=== PATIENT | female | born 1945 | race Caucasian/White ===

== ENCOUNTER → 2017-11-24 10:12 | Outpatient (CLI) | payer MEDICARE, OTHER, SELFPAY ==
[2017-11-24 12:35] LABS: Anion Gap 10 (5-15); Chloride 103 mmol/L (98-107); Potassium 3.2 mmol/L (3.5-5.1); Sodium Level 143 mmol/L (136-145); Thyroid Stim Hormone (TSH) 1.29 uIU/mL (0.358-3.74)
[2017-11-24 12:49] LABS: Vitamin B12 361 pg/mL (211-911)
[2017-11-26 03:47] LABS: Rapid Plasmin Reagin (RPR) NONREACTIVE (NONREACTIVE)
== END ==
PROVIDERS: Family Provider Family Medicine; PCP Family Medicine; Visit Provider Psychiatry & Neurology Neurology
DX: R41.3 Other amnesia (principal)
CPT/HCPCS: 36415; 80051; 82607; 84443; 86592

== ENCOUNTER → 2017-12-13 06:38 | Outpatient (CLI) | payer MEDICARE, OTHER, SELFPAY ==
--- NOTE | 2017-12-13 07:00 | PET_ITS ---
EXAMINATION: FDG PET BRAIN INDICATIONS: A 72-year-old female with history of cognitive impairment. COMPARISON EXAMINATION: None available. TECHNIQUE: Following the intravenous administration of 9.07 mCi of F-18 deoxyglucose via the left antecubital fossa, multiplanar image acquisitions of the brain obtained at 60 minutes post radiopharmaceutical administration reveal: SERUM GLUCOSE LEVEL: 98 mg/dl. HEIGHT: 60 inches. WEIGHT: 125 lbs FINDINGS: 1. Qualitative, visual analysis demonstrates decreased glucose metabolism defined in the bilateral parietal, left temporal and left frontal cerebral cortex. There is otherwise preserved and symmetric glucose metabolism noted in the remaining cerebral cortical and subcortical structures. PET/PET Brain Metabolic Eval IMPRESSION: 1. Decreased glucose concentration observed in the bilateral parietal, left temporal and frontal cerebral cortex is commensurate with cholinergic dysfunction, which in the absence of known cerebrovascular event likely is primary care sales representative of dementia, Alzheimer type. (Vinod, Molecular Imaging and Biology 4:239, 2004). Electronic Signature Sd Roque D.O. Electronically Signed: Sd Roque DO at 7:20 EDT Tel , Service support ,
== END ==
PROVIDERS: Family Provider Family Medicine; PCP Family Medicine; Visit Provider Psychiatry & Neurology Neurology
DX: R41.3 Other amnesia (principal)
CPT/HCPCS: 78608; A9552

== ENCOUNTER 2018-07-23 03:33 | Emergency (ER) | payer MEDICARE, OTHER, SELFPAY ==
[2018-07-23 03:34] VITALS: BP 137/115; PULSE 126; RESP 18; TEMP 35.9; O2SAT 99; BMI 24.4
[2018-07-23 04:33] VITALS: BP 155/108; PULSE 115; RESP 20; O2SAT 93
[2018-07-23] MEDS: Oxymetazoline 0.05% 1 SPRAY SPRAY.BTL 2 SPRAY NASAL (04:51)
--- NOTE | 2018-07-23 05:30 | ED.DCSUM_ITS ---
- ER Visit Summary Date of Service: 07/23/18 Chief Complaint: [] Nosebleed History of Present Illness: The patient is a 73 F developed a nosebleed yesterday morning for 30 minutes that went away. It came back this morning at 250. Left side greater than right. She is on a baby aspirin. She had a similar bleed last Wednesday that stopped on its own. She is never had this before. Physical Examination: [] Vital signs reviewed General: Well-nourished well-developed Head: Normocephalic atraumatic Eyes: Pupils equal round and reactive to light extraocular movements intact ENT: TMs clear no hemotympanum no trauma positive brisk nosebleed left greater than right Neck: Nontender full range of motion Cardiovascular: Regular cardia rhythm no murmurs normal S1-S2 Respiratory: No distress clear to auscultation bilaterally chest nontender Abdomen: Soft nontender nondistended normal bowel sounds no masses Back: Nontender no CVA tenderness Extremities: Nontender active range of motion ?4 extremities no trauma Skin: Normal color no trauma Neuro alert oriented cranial nerves II through XII intact normal strength sensation reflexes Test Results: [] Emergency Department Course and Treatment: [] Patient instructed to blow her nose. Afrin nasal spray instilled in the bilateral nares and pressure was held for almost 30 minutes. Continuing bleeding noted that was brisk. Rhino Rocket placed in the bilateral nares left first with still some bleeding on the right. Right one stayed in for approximately 45 minutes and then fell out. It was in about 90% of the way. The bleeding on the right stopped. The bleeding on the left stopped. She was watched in the department for extended period time with no rebleeding. She will follow-up with ENT in 48 hours Treatment Plan: [] Disposition: [] Impression: [] Left-sided nosebleed status post Rhino Rocket Right-sided nosebleed status post Rhino Rocket This note was generated with [employer] software. It may contain incorrect words, spelling, and punctuation that were not noted in review of the chart prior to signing ED Disposition - Plan for ED Patient: Referrals: Jed Wilcox MD [Primary Care Provider] -
--- NOTE | 2018-07-23 05:31 | DCINST.ED_ITS ---
ED Disposition - Plan for ED Patient: Disposition: Home or Assisted Living Instructions: Nosebleed Prescriptions: Hydrocodone Bitart/Apap 5-325 [[place] 5MG-325MG] 1 tab PO Q4H PRN PRN 2 Days #10 tab PRN Reason: Pain Referrals: Jed Wilcox MD [Primary Care Provider] - Jose Joseph MD [STAFF PHYSICIAN] -
[2018-07-23] MEDS: HYDROcodone Bitartrate/Apap 5/325 Tablet PO (05:42)
[2018-07-23 05:43] VITALS: BP 147/98; PULSE 110; O2SAT 96
== END 2018-07-23 05:46 | disposition home or self-care (01) ==
PROVIDERS: Emergency Provider Emergency Medicine; Family Provider Family Medicine; PCP Family Medicine
DX: R04.0 Epistaxis (principal); I10 Essential (primary) hypertension; K21.9 Gastro-esophageal reflux disease without esophagitis; Z79.82 Long term (current) use of aspirin
CPT/HCPCS: 30903; 99283; A4216

== ENCOUNTER 2020-08-05 12:01 | Outpatient (RCR) | payer MEDICARE, SELFPAY | END 2020-08-05 23:59 | LOC: IMMUN 12:01 | PROVIDERS: PCP Family Medicine; Visit Provider Family Medicine | DX: Z23 Encounter for immunization (principal) | CPT/HCPCS: 0011A; 0012A ==

== ENCOUNTER 2021-07-01 18:13 | Emergency (ER) | payer MEDICARE, OTHER, SELFPAY ==
[2021-07-01 18:14] VITALS: BP 114/88; PULSE 85; RESP 16; TEMP 36.6; O2SAT 100; BMI 24.4
--- NOTE | 2021-07-01 18:51 | CT_ITS ---
STUDY: CT Abdomen And Pelvis W/O Contrast Injection 07/01/2021 7:25 PM REASON FOR EXAM: Female, 76 years old. Frequent urination, lower back and abdominal pain. Left flank pain Individualized dose optimization techniques were used for this CT. COMPARISON: None. TECHNIQUE: CT Abdomen And Pelvis W/O Contrast Injection FINDINGS: There are atherosclerotic calcifications of visualized coronary arteries. The visualized portions of the heart are within normal limits. Normal liver. There is non-visualization of the gallbladder, which may be secondary to either contraction or a prior cholecystectomy. Normal spleen. Normal pancreas. There is a small, circumscribed, smooth, low attenuation left adrenal mass, consistent with an adrenal adenoma. Normal right adrenal gland. Non obstructive 1 to 2 mm right renal parenchymal stones. Moderate hydronephrosis caused by 7.1 mm proximal left ureteral stone. Normal visualized stomach. Normal small intestine. Stool throughout the colon. There is non-visualization of the appendix. There are calcifications of the abdominal aorta. This is consistent for atherosclerotic disease. There is no abdominal aortic aneurysm. Normal inferior vena cava. Subcentimeter mesenteric lymph nodes. Normal urinary bladder. Normal visualized uterus. There is an umbilical hernia containing fat. There are diffuse degenerative changes of the visualized lumbar spine. Vacuum disc phenomenon. There is bilateral neural foraminal stenosis at L5-S1. IMPRESSION: (NOT LISTED IN ORDER OF SIGNIFICANCE) Moderate hydronephrosis caused by 7.1 mm proximal left ureteral stone. Nonobstructive right renal stone. Other findings as above. Electronically Signed: Luis Rudolph MD at 19:28 EST , CT/Abdomen/Pelvis without Cont
--- NOTE | 2021-07-01 18:52 | EDS_ITS ---
HPI History of Present Illness Chief Complaint: Complaint Informant: patient and spouse/S.O. Onset/Context/Timing Onset: Today Context: Gradual Onset Timing: Continuous Location: Left upper and lower abdomen and left lumbar area and left flank area Worsened by: Nothing Relieved by: Nothing Narrative Narrative: Patient presents with urinary frequency, left-sided abdominal pain, and constipation that began today. Patient states she started urinating more frequently this afternoon. reports that she has been urinating approximately every 5 minutes. states that they went to the urgent care [facility] where they did a urinalysis which did not show any blood in her urine. states that when they were palpating her abdomen she was complaining of left-sided abdominal pain. states that they were concerned over possible diverticulitis or kidney stone because of this and referred the patient to the emergency department. Patient states her pain is mostly on the left side of her abdomen and left side of her back. [facility] Medical History (Updated 07/01/21 @ 20:[address] Jacky Morfin, DO) Alzheimer disease Home Medications Vitamin D3 1,000 unit PO DAILY 07/23/18 [History Last Taken Unknown] amlodipine 1 tab PO DAILY 07/23/18 [History Last Taken Unknown] calcium carbonate-vitamin D3 1 tab PO DAILY 07/23/18 [History Last Taken Unknown] cyanocobalamin (vitamin B-12) 1,000 mcg PO DAILY 07/23/18 [History Last Taken Unknown] multivitamin [Daily Multiple Vitamin] 1 ea PO DAILY 07/23/18 [History Last Taken Unknown] atorvastatin 20 mg PO DAILY 07/01/21 [History Last Taken Unknown] donepezil 23 mg PO DAILY 07/01/21 [History Last Taken Unknown] hydrocodone-acetaminophen 1 tab PO Q6H PRN PRN 3 Days #10 tablet 07/01/21 [Rx La st Taken Unknown] pantoprazole 40 mg PO DAILY 07/01/21 [History Last Taken Unknown] sertraline 25 mg PO DAILY 07/01/21 [History Last Taken Unknown] Allergy/AdvReac Type Severity Reaction Status Date / Time Calcium Channel Blocking Allergy PT UNSURE Verified 07/01/21 18:17 Agent Dilt OF REACTION doxepin [From Sinequan] Allergy PT UNSURE Verified 07/01/21 18:17 OF REACTION Surgical History (Updated 07/01/21 @ 18:[address] Jacky Morfin, DO) History of carpal tunnel surgery Hx of cholecystectomy Social History Smoking Status: Never smoker ROS ROS ED Constitutional Constitutional ED: Denies chills or fever(s) Eyes Eyes: Denies blurry vision or change in vision ENT ENT ED: Denies rhinorrhea or sore throat Cardiovascular Cardiovascular: Denies chest pain or palpitations Respiratory/Chest Respiratory/Chest: Denies cough or dyspnea Gastrointestinal Gastrointestinal: Reports abdominal pain; Denies nausea or vomiting Genitourinary Genitourinary ED: Reports urinary frequency; Denies dysuria or hematuria Musculoskeletal Musculoskeletal: Reports back pain; Denies neck pain Integumentary Denies abscess or rash Neurologic Neurologic: Denies headache(s) or weakness Allergic/Immunologic Allergic/Immunologic ED: Denies mouth swelling or urticaria EXAM Physical Exam Const Vital Signs: 07/01/21 18:14 Temperature 97.9 F Temperature Source Temporal Pulse Rate 85 Respiratory Rate 16 Blood Pressure 114/88 H Blood Pressure Mean 96 Pulse Ox 100 Oxygen Delivery Method Room Air Positive well nourished and well developed General Appearance ED: well developed HEENT Reports moist mucous membranes Neck supple and no JVD Resp normal respiratory effort and clear to auscultation bilaterally Cardio regular rate, regular rhythm and no murmurs GI normal to inspection, nondistended, normoactive bowel sounds and non-tender Palpation: soft Extremity normal to inspection General Extremety ED: Negative for edema or tenderness General Extremity: Negative for edema Neuro oriented x3, CN's II-XII intact bilaterally and no sensory deficits noted Sensorium / Orientation: alert Motor Exam: strength 5/5 throughout Psych mental status grossly normal Skin no rashes or lesions noted MDM MDM MDM Narrative Medical decision making narrative: Patient was given a dose of Magness here. CBC shows a mild leukocytosis of 16.7. Comprehensive metabolic profile shows potassium of 2.9. Creatinine is 1.22. Lipase was normal. Urinalysis does not show any evidence of urinary tract infection. CT scan of the abdomen and pelvis was obtained. There is a 7.1 mm calculus of the left proximal ureter with moderate hydronephrosis. There is a nonobstructive right renal stone. There is no other acute abnormality noted. Patient was also given a dose of potassium here. Patient was given a prescription for a short course of Magness. Patient was instructed to drink plenty of fluids. Patient was given a referral for urology. Patient was instructed to follow-up in 3 to 5 days. Patient and family understood and were agreeable with the plan. All questions were answered. Lab Data Attestation: I reviewed the patient's lab results. Labs: Laboratory Results - last 24 hr 07/01/21 07/01/21 07/01/21 18:35 19:10 19:10 WBC 16.7 H RBC 4.70 Hgb 14.1 Hct 43.9 MCV 93.4 MCH 30.0 MCHC 32.1 RDW Std Deviation 49.4 H RDW Coeff of Matt 14.2 Plt Count 307 MPV 9.0 Immature Gran % (Auto) 0.400 Neut % (Auto) 88.1 H Lymph % (Auto) 6.4 L [place] % (Auto) 4.5 Eos % (Auto) 0.2 Baso % (Auto) 0.4 Absolute Neuts (auto) 14.7 H Absolute Lymphs (auto) 1.06 Nucleated RBC % 0 Sodium 138 Potassium 2.9 L Chloride 99 Carbon Dioxide 32.0 Anion Gap 7 BUN 13 Creatinine 1.22 H Estim Creat Clear Calc 34.52 Est GFR (MDRD) Af Amer 55 L Est GFR (MDRD) Non-Af 46 L BUN/Creatinine Ratio 10.7 Glucose 130 H Calcium 10.0 Total Bilirubin 0.60 AST 22 ALT 33 Alkaline Phosphatase 83 Total Protein 7.3 Albumin 3.8 Globulin 3.5 Albumin/Globulin Ratio 1.1 Lipase 106 Urine Color Yellow Urine Clarity Clear Urine pH 6.0 Ur Specific Hurricane 1.025 Urine Protein 15 H Urine Glucose (UA) Normal Urine Ketones Negative Urine Occult Blood 25 H Urine Nitrite Negative Urine Bilirubin Negative Urine Urobilinogen Normal Ur Leukocyte Esterase Negative Urine RBC 0 SEEN Urine WBC 0 SEEN Ur Squamous Epith Cells 0 SEEN Calcium Oxalate Crystal 1+ Urine Bacteria 0 SEEN Urine Mucus 0 SEEN Radiography Diagnostic Testing: Clinical Impression(s) from Imaging Studies Abdomen/Pelvis CT 07/01/21 18:51 Discharge Plan Triage Chief Complaint: Complaint ED Provider: Jacky Morfin Dx/Rx/DC Orders Clinical Impression: Calculus of proximal left ureter Instructions: ED Kidney Stone w/ Colic Prescriptions: New hydrocodone-acetaminophen [hydrocodone-acetaminophen] 1 TABLET tablet 1 tab PO Q6H PRN PRN (Reason: Pain) 3 Days Qty: 10 RF: 0 No Action multivitamin [Daily Multiple] 1 EACH tablet 1 ea PO DAILY RF: 0 amlodipine 5 MG tablet 1 tab PO DAILY RF: 0 calcium carbonate-vitamin D3 1 EACH tablet 1 tab PO DAILY RF: 0 cyanocobalamin (vitamin B-12) 1,000 MCG capsule 1,000 mcg PO DAILY RF: 0 Vitamin D3 1,000 unit PO DAILY RF: 0 atorvastatin 20 mg tablet 20 mg PO DAILY RF: 0 pantoprazole 40 mg tablet,delayed release (DR/EC) 40 mg PO DAILY RF: 0 sertraline 25 mg tablet 25 mg PO DAILY RF: 0 donepezil 23 mg tablet 23 mg PO DAILY RF: 0 Primary Care Provider: Jed Wilcox Referrals: Jed Wilcox MD [Primary Care Provider] - 5-7 Days Shalonda Davila MD [STAFF PHYSICIAN] - 3-5 Days Disposition Disposition: Home, Self Care
[2021-07-01 19:16] LABS: Absolute Lymphocyte Count 1.06 X10^3/uL (0.83-4.51); Absolute Neutrophil Count 14.7 X10^3/uL (2.0-7.7); Basophil# 0.06 X10^3/uL; Basophil% 0.4 % (0-1); Eosinophil# 0.03 X10^3/uL; Eosinophils% 0.2 % (0-5); Hematocrit 43.9 % (37-47); Hemoglobin 14.1 g/dL (12.0-15.0); Lymphocyte # 1.06 X10^3/ul (0.83-4.51); Lymphocyte % 6.4 % (19-41); Mean Corp Hgb Conc 32.1 g/dL (32-36); Mean Corpuscular Volume 93.4 fL (81-99); Monocyte# 0.75 X10^3/uL; Monocyte% 4.5 % (0-10); NRBC Flagged by Analyzer 0 % (0-5); Neutrophil # 14.72 X10^3/uL (2.7-7.7); Neutrophil % 88.1 % (47-70); Platelet Count 307 K/mm3 (150-450); RBC Distribution Width CV 14.2 % (11.6-14.6); RBC Distribution Width SD 49.4 fl (35.1-43.9); White Blood Count 16.7 K/mm3 (4.4-11.0)
[2021-07-01 19:35] LABS: Bacteria 0 SEEN /hpf (None Seen); Mucous, Urine 0 SEEN /hpf (<or=2+); Red Blood Cells-Urine 0 SEEN /hpf (0-5); Squamous Epithelial Cells - UA 0 SEEN /hpf (5-10); White Blood Cells 0 SEEN /hpf (0-5)
[2021-07-01 19:36] LABS: Color, Urine Yellow (Yellow); Glucose, Dipstick Normal (Normal); Ketone-Dipstick Negative (Negative); Leukocyte Esterase-Dipstick Negative /ul (Negative); Nitrite-Dipstick Negative (Negative); Occult Blood-Urine 25 /ul (Negative); Protein-Dipstick 15 mg/dl (Negative); Specific Gravity, Urine 1.025 (1.002-1.030); Urine Bilirubin Dipstick Negative (Negative); Urine Clarity Clear (Clear); Urine Urobilinogen Normal (Normal)
[2021-07-01 19:38] LABS: ALB/GLOB Ratio 1.1 RATIO (0.9-2.4); AST(SGOT) 22 U/L (15-37); Alanine Aminotransfer ALT/SGPT 33 U/L (13-56); Albumin, Serum 3.8 g/dL (3.2-5.0); Alkaline Phosphatase 83 U/L (45-117); Anion Gap 7 (5-15); BUN 13 mg/dL (7-18); BUN/Creat Ratio 10.7 RATIO (10-20); Chloride 99 mmol/L (98-107); Creatinine, Serum 1.22 mg/dL (0.55-1.02); EST Glomerular Filtration Rate 46 mL/min (>60); Est Glom Filt Rate - Afr Amer 55 mL/min (>60); Estimated Creatinine Clearance 34.52 ml/min; Globulin 3.5 g/dL (2.2-4.2); Glucose 130 mg/dL (74-106); Lipase 106 U/L (73-393); Potassium 2.9 mmol/L (3.5-5.1); Protein, Total 7.3 g/dL (6.4-8.2); Sodium Level 138 mmol/L (136-145)
[2021-07-01 19:54] LABS: Calcium Oxalate Crystals Ur 1+ /hpf (<or=2+)
[2021-07-01] MEDS: Potassium Chloride Oral Tablet 20 MEQ 40 MEQ PO (20:46)
== END 2021-07-01 21:53 | disposition home or self-care (01) ==
PROVIDERS: Emergency Provider Emergency Medicine; PCP Family Medicine; Visit Provider Emergency Medicine
DX: N13.2 Hydronephrosis with renal and ureteral calculous obstruction (principal); G30.9 Alzheimer's disease, unspecified; F02.80 Dementia in other diseases classified elsewhere, unspecified severity, without behavioral disturbance, psychotic disturbance, mood disturbance, and anxiety; E87.6 Hypokalemia
CPT/HCPCS: 74176; 80053; 81001; 83690; 85025; 99284; A4216

== ENCOUNTER 2021-07-04 15:19 | Day surgery (SDC) | payer MEDICARE, OTHER, SELFPAY ==
[2021-07-04] VITALS (7 sets, daily range): BP systolic 121–159; BP diastolic 69–100; PULSE 76–113; RESP 16; TEMP 36.1–37.8; O2SAT 92–98; BMI 24.0
--- NOTE | 2021-07-04 15:09 | RAD_ITS ---
STUDY: X-RAY - ABDOMEN/PELVIS REASON FOR EXAM: Female, 76 years old. Preop for lithotripsy TECHNIQUE: Two AP supine views of the abdomen and pelvis. COMPARISON: CT from 07/01/2021 FINDINGS: Normal visualized lung bases. There is a moderate amount of colonic fecal material. There is no demonstrated free abdominal air. The visualized liver, spleen and kidneys are grossly normal in size and morphology. Stable 1.02 cm calcification shown on the previous CT to be within the proximal left ureter. Normal soft tissue structures. There are diffuse degenerative changes of the visualized lumbar spine. RAD/Abdomen Single View IMPRESSION: Stable left ureterolithiasis Electronically Signed: Brijesh Verdugo MD at 16:30 EST ,
[2021-07-04] MEDS: Lactated Ringers 1,000 ML 15 ML IV (16:04)
[2021-07-04 16:28] LABS: Potassium 3.2 mmol/L (3.5-5.1)
[2021-07-04] MEDS: Cefazolin 2 GM in 0.9% Normal Saline 100 ML IV (17:14)
--- NOTE | 2021-07-04 17:35 | PCM.HP.STD ---
HPI - General HPI Narrative ASHER LEES, is a 76 F who presents for treatment of a left kidney stone PFSH Medical History (Updated 07/03/21 @ 12:20 by Nae Adams) Alzheimer disease Gastric reflux Hypertension Home Medications Vitamin D3 1,000 unit PO DAILY 07/23/18 [History Last Taken Unknown] amlodipine 1 tab PO DAILY 07/23/18 [History Last Taken 07/04/21] calcium carbonate-vitamin D3 1 tab PO DAILY 07/23/18 [History Last Taken 07/04/21] cyanocobalamin (vitamin B-12) 1,000 mcg PO DAILY 07/23/18 [History Last Taken 07/04/21] multivitamin [Daily Multiple] 1 ea PO DAILY 07/23/18 [History Last Taken 07/04/21] atorvastatin 20 mg PO DAILY 07/01/21 [History Last Taken Unknown] donepezil [Aricept] 23 mg PO DAILY 07/01/21 [History Last Taken Unknown] hydrocodone-acetaminophen 1 tab PO Q6H PRN PRN 3 Days #10 tablet 07/01/21 [Rx Last Taken 07/04/21] pantoprazole 40 mg PO DAILY 07/01/21 [History Last Taken 07/04/21] sertraline [Zoloft] 25 mg PO DAILY 07/01/21 [History Last Taken 07/04/21] cephalexin 500 mg PO BID #10 cap 07/04/21 [Rx Last Taken Unknown] Allergy/AdvReac Type Severity Reaction Status Date / Time Calcium Channel Blocking Allergy PT UNSURE Verified 07/04/21 15:57 Agent Dilt OF REACTION doxepin [From Sinequan] Allergy PT UNSURE Verified 07/04/21 15:57 OF REACTION Surgical History (Updated 07/01/21 @ 18:[address] Jacky Morfin DO) History of carpal tunnel surgery Hx of cholecystectomy Social History Smoking Status: Never smoker Vital Signs Vital Signs Vital Signs: 07/04/21 15:59 Temperature 97 F L Temperature Source Temporal Pulse Rate 113 H Respiratory Rate 16 Respiratory Pattern Normal Blood Pressure 121/77 H Blood Pressure Mean 91 Blood Pressure Source Monitor Blood Pressure Position Sitting Blood Pressure Location Left Arm Pulse Ox 98 Oxygen Delivery Method Room Air Weight Weight: 53.9 kg Body Mass Index (BMI) 24.0 Results Lab / Micro Data Result Diagrams: 07/04/21 15:56 Labs: Laboratory Results - last 24 hr 07/04/21 15:56: Potassium 3.2 L Radiology Impression KUB X-Ray 07/04/21 15:09 IMPRESSION: Stable left ureterolithiasis Electronically Signed: Brijesh Verdugo MD at 16:30 EST ,
--- NOTE | 2021-07-04 17:36 | DCINST_ITS ---
Discharge Instructions Diet Discharge Diet: No restrictions Activity Discharge Activity: Return to Normal Activity and May Not Drive (while taking narcotic pain medications.) Dressing / Incision Call your doctor if you observe: Fever of 101 or Higher Follow Up Care Please Follow Up With: Christian Aldana MD When: Call [phone] for an appointment Test Results: Test results from this visit will be discussed in further detail at your follow-up appointment, if applicable. Discharge Plan Admission Primary Reason for Your Visit: left kidney stone Attending Provider: Christian Aldana Primary Care Provider: Jed Wilcox Instructions Patient Instructions: Shock Wave Lithotripsy Discharge Orders/Prescriptions Prescriptions: New cephalexin 500 mg capsule 500 mg PO BID Qty: 10 RF: 0 Continued multivitamin [Daily Multiple] 1 EACH tablet 1 ea PO DAILY RF: 0 amlodipine 5 MG tablet 1 tab PO DAILY RF: 0 calcium carbonate-vitamin D3 1 EACH tablet 1 tab PO DAILY RF: 0 cyanocobalamin (vitamin B-12) 1,000 MCG capsule 1,000 mcg PO DAILY RF: 0 Vitamin D3 1,000 unit PO DAILY RF: 0 atorvastatin 20 mg tablet 20 mg PO DAILY RF: 0 pantoprazole 40 mg tablet,delayed release (DR/EC) 40 mg PO DAILY RF: 0 sertraline [Zoloft] 25 mg tablet 25 mg PO DAILY RF: 0 donepezil [Aricept] 23 mg tablet 23 mg PO DAILY RF: 0 hydrocodone-acetaminophen 1 TABLET tablet 1 tab PO Q6H PRN PRN (Reason: Pain) 3 Days Qty: 10 RF: 0 Other Ambulatory Orders: Abdomen Single View (Routine) Timeframe: [id number] Facility: [facility] - Location: [facility] Ordered By: Dr. Christian Aldana Referrals / Follow Up: Jed Wilcox MD [Primary Care Provider] - Christian Aldana MD [STAFF PHYSICIAN] - Disposition Disposition (needs filled in before D/C Order can be placed): Home, Self Care
--- NOTE | 2021-07-04 17:58 | PCM.OPRPT ---
Report of Operation Date of Procedure: 07/04/21 Pre-Operative Diagnosis: Left kidney stone Post-Operative Diagnosis: Same Surgery/Procedure Performed:: Left extracorporeal shockwave lithotripsy, cystoscopy and left stent placement Description of Surgical Findings:: Patient presents to the hospital for treatment of a kidney stone with shockwave lithotripsy. In the preoperative area and x-ray was done to confirm the location of the stone. The x-ray was reviewed and the stone location was reviewed. In the preoperative setting I spoke with the patient regarding the treatment of the stone how the treatment would be conducted and the expectations after surgery. The patient understands there is a risk of bleeding and infection. Also discussed the very rare risk of hematoma or damage to the kidney. We also discussed the risk that the shockwave machine will fail to break the stone adequately and that the patient may need other surgical procedures. We also discussed the possibility that the patient may need a stent after the procedure. After reviewing the procedure with the patient, the patient is signed the consent form all the patient's questions were addressed and was taken back to the operating room for treatment of a kidney stone. Patient was taken back to the operating room, patient was identified by the nursing staff, we identified the side of the treatment and the patient side of treatment had been marked by my initials. The patient underwent general anesthetic and was placed supine on the lithotripter table. We then used fluoroscopy to identify the stone on the left renal pelvis. The urethra and genitals were prepped and draped in usual sterile fashion. Using a 21 [place]ian rigid cystourethroscope the entire length of the urethra was normal then went into the bladder. Identified the trigone the left and right ureteral orifice. I then cannulated the left orifice and advanced a wire up into the kidney. I then backloaded a 5 [place]ian open ended catheter over the wire and injected contrast to delineate the anatomy. After the retrograde was performed I then used fluoroscopic images and guidance to advanced a wire up into the kidney and over the 0.038 glidewire I advanced a 6 Croatian by 26 cm double pigtail stent. I then pulled the 0.038 Glidewire off and the stent coiled in the kidney bladder good position. The bladder was then drained. We confirmed the position of the stent by fluoroscopy We then positioned the patient under the lithotripter and we used triangulation technique to identify the location of the stone and then we made sure that the stone was engaged in the F2 focal point of F2 Donier lithoprior machine. Once the patient was positioned appropriately and the stone was identified and placed in the F2 focal point of the lithotripter machine we then proceeded with shockwave lithotripsy. In the beginning the shockwave was delivered at a rate of 90 shocks per minute, we monitor the EKG for any ectopy. The power was slowly increased to 5 kV and subsequently at the 7 kV. We then proceeded with the treatment we move the therapy had around during the treatment to make sure the stone stayed in the F2 focal point during the entire treatment and after 3000 shockwaves were delivered to the stone under fluoroscopic guidance the treatment was completed. The patient was given instructions to call the office to make an a follow-up appointment with an xray to evaluate the success of the treatment, pateint understands that its possible the stones may need another procedure.At this point the patient's anesthetic was reversed patient was extubated and taken back to the PACU in stable condition. Surgeon: melissa Type of Anesthesia: General Drains: stent left side Admit VTE Documentation VTE Present on Admission: No VTE Mechan Device Prophylaxis: None VTE Pharm Prophylaxis ordered?: No
== END 2021-07-04 23:59 | disposition home or self-care (01) ==
LOC: SDC 15:26 → AC 15:27
PROVIDERS: Anesthesiology; PCP Family Medicine; Visit Provider Urology
PROC: (CPT 50590; principal; 2021-07-04 16:50)
DX: N20.0 Calculus of kidney (principal); G30.9 Alzheimer's disease, unspecified; F02.80 Dementia in other diseases classified elsewhere, unspecified severity, without behavioral disturbance, psychotic disturbance, mood disturbance, and anxiety; K21.9 Gastro-esophageal reflux disease without esophagitis; I10 Essential (primary) hypertension; Z79.899 Other long term (current) drug therapy
CPT/HCPCS: 52356; 00873; 74018; 84132; J7120; C1769; C2617; J2405

== ENCOUNTER 2021-07-08 10:37 | Outpatient (CLI) | payer MEDICARE, OTHER, SELFPAY ==
--- NOTE | 2021-07-08 10:45 | RAD_ITS ---
EXAM: XR ABDOMEN, 1 VIEW CLINICAL INDICATION: POST OP calculus of ureter TECHNIQUE: Frontal supine view of the abdomen/pelvis. This report was created using [employer] report generation technology. COMPARISON: 07.04.21 FINDINGS: LOWER THORAX: No acute pathology. GASTROINTESTINAL TRACT: Unremarkable. Non-obstructive. No bowel or stomach distention. ORGANS: Degenerative findings in the lumbar spine. There are calcified phleboliths in the pelvis. This makes differentiation with distal ureteral stones difficult. No organomegaly. BONES/JOINTS: No acute pathology. SOFT TISSUES: No acute pathology. TUBES, LINES AND DEVICES: Double-J left ureteral stent in place. RAD/Abdomen Single View IMPRESSION: No acute findings. Double-J left ureteral stent in place. Electronically Signed: Luis Rudolph MD at 18:52 EST Reading Location ID and State: [facility] / [place] , Service support ,
== END 2021-07-08 23:59 | disposition short-term general hospital (02) ==
PROVIDERS: PCP Family Medicine; Referring Provider Urology; Visit Provider Urology
DX: N20.1 Calculus of ureter (principal)
CPT/HCPCS: 74018

== ENCOUNTER 2025-06-05 19:30 | Emergency (ER) | payer MEDICARE, OTHER, SELFPAY ==
[2025-06-05 19:34] VITALS: BP 130/72; PULSE 72; RESP 16; TEMP 36.1; O2SAT 100; BMI 24.7
--- NOTE | 2025-06-05 20:15 | EX.ED.VIS.PS ---
HPI HPI - Psych History of Present Illness Chief Complaint: Mental Health Narrative Narrative: Chief complaint and HPI: 80-year-old female with past medical history of Alzheimer's disease alert and oriented x 1 at baseline presents from the [facility] for agitation episode. Unable to obtain history from patient given her baseline mental status therefore history taken by report. Patient became agitated at her facility and became aggressive with faculty. She became aggressive and they did not have as needed medications and sent her to the emergency department. Patient is currently calm but intermittently mildly agitated. Not aggressive. Has no complaints. Review of systems: See HPI Medications: As listed on the chart Allergies: As listed on the chart PFSH: Per chart Vital signs: As listed on the chart. Reviewed. Physical exam: Gen: A&O x1-patient's reported baseline, NAD Head: Normocephalic, atraumatic Eyes: No sclera icterus, conjunctiva clear, PERRL ENT: Moist mucous membranes CV: RRR, no murmurs Resp: Lungs CTA BL, no w/r/c Musc: Full ROM, no deformity Skin: Warm, dry Psych: Cooperative, calm but intermittently mildly agitated [facility] Medical History (Updated 06/05/25 @ 20:[address] Nestor Angeles, DO) Gastric reflux Hypertension Alzheimer disease Home Medications ?Medication ?Instructions ?Recorded ?Last Taken ?Type Vitamin D3 1,000 unit PO DAILY 07/23/18 Unknown History amlodipine 5 mg tablet 1 tab PO DAILY 07/23/18 07/04/21 History calcium 600 mg (as 1 tab PO DAILY 07/23/18 07/04/21 History carbonate)-vitamin D3 20 mcg (800 unit) tablet cyanocobalamin (vitamin B-12) 1,000 mcg PO DAILY 07/23/18 07/04/21 History 1,000 mcg capsule multivitamin (Daily Multiple 1 ea PO DAILY 07/23/18 07/04/21 History tablet) atorvastatin 20 mg tablet 20 mg PO DAILY 07/01/21 Unknown History donepezil 23 mg tablet (Aricept) 23 mg PO DAILY 07/01/21 Unknown History hydrocodone-acetaminophen 5-325mg 1 tab PO Q6H PRN PRN Pain 3 days 07/01/21 07/04/21 Rx 5mg-325mg #10 TABLETS pantoprazole 40 mg tablet,delayed 40 mg PO DAILY 07/01/21 07/04/21 History release sertraline 25 mg tablet (Zoloft) 25 mg PO DAILY 07/01/21 07/04/21 History cephalexin 500 mg capsule 500 mg PO BID #10 caps 07/04/21 Unknown Rx Allergy/AdvReac Type Severity Reaction Status Date / Time Calcium Channel Blocking Allergy PT UNSURE Verified 06/05/25 19:35 Agent Dilt OF REACTION doxepin (From [place]) Allergy PT UNSURE Verified 06/05/25 19:35 OF REACTION Surgical History Hx of cholecystectomy History of carpal tunnel surgery Social History Smoking Status: Never smoker EXAM Physical Exam Const Vital Signs: 06/05/25 19:34 Temperature 97 F L Temperature Source Temporal Pulse Rate 72 Respiratory Rate 16 Blood Pressure 130/72 H Blood Pressure Mean 91 Pulse Ox 100 Oxygen Delivery Method Room Air MDM MDM MDM Narrative Medical decision making narrative: 80-year-old female with past medical history of Alzheimer's disease alert and oriented x 1 at baseline presents from the [facility] for agitation episode. Unable to obtain history from patient given her baseline mental status therefore history taken by report. Patient became agitated at her facility and became aggressive with faculty. She became aggressive and they did not have as needed medications and sent her to the emergency department. Patient is currently calm but intermittently mildly agitated. Not aggressive. Has no complaints. No reported complaints by staff. I did consult our high school social science teacher. Patient does not meet any requirement for [facility]. 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 Will give 0.5 mg Ativan for agitation. Follow-up with primary care physician. I do not think any laboratory workup is needed. I personally spoke with the nurse that was taking care of the patient at the care facility. She is agreement to accepting the patient back. Impression: 1. Dementia 2. Intermittent agitation with aggression Discharge Plan Triage Chief Complaint: Mental Health ED Provider: Nestor Angeles Dx/Rx/DC Orders Clinical Impression: Dementia with agitation Instructions: Caring for End-Stage Dementia, Dementia Safety Tips for Caregivers, Dementia Daily Care Prescriptions: No Action multivitamin [Daily Multiple] 1 EACH tablet 1 ea PO DAILY amlodipine 5 MG tablet 1 tab PO DAILY calcium carbonate-vitamin D3 1 EACH tablet 1 tab PO DAILY cyanocobalamin (vitamin B-12) 1,000 MCG capsule 1,000 mcg PO DAILY Vitamin D3 1,000 unit PO DAILY atorvastatin 20 mg tablet 20 mg PO DAILY Patient Comments: TAKE 1 TABLET BY MOUTH ONCE DAILY FOR CHOLESTEROL pantoprazole 40 mg tablet,delayed release (DR/EC) 40 mg PO DAILY Patient Comments: TAKE 1 TABLET BY MOUTH ONCE DAILY sertraline [Zoloft] 25 mg tablet 25 mg PO DAILY Patient Comments: TAKE 1 TABLET BY MOUTH ONCE DAILY donepezil [Aricept] 23 mg tablet 23 mg PO DAILY Patient Comments: TAKE 1 TABLET BY MOUTH ONCE DAILY AT BEDTIME hydrocodone-acetaminophen 1 TABLET tablet 1 tab PO Q6H PRN PRN (Reason: Pain) 3 Days Qty: 10 0RF cephalexin 500 mg capsule 500 mg PO BID Qty: 10 0RF Primary Care Provider: Jed Wilcox Referrals: Jed Wilcox MD [Primary Care Provider, Family Practice] - 3-5 Days Activity Restrictions/Additional Instructions: Follow-up with primary care physician. Return back to the symptoms change or worsen. Print Language: Syriac Disposition Disposition: Home, Self Care
--- NOTE | 2025-06-05 20:37 | CM.ED ---
Social Work SW observed patient while in ED, unable to assess by interview as patient is alert and oriented x 1. Patient was calm during time in ED, did not get agitated by noise, lights, or activity in ED. Patient did wander unit at times, was easily redirected by nursing staff with no agitation. When patient spoke, was in a calm tone and was agreeable to whatever question or directive was given. No further concerns or needs identified at this time. Jennifer Cowan, INSIDE SALES ADVERTISING EXECUTIVE, EVENTS ADMINISTRATIVE ASSISTANT
[2025-06-05 20:39] VITALS: BP 133/73; PULSE 63; RESP 16; TEMP 36.1; O2SAT 99
--- OUTSIDE RECORDS SUMMARY | 2025-06-05 20:39 | XMS RPT_ITS | CCD ---
Author Organization [facility] Care Team Providers Care Multifocal Button Generator Name Role Phone Alisha Wilcox MD Primary Care Provider Alisha Wilcox MD Primary Care Provider Podlogar FRUIT PRESS OPERATOR.Shruthi KNAPP Unavailable [place] FRUIT PRESS OPERATOR.Chandrika KNAPP Unavailable [place] FRUIT PRESS OPERATOR.Chandrika KNAPP Unavailable ALISHA WILCOX Referring Unavailab ALISHA Love Primary Care Unavailab SADIE Moralez Attending Unavailable SADIE EASTMAN Referring Unavailable ALISHA WILCOX Primary Care Unavailab MARCUS Chairez JR Attending Unavailable MARCUS HANKS JR Referring Unavailable ALISHA WILCOX Primary Care Unavailab renetta TESTSADIE LARKIN Attending Unavailable SADIE EASTMAN Referring Unavailable ALISHA WILCOX Primary Care Unavailab le ALISHA WILCOX Referring Unavailab le ALISHA WILCOX Primary Care Unavailab le PODSHRUTHI ORR Attending Unavailable ALISHA WILCOX Primary Care Unavailab renetta TESTSADIE LARKIN Attending Unavailable TESTSADIE LARKIN Referring Unavailable ALISHA WILCOX Primary Care Unavailab le TESTRASADIE NOWAK Attending Unavailable SADIE EASTMAN Referring Unavailable ALISHA WILCOX Primary Care Unavailab ALISHA Love Referring Unavailab ALISHA Love Primary Care Unavailab ALISHA Love Attending Unavailab ALISHA Love Primary Care Unavailab le Allergies Allergy Classification Reported Allergen(s) Allergy Type Date of Onset Reaction(s) Facility Doxepin (2 sources) Doxepin Drug Allergy 5 Shortness of Breath [facility] Work Phone: (20 sources) Doxepin; Translations: [DOXEPIN HCL] Drug Allergy 5 Shortness of Breath [facility] Work Phone: (20 sources) CALCIUM CHANNEL BLOCKERS [Other] Propensity to adverse reactions 6 [facility] Work Phone: Medications Current Medications Medication Drug Class(es) Dates Sig (Normalized) Sig (Original) ALPRAZolam 0.5 mg oral tablet (20 sources) Benzodiazepine Start: 04-08-2022 End: 04-18-2022 take 1 tablet by mouth twice daily as needed ALPRAZolam (XANAX) 0.5 mg tablet Indications: Drug-induced parkinsonism (HCC) , Agitation Take 1 tablet by mouth twice daily as needed (agitation) for up to 10 days. 20 tablet 0 04/08/2022 04/18/2022 Active End: 03-31-2024 take 0.25 mg by mouth every twenty-four hours as needed ALPRAZolam (XANAX) 0.5 mg tablet Take 0.25 mg by mouth at bedtime as needed. 03/31/2024 Discontinued Comment on above: Take 1 tablet by olya th twice daily as needed (agitation) for up to 10 days. Take 0.25 mg by mout h at bedtime as needed. amLODIPine 5 mg oral tablet (20 sources) Dihydropyridine Calcium Channel Janneth Start: 06-16-19 End: 06-01-20 take 1 tablet by mouth once daily amLODIPine (NORVASC) 5 mg tablet Indications: Essential hypertension Take 1 tablet by mouth once daily. 90 tablet 3 06/01/2024 Active Start: 06-11-2020 End: 12-05-2020 take 1 tablet by mouth once daily amLODIPine (NORVASC) 5 mg tablet Take 1 tablet by mouth once daily. 90 tablet 1 06/11/2020 12/05/2020 Discontinued Comment on above: Take 1 tablet by olya th once daily. atorvastatin 20 mg oral tablet (20 sources) HMG-CoA Reductase Inhibitor Start: 11-18-19 End: 02-13-20 take 1 tablet by mouth once daily for hyperlipidemia atorvastatin (LIPITOR) 20 mg tablet Take 1 tablet by mouth once daily. For cholesterol. 90 tablet 3 02/12/2025 02/12/2026 Active Start: 05-10-2020 End: 11-14-2020 take 1 tablet by mouth once daily for hyperlipidemia atorvastatin (LIPITOR) 20 mg tablet Take 1 tablet by mouth once daily. For cholesterol. 90 tablet 1 05/10/2020 11/14/2020 Discontinued Comment on above: Take 1 tablet by olya th once daily. For cholesterol. cholecalciferol 0.05 mg oral capsule (20 sources) Vitamin D Cholecalciferol, Vitamin D3, 50 mcg (2,000 unit) cap Take by mouth. Active Cholecalciferol, Vitamin D3, (VITAMIN D-3) 2,000 unit cap Take by mouth. 0 Active Comment on above: Take by mouth. donepezil hydrochloride 23 mg oral tablet (20 sources) Start: 12-04-2022 End: 03-31-2025 take 1 tablet by mouth once daily at bedtime donepezil (ARICEPT) 23 mg tablet Indications: Alzheimers disease (HCC) Take 1 tablet by mouth daily at bedtime. 90 tablet 3 03/31/2024 03/31/2025 Active Start: 11-24-2021 End: 08-24-2022 take 1 tablet by mouth once daily at bedtime donepezil (ARICEPT) 23 mg tablet Indications: Alzheimers disease (HCC) Take 1 tablet by mouth daily at bedtime. 90 tablet 3 05/26/2022 Active Start: 06-11-2020 End: 12-05-2020 take 1 tablet by mouth once daily at bedtime donepezil (ARICEPT) 10 mg tablet Take 1 tablet by mouth daily at bedtime. 90 tablet 1 06/11/2020 12/05/2020 Discontinued Comment on above: Take 1 tablet by olya th daily at bedtime. fluticasone propionate 0.05 mg/actuat metered dose nasal spray (20 sources) Corticosteroid Start: End: take 2 spray(s) by mouth once daily fluticasone (FLONASE) 50 mcg/actuation nasal spray Use 2 sprays in each nostril once daily. Rinse mouth after use. 16 g 5 09/26/2024 Active Start: 06-24-2022 take 2 spray(s) by m outh once daily fluticasone (FLONASE) 50 mcg/actuation nasal spray Use 2 Sprays in each nostril once daily. Rinse mouth after use. 16 g 1 06/24/2022 Active Comment on above: Use 2 Sprays in each nostril once daily. Rinse mouth after use. memantine hydrochloride 10 mg oral tablet (20 sources) F-qnuzqf-N-aspartat e Receptor Antagonist Start: End: take 1 tablet by mouth twice daily memantine (NAMENDA) 10 mg tablet Indications: Alzheimer's dementia with agitation, unspecified dementia severity, unspecified timing of dementia onset (HCC) Take 1 tablet by mouth two times a day. 180 tablet 3 11/14/2024 Active Start: 06-24-2022 take 1 tablet by olya th twice daily memantine (NAMENDA) 10 mg tablet Indications: Alzheimer's dementia with agitation, unspecified dementia severity, unspecified timing of dementia onset (HCC) Take 1 tablet by mouth twice daily. 60 tablet 3 06/24/2022 Active Start: 03-27-2022 End: 06-24-2022 take 1 tablet by mouth twice daily memantine (NAMENDA) 5 mg tablet Take 1 tablet by mouth twice daily. 60 tablet 5 05/06/2022 06/24/2022 Discontinued Start: 02-23-2022 End: 03-25-2022 take 1 tablet by mouth twice daily memantine (NAMENDA) 5 mg tablet Indications: Alzheimers disease (HCC) Take 1 tablet by mouth twice daily. 60 tablet 1 02/23/2022 03/25/2022 Active Start: 12-22-2021 End: 01-21-2022 take 1 tablet by mouth twice daily memantine (NAMENDA) 5 mg tablet Indications: Alzheimers disease (HCC) Take 1 tablet by mouth twice daily. 60 tablet 1 12/22/2021 01/21/2022 Active Comment on above: Take 1 tablet by olya th twice daily. Take 5 mg by mouth t wice daily. ONE DAILY MULTI-VITAMIN TAB (20 sources) Start: 6 ONE DAILY MULTI-VITAMIN TAB Take one(1) tablet daily. 0 06/10/2005 Active Comment on above: Take one(1) tablet d aily. pantoprazole 40 mg delayed release oral tablet (20 sources) Proton Pump Inhibitor Start: End: take 1 tablet by mouth once daily pantoprazole DR (PROTONIX) 40 mg tablet Indications: GERD without esophagitis Take 1 tablet by mouth once daily. 90 tablet 3 06/01/2024 Active Start: 06-11-2020 End: 12-05-2020 take 1 tablet by mouth once daily pantoprazole DR (PROTONIX) 40 mg tablet Take 1 tablet by mouth once daily. 90 tablet 1 06/11/2020 12/05/2020 Discontinued Comment on above: Take 1 tablet by olya th once daily. potassium chloride 1.33 meq/ml oral solution (20 sources) Start: 01-01-2025 take 15 mL by mouth once daily potassium chloride 20 mEq/15 mL solution Take 15 mL by mouth once daily. 473 mL 1 01/01/2025 Active Start: 01-25-2023 End: 01-01-2025 take 1 tablet by mouth once daily potassium chloride ER (KLOR-CON) 20 mEq tablet Indications: Hypokalemia Take 1 tablet by mouth once daily. 90 tablet 3 02/02/2024 01/01/2025 Discontinued Start: 01-07-2022 End: 01-22-2023 take 1 tablet by mouth once daily potassium chloride ER (K-DUR, KLOR-CON) 20 mEq tablet Indications: Hypokalemia Take 1 tablet by mouth once daily. 90 tablet 1 07/06/2022 01/22/2023 Discontinued Start: 12-23-2021 End: 01-07-2022 take 1 tablet by mouth once daily at breakfast potassium chloride (K-TAB) 10 mEq tablet Indications: Hypokalemia Take 1 tablet by mouth daily with breakfast. 30 tablet 1 12/23/2021 01/07/2022 Discontinued Comment on above: Take 1 tablet by olya th daily with breakfast. Take 1 tablet by olya th once daily. sertraline 25 mg oral tablet (20 sources) Serotonin Reuptake Inhibitor Start: 03-02-2022 End: 09-26-2024 take 1 tablet by mouth once daily sertraline (ZOLOFT) 25 mg tablet Take 1 tablet by mouth once daily. 90 tablet 2 09/26/2024 Active Start: 08-25-2021 End: 02-28-2022 take 1 tablet by mouth once daily sertraline (ZOLOFT) 25 mg tablet Take 1 tablet by mouth once daily. 90 tablet 1 08/25/2021 02/28/2022 Discontinued Comment on above: Take 1 tablet by olya th once daily. vitamin b12 1 mg oral tablet (20 sources) Vitamin B12 Start: 12-05-2020 End: 12-05-2020 take 1 tablet by mouth once daily cyanocobalamin (VITAMIN B-12) 1,000 mcg tab Take 1 tablet by mouth once daily. 90 tablet 1 12/05/2020 Active Comment on above: Take 1 tablet by olya th once daily. Completed/Discontinued Medications Medication Drug Class(es) Dates Sig (Normalized) Sig (Original) diclofenac sodium 0.01 mg/mg topical gel (20 sources) Nonsteroidal Anti-inflammatory Drug Start: 08-30-2020 diclofenac (VOLTAREN ARTHRITIS PAIN) 1 % topical gel Apply 2 g to affected area four times daily. 100 g 0 08/30/2020 Active Comment on above: Apply 2 g to affecte d area four times daily. haloperidol 1 mg oral tablet (14 sources) Typical Antipsychotic Start: 02-28-2021 End: 04-08-2022 haloperidol (HALDOL) 1 mg tablet Take one tablet twice a day as needed for severe agitation 60 tablet 1 01/19/2022 04/08/2022 Discontinued Comment on above: Take one tablet twic e a day as needed for severe agitation 24 hr oxybutynin chloride 5 mg extended release oral tablet (1 source) Cholinergic Muscarinic Antagonist Start: 11-12-2023 End: 11-12-2023 take 1 tablet by mouth once daily oxybutynin XL (DITROPAN XL) 5 mg 24 hr tablet Take 1 tablet by mouth once daily. 30 tablet 1 11/12/2023 11/12/2023 Discontinued vibegron (GEMTESA) 75 mg tablet (5 sources) Start: 11-15-2023 End: 01-04-2024 take 1 tablet by mouth once daily vibegron (GEMTESA) 75 mg tablet Take 1 tablet by mouth once daily. 30 tablet 1 11/15/2023 01/04/2024 Discontinued (Course of therapy completed) Start: 11-15-2023 take 1 tablet by olya th once daily vibegron (GEMTESA) 75 mg tablet Take 1 tablet by mouth once daily. 30 tablet 1 11/15/2023 Active Problems Active Problems Problem Classification Problem Date Documented Date Episodic/Chronic Delirium, dementia, and amnestic and other cognitive disorders (20 sources) Alzheimer's disease; Translations: [Alzheimer's disease, unspecified] Onset: 11-15-2023 Chronic Diabetes mellitus without complication (2 sources) Hyperglycemia; Translations: [Hyperglycemia, unspecified] Episodic Disorders of lipid metabolism (20 sources) Mixed hyperlipidemia; Translations: [Mixed hyperlipidemia] Onset: 03-16-2018 03-16-2018 Chronic Diverticulosis and diverticulitis (20 sources) Diverticulosis of colon; Translations: [Diverticulosis of large intestine without perforation or abscess without bleeding] 06-10-2005 Chronic Esophageal disorders (20 sources) Gastroesophageal reflux disease; Translations: [Gastro-esophageal reflux disease without esophagitis] 06-10-2005 Chronic Essential hypertension (20 sources) Essential hypertension; Translations: [Essential (primary) hypertension] Onset: 12-26-2024 Chronic Genitourinary symptoms and ill-defined conditions (1 source) Urinary incontinence; Translations: [Unspecified urinary incontinence] Chronic Genitourinary symptoms and ill-defined conditions (5 sources) Increased frequency of urination; Translations: [Frequency of micturition] Episodic Hemorrhoids (20 sources) Hemorrhoids; Translations: [Unspecified hemorrhoids] 06-10-2005 Episodic Immunizations and screening for infectious disease (2 sources) Patient encounter status; Translations: [Encounter for immunization] Episodic Nutritional deficiencies (20 sources) Vitamin D deficiency; Translations: [Vitamin D deficiency, unspecified] Onset: 12-10-2017 Chronic Other bone disease and musculoskeletal deformities (20 sources) Osteopenia; Translations: [Other specified disorders of bone density and structure, unspecified site] 09-06-2017 Episodic Other circulatory disease (1 source) Clearing throat - hawking; Translations: [Other specified symptoms and signs involving the circulatory and respiratory systems] 12-22-2022 Episodic Other connective tissue disease (6 sources) Pain of toe of left foot; Translations: [Pain in left toe(s)] 09-07-2023 Episodic Other connective tissue disease (6 sources) Pain of toe of right foot; Translations: [Pain in right toe(s)] 09-07-2023 Episodic Other connective tissue disease (1 source) Pain of left hand; Translations: [Pain in left hand] 08-28-2020 Episodic Other ear and sense organ disorders (1 source) Impacted cerumen of bilateral ears; Translations: [Impacted cerumen, bilateral] 12-22-2022 Episodic Other nervous system disorders (3 sources) Parkinsonism due to drug; 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 Other nervous system disorders (1 source) Other drug induced secondary parkinsonism; 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)] Onset: 10-23-2024 Chronic Other nervous system disorders (1 source) Finding of hand region; Translations: [Tremor, unspecified] Episodic Other nervous system disorders (1 source) Tremor; Translations: [Tremor, unspecified] 03-31-2024 Episodic Other nutritional; endocrine; and metabolic disorders (1 source) Weight loss; Translations: [Abnormal weight loss] 08-19-2023 Episodic Other upper respiratory disease (20 sources) Allergic rhinitis; Translations: [Allergic rhinitis, unspecified] 06-10-2005 Chronic Residual codes; unclassified (1 source) Restlessness and agitation; Translations: [Restlessness and agitation] Chronic Past or Other Problems Problem Classification Problem Date Documented Date Episodic/Chronic Biliary tract disease (20 sources) Calculus of gallbladder with cholecystitis; Translations: [Calculus of gallbladder with chronic cholecystitis without obstruction] Onset: 07-04-2007 Resolved: 12-04-2014 12-04-2014 Episodic E Codes: Fall (3 sources) Fall in home; Translations: [Unspecified fall, initial encounter] Onset: 07-06-2024 07-06-2024 Episodic E Codes: Place of occurrence (1 source) Unspecified place in unspecified non-institutional (private) residence as the place of occurrence of the external cause; Translations: [Fall at home, initial encounter] Onset: 07-06-2024 Episodic Fluid and electrolyte disorders (8 sources) Hypokalemia; Translations: [Hypokalemia] Onset: 01-01-2025 Episodic Headache; including migraine (20 sources) Refractory migraine; Translations: [Migraine, unspecified, intractable, without status migrainosus] Resolved: 12-04-2014 12-04-2014 Chronic Mycoses (7 sources) Onychomycosis; Translations: [Tinea unguium] Onset: 09-21-2024 09-07-2023 Episodic Nonmalignant breast conditions (20 sources) Breast lump; Translations: [Unspecified lump in unspecified breast] Onset: 01-18-2008 Resolved: 12-04-2014 12-04-2014 Episodic Other connective tissue disease (1 source) Pain in left toe(s); Translations: [Pain in toe of left foot] Onset: 09-21-2024 Episodic Other connective tissue disease (1 source) Pain in right toe(s); Translations: [Pain in toe of right foot] Onset: 09-21-2024 Episodic Other nervous system disorders (20 sources) Carpal tunnel syndrome; Translations: [Carpal tunnel syndrome, unspecified upper limb] Resolved: 11-30-2005 11-30-2005 Chronic Other nervous system disorders (20 sources) Lesion of ulnar nerve; Translations: [Lesion of ulnar nerve, unspecified upper limb] Onset: 10-08-2005 Resolved: 11-30-2005 11-30-2005 Chronic Other non-traumatic joint disorders (20 sources) Hip pain; Translations: [Pain in left hip] Onset: 11-23-2017 11-23-2017 Episodic Other non-traumatic joint disorders (1 source) Pain in right hip; Translations: [Acute hip pain, right] Onset: 07-06-2024 Episodic Results Test Name Value Interpretation Reference Range Facility [facility] 04-05-2025 [facility] Telephone ([facility]) CRISSY PHILIPPE ([id number]) 1945 F Date Time Provider Department [facility] your visit today, we recorded the following information about you: Aracely Massey, RN 04/05/2025 4:27 PM Signed Lali- Admission Director at [facility], report would like to arrange for a Respite Stay for tomorrow for patient at [facility]. Last ov for pt was 01/01/25. Asking if pcp could addend ov notes stating all information is the same, no changes, same diagnoses, same meds. Please phone Lali with reply: [phone] Alisha Wilcox MD 04/06/2025 7:33 AM Signed Yes we can do that. OV printed, signed and addendum hand written on first page. Cristiane Hardin MA 04/06/2025 7:38 AM Signed Need fax number of where to send. Placed call to Lali with no answer. Unable to leave message. Try again later. SHAUNA Melgar Lindsey, MA 04/06/2025 10:14 AM Signed Faxed to [phone]. Cristiane Hardin MA Allergies As of Date: 04/05/2025 Noted Allergy Reaction SINEQUAN (DOXEPIN HCL) 05/08/2005 12 - Shortness of Breath Date Reviewed: 03/27/2025 Reviewed by: Marge Dillon RN - Fully Assessed Reason for Visit: Respite Stay [Other] Prescriptions as of 04/06/2025 - potassium chloride 20 mEq/15 mL solution Take 15 mL by mouth once daily. - atorvastatin (LIPITOR) 20 mg tablet Take 1 tablet by mouth once daily. For cholesterol. - memantine (NAMENDA) 10 mg tablet Take 1 tablet by mouth two times a day. - sertraline (ZOLOFT) 25 mg tablet Take 1 tablet by mouth once daily. - fluticasone (FLONASE) 50 mcg/actuation nasal spray Use 2 sprays in each nostril once daily. Rinse mouth after use. - amLODIPine (NORVASC) 5 mg tablet Take 1 tablet by mouth once daily. - pantoprazole DR (PROTONIX) 40 mg tablet Take 1 tablet by mouth once daily. - donepezil (ARICEPT) 23 mg tablet Take 1 tablet by mouth daily at bedtime. - cyanocobalamin (VITAMIN B-12) 1,000 mcg tab Take 1 tablet by mouth once daily. - Cholecalciferol, Vitamin D3, 50 mcg (2,000 unit) cap Take by mouth. - ONE DAILY MULTI-VITAMIN TAB Take one(1) tablet daily. Problem List As Of Date 04/05/2025 Noted Resolved Hypertension [I10] Migraine, unspecified, with intractable migrain* 12/04/2014 ESOPHAGEAL REFLUX [K21.9] Hyperlipidemia, mixed [E78.2] ALLERGIC RHINITIS NOS [J30.9] CARPAL TUNNEL SYNDROME [G56.00] 11/30/2005 HEMORRHOIDS NOS [K64.9] DIVERTICULOSIS OF COLON W/O BLEED [K57.30] ULNAR NERVE LESION [G56.20] 10/08/2005 11/30/2005 Calculus of gallbladder with other cholecystiti*12/04/2014 MASS IN BREAST [N63.0] 01/18/2008 12/04/2014 Osteopenia [M85.80] Left hip pain [M25.552] 11/23/2017 Vitamin D insufficiency [E55.9] Dementia associated with other underlying disea*11/15/2023 Primary degenerative dementia of the Alzheimer *11/15/2023 Encounter Status:[facility] NABEELCRISSY Fernandez ([id number]) 1945 F Date Time Provider Department 04/05/25 ALISHA WILCOX [facility] During your visit today, we recorded the following information about you: Anita Grimaldo RN 04/05/2025 4:26 PM Signed Spouse calls to report that he is currently hospitalized and they are needing to have patient go to [facility] for respite care. Elias is requesting HANDP, medication list and demographics be faxed to [phone]. Faxed as requested to Sugar at [facility]. Anita Grimaldo RN Allergies As of Date: 04/05/2025 Noted Allergy Reaction SINEQUAN (DOXEPIN HCL) 05/08/2005 12 - Shortness of Breath Date Reviewed: 03/27/2025 Reviewed by: Marge Dillon RN - Fully Assessed Reason for Visit: Patient Update [1234] Prescriptions as of 04/06/2025 - potassium chloride 20 mEq/15 mL solution Take 15 mL by mouth once daily. - atorvastatin (LIPITOR) 20 mg tablet Take 1 tablet by mouth once daily. For cholesterol. - memantine (NAMENDA) 10 mg tablet Take 1 tablet by mouth two times a day. - sertraline (ZOLOFT) 25 mg tablet Take 1 tablet by mouth once daily. - fluticasone (FLONASE) 50 mcg/actuation nasal spray Use 2 sprays in each nostril once daily. Rinse mouth after use. - amLODIPine (NORVASC) 5 mg tablet Take 1 tablet by mouth once daily. - pantoprazole DR (PROTONIX) 40 mg tablet Take 1 tablet by mouth once daily. - donepezil (ARICEPT) 23 mg tablet Take 1 tablet by mouth daily at bedtime. - cyanocobalamin (VITAMIN B-12) 1,000 mcg tab Take 1 tablet by mouth once daily. - Cholecalciferol, Vitamin D3, 50 mcg (2,000 unit) cap Take by mouth. - ONE DAILY MULTI-VITAMIN TAB Take one(1) tablet daily. Problem List As Of Date 04/05/2025 Noted Resolved Hypertension [I10] Migraine, unspecified, with intractable migrain* 12/04/2014 ESOPHAGEAL REFLUX [K21.9] Hyperlipidemia, mixed [E78.2] ALLERGIC RHINITIS NOS [J30.9] CARPAL TUNNEL SYNDROME [G56.00] 11/30/2005 HEMORRHOIDS NOS [K64.9] DIVERTICULOSIS OF COLON W/O BLEED [K57.30] ULNAR NERVE LESION [G56.20] 10/08/2005 11/30/2005 Calculus of gallbladder with other cholecystiti*07/04/200 8 12/04/2014 MASS IN BREAST [N63.0] 01/18/2008 12/04/2014 Osteopenia [M85.80] Left hip pain [M25.552] 11/23/2017 Vitamin D insufficiency [E55.9] Dementia associated with other underlying disea*11/15/2023 Primary degenerative dementia of the Alzheimer *11/15/2023 Encounter Status:Closed by BRIDGETTE HURD on 04/06/25 [facility]OVon 03-27-2025 CNOV Office Visit (PODIWS ) NABEELCRISSY Fernandez ([id number]) 1945 F Date Time Provider Department 03/27/25 11:15 AM SADIE EASTMAN PODIWS During your visit today, we recorded the following information about you: Marge Dillon RN 03/27/2025 1:05 PM Signed Patient presents with: Left Foot - Established Patient, Follow Up, nail care Right Foot - Established Patient, Follow Up, nail care Patient presents for follow up nail care. [facility] 12/21/24 Sadie Eastman 03/27/2025 1:05 PM Signed Subjective: Patient presents to clinic c/o painful toenails. They state that the nails are especially painful with shoe gear and pressure. Patient states that nails b/l hallux are painful. No other pedal complaints at this time. Patient states no change in medications or medical history since last visit. Objective: Patient presents to clinic ambulating in dress shoes Vasc: DP and PT pulses are palpable bilateral. CFT is less than 5 seconds bilateral. Skin temperature is warm to cool proximal to distal bilateral. There is no edema or varicosities noted. Neuro: Protective sensation is intact to the foot and toes when tested with the 5.07 SWM bilateral. Vibratory sensation is decreased at the hallux IPJ bilateral. The hallux is downgoing bilateral. Derm: Nails 1-5 b/l are painful, discolored-yellow, thick, crumbly, dystrophic and with subungal debris. Skin is of normal turgor, texture and hair growth is decreased bilateral. There are callus to right 1st metatarsal. No ulceration present Ortho: Muscle strength is 5/5 for all pedal groups tested. Ankle joint DF is decreased with the knee extended with no pain or crepitus noted. 1st MPJ ROM is decreased bilateral. Assessment: (B35.1) Onychomycosis (primary encounter diagnosis) (M79.675) Pain in toe of left foot (M79.674) Pain in toe of right foot Plan: Patient was seen and evaluated. Nails 1-5 bilateral were debrided in length and thickness. Callus reduced with dremmel Patient is to RTC in 3-4 months. Sadie Eastman DPM Referring Provider: SADIE EASTMAN [[id number]] Allergies As of Date: 03/27/2025 Noted Allergy Reaction SINEQUAN (DOXEPIN HCL) 05/08/2005 12 - Shortness of Breath Date Reviewed: 03/27/2025 Reviewed by: Marge Dillon, NAGA - Fully Assessed Reason for Visit: Established Patient [175] Follow Up [171] nail care [Other] Established Patient [175] Follow Up [171] nail care [Other] Primary Visit Diagnosis:Onychomycosi s [B35.1] Other Visit Diagnoses:Pain in toe of left foot [M79.675] Pain in toe of right foot [M79.674] Prescriptions as of 03/27/2025 - potassium chloride 20 mEq/15 mL solution Take 15 mL by mouth once daily. - atorvastatin (LIPITOR) 20 mg tablet Take 1 tablet by mouth once daily. For cholesterol. - memantine (NAMENDA) 10 mg tablet Take 1 tablet by mouth two times a day. - sertraline (ZOLOFT) 25 mg tablet Take 1 tablet by mouth once daily. - fluticasone (FLONASE) 50 mcg/actuation nasal spray Use 2 sprays in each nostril once daily. Rinse mouth after use. - amLODIPine (NORVASC) 5 mg tablet Take 1 tablet by mouth once daily. - pantoprazole DR (PROTONIX) 40 mg tablet Take 1 tablet by mouth once daily. - donepezil (ARICEPT) 23 mg tablet Take 1 tablet by mouth daily at bedtime. - cyanocobalamin (VITAMIN B-12) 1,000 mcg tab Take 1 tablet by mouth once daily. - Cholecalciferol, Vitamin D3, 50 mcg (2,000 unit) cap Take by mouth. - ONE DAILY MULTI-VITAMIN TAB Take one(1) tablet daily. Problem List As Of Date 03/27/2025 Noted Resolved Hypertension [I10] Migraine, unspecified, with intractable migrain* 12/04/2014 ESOPHAGEAL REFLUX [K21.9] Hyperlipidemia, mixed [E78.2] ALLERGIC RHINITIS NOS [J30.9] CARPAL TUNNEL SYNDROME [G56.00] 11/30/2005 HEMORRHOIDS NOS [K64.9] DIVERTICULOSIS OF COLON W/O BLEED [K57.30] ULNAR NERVE LESION [G56.20] 10/08/2005 11/30/2005 Calculus of gallbladder with other cholecystiti*12/04/2014 MASS IN BREAST [N63.0] 01/18/2008 12/04/2014 Osteopenia [M85.80] Left hip pain [M25.552] 11/23/2017 Vitamin D insufficiency [E55.9] Dementia associated with other underlying disea*11/15/2023 Primary degenerative dementia of the Alzheimer *11/15/2023 Disposition: Return in about 3 months (around 06/27/2025). Follow-up and Disposition History for Encounter Date Provider Department Center 03/27/2025 [id number] EASTMAN Encounter Status:Closed by SADIE EASTMAN DPM on 03/27/[address] [facility] 02-12-2025 CNPN Telephone (FAMPWS) NABEELCRISSY Jazmin ([id number]) 1945 F Date Time Provider Department 02/12/25 ALISHA WILCOX During your visit today, we recorded the following information about you: Marilia Palm 02/12/2025 12:52 PM Signed Patient's spouse calling to request the following medication: atorvastatin (LIPITOR) 20 mg tablet () Patient last seen 01/01/25 Future visit scheduled: yes PHARMACY: Estefania/Alisha Santos MD 02/12/2025 1:25 PM Signed Rx sent as requested. Cristiane Hardin MA 02/12/2025 3:06 PM Signed Patient's informed and verbalized understanding. Cristiane Hardin MA Allergies As of Date: 02/12/2025 Noted Allergy Reaction SINEQUAN (DOXEPIN HCL) 05/08/2005 12 - Shortness of Breath Date Reviewed: 01/01/2025 Reviewed by: Madeline Packer LPN - Fully Assessed Reason for Visit: requesting medication [Other] Order(s):atorvastatin (LIPITOR) 20 mg tabletTake 1 tablet by mouth once daily. For cholesterol.Disp: 90 tabletRfl: 3 Prescriptions as of 02/12/2025 - atorvastatin (LIPITOR) 20 mg tablet Take 1 tablet by mouth once daily. For cholesterol. - potassium chloride 20 mEq/15 mL solution Take 15 mL by mouth once daily. - memantine (NAMENDA) 10 mg tablet Take 1 tablet by mouth two times a day. - sertraline (ZOLOFT) 25 mg tablet Take 1 tablet by mouth once daily. - fluticasone (FLONASE) 50 mcg/actuation nasal spray Use 2 sprays in each nostril once daily. Rinse mouth after use. - amLODIPine (NORVASC) 5 mg tablet Take 1 tablet by mouth once daily. - pantoprazole DR (PROTONIX) 40 mg tablet Take 1 tablet by mouth once daily. - donepezil (ARICEPT) 23 mg tablet Take 1 tablet by mouth daily at bedtime. - cyanocobalamin (VITAMIN B-12) 1,000 mcg tab Take 1 tablet by mouth once daily. - Cholecalciferol, Vitamin D3, 50 mcg (2,000 unit) cap Take by mouth. - ONE DAILY MULTI-VITAMIN TAB Take one(1) tablet daily. Problem List As Of Date 02/12/2025 Noted Resolved Hypertension [I10] Migraine, unspecified, with intractable migrain* 12/04/2014 ESOPHAGEAL REFLUX [K21.9] Hyperlipidemia, mixed [E78.2] ALLERGIC RHINITIS NOS [J30.9] CARPAL TUNNEL SYNDROME [G56.00] 11/30/2005 HEMORRHOIDS NOS [K64.9] DIVERTICULOSIS OF COLON W/O BLEED [K57.30] ULNAR NERVE LESION [G56.20] 10/08/2005 11/30/2005 Calculus of gallbladder with other cholecystiti* 8 12/04/2014 MASS IN BREAST [N63.0] 01/18/2008 12/04/2014 Osteopenia [M85.80] Left hip pain [M25.552] 11/23/2017 Vitamin D insufficiency [E55.9] Dementia associated with other underlying disea*11/15/2023 Primary degenerative dementia of the Alzheimer *11/15/2023 Prescriptions ordered this encounter Disp Refills Start End ATORVASTATIN 20 MG TABLET 90 t* 3 02/12/2025 02/12/2026 Route: PO Sig: Take 1 tablet by mouth once daily. For cholesterol. Medications Discontinued During This Encounter Prescriptions - atorvastatin (LIPITOR) 20 mg tablet (Discontinued) Take 1 tablet by mouth once daily. For cholesterol. Encounter Status:Closed by CRISTIANE HARDIN on 02/12/25 [facility] CNOVon 01-01-2025 CNOV Office Visit (FAMPWS ) CRISSY PHILIPPE Jazmin ([id number]) 1945 F Date Time Provider Department 01/01/25 11:20 AM SHRUTHI CHRISTENSEN During your visit today, we recorded the following information about you: Pulse Respiration Blood pressure Weight 73/minute 18/minute 102/70 50.4 kg Shruthi Christensen APRN.CNP 01/01/2025 12:24 PM Signed 01/01/2025 Patient presents with: F/U 6 months Recording using datatracker software for draft documentation of the visit was discussed with the patient/authorized uniforms sales representative; all questions welcomed and answered. Patient/authorized uniforms sales representative agreed to proceed SUBJECTIVE: This is a 79 year old, accompanied by , that is here today for Above Complaints. Dementia: - follow with neurology with last office visit on 10/23/2024. No medication changes made at that time - Diagnosed in 2018. - Crissy is cheerful and in good spirits. - Attends [employer] three times a week (Wednesday, Wednesday, Wednesday). - Enjoys walking. Hypokalemia: - History of recurrent hypokalemia, with levels dropping as low as 3 mEq/L. - Currently taking potassium supplements, but has difficulty swallowing the large pills. - reports she often chews or spits out the potassium pills. - Pharmacist advised against cutting the pills in half. - requests a prescription for two 10 mEq tablets instead of one 20 mEq tablet. - inquires about the necessity of potassium supplementation. HTN: taking medication as prescribed without side effects. Does not check blood pressure at home PAST MEDICAL HISTORY Diagnosis Date Allergic rhinitis, cause unspecified Allergic rhinitis Alzheimer's dementia (HCC) Carpal tunnel syndrome CHOLELITH W CHOLECYS NEC 07/04/2007 Diverticulosis of colon (without mention of hemorrhage) Esophageal reflux Family history of malignant neoplasm of gastrointestinal tract Hypertension Migraine, unspecified, with intractable migraine, so stated, without mention of status migrainosus Migraine in the past Osteopenia Other and unspecified hyperlipidemia HIGH HDL Vitamin D insufficiency ALLERGIES Sinequan [Doxepin Hcl] MEDICATIONS Current Outpatient Medications Medication Sig potassium chloride 20 mEq/15 mL solution Take 15 mL by mouth once daily. memantine (NAMENDA) 10 mg tablet Take 1 tablet by mouth two times a day. sertraline (ZOLOFT) 25 mg tablet Take 1 tablet by mouth once daily. fluticasone (FLONASE) 50 mcg/actuation nasal spray Use 2 sprays in each nostril once daily. Rinse mouth after use. amLODIPine (NORVASC) 5 mg tablet Take 1 tablet by mouth once daily. pantoprazole DR (PROTONIX) 40 mg tablet Take 1 tablet by mouth once daily. atorvastatin (LIPITOR) 20 mg tablet Take 1 tablet by mouth once daily. For cholesterol. donepezil (ARICEPT) 23 mg tablet Take 1 tablet by mouth daily at bedtime. cyanocobalamin (VITAMIN B-12) 1,000 mcg tab Take 1 tablet by mouth once daily. Cholecalciferol, Vitamin D3, 50 mcg (2,000 unit) cap Take by mouth. ONE DAILY MULTI-VITAMIN TAB Take one(1) tablet daily. No current facility-administered medications for this visit. Medications and allergies reviewed by this provider. SOCIAL HISTORY Social History Tobacco Use Smoking status: Never Smokeless tobacco: Never Vaping Use Vaping status: Never Used Substance Use Topics Alcohol use: No Comment: socially Drug use: No REVIEW OF SYSTEMS All other reviewed and negative other than HPI. OBJECTIVE: BP 102/70 Pulse 73 Resp 18 Wt 50.4 kg (111 lb 3.2 oz) SpO2 94% BMI 22.46 kg/m? . Vital signs reviewed by this provider. GENERAL: NAD, alert and oriented. SKIN: Unremarkable, no rash or skin lesions to exposed skin EYES: conjunctiva clear. LUNGS: Clear to auscultation bilaterally, no wheezes/rhonchi/rales. HEART: Regular rate and rhythm, no murmurs. No ectopy. EXTREMITIES: Normal, no deformities, no skin discoloration, no edema. Latest Ref Rng 12/26/2024 Protein, Total 6.3 - 8.0 g/dL 6.7 Albumin 3.9 - 4.9 g/dL 4.3 Calcium 8.5 - 10.2 mg/dL 9.8 Bilirubin, Total 0.2 - 1.3 mg/dL 0.4 Alkaline Phosphatase 34 - 123 U/L 76 AST 13 - 35 U/L 22 ALT 7 - 38 U/L 19 Glucose 74 - 99 mg/dL 84 BUN 7 - 21 mg/dL 26 (H) Creatinine 0.58 - 0.96 mg/dL 0.83 Sodium 136 - 144 mmol/L 143 Potassium 3.7 - 5.1 mmol/L 4.0 Chloride 98 - 107 mmol/L 104 CO2 22 - 30 mmol/L 27 Anion Gap 8 - 15 mmol/L 12 eGFR >=60 mL/min/1.73m? 72 Cholesterol, Total <200 mg/dL 153 Triglyceride <150 mg/dL 61 HDL Cholesterol >39 mg/dL 85 LDL Cholesterol, Calculated <100 mg/dL 56 Non HDL Cholesterol <130 mg/dL 68 VLDL Cholesterol <30 mg/dL 9 TC:HDL Ratio <5.10 1.80 LDL:HDL Ratio <2.54 0.66 Fasting Time hrs 12 Shingrix Vaccine(2 of 3) due on 10/29/2009 Medicare Annual Wellness Visit Never done Colonoscopy due on 04/22/2021 RSV Vaccine(1 - 1-dose 75+ ser (more content not included)... Normal [facility] metabolic 2000 panelon 12-26-2024 Albumin [Mass/Vol] 4.3 g/dL Normal 3.9-4.9 [facility] Comment on above: Order Comment: Speci men Type: BLOOD SPECIMENOrdering Facility: [facility] Address: [address] [place] [address] Performed By: #### 2 4323-8, 64379-6 ####[facility] [id number] [place] [address] [place] ALP [Catalytic activity/Vol] 76 U/L Normal 34-123 [facility] Comment on above: Order Comment: Speci men Type: BLOOD SPECIMENOrdering Facility: [facility] Address: [address] [place] [address] Performed By: #### 2 4323-8, 10187-7 ####[facility] [id number] [place] [address] [place] ALT [Catalytic activity/Vol] 19 U/L Normal 7-38 [facility] Comment on above: Order Comment: Speci men Type: BLOOD SPECIMENOrdering Facility: [facility] Address: [address] [place] [address] Performed By: #### 2 4323-8, 73359-0 ####[facility] [id number] [place] [address] [place] Anion gap [Moles/Vol] 12 mmol/L Normal 8-15 [facility] Comment on above: Order Comment: Speci men Type: BLOOD SPECIMENOrdering Facility: [facility] Address: [address] [place] [address] Performed By: #### 2 4323-8, 10497-9 ####[facility] [id number] [place] [address] [place] AST [Catalytic activity/Vol] 22 U/L Normal 13-35 [facility] Comment on above: Order Comment: Speci men Type: BLOOD SPECIMENOrdering Facility: [facility] Address: [address] [place] [address] [place] [address] Performed By: #### 2 4323-8, 19933-8 ####[facility] [id number] [address] [address] [place] Bilirubin [Mass/Vol] 0.4 mg/dL Normal 0.2-1.3 [facility] Comment on above: Order Comment: Speci men Type: BLOOD SPECIMENOrdering Facility: [facility] Address: [address] [place], [place] [address] Performed By: #### 2 4323-8, 56220-8 ####[facility] [id number] [place] [id number] [place] Calcium [Mass/Vol] 9.8 mg/dL Normal 8.5-10.2 [facility] Comment on above: Order Comment: Speci men Type: BLOOD SPECIMENOrdering Facility: [facility] Address: [address] [place], [place] [address] Performed By: #### 2 4323-8, 09238-0 ####[facility] [id number] [place] [id number] [place] Chloride [Moles/Vol] 104 mmol/L Normal 98-107 [facility] Comment on above: Order Comment: Speci men Type: BLOOD SPECIMENOrdering Facility: [facility] Address: [address] [place], [place] [address] Performed By: #### 2 4323-8, 90653-1 ####[facility] [id number] [address] [address] [place] CO2 [Moles/Vol] 27 mmol/L Normal 22-30 [facility] Comment on above: Order Comment: Speci men Type: BLOOD SPECIMENOrdering Facility: [facility] Address: [address] [place], [place] [address] Performed By: #### 2 4323-8, 68851-9 ####[facility] [id number] [address] [address] [place] Creatinine [Mass/Vol] 0.83 mg/dL Normal 0.58-0.96 [facility] Comment on above: Order Comment: Rafat villatoro Type: BLOOD SPECIMENOrdering Facility: [facility] Address: [address] [place] [address] Performed By: #### 2 4323-8, 79087-4 ####[facility] [id number] [place] [id number] [place] eGFRcr SerPlBld CKD-EPI 2020 72 mL/min/1.73m??? Normal >=60 [facility] Comment on above: Order Comment: Rafat villatoro Type: BLOOD SPECIMENOrdering Facility: [facility] Address: [address] [place] [address] Result Comment: Kassandra mated Glomerular Filtration Rate (eGFR) is calculated using the 2020 CKD-EPI creatinine equation. This equation utilizes serum creatinine, sex, and age as parameters. The creatinine assay has traceable calibration to isotope dilution-mass spectrometry. Refer to KDIGO guidelines for clinical interpretation. In patients with unstable renal function, e.g. those with acute kidney injury, the eGFR may not accurately reflect actual GFR. Performed By: #### 2 4323-8, 75936-5 ####[facility] [id number] [place] [id number] [place] Glucose [Mass/Vol] 84 mg/dL Normal 74-99 [facility] Comment on above: Order Comment: Rafat villatoro Type: BLOOD SPECIMENOrdering Facility: [facility] Address: [address] [place] [address] Result Comment: The [place] Diabetes Association (ADA) provides guidance for cutoff values for fasting glucose and random glucose. The ADA defines fasting as no caloric intake for at least 8 hours. Fasting plasma glucose results between 100 to 125 mg/dL indicate increased risk for diabetes (prediabetes). Fasting plasma glucose results greater than or equal to 126 mg/dL meet the criteria for diagnosis of diabetes. In the absence of unequivocal hyperglycemia, results should be confirmed by repeat testing. In a patient with classic symptoms of hyperglycemia or hyperglycemic crisis, random plasma glucose results greater than or equal to 200 mg/dL meet the criteria for diagnosis of diabetes. Reference: Standards of Medical Care in Diabetes 2016, [place] Diabetes Association. Diabetes Care. 2016.39(Suppl 1). Performed By: #### 2 4323-8, 77494-8 ####[facility] [id number] [address] [address] [place] Potassium [Moles/Vol] 4.0 mmol/L Normal 3.7-5.1 [facility] Comment on above: Order Comment: Speci men Type: BLOOD SPECIMENOrdering Facility: [facility] Address: [address] [place] [address] Performed By: #### 2 4323-8, 36348-5 ####[facility] [id number] [place] [id number] [place] Protein [Mass/Vol] 6.7 g/dL Normal 6.3-8.0 [facility] Comment on above: Order Comment: Speci men Type: BLOOD SPECIMENOrdering Facility: [facility] Address: [address] [place] [address] Performed By: #### 2 4323-8, 49303-6 ####[facility] [id number] [address] [address] [place] Sodium [Moles/Vol] 143 mmol/L Normal 136-144 [facility] Comment on above: Order Comment: Speci men Type: BLOOD SPECIMENOrdering Facility: [facility] Address: [address] [place] [address] Performed By: #### 2 4323-8, 68576-6 ####[facility] [id number] [address] [address] [place] Urea nitrogen [Mass/Vol] 26 mg/dL High 7-21 [facility] Comment on above: Order Comment: Speci men Type: BLOOD SPECIMENOrdering Facility: [facility] Address: [address] [place] [address] Performed By: #### 2 4323-8, 60488-2 ####[facility] [id number] [address] [address] [place] [facility] [place] Lipid 1996 panelon 5 Cholesterol [Mass/Vol] 153 mg/dL Normal <200 [facility] Comment on above: Order Comment: Speci men Type: BLOOD SPECIMENOrdering Facility: [facility] Address: [address] [place] [address] Result Comment: <200 mg/dL, Desirable 200-239 mg/dL, Borderline high >239 mg/dL, High Performed By: #### 2 4323-8, 88049-3 ####[facility] [id number] [address] [place] Cholesterol in HDL [Mass/Vol] 85 mg/dL Normal >39 [facility] Comment on above: Order Comment: Speci men Type: BLOOD SPECIMENOrdering Facility: [facility] Address: [address] [place] [address] Result Comment: 40-5 9 mg/dL, Acceptable >59 mg/dL, High: Negative risk factor for coronary heart disease <40 mg/dL, Low: Positive risk factor for coronary heart disease Performed By: #### 2 4323-8, 76583-8 ####[facility] [id number] [place] [id number] [place] Cholesterol in LDL [Mass/Vol] 56 mg/dL Normal <100 [facility] Comment on above: Order Comment: Speci men Type: BLOOD SPECIMENOrdering Facility: [facility] Address: [address] [place] [address] Result Comment: <100 mg/dL, Optimal 100-129 mg/dL, Near optimal/above optimal 130-159 mg/dL, Borderline high 160-189 mg/dL, High >189 mg/dL, Very high Secondary prevention optimal LDL Cholesterol levels are recommended to be <70 mg/dL LDL cholesterol is calculated using the Fernandes-NIH equation. Performed By: #### 2 4323-8, 41115-4 ####[facility] [id number] [place] [address] [place] Cholesterol in LDL/Cholesterol in HDL [Mass ratio] 0.66 {ratio} Normal <2.54 [facility] Comment on above: Order Comment: Speci men Type: BLOOD SPECIMENOrdering Facility: [facility] Address: [address] [place] [address] Result Comment: Refe rence: 1. National Cholesterol Education Program ATP III Guideline At-A-Glance Quick Desk Reference: National Heart, Lung, and Blood [place]. National Institutes of Health. 2001: NIH Publication No. 01-3305. 2. An International Atherosclerosis Society position paper: global recommendations for the management of dyslipidemia: executive summary, Atherosclerosis. 2014: 232(2):410-413. Performed By: #### 2 4323-8, 89282-6 ####[facility] [id number] [place] [id number] [place] Cholesterol in VLDL [Mass/Vol] 9 mg/dL Normal <30 [facility] Comment on above: Order Comment: Shavoni men Type: BLOOD SPECIMENOrdering Facility: [facility] Address: [address] [place] [address] Performed By: #### 2 4323-8, 28332-1 ####[facility] [id number] [place] [id number] [place] Cholesterol non HDL [Mass/Vol] 68 mg/dL Normal <130 [facility] Comment on above: Order Comment: Shavoni men Type: BLOOD SPECIMENOrdering Facility: [facility] Address: [address] [place] [address] Result Comment: <130 mg/dL, Optimal 130-159 mg/dL, Near optimal/above optimal 160-189 mg/dL, Borderline high 190-219 mg/dL, High >219 mg/dL, Very high Secondary prevention optimal non HDL Cholesterol levels are recommended to be <100 mg/dL Performed By: #### 2 4323-8, 94695-5 ####[facility] [id number] [address] [address] [place] Cholesterol.total/Ch olesterol in HDL [Mass ratio] 1.80 {ratio} Normal <5.10 [facility] Comment on above: Order Comment: Speci men Type: BLOOD SPECIMENOrdering Facility: [facility] Address: [address] [place] [address] Performed By: #### 2 4323-8, 26750-6 ####[facility] [id number] [place] [address] [place] [facility] FASTING TIME 12 hrs Normal [facility] Comment on above: Order Comment: Speci men Type: BLOOD SPECIMENOrdering Facility: [facility] Address: [address] [place] [address] Performed By: #### 2 4323-8, 34040-3 ####[facility] [id number] [place] [id number] [place] Triglyceride [Mass/Vol] 61 mg/dL Normal <150 [facility] Comment on above: Order Comment: Speci men Type: BLOOD SPECIMENOrdering Facility: [facility] Address: [address] [place] [address] Result Comment: <150 mg/dL, Normal 150-199 mg/dL, Borderline high 200-499 mg/dL, High >499 mg/dL, Very high Performed By: #### 2 4323-8, 41708-5 ####[facility] [id number] [place] [id number] [place] CNOVon 12-21-2024 CNOV Office Visit (PODIWS ) CRISSY PHILIPPE ([id number]) 1945 F Date Time Provider Department 12/21/24 11:30 AM SADIE EASTMAN During your visit today, we recorded the following information about you: Vale Butcher LPN 12/21/2024 11:16 PM Signed AMB ROOMING INTAKE FLOWSHEET DATA Patient presents with: Left Foot - Nail care, Established Patient, Follow Up Right Foot - Nail care, Established Patient, Follow Up Vale Butcher [employer] Sadie Eastman 12/21/2024 11:16 PM Signed Subjective: Patient presents to clinic c/o painful toenails. They state that the nails are especially painful with shoe gear and pressure. Patient states that nails left hallux nail is painful. No other pedal complaints at this time. Patient states no change in medications or medical history since last visit. Objective: Patient presents to clinic ambulating in sneakers Vasc: DP and PT pulses are palpable bilateral. CFT is less than 5 seconds bilateral. Skin temperature is warm to cool proximal to distal bilateral. There is mild edema or varicosities noted. Neuro: Protective sensation is intact to the foot and toes when tested with the 5.07 SWM bilateral. The hallux is downgoing bilateral. Derm: Nails 1-5 b/l are painful, discolored-yellow, thick, crumbly, dystrophic and with subungal debris. Left hallux lateral nail border is ingrowing with pain. No drainage or redness noted. Skin is of normal turgor, texture and hair growth is decreased bilateral. There are no hyperkeratosis, ulcerations, scars, verruca or other lesions noted. Ortho: Muscle strength is 5/5 for all pedal groups tested. Ankle joint DF is decreased with the knee extended with no pain or crepitus noted. 1st MPJ ROM is decreased bilateral. Assessment: (B35.1) Onychomycosis (primary encounter diagnosis) (M79.675) Pain in toe of left foot (M79.674) Pain in toe of right foot Plan: Patient was seen and evaluated. Nails 1-5 bilateral were debrided in length and thickness. Patient has ingrowing toenail of left hallux lateral nail border. No signs of infection. Discussed slant back vs avulsion vs permanent nail matrixectomy in the future. Patient has elected for slant back today. If pain persists, consider partial vs total nail matrixectomy. No infection present to left great toe. No need for antibiotic. Can soak the toe for one week Patient is to RTC in 3-4 months. Sadie Eastman DPM Referring Provider: SADIE EASTMAN [[id number]] Allergies As of Date: 12/21/2024 Noted Allergy Reaction SINEQUAN (DOXEPIN HCL) 05/08/2005 12 - Shortness of Breath Date Reviewed: 12/21/2024 Reviewed by: Vale Butcher LPN - Fully Assessed Reason for Visit: Nail care [Other] Established Patient [175] Follow Up [171] Nail care [Other] Established Patient [175] Follow Up [171] Primary Visit Diagnosis:Onychomycosi s [B35.1] Other Visit Diagnoses:Pain in toe of left foot [M79.675] Pain in toe of right foot [M79.674] Prescriptions as of 12/21/2024 - memantine (NAMENDA) 10 mg tablet Take 1 tablet by mouth two times a day. - sertraline (ZOLOFT) 25 mg tablet Take 1 tablet by mouth once daily. - fluticasone (FLONASE) 50 mcg/actuation nasal spray Use 2 sprays in each nostril once daily. Rinse mouth after use. - amLODIPine (NORVASC) 5 mg tablet Take 1 tablet by mouth once daily. - pantoprazole DR (PROTONIX) 40 mg tablet Take 1 tablet by mouth once daily. - atorvastatin (LIPITOR) 20 mg tablet Take 1 tablet by mouth once daily. For cholesterol. - donepezil (ARICEPT) 23 mg tablet Take 1 tablet by mouth daily at bedtime. - potassium chloride ER (KLOR-CON) 20 mEq tablet Take 1 tablet by mouth once daily. - cyanocobalamin (VITAMIN B-12) 1,000 mcg tab Take 1 tablet by mouth once daily. - Cholecalciferol, Vitamin D3, 50 mcg (2,000 unit) cap Take by mouth. - ONE DAILY MULTI-VITAMIN TAB Take one(1) tablet daily. Problem List As Of Date 12/21/2024 Noted Resolved Hypertension [I10] Migraine, unspecified, with intractable migrain* 12/04/2014 ESOPHAGEAL REFLUX [K21.9] Hyperlipidemia, mixed [E78.2] ALLERGIC RHINITIS NOS [J30.9] CARPAL TUNNEL SYNDROME [G56.00] 11/30/2005 HEMORRHOIDS NOS [K64.9] DIVERTICULOSIS OF COLON W/O BLEED [K57.30] ULNAR NERVE LESION [G56.20] 10/08/2005 11/30/2005 Calculus of gallbladder with other cholecystiti* 8 12/04/2014 MASS IN BREAST [N63.0] 01/18/2008 12/04/2014 Osteopenia [M85.80] Left hip pain [M25.552] 11/23/2017 Vitamin D insufficiency [E55.9] Dementia associated with other underlying disea*11/15/2023 Primary degenerative dementia of the Alzheimer *11/15/2023 Disposition: Return in about 3 months (around 03/23/2025). Follow-up and Disposition History for Encounter Date Provider Department Center 12/21/2024 [id number] EASTMAN Khadijah Ervin Encounter Status:Close (more content not included)... [facility] (JOBY[facility] CRISSY PHILIPPE ([id number]) 1945 F Date Time Provider Department 12/21/24 PODLOGARSHRUTHI During your visit today, we recorded the following information about you: Carissa Swenson 12/21/2024 4:28 PM Signed Patient's Raymond calling in to requests labs for her appt with Shruthi on 01/01/25. Please review and advise. Carissa Swenson December 21, 2024 4:28 PM Alisha Wilcox MD 12/22/2024 6:59 AM Signed Fasting labs ordered as requested. Carissa Swenson 12/22/2024 9:27 AM Signed LVM letting patient know lab orders are in. Carissa Swenson December 22, 2024 9:27 AM Allergies As of Date: 12/21/2024 Noted Allergy Reaction SINEQUAN (DOXEPIN HCL) 05/08/2005 12 - Shortness of Breath Date Reviewed: 12/21/2024 Reviewed by: Vale Butcher LPN - Fully Assessed Reason for Visit: Orders [681] Primary Visit Diagnosis:Essential hypertension [I10] Other Visit Diagnosis:Hyperlipidem ia, mixed [E78.2] Order(s):COMPREHENSIVE METABOLIC PANEL [SQCMP] Order #: [id number] FUTURE LIPID PANEL, FASTING [SQLIPB] Order #: [id number] FUTURE Prescriptions as of 12/22/2024 - memantine (NAMENDA) 10 mg tablet Take 1 tablet by mouth two times a day. - sertraline (ZOLOFT) 25 mg tablet Take 1 tablet by mouth once daily. - fluticasone (FLONASE) 50 mcg/actuation nasal spray Use 2 sprays in each nostril once daily. Rinse mouth after use. - amLODIPine (NORVASC) 5 mg tablet Take 1 tablet by mouth once daily. - pantoprazole DR (PROTONIX) 40 mg tablet Take 1 tablet by mouth once daily. - atorvastatin (LIPITOR) 20 mg tablet Take 1 tablet by mouth once daily. For cholesterol. - donepezil (ARICEPT) 23 mg tablet Take 1 tablet by mouth daily at bedtime. - potassium chloride ER (KLOR-CON) 20 mEq tablet Take 1 tablet by mouth once daily. - cyanocobalamin (VITAMIN B-12) 1,000 mcg tab Take 1 tablet by mouth once daily. - Cholecalciferol, Vitamin D3, 50 mcg (2,000 unit) cap Take by mouth. - ONE DAILY MULTI-VITAMIN TAB Take one(1) tablet daily. Problem List As Of Date 12/21/2024 Noted Resolved Hypertension [I10] Migraine, unspecified, with intractable migrain* 12/04/2014 ESOPHAGEAL REFLUX [K21.9] Hyperlipidemia, mixed [E78.2] ALLERGIC RHINITIS NOS [J30.9] CARPAL TUNNEL SYNDROME [G56.00] 11/30/2005 HEMORRHOIDS NOS [K64.9] DIVERTICULOSIS OF COLON W/O BLEED [K57.30] ULNAR NERVE LESION [G56.20] 10/08/2005 11/30/2005 Calculus of gallbladder with other cholecystiti* 8 12/04/2014 MASS IN BREAST [N63.0] 01/18/2008 12/04/2014 Osteopenia [M85.80] Left hip pain [M25.552] 11/23/2017 Vitamin D insufficiency [E55.9] Dementia associated with other underlying disea*11/15/2023 Primary degenerative dementia of the Alzheimer *11/15/2023 Encounter Status:Closed by CARISSA SWENSON on 12/22/24 [facility] CNOVon 10-23-2024 CNOV Office Visit (MARCE ) CRISSY PHILIPPE ([id number]) 1945 F Date Time Provider Department 10/23/24 11:00 AM MARCUS HANKS JR During your visit today, we recorded the following information about you: Pulse Respiration Blood pressure Weight 68/minute 16/minute 106/72 49 kg Marcus Hanks Jr., MD 10/23/2024 12:22 PM Signed ESTABLISHED PATIENT VISIT CHIEF COMPLAINT: Follow Up HISTORY OF PRESENT ILLNESS: Crissy Philippe is a 79 year old female, BMI 21.81 kg/m2 with a PMH significant for and per last office visit note of 03/31/24: 1. Alzheimers disease (HCC) - ICD9: 331.0, ICD10: G30.9, F02.80 (primary diagnosis) Patient with continued decline of cognition, but not significant per . Still obvious severe impairments in office on MOCA. No change in medications given stability including Namenda 10mg BID and Aricept 23mg daily. Tolerating without side effects. Reviewed common SE and ADRs of both with pt's and daughter. Encouraged brain exercise and social activities if possible. They will maintain schedule as above. Advised of meds that might be needed if change in mood or behavior. This includes melatonin 1mg after dinner if evidence of sundowning or irregular sleep/wake schedule. 2. 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 Of such meds, but suspect that some of these symptoms will be chronic. Tremor and tone primary symptoms with pt otherwise stable and no gait issues. Will continue to monitor. Would hold on any dopaminergic type meds for concern of provoked hallucinations. Pt currently without hallucinations. Patient reports doing good. Compliant with meds. with her confirms. No changes. No hallucinations. No sundowning type symptoms. No falls except for a slip on the ice in 07/2024. Did not hit head. Did get hip XRs. Knows month and date but not year for Bday. Gives first name for last name. Goes to [facility] 3x per week. Very active. Does a lot of walking. No anger issues. REVIEW OF SYSTEMS GENERAL:No weight loss, malaise or fevers. HEENT:Negative for frequent or significant headaches, No changes in hearing or vision, no nose bleeds or other nasal problems NECK:Negative for lumps, goiter, pain and significant neck swelling RESPIRATORY: Negative for cough, wheezing or shortness of breath. CARDIOVASCULAR: Negative for chest pain, leg swelling or palpitations. GASTROINTESTINAL: Negative for abdominal discomfort, blood in stools or black stools or change in bowel habits GENITOURINARY: No history of dysuria, frequency or incontinence MUSCULOSKELETAL: Negative for joint pain or swelling, back pain or muscle pain. NEUROLOGIC:Negative for focal numbness or weakness, headaches and dizziness or syncope, vision changes, speech/languag changes - EXCEPT that as per HPI above. SKIN:Negative for lesions, rash, and itching. LAB/IMAGING: Those performed since patient's last visit have been reviewed. WBC (k/uL) Date Value 06/28/2024 6.06 RBC (m/uL) Date Value 06/28/2024 4.73 Hemoglobin (g/dL) Date Value 06/28/2024 14.7 Hematocrit (%) Date Value 06/28/2024 45.8 MCV (fL) Date Value 06/28/2024 96.8 MCH (pg) Date Value 06/28/2024 31.1 MCHC (g/dL) Date Value 06/28/2024 32.1 RDW-CV (%) Date Value 06/28/2024 13.6 Platelet Count (k/uL) Date Value 06/28/2024 228 MPV (fL) Date Value 06/28/2024 9.4 Glucose (mg/dL) Date Value 06/28/2024 53 (L) BUN (mg/dL) Date Value 06/28/2024 18 Creatinine (mg/dL) Date Value 06/28/2024 0.88 Sodium (mmol/L) Date Value 06/28/2024 143 Potassium (mmol/L) Date Value 06/28/2024 3.8 Chloride (mmol/L) Date Value 06/28/2024 104 CO2 (mmol/L) Date Value 06/28/2024 27 Protein, Total (g/dL) Date Value 06/28/2024 6.7 Albumin (g/dL) Date Value 06/28/2024 4.3 Calcium, Total (mg/dL) Date Value 06/28/2024 10.0 Alkaline Phosphatase (U/L) Date Value 06/28/2024 78 Bilirubin, Total (mg/dL) Date Value 06/28/2024 0.6 AST (U/L) Date Value 06/28/2024 25 ALT (U/L) Date Value 06/28/2024 26 Hep C Antibody IA (no units) Date Value 02/19/2017 Negative MEDICATIONS: sertraline (ZOLOFT) 25 mg tablet Take 1 tablet by mouth once daily. fluticasone (FLONASE) 50 mcg/actuation nasal spray Use 2 sprays in each nostril once daily. Rinse mouth after use. amLODIPine (NORVASC) 5 mg tablet Take 1 tablet by mouth once daily. pantoprazole DR (PROTONIX) 40 mg tablet Take 1 tablet by mouth once daily. atorvastatin (LIPITOR) 20 mg tablet Take 1 tablet by mouth once daily. For cholesterol. memantine (NAMENDA) 10 mg tablet Take 1 tablet by mouth two times a day. donepezil (ARICEPT) 23 mg tablet Take 1 tablet by mouth daily at bedtime. potassium chloride ER (KLOR-CON) 2 (more content not included)... Normal [facility] CNOVon 09-21-2024 CNOV Office Visit (PODIWS ) CRISSY PHILIPPE ([id number]) 1945 F Date Time Provider Department 09/21/24 11:30 AM SADIE EASTMAN PODIWS During your visit today, we recorded the following information about you: Maria Del Carmen Aguilar MA 09/21/2024 10:39 PM Signed Patient presents with: Left Foot - Nail care Right Foot - Nail care AMB ROOMING INTAKE FLOWSHEET DATA with patient today. Sadie Eastman 09/21/2024 10:39 PM Signed Subjective: Patient presents to clinic c/o painful toenails. They state that the nails are especially painful with shoe gear and pressure. No other pedal complaints at this time. Patient states no change in medications or medical history since last visit. Objective: Patient presents to clinic ambulating in sneaker Vasc: DP and PT pulses are faintly palpable bilateral. CFT is less than 5 seconds bilateral. Skin temperature is warm to cool proximal to distal bilateral. There is mild edema or varicosities noted. Neuro: Protective sensation is decreased to the foot and toes when tested with the 5.07 SWM bilateral. Vibratory sensation is absent at the hallux IPJ bilateral. The hallux is downgoing bilateral. Derm: Nails 1-5 b/l are painful, discolored-yellow, thick, crumbly, dystrophic and with subungal debris. Skin is of normal turgor, texture and hair growth is decreased bilateral. There are no hyperkeratosis, ulcerations, scars, verruca or other lesions noted. Ortho: Muscle strength is 5/5 for all pedal groups tested. Ankle joint DF is decreased with the knee extended with no pain or crepitus noted. 1st MPJ ROM is decreased bilateral. Assessment: (B35.1) Onychomycosis (primary encounter diagnosis) (M79.675) Pain in toe of left foot (M79.674) Pain in toe of right foot Plan: Patient was seen and evaluated. Nails 1-5 bilateral were debrided in length and thickness. Small bleed to left hallux. Band aide applied Patient is to RTC in 3-4 months. Sadie Eastman DPM Referring Provider: SADIE EASTMAN [[id number]] Allergies As of Date: 09/21/2024 Noted Allergy Reaction SINEQUAN (DOXEPIN HCL) 05/08/2005 12 - Shortness of Breath Date Reviewed: 09/21/2024 Reviewed by: Maria Del Carmen Aguilar MA - Fully Assessed Reason for Visit: Nail care [Other] Nail care [Other] Primary Visit Diagnosis:Onychomycosi s [B35.1] Other Visit Diagnoses:Pain in toe of left foot [M79.675] Pain in toe of right foot [M79.674] Prescriptions as of 09/21/2024 - amLODIPine (NORVASC) 5 mg tablet Take 1 tablet by mouth once daily. - pantoprazole DR (PROTONIX) 40 mg tablet Take 1 tablet by mouth once daily. - atorvastatin (LIPITOR) 20 mg tablet Take 1 tablet by mouth once daily. For cholesterol. - memantine (NAMENDA) 10 mg tablet Take 1 tablet by mouth two times a day. - donepezil (ARICEPT) 23 mg tablet Take 1 tablet by mouth daily at bedtime. - sertraline (ZOLOFT) 25 mg tablet Take 1 tablet by mouth once daily. - potassium chloride ER (KLOR-CON) 20 mEq tablet Take 1 tablet by mouth once daily. - fluticasone (FLONASE) 50 mcg/actuation nasal spray Use 2 Sprays in each nostril once daily. Rinse mouth after use. - cyanocobalamin (VITAMIN B-12) 1,000 mcg tab Take 1 tablet by mouth once daily. - Cholecalciferol, Vitamin D3, 50 mcg (2,000 unit) cap Take by mouth. - ONE DAILY MULTI-VITAMIN TAB Take one(1) tablet daily. Problem List As Of Date 09/21/2024 Noted Resolved Hypertension [I10] Migraine, unspecified, with intractable migrain* 12/04/2014 ESOPHAGEAL REFLUX [K21.9] Hyperlipidemia, mixed [E78.2] ALLERGIC RHINITIS NOS [J30.9] CARPAL TUNNEL SYNDROME [G56.00] 11/30/2005 HEMORRHOIDS NOS [K64.9] DIVERTICULOSIS OF COLON W/O BLEED [K57.30] ULNAR NERVE LESION [G56.20] 10/08/2005 11/30/2005 Calculus of gallbladder with other cholecystiti* 8 12/04/2014 MASS IN BREAST [N63.0] 01/18/2008 12/04/2014 Osteopenia [M85.80] Left hip pain [M25.552] 11/23/2017 Vitamin D insufficiency [E55.9] Dementia associated with other underlying disea*11/15/2023 Primary degenerative dementia of the Alzheimer *11/15/2023 Disposition: Return in about 3 months (around 12/21/2024). Follow-up and Disposition History for Encounter Date Provider Department Center 09/21/[id number]-MZCDTMLISADIE EASTMAN Khadijah [facility] Encounter Status:Closed by SADIE EASTMAN DPM on 09/21/[address] [facility] ([id number]) 1945 F Date Time Provider Department 07/07/24 ALISHA WILCOX During your visit today, we recorded the following information about you: Susu Hunt LPN 07/07/2024 10:36 AM Signed ----- Message from Alisha Wilcox MD sent at 07/06/2024 8:42 PM EST ----- Xray of the hips negative for fractures. If symptoms of hip pain persist 2 weeks, would repeat imaging. Susu Hunt LPN 07/07/2024 10:40 AM Signed Patient's notified. PATIENT was given tylenol Wednesday for pain. will try to give ibuprofen. Susu Hunt LPN Allergies As of Date: 07/07/2024 Noted Allergy Reaction SINEQUAN (DOXEPIN HCL) 05/08/2005 12 - Shortness of Breath Date Reviewed: 07/06/2024 Reviewed by: Jacqueline Keen MA - Fully Assessed Prescriptions as of 07/07/2024 - amLODIPine (NORVASC) 5 mg tablet Take 1 tablet by mouth once daily. - pantoprazole DR (PROTONIX) 40 mg tablet Take 1 tablet by mouth once daily. - atorvastatin (LIPITOR) 20 mg tablet Take 1 tablet by mouth once daily. For cholesterol. - memantine (NAMENDA) 10 mg tablet Take 1 tablet by mouth two times a day. - donepezil (ARICEPT) 23 mg tablet Take 1 tablet by mouth daily at bedtime. - sertraline (ZOLOFT) 25 mg tablet Take 1 tablet by mouth once daily. - potassium chloride ER (KLOR-CON) 20 mEq tablet Take 1 tablet by mouth once daily. - fluticasone (FLONASE) 50 mcg/actuation nasal spray Use 2 Sprays in each nostril once daily. Rinse mouth after use. - cyanocobalamin (VITAMIN B-12) 1,000 mcg tab Take 1 tablet by mouth once daily. - Cholecalciferol, Vitamin D3, 50 mcg (2,000 unit) cap Take by mouth. - ONE DAILY MULTI-VITAMIN TAB Take one(1) tablet daily. Problem List As Of Date 07/07/2024 Noted Resolved Hypertension [I10] Migraine, unspecified, with intractable migrain* 12/04/2014 ESOPHAGEAL REFLUX [K21.9] Hyperlipidemia, mixed [E78.2] ALLERGIC RHINITIS NOS [J30.9] CARPAL TUNNEL SYNDROME [G56.00] 11/30/2005 HEMORRHOIDS NOS [K64.9] DIVERTICULOSIS OF COLON W/O BLEED [K57.30] ULNAR NERVE LESION [G56.20] 10/08/2005 11/30/2005 Calculus of gallbladder with other cholecystiti* 8 12/04/2014 MASS IN BREAST [N63.0] 01/18/2008 12/04/2014 Osteopenia [M85.80] Left hip pain [M25.552] 11/23/2017 Vitamin D insufficiency [E55.9] Dementia associated with other underlying disea*11/15/2023 Primary degenerative dementia of the Alzheimer *11/15/2023 Encounter Status:Closed by SUSU HUNT on 07/07/24 [facility] Telephone (FAMWS) CRISSY PHILIPPE ([id number]) 1945 F Date Time Provider Department 07/07/24 ALISHA WILCOX [facility] During your visit today, we recorded the following information about you: Susu Hunt LPN 07/07/2024 10:34 AM Signed ----- Message from Alisha Wilcox MD sent at 07/06/2024 8:44 PM EST ----- Xray of the lumbar spine negative for fracture. Does show arthritis changes with moderate bone spurring. Susu Hunt LPN 07/07/2024 10:36 AM Signed patient 's notified. Susu Hunt LPN Allergies As of Date: 07/07/2024 Noted Allergy Reaction SINEQUAN (DOXEPIN HCL) 05/08/2005 12 - Shortness of Breath Date Reviewed: 07/06/2024 Reviewed by: Jacqueline Keen MA - Fully Assessed Prescriptions as of 07/07/2024 - amLODIPine (NORVASC) 5 mg tablet Take 1 tablet by mouth once daily. - pantoprazole DR (PROTONIX) 40 mg tablet Take 1 tablet by mouth once daily. - atorvastatin (LIPITOR) 20 mg tablet Take 1 tablet by mouth once daily. For cholesterol. - memantine (NAMENDA) 10 mg tablet Take 1 tablet by mouth two times a day. - donepezil (ARICEPT) 23 mg tablet Take 1 tablet by mouth daily at bedtime. - sertraline (ZOLOFT) 25 mg tablet Take 1 tablet by mouth once daily. - potassium chloride ER (KLOR-CON) 20 mEq tablet Take 1 tablet by mouth once daily. - fluticasone (FLONASE) 50 mcg/actuation nasal spray Use 2 Sprays in each nostril once daily. Rinse mouth after use. - cyanocobalamin (VITAMIN B-12) 1,000 mcg tab Take 1 tablet by mouth once daily. - Cholecalciferol, Vitamin D3, 50 mcg (2,000 unit) cap Take by mouth. - ONE DAILY MULTI-VITAMIN TAB Take one(1) tablet daily. Problem List As Of Date 07/07/2024 Noted Resolved Hypertension [I10] Migraine, unspecified, with intractable migrain* 12/04/2014 ESOPHAGEAL REFLUX [K21.9] Hyperlipidemia, mixed [E78.2] ALLERGIC RHINITIS NOS [J30.9] CARPAL TUNNEL SYNDROME [G56.00] 11/30/2005 HEMORRHOIDS NOS [K64.9] DIVERTICULOSIS OF COLON W/O BLEED [K57.30] ULNAR NERVE LESION [G56.20] 10/08/2005 11/30/2005 Calculus of gallbladder with other cholecystiti* 8 12/04/2014 MASS IN BREAST [N63.0] 01/18/2008 12/04/2014 Osteopenia [M85.80] Left hip pain [M25.552] 11/23/2017 Vitamin D insufficiency [E55.9] Dementia associated with other underlying disea*11/15/2023 Primary degenerative dementia of the Alzheimer *11/15/2023 Encounter Status:Closed by SUSU HUNT on 07/07/24 [facility] Denise 07-06-2024 CNOV Office Visit (FAMPWS ) CRISSY PHILIPPE ([id number]) 1945 F Date Time Provider Department 07/06/24 12:20 PM ALISHA WILCOX During your visit today, we recorded the following information about you: Pulse Respiration Blood pressure Weight 76/minute 16/minute 114/82 49.4 kg Alisha Wilcox MD 07/06/2024 8:15 PM Signed Chief Complaint Patient presents with: F/U 6 Month HPI Crissy Philippe is a 79 year old female who presents here today for Above Complaints. Accompanied today by her who provides her history due to her dementia. notes that patient had a fall 2 nights ago while helping take out the trash cans. Patient was lying on her left side on the concrete. Did not witness the fall. No bruising or swelling or complaints of pain after the fall. Had to help her get up off the ground, but was able to walk back to the home. has noticed she is slower getting out of chairs and is worried she may have underlying injury. No issues noticed while walking. Patient denies pain today in her hips, back, or head. states no snow on her fritz so does not think she hit her head. Does not use walker or cane for ambulation. Does not typically seem unsteady. BP well controlled on current regimen. Not checking at home. No changes to her regimen at appointment with neurology in March for Alzheimer's dementia. Neurologist noted change in her MOCA score, but has not noticed significant change in the last 2-3 months. No concerns for depression or anxiety on Zoloft. Noted low sugar on recent labs. Patient not fasting for labs. Denies symptoms of hypoglycemia at home. Eating 3 meals per day. Past medical history, appointments, medications, allergies reviewed. Previous Medical History PAST MEDICAL HISTORY Diagnosis Date Allergic rhinitis, cause unspecified Allergic rhinitis Alzheimer's dementia (HCC) Carpal tunnel syndrome CHOLELITH W CHOLECYS NEC 07/04/2007 Diverticulosis of colon (without mention of hemorrhage) Esophageal reflux Family history of malignant neoplasm of gastrointestinal tract Hypertension Migraine, unspecified, with intractable migraine, so stated, without mention of status migrainosus Migraine in the past Osteopenia Other and unspecified hyperlipidemia HIGH HDL Vitamin D insufficiency Previous Surgical History PAST SURGICAL HISTORY Procedure Laterality Date COLONOSCOPY FLX DX W/COLLJ SPEC WHEN PFRMD 05/24/03 Colonoscopy COLONOSCOPY FLX DX W/COLLJ SPEC WHEN PFRMD 09/13/09 COLONOSCOPY FLX DX W/COLLJ SPEC WHEN PFRMD 03/25/2015 Colonoscopy COLONOSCOPY FLX DX W/COLLJ SPEC WHEN PFRMD 04/22/2020 Colonoscopy repeat in 1 year ESOPHAGOGASTRODUODENOS COPY TRANSORAL DIAGNOSTIC 04/22/2020 EGD repeat in 5 years LAPS SURG CHOLECYSTECTOMY W/CHOLANGIOGRAPHY 06/21/07 NEUROPLASTY AND/TRANSPOS MEDIAN NRV CARPAL TUNNE 10/08/2005 Carpal tunnel decomp Right NEUROPLASTY AND/TRANSPOS MEDIAN NRV CARPAL TUNNE 10/29/2005 Carpal tunnel decomp Left TONSILLECTOMY PRIMARY/SECONDARY Tonsillectomy Family History FAMILY HISTORY Problem Relation Age of Onset Cancer Mother LUNG passed from this that went to her brain and spine. Diabetes Father Colon Cancer Father Hypertension Father Patient Allergies ALLERGIES Allergen Reactions Sinequan [Doxepin H* Shortness of Breath Current Medications Current Outpatient Medications on File Prior to Visit Medication Sig amLODIPine (NORVASC) 5 mg tablet Take 1 tablet by mouth once daily. pantoprazole DR (PROTONIX) 40 mg tablet Take 1 tablet by mouth once daily. atorvastatin (LIPITOR) 20 mg tablet Take 1 tablet by mouth once daily. For cholesterol. memantine (NAMENDA) 10 mg tablet Take 1 tablet by mouth two times a day. donepezil (ARICEPT) 23 mg tablet Take 1 tablet by mouth daily at bedtime. sertraline (ZOLOFT) 25 mg tablet Take 1 tablet by mouth once daily. potassium chloride ER (KLOR-CON) 20 mEq tablet Take 1 tablet by mouth once daily. fluticasone (FLONASE) 50 mcg/actuation nasal spray Use 2 Sprays in each nostril once daily. Rinse mouth after use. Cholecalciferol, Vitamin D3, 50 mcg (2,000 unit) cap Take by mouth. ONE DAILY MULTI-VITAMIN TAB Take one(1) tablet daily. cyanocobalamin (VITAMIN B-12) 1,000 mcg tab Take 1 tablet by mouth once daily. No current facility-administered medications on file prior to visit. Social History Social History Tobacco Use Smoking status: Never Smokeless tobacco: Never Vaping Use Vaping status: Never Used Substance Use Topics Alcohol use: No Comment: socially Drug use: No Review of Symptoms REVIEW OF SYSTEMS GENERAL: No weight loss, malaise or fevers RESPIRATORY: Negative for cough, hemoptysis, wheezing, COPD, dyspnea or shortness of breath CARDIOVASCULAR: Negative for chest pain, leg swelling, hypertension, CHF or palpita (more content not included)... Normal [facility] No Panel Informationon 07-06 Radiology Study observation (narrative) [facility] XR HIP ISAI 5V PEL+ AP/LAT EA HIPon 07-06-2024 XR HIP ISAI 5V PEL+ AP/LAT EA HIP * * *Final Report* * * DATE OF EXAM: Jul 06 2024 2:20PM [id number] - XR HIP ISAI 5V PEL+ AP/LAT EA HIP / PROCEDURE REASON: multiple diagnoses * * * * Physician Interpretation * * * * EXAM TITLE: XR HIP ISAI 5V PEL+ AP/LAT EA HIP EXAM DATE/TIME: 07/06/2024 2:20 PM COMPARISON: None. CLINICAL INDICATION/HISTORY: Fall. TECHNIQUE: AP and frog lateral views of the hips and AP view of the pelvis are presented. FINDINGS: No acute fractures or subluxations are noted. Bilateral hip joint spaces are maintained however osteophyte formation is noted. The visualized pelvic bones are intact. The bones are somewhat osteopenic. There is no significant soft tissue swelling. Others: Degenerative changes seen in the lower lumbar spine. IMPRESSION: No acute fractures demonstrated in the bilateral hips and AP view pelvis. Patient can be reevaluated in 10-14 days if symptoms persist. Degenerative changes in the hips as described above. Evaluation Manager: FREDO Transcribe Date/Time: Jul 06 2024 3:21P Dictated by : CASTRO POOLE MD This examination was interpreted and the report reviewed and electronically signed by: CASTRO POOLE MD on Jul 06 2024 3:25PM EST [id number] Normal [facility] XR HIP BILATERAL 5V PEL/AP/L AT EACH HIPon 07-06-2024 IMPRESSION: No acute fractures demonstrated in the bilateral hips and AP view pelvis. Patient can be reevaluated in 10-14 days if symptoms persist. Degenerative changes in the hips as described above. Evaluation Manager: FREDO Transcribe Date/Time: Jul 06 2024 3:21P Dictated by : CASTRO POOLE MD This examination was interpreted and the report reviewed and electronically signed by: CASTRO POOLE MD on Jul 06 2024 3:25PM [facility] DIVISION OF RADIOLOGY * * *Final Report* * * DATE OF EXAM: Jul 06 2024 2:20PM WOX 5353 - XR HIP ISAI 5V PEL+ AP/LAT EA HIP / PROCEDURE REASON: multiple diagnoses * * * * Physician Interpretation * * * * EXAM TITLE: XR HIP ISAI 5V PEL+ AP/LAT EA HIP EXAM DATE/TIME: 07/06/2024 2:20 PM COMPARISON: None. CLINICAL INDICATION/HISTORY: Fall. TECHNIQUE: AP and frog lateral views of the hips and AP view of the pelvis are presented. FINDINGS: No acute fractures or subluxations are noted. Bilateral hip joint spaces are maintained however osteophyte formation is noted. The visualized pelvic bones are intact. The bones are somewhat osteopenic. There is no significant soft tissue swelling. Others: Degenerative changes seen in the lower lumbar spine. DIVISION OF RADIOLOGY Provider, [facility] - 07/06/2024 * * *Final Report* * * DATE OF EXAM: Jul 06 2024 2:20PM WOX 5353 - XR HIP ISAI 5V PEL+ AP/LAT EA HIP / PROCEDURE REASON: multiple diagnoses * * * * Physician Interpretation * * * * EXAM TITLE: XR HIP ISAI 5V PEL+ AP/LAT EA HIP EXAM DATE/TIME: 07/06/2024 2:20 PM COMPARISON: None. CLINICAL INDICATION/HISTORY: Fall. TECHNIQUE: AP and frog lateral views of the hips and AP view of the pelvis are presented. FINDINGS: No acute fractures or subluxations are noted. Bilateral hip joint spaces are maintained however osteophyte formation is noted. The visualized pelvic bones are intact. The bones are somewhat osteopenic. There is no significant soft tissue swelling. Others: Degenerative changes seen in the lower lumbar spine. IMPRESSION IMPRESSION: No acute fractures demonstrated in the bilateral hips and AP view pelvis. Patient can be reevaluated in 10-14 days if symptoms persist. Degenerative changes in the hips as described above. Evaluation Manager: FREDO Transcribe Date/Time: Jul 06 2024 3:21P Dictated by : CASTRO POOLE MD This examination was interpreted and the report reviewed and electronically signed by: CASTRO POOLE MD on Jul 06 2024 3:25PM EST [facility] XR HIP BILATERAL 5V PEL/AP/L AT EACH HIPOrdered By: [facility] Provider on 07-06-2024 [facility] XR LUMBAR 3V AP/LAT/L5-S1on 07-06-2024 XR LUMBAR 3V AP/LAT/L5-S1 * * *Final Report* * * DATE OF EXAM: Jul 06 2024 2:20PM WOX 5228 - XR LUMBAR 3V AP/LAT/L5-S1 / PROCEDURE REASON: multiple diagnoses * * * * Physician Interpretation * * * * EXAM TITLE: XR LUMBAR 3V AP/LAT/L5-S1 EXAM DATE/TIME: 07/06/2024 2:20 PM COMPARISON: None. CLINICAL INDICATION/HISTORY: Fall TECHNIQUE: AP, lateral and cone down lateral views of the lumbar spine are presented. FINDINGS: There are five wiu-mwq-uyckrrf lumbar vertebrae. No acute fracture or subluxations are noted. L1-2, L4-5 and L5-S1 disc space narrowing is demonstrated. There is moderate osteophyte formation, with facet arthrosis in the lower lumbar spine. Kissing spine seen on lateral view. 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 Evaluation Manager: PSCB Transcribe Date/Time: Jul 06 2024 3:02P Dictated by : CASTRO POOLE MD This examination was interpreted and the report reviewed and electronically signed by: CASTRO POOLE MD on Jul 06 2024 3:05PM EST DIVISION OF RADIOLOGY * * *Final Report* * * DATE OF EXAM: Jul 06 2024 2:20PM WOX 5228 - XR LUMBAR 3V AP/LAT/L5-S1 / PROCEDURE REASON: multiple diagnoses * * * * Physician Interpretation * * * * EXAM TITLE: XR LUMBAR 3V AP/LAT/L5-S1 EXAM DATE/TIME: 07/06/2024 2:20 PM COMPARISON: None. CLINICAL INDICATION/HISTORY: Fall TECHNIQUE: AP, lateral and cone down lateral views of the lumbar spine are presented. FINDINGS: There are five lws-qay-txayfap lumbar vertebrae. No acute fracture or subluxations are noted. L1-2, L4-5 and L5-S1 disc space narrowing is demonstrated. There is moderate osteophyte formation, with facet arthrosis in the lower lumbar spine. Kissing spine seen on lateral view. DIVISION OF RADIOLOGY Provider, [facility] - 07/06/2024 * * *Final Report* * * DATE OF EXAM: Jul 06 2024 2:20PM WOX 5228 - XR LUMBAR 3V AP/LAT/L5-S1 / PROCEDURE REASON: multiple diagnoses * * * * Physician Interpretation * * * * EXAM TITLE: XR LUMBAR 3V AP/LAT/L5-S1 EXAM DATE/TIME: 07/06/2024 2:20 PM COMPARISON: None. CLINICAL INDICATION/HISTORY: Fall TECHNIQUE: AP, lateral and cone down lateral views of the lumbar spine are presented. FINDINGS: There are five tie-lvw-rzsqmwt lumbar vertebrae. No acute fracture or subluxations are noted. L1-2, L4-5 and L5-S1 disc space narrowing is demonstrated. There is moderate osteophyte formation, with facet arthrosis in the lower lumbar spine. Kissing spine seen on lateral view. 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 Evaluation Manager: PSCB Transcribe Date/Time: Jul 06 2024 3:02P Dictated by : CASTRO POOLE MD This examination was interpreted and the report reviewed and electronically signed by: CASTRO POOLE MD on Jul 06 2024 3:05PM [facility] 25([place])D3 [facility] 25-hydroxyvitamin D3 [Mass/Vol] 52.5 ng/mL Normal 31.0-80.0 [facility] Comment on above: Order Comment: Speci men Type: BLOOD SPECIMENOrdering Facility: [facility] Address: [address] [place], [place] [address]Austin [place], [place] [address] Result Comment: Clas sification of 25 [place] Vitamin D status: Deficiency/Insufficiency: < or = 30 ng/ml. Sufficiency/Optimal Levels: 31-80 ng/mL Toxicity: > 100 ng/mL. Test performed by chemiluminescent immunoassay. Performed By: #### 1 989-3 ####[facility] [id number] [place] [address] [place] CBC W Auto Differential pane l (Bld)on 06-28-2024 Basophils (Bld) [#/Vol] 0.06 10*3/uL Normal <0.11 [facility] Comment on above: Order Comment: Speci men Type: BLOOD SPECIMENOrdering Facility: [facility] Address: [address] [place] [address] Performed By: #### 5 7021-8 ####[facility] [id number] [place] [address] [place] Basophils/100 WBC (Bld) 1.0 % Normal [facility] Comment on above: Order Comment: Speci men Type: BLOOD SPECIMENOrdering Facility: [facility] Address: [address] [place] [address] Performed By: #### 5 7021-8 ####[facility] [id number] [place] [address] [place] Differential cell count method Nom (Bld) Auto Normal [facility] Comment on above: Order Comment: Speci men Type: BLOOD SPECIMENOrdering Facility: [facility] Address: [address] [place] [address] Performed By: #### 5 7021-8 ####[facility] [id number] [place] [address] [place] Eosinophils (Bld) [#/Vol] 0.12 10*3/uL Normal <0.46 [facility] Comment on above: Order Comment: Speci men Type: BLOOD SPECIMENOrdering Facility: [facility] Address: [address] [place] [address] Performed By: #### 5 7021-8 ####[facility] [id number] [place] [address] [place] Eosinophils/100 WBC (Bld) 2.0 % Normal [facility] Comment on above: Order Comment: Speci men Type: BLOOD SPECIMENOrdering Facility: [facility] Address: [address] [place] [address] Performed By: #### 5 7021-8 ####[facility] [id number] [place] [address] [place] Erythrocyte distribution width (RBC) [Ratio] 13.6 % Normal 11.5-15.0 [facility] Comment on above: Order Comment: Speci men Type: BLOOD SPECIMENOrdering Facility: [facility] Address: [address] [place] [address] Performed By: #### 5 7021-8 ####[facility] [id number] [place] [address] [place] Hematocrit (Bld) [Volume fraction] 45.8 % Normal 36.0-46.0 [facility] Comment on above: Order Comment: Speci men Type: BLOOD SPECIMENOrdering Facility: [facility] Address: [address] [place] [address] Performed By: #### 5 7021-8 ####[facility] [id number] [place] [address] [place] Hemoglobin (Bld) [Mass/Vol] 14.7 g/dL Normal 11.5-15.5 [facility] Comment on above: Order Comment: Speci men Type: BLOOD SPECIMENOrdering Facility: [facility] Address: [address] [place] [address] Performed By: #### 5 7021-8 ####[facility] [id number] [place] [address] [place] Immature granulocytes (Bld) [#/Vol] 10*3/uL Normal <0.10 [facility] Comment on above: Order Comment: Speci men Type: BLOOD SPECIMENOrdering Facility: [facility] Address: [address] [place] [address] Performed By: #### 5 7021-8 ####[facility] [id number] [place] [address] [place] Immature granulocytes/100 WBC (Bld) 0.2 % Normal [facility] Comment on above: Order Comment: Speci men Type: BLOOD SPECIMENOrdering Facility: [facility] Address: [address] [place] [address] Performed By: #### 5 7021-8 ####[facility] [id number] [place] [address] [place] Lymphocytes (Bld) [#/Vol] 1.62 10*3/uL Normal 1.00-4.00 [facility] Comment on above: Order Comment: Speci men Type: BLOOD SPECIMENOrdering Facility: [facility] Address: [address] [place] [address] Performed By: #### 5 7021-8 ####[facility] [id number] [place] [address] [place] Lymphocytes/100 WBC (Bld) 26.7 % Normal [facility] Comment on above: Order Comment: Speci men Type: BLOOD SPECIMENOrdering Facility: [facility] Address: [address] [place] [address] Performed By: #### 5 7021-8 ####[facility] [id number] [place] [address] [place] MCH (RBC) [Entitic mass] 31.1 pg Normal 26.0-34.0 [facility] Comment on above: Order Comment: Speci men Type: BLOOD SPECIMENOrdering Facility: [facility] Address: [address] [place] [address] Performed By: #### 5 7021-8 ####[facility] [id number] [place] [address] [place] MCHC (RBC) [Mass/Vol] 32.1 g/dL Normal 30.5-36.0 [facility] Comment on above: Order Comment: Speci men Type: BLOOD SPECIMENOrdering Facility: [facility] Address: [address] [place] [address] Performed By: #### 5 7021-8 ####[facility] [id number] [place] [address] [place] MCV (RBC) [Entitic vol] 96.8 fL Normal 80.0-100.0 [facility] Comment on above: Order Comment: Speci men Type: BLOOD SPECIMENOrdering Facility: [facility] Address: [address] [place] [address] Performed By: #### 5 7021-8 ####[facility] [id number] [place] [address] [place] Monocytes (Bld) [#/Vol] 0.44 10*3/uL Normal <0.87 [facility] Comment on above: Order Comment: Speci men Type: BLOOD SPECIMENOrdering Facility: [facility] Address: [address] [place] [address] Performed By: #### 5 7021-8 ####[facility] [id number] [place] [address] [place] Monocytes/100 WBC (Bld) 7.3 % Normal [facility] Comment on above: Order Comment: Speci men Type: BLOOD SPECIMENOrdering Facility: [facility] Address: [address] [place] [address] Performed By: #### 5 7021-8 ####[facility] [id number] [place] [address] [place] Neutrophils (Bld) [#/Vol] 3.81 10*3/uL Normal 1.45-7.50 [facility] Comment on above: Order Comment: Speci men Type: BLOOD SPECIMENOrdering Facility: [facility] Address: [address] [place] [address] Performed By: #### 5 7021-8 ####[facility] [id number] [place] [address] [place] Neutrophils/100 WBC (Bld) 62.8 % Normal [facility] Comment on above: Order Comment: Speci men Type: BLOOD SPECIMENOrdering Facility: [facility] Address: [address] [place] [address] Performed By: #### 5 7021-8 ####[facility] [id number] [place] [address] [place] Nucleated RBC (Bld) [#/Vol] 10*3/uL Normal <0.01 [facility] Comment on above: Order Comment: Speci men Type: BLOOD SPECIMENOrdering Facility: [facility] Address: [address] [place] [address] Performed By: #### 5 7021-8 ####[facility] [id number] [place] [address] [place] Nucleated RBC/100 WBC (Bld) [Ratio] 0.0 /100 WBC Normal [facility] Comment on above: Order Comment: Speci men Type: BLOOD SPECIMENOrdering Facility: [facility] Address: [address] [place] [address] Performed By: #### 5 7021-8 ####[facility] [id number] [place] [address] [place] Platelet mean volume (Bld) [Entitic vol] 9.4 fL Normal 9.0-12.7 [facility] Comment on above: Order Comment: Speci men Type: BLOOD SPECIMENOrdering Facility: [facility] Address: [address] [place] [address] Performed By: #### 5 7021-8 ####[facility] [id number] [place] [address] [place] Platelets (Bld) [#/Vol] 228 10*3/uL Normal 150-400 [facility] Comment on above: Order Comment: Speci men Type: BLOOD SPECIMENOrdering Facility: [facility] Address: [address] [place] [address] Performed By: #### 5 7021-8 ####[facility] [id number] [place] [address] [place] RBC (Bld) [#/Vol] 4.73 10*6/uL Normal 3.90-5.20 [facility] Comment on above: Order Comment: Speci men Type: BLOOD SPECIMENOrdering Facility: [facility] Address: [address] [place] [address] Performed By: #### 5 7021-8 ####[facility] [id number] [place] [address] [place] WBC (Bld) [#/Vol] 6.06 10*3/uL Normal 3.70-11.00 [facility] Comment on above: Order Comment: Speci men Type: BLOOD SPECIMENOrdering Facility: [facility] Address: [address] [place] [address] Performed By: #### 5 7021-8 ####[facility] [id number] [place] [address] [place] Comprehensive metabolic 2000 panelon 06-28-2024 Albumin [Mass/Vol] 4.3 g/dL Normal 3.9-4.9 [facility] Comment on above: Order Comment: Speci men Type: BLOOD SPECIMENOrdering Facility: [facility] Address: [address] [place] [address] Performed By: #### 2 4323-8 ####[facility] [id number] [place] [address] [place] ALP [Catalytic activity/Vol] 78 U/L Normal 34-123 [facility] Comment on above: Order Comment: Speci men Type: BLOOD SPECIMENOrdering Facility: [facility] Address: [address] [place] [address] Performed By: #### 2 4323-8 ####[facility] [id number] [place] [address] [place] ALT [Catalytic activity/Vol] 26 U/L Normal 7-38 [facility] Comment on above: Order Comment: Speci men Type: BLOOD SPECIMENOrdering Facility: [facility] Address: [address] [place] [address] Performed By: #### 2 4323-8 ####[facility] [id number] [place] [address] [place] Anion gap [Moles/Vol] 12 mmol/L Normal 8-15 [facility] Comment on above: Order Comment: Speci men Type: BLOOD SPECIMENOrdering Facility: [facility] Address: [address] [place] [address] Performed By: #### 2 4323-8 ####[facility] [id number] [place] [address] [place] AST [Catalytic activity/Vol] 25 U/L Normal 13-35 [facility] Comment on above: Order Comment: Speci men Type: BLOOD SPECIMENOrdering Facility: [facility] Address: [address] [place] [address] Performed By: #### 2 4323-8 ####[facility] [id number] [place] [id number] [place] Bilirubin [Mass/Vol] 0.6 mg/dL Normal 0.2-1.3 [facility] Comment on above: Order Comment: Speci men Type: BLOOD SPECIMENOrdering Facility: [facility] Address: [address] [place] [id number] Performed By: #### 2 4323-8 ####[facility] [id number] [address] [address] [place] Calcium [Mass/Vol] 10.0 mg/dL Normal 8.5-10.2 [facility] Comment on above: Order Comment: Speci men Type: BLOOD SPECIMENOrdering Facility: [facility] Address: [address] [place], [place] [address] Performed By: #### 2 4323-8 ####[facility] [id number] [place] [address] [place] Chloride [Moles/Vol] 104 mmol/L Normal 98-107 [facility] Comment on above: Order Comment: Speci men Type: BLOOD SPECIMENOrdering Facility: [facility] Address: [address] [place], [place] [address] Performed By: #### 2 4323-8 ####[facility] [id number] [place] [address] [place] CO2 [Moles/Vol] 27 mmol/L Normal 22-30 [facility] Comment on above: Order Comment: Speci men Type: BLOOD SPECIMENOrdering Facility: [facility] Address: [address] [place], [place] [address] Performed By: #### 2 4323-8 ####[facility] [id number] [place] [id number] [place] Creatinine [Mass/Vol] 0.88 mg/dL Normal 0.58-0.96 [facility] Comment on above: Order Comment: Speci men Type: BLOOD SPECIMENOrdering Facility: [facility] Address: [address] [place], [place] [address] Performed By: #### 2 4323-8 ####[facility] [id number] [place] [address] [place] Creatinine and Glomerular filtration rate.predicted panel (S/P/Bld) 67 mL/min/1.73m??? Normal >=60 [facility] Comment on above: Order Comment: Rafat villatoro Type: BLOOD SPECIMENOrdering Facility: [facility] Address: [address] [place] [address] Result Comment: Kassandra mated Glomerular Filtration Rate (eGFR) is calculated using the 2020 CKD-EPI creatinine equation. This equation utilizes serum creatinine, sex, and age as parameters. The creatinine assay has traceable calibration to isotope dilution-mass spectrometry. Refer to KDIGO guidelines for clinical interpretation. In patients with unstable renal function, e.g. those with acute kidney injury, the eGFR may not accurately reflect actual GFR. Performed By: #### 2 4323-8 ####[facility] [id number] [place] [address] [place] Glucose [Mass/Vol] 53 mg/dL Low 74-99 [facility] Comment on above: Order Comment: Rafat villatoro Type: BLOOD SPECIMENOrdering Facility: [facility] Address: [address] [place] [address] Result Comment: The [place] Diabetes [employer] (ADA) provides guidance for cutoff values for fasting glucose and random glucose. The ADA defines fasting as no caloric intake for at least 8 hours. Fasting plasma glucose results between 100 to 125 mg/dL indicate increased risk for diabetes (prediabetes). Fasting plasma glucose results greater than or equal to 126 mg/dL meet the criteria for diagnosis of diabetes. In the absence of unequivocal hyperglycemia, results should be confirmed by repeat testing. In a patient with classic symptoms of hyperglycemia or hyperglycemic crisis, random plasma glucose results greater than or equal to 200 mg/dL meet the criteria for diagnosis of diabetes. Reference: Standards of Medical Care in Diabetes 2016, [place] [employer]. Diabetes Care. 2016.39(Suppl 1). Performed By: #### 2 4323-8 ####[facility] [id number] [place] [id number] [place] Potassium [Moles/Vol] 3.8 mmol/L Normal 3.7-5.1 [facility] Comment on above: Order Comment: Speci men Type: BLOOD SPECIMENOrdering Facility: [facility] Address: [address] [place] [address] Performed By: #### 2 4323-8 ####[facility] [id number] [place] [address] [place] Protein [Mass/Vol] 6.7 g/dL Normal 6.3-8.0 [facility] Comment on above: Order Comment: Speci men Type: BLOOD SPECIMENOrdering Facility: [facility] Address: [address] [place] [address] Performed By: #### 2 4323-8 ####[facility] [id number] [place] [address] [place] Sodium [Moles/Vol] 143 mmol/L Normal 136-144 [facility] Comment on above: Order Comment: Speci men Type: BLOOD SPECIMENOrdering Facility: [facility] Address: [address] [place] [address] Performed By: #### 2 4323-8 ####[facility] [id number] [place] [address] [place] Urea nitrogen [Mass/Vol] 18 mg/dL Normal 7-21 [facility] Comment on above: Order Comment: Speci men Type: BLOOD SPECIMENOrdering Facility: [facility] Address: [address] [place] [address] Performed By: #### 2 4323-8 ####[facility] [id number] [place] [address] [place] CNOVon 06-22-2024 CNOV Office Visit (PODIWS ) CRISSY PHILIPPE ([id number]) 1945 F Date Time Provider Department 06/22/24 11:30 AM SADIE EASTMAN During your visit today, we recorded the following information about you: Vale Butcher LPN 06/22/2024 12:40 PM Signed AMB ROOMING INTAKE FLOWSHEET DATA Patient presents with: Left Foot - Established Patient, Follow Up, nail care Right Foot - Established Patient, Follow Up, nail care PAM Mcdowell Matthew 06/22/2024 12:40 PM Signed Subjective: Patient presents to clinic c/o painful toenails. They state that the nails are especially painful with shoe gear and pressure. Patient states that nails 1-5 b/l are painful. No other pedal complaints at this time. Patient states no change in medications or medical history since last visit. Objective: Patient presents to clinic ambulating in dress shoes Vasc: DP and PT pulses are palpable bilateral. CFT is less than 5 seconds bilateral. Skin temperature is warm to cool proximal to distal bilateral. There is no edema or varicosities noted. Neuro: Protective sensation is intact to the foot and toes when tested with the 5.07 SWM bilateral. Vibratory sensation is decreased at the hallux IPJ bilateral. The hallux is downgoing bilateral. Derm: Nails 1-5 b/l are discolored-yellow, thick, crumbly, dystrophic and with subungal debris. Pain is present to b/l hallux. B/l hallux nail is growing into distal tuft. No signs of infection. Skin is of normal turgor, texture and hair growth is present bilateral. There is callus to right 1st metatarsal. No ulceration present. Ortho: Muscle strength is 5/5 for all pedal groups tested. Ankle joint DF is full with the knee extended with no pain or crepitus noted. 1st MPJ ROM is full bilateral. Assessment: (B35.1) Onychomycosis (primary encounter diagnosis) (M79.675) Pain in toe of left foot (M79.674) Pain in toe of right foot Plan: Patient was seen and evaluated. Nails 1-5 bilateral were debrided in length and thickness. Small bleed to left hallux. Band aide applied. Callus filed with dremmel to right 1st metatarsal. Patient is to RTC in 3-4 months. Sadie Eastman DPM Referring Provider: SADIE EASTMAN [[id number]] Allergies As of Date: 06/22/2024 Noted Allergy Reaction SINEQUAN (DOXEPIN HCL) 05/08/2005 12 - Shortness of Breath Date Reviewed: 06/22/2024 Reviewed by: Vale Butcher LPN - Fully Assessed Reason for Visit: Established Patient [175] Follow Up [171] nail care [Other] Established Patient [175] Follow Up [171] nail care [Other] Primary Visit Diagnosis:Onychomycosi s [B35.1] Other Visit Diagnoses:Pain in toe of left foot [M79.675] Pain in toe of right foot [M79.674] Prescriptions as of 06/22/2024 - amLODIPine (NORVASC) 5 mg tablet Take 1 tablet by mouth once daily. - pantoprazole DR (PROTONIX) 40 mg tablet Take 1 tablet by mouth once daily. - atorvastatin (LIPITOR) 20 mg tablet Take 1 tablet by mouth once daily. For cholesterol. - memantine (NAMENDA) 10 mg tablet Take 1 tablet by mouth two times a day. - donepezil (ARICEPT) 23 mg tablet Take 1 tablet by mouth daily at bedtime. - sertraline (ZOLOFT) 25 mg tablet Take 1 tablet by mouth once daily. - potassium chloride ER (KLOR-CON) 20 mEq tablet Take 1 tablet by mouth once daily. - fluticasone (FLONASE) 50 mcg/actuation nasal spray Use 2 Sprays in each nostril once daily. Rinse mouth after use. - cyanocobalamin (VITAMIN B-12) 1,000 mcg tab Take 1 tablet by mouth once daily. - Cholecalciferol, Vitamin D3, 50 mcg (2,000 unit) cap Take by mouth. - ONE DAILY MULTI-VITAMIN TAB Take one(1) tablet daily. Problem List As Of Date 06/22/2024 Noted Resolved Hypertension [I10] Migraine, unspecified, with intractable migrain* 12/04/2014 ESOPHAGEAL REFLUX [K21.9] Hyperlipidemia, mixed [E78.2] ALLERGIC RHINITIS NOS [J30.9] CARPAL TUNNEL SYNDROME [G56.00] 11/30/2005 HEMORRHOIDS NOS [K64.9] DIVERTICULOSIS OF COLON W/O BLEED [K57.30] ULNAR NERVE LESION [G56.20] 10/08/2005 11/30/2005 Calculus of gallbladder with other cholecystiti* 8 12/04/2014 MASS IN BREAST [N63.0] 01/18/2008 12/04/2014 Osteopenia [M85.80] Left hip pain [M25.552] 11/23/2017 Vitamin D insufficiency [E55.9] Dementia associated with other underlying disea*11/15/2023 Primary degenerative dementia of the Alzheimer *11/15/2023 Disposition: Return in about 3 months (around 09/20/2024). Follow-up and Disposition History for Encounter Date Provider Department Center 06/22/2024 [id number] EASTMAN [facility] Encounter Status:Closed by SADIE EASTMAN DPM on 06/22/[address] [facility] CRISSY PH[facility]PE ([id number]) 1945 F Date Time Provider Department 06/22/24 ALISHA WILCOX During your visit today, we recorded the following information about you: Shruthi Cho 06/22/2024 12:41 PM Signed Crissy is calling Alisha Wilcox MD today to request Orders (Labs for appointment). Please call when orders are placed. TY Patient has been identified by name and birthdate. Duration of symptoms: N/A Person calling: self Call patient at: at home [phone] (home) Was an appointment scheduled: No Closing statement: Results or non-symptom based questions: Thank you for calling [facility], your call will be returned within the next business day. Alisha Watson MD 06/22/2024 1:27 PM Signed Labs ordered. Does not have to fast. Xochitl German MA 06/22/2024 1:32 PM Signed Message left for pt to call back . Jenae Floyd MA, LPN 06/22/2024 2:05 PM Signed Message left advising non-fasting lab orders placed as requested. Jenae Wilkerson LPN Allergies As of Date: 06/22/2024 Noted Allergy Reaction SINEQUAN (DOXEPIN HCL) 05/08/2005 12 - Shortness of Breath Date Reviewed: 06/22/2024 Reviewed by: Vale Butcher LPN - Fully Assessed Reason for Visit: Orders [681] Cmt: Labs for appointment Primary Visit Diagnosis:Hyperlipidem ia, mixed [E78.2] Other Visit Diagnosis:Vitamin D insufficiency [E55.9] Order(s):COMPLETE BLOOD COUNT AND DIFFERENTIAL [SQCBCDIF] Order #: [id number] FUTURE COMPREHENSIVE METABOLIC PANEL [SQCMP] Order #: [id number] FUTURE VITAMIN D 25 HYDROXY [SQVITD] Order #: [id number] FUTURE Prescriptions as of 06/22/2024 - amLODIPine (NORVASC) 5 mg tablet Take 1 tablet by mouth once daily. - pantoprazole DR (PROTONIX) 40 mg tablet Take 1 tablet by mouth once daily. - atorvastatin (LIPITOR) 20 mg tablet Take 1 tablet by mouth once daily. For cholesterol. - memantine (NAMENDA) 10 mg tablet Take 1 tablet by mouth two times a day. - donepezil (ARICEPT) 23 mg tablet Take 1 tablet by mouth daily at bedtime. - sertraline (ZOLOFT) 25 mg tablet Take 1 tablet by mouth once daily. - potassium chloride ER (KLOR-CON) 20 mEq tablet Take 1 tablet by mouth once daily. - fluticasone (FLONASE) 50 mcg/actuation nasal spray Use 2 Sprays in each nostril once daily. Rinse mouth after use. - cyanocobalamin (VITAMIN B-12) 1,000 mcg tab Take 1 tablet by mouth once daily. - Cholecalciferol, Vitamin D3, 50 mcg (2,000 unit) cap Take by mouth. - ONE DAILY MULTI-VITAMIN TAB Take one(1) tablet daily. Problem List As Of Date 06/22/2024 Noted Resolved Hypertension [I10] Migraine, unspecified, with intractable migrain* 12/04/2014 ESOPHAGEAL REFLUX [K21.9] Hyperlipidemia, mixed [E78.2] ALLERGIC RHINITIS NOS [J30.9] CARPAL TUNNEL SYNDROME [G56.00] 11/30/2005 HEMORRHOIDS NOS [K64.9] DIVERTICULOSIS OF COLON W/O BLEED [K57.30] ULNAR NERVE LESION [G56.20] 10/08/2005 11/30/2005 Calculus of gallbladder with other cholecystiti* 8 12/04/2014 MASS IN BREAST [N63.0] 01/18/2008 12/04/2014 Osteopenia [M85.80] Left hip pain [M25.552] 11/23/2017 Vitamin D insufficiency [E55.9] Dementia associated with other underlying disea*11/15/2023 Primary degenerative dementia of the Alzheimer *11/15/2023 Encounter Status:Closed by JENAE WILKERSON on 06/22/24 Normal [facility] UA DIP, URINE (POC)on 2023 BILIRUBIN UA (POCT) Negative Negative [facility] CLARITY UA (POCT) Clear [facility] COLOR UA (POCT) Yellow [facility] GLUCOSE UA (POCT) Negative Negative mg/dL [facility] Hemoglobin Ql (U) Negative Negative [facility] KETONE UA (POCT) Negative Negative mg/dL [facility] LEUKOCYTES UA (POCT) Negative Negative [facility] NITRITE UA (POCT) Negative Negative [facility] PH UA (POCT) 5.5 4.5 - 8.0 [facility] Protein Ql (U) Negative Negative mg/dL [facility] SPECIFIC GRAVITY UA (POCT) 1.020 1.005 - 1.030 [facility] UROBILINOGEN UA (POCT) 0.2 Normal E.U./dL [facility] Location:[facility], [address] [place] [address], [place], [address] [facility] POINT OF CARE [facility] UA DIP, URINE (POC)on 2023 BILIRUBIN UA (POCT) Negative Negative [facility] CLARITY UA (POCT) Clear [facility] COLOR UA (POCT) Yellow [facility] GLUCOSE UA (POCT) Negative Negative mg/dL [facility] Hemoglobin Ql (U) Trace-intact Abnormal Negative [facility] KETONE UA (POCT) Negative Negative mg/dL [facility] LEUKOCYTES UA (POCT) Moderate Abnormal Negative [facility] NITRITE UA (POCT) Negative Negative [facility] PH UA (POCT) 6.5 4.5 - 8.0 [facility] Protein Ql (U) Negative Negative mg/dL [facility] SPECIFIC GRAVITY UA (POCT) 1.025 1.005 - 1.030 [facility] UROBILINOGEN UA (POCT) 0.2 E.U./dL Normal E.U./dL [facility] Comprehensive metabolic 2000 panelon 06-17-2022 Albumin [Mass/Vol] 4.1 g/dL 3.9 - 4.9 g/dL [facility] ALP [Catalytic activity/Vol] 79 U/L 34 - 123 U/L [facility] ALT [Catalytic activity/Vol] 22 U/L 7 - 38 U/L [facility] Anion gap [Moles/Vol] 16 mmol/L 9 - 18 mmol/L [facility] AST [Catalytic activity/Vol] 25 U/L 13 - 35 U/L [facility] Bilirubin [Mass/Vol] 0.4 mg/dL 0.2 - 1 .3 mg/dL [facility] Calcium [Mass/Vol] 10.0 mg/dL 8.5 - 10. 2 mg/dL [facility] Chloride [Moles/Vol] 105 mmol/L 97 - 10 5 mmol/L [facility] CO2 [Moles/Vol] 21 mmol/L Low 22 - 30 mmol/L [facility] Creatinine [Mass/Vol] 0.83 mg/dL 0.58 - 0.96 mg/dL [facility] Estimated Glomerular Filtration Rate 73 mL/min/1.73m >=60 mL/min/1.73m [facility] Glucose [Mass/Vol] 79 mg/dL 74 - 99 mg/dL [facility] Potassium [Moles/Vol] 4.3 mmol/L 3.7 - 5.1 mmol/L [facility] Protein [Mass/Vol] 6.2 g/dL Low 6.3 - 8.0 g/dL [facility] Sodium [Moles/Vol] 142 mmol/L 136 - 144 mmol/L [facility] Urea nitrogen [Mass/Vol] 11 mg/dL 7 - 21 mg/dL [facility] Urinalysis complete panel (U )on 06-17-2022 Bilirubin Ql (U) Negative Negative [facility] Clarity (Unsp spec) Clear Clear [facility] Color (U) Light Yellow Yellow [facility] Epithelial cells LM.HPF (Urine sed) [#/Area] Few [facility] Glucose Test strip (U) [Mass/Vol] Negative Trace, Negative [facility] Hemoglobin Ql (U) Negative Negative, Trace [facility] Ketones Ql (U) Negative Trace, Negative [facility] Leukocyte esterase Test strip Ql (U) Negative Negative, 25 Michelle/mL [facility] Nitrite Ql (U) Negative Negative [facility] pH (U) 6.0 [pH] 5.0 - 8.0 [facility] Protein (U) [Mass/Vol] Negative Trace, Negative [facility] RBC LM.HPF (Urine sed) [#/Area] 0-3 /HPF 0-3 /HPF [facility] Specific gravity (U) [Rel density] 1.016 1.005 - 1.030 [facility] Urobilinogen Ql (U) Negative Negative [facility] WBC LM.HPF (Urine sed) [#/Area] 0-5 /HPF 0-5 /HPF [facility] UA DIP, URINE (POC)on 2021 BILIRUBIN UA (POCT) Negative Negative [facility] CLARITY UA (POCT) Clear [facility] COLOR UA (POCT) Dark yellow [facility] GLUCOSE UA (POCT) Negative Negative mg/dL [facility] HEMOGLOBIN/BLOOD UA (POCT) Negative Negative [facility] KETONE UA (POCT) Trace Negative mg/dL [facility] LEUKOCYTES UA (POCT) Negative Negative [facility] NITRITE UA (POCT) Negative Negative [facility] PH UA (POCT) 6.0 4.5 - 8.0 [facility] Protein Ql (U) Trace Abnormal Negative mg/dL [facility] SPECIFIC GRAVITY UA (POCT) 1.025 1.005 - 1.030 [facility] UROBILINOGEN UA (POCT) 0.2 E.U./dL Normal E.U./dL [facility] Abdomen Single Viewon 2021 Abdomen Single View [facility] Imaging Services [address] [place] [address] Abdomen Single View MR#: [id number] Acct: [id number] Name: CRISSY PHILIPPE Rep #: [id number] : 1945 F 76 From: Luis Avila PCP: Dr. Jed Wilcox MD Status: REG CLI Study: Abdomen Single View Date of Exam: 07/08/21 Exam# [id number] Ordering Dr: Christian Aldana MD EXAM: XR ABDOMEN, 1 VIEW CLINICAL INDICATION: POST OP calculus of ureter TECHNIQUE: Frontal supine view of the abdomen/pelvis. This report was created using [employer] report generation technology. COMPARISON: 07.04.21 FINDINGS: LOWER THORAX: No acute pathology. GASTROINTESTINAL TRACT: Unremarkable. Non-obstructive. No bowel or stomach distention. ORGANS: Degenerative findings in the lumbar spine. There are calcified phleboliths in the pelvis. This makes differentiation with distal ureteral stones difficult. No organomegaly. BONES/JOINTS: No acute pathology. SOFT TISSUES: No acute pathology. TUBES, LINES AND DEVICES: Double-J left ureteral stent in place. RAD/Abdomen Single View IMPRESSION: No acute findings. Double-J left ureteral stent in place. Electronically Signed: Luis Rudolph MD at 18:52 EST Reading Location ID and State: [facility] / [place] , Service support , CC: Dr. Jed Wilcox MD; Dr. Christian Aldana MD Evaluation Manager: Signed Normal [facility] Abdomen Single Viewon 2021 Abdomen Single View [facility] Imaging Services [address] [place] [address] Abdomen Single View MR#: [id number] Acct: [id number] Name: CRISSY PHILIPPE Rep #: [id number] : 1945 F 76 From: Shilo Verdugo MD PCP: Dr. Jed Wilcox MD Status: REG [facility] Study: Abdomen Single View Date of Exam: 07/04/21 Exam# [id number] Ordering Dr: Christian Aldana MD STUDY: X-RAY - ABDOMEN/PELVIS REASON FOR EXAM: Female, 76 years old. Preop for lithotripsy TECHNIQUE: Two AP supine views of the abdomen and pelvis. COMPARISON: CT from 07/01/2021 FINDINGS: Normal visualized lung bases. There is a moderate amount of colonic fecal material. There is no demonstrated free abdominal air. The visualized liver, spleen and kidneys are grossly normal in size and morphology. Stable 1.02 cm calcification shown on the previous CT to be within the proximal left ureter. Normal soft tissue structures. There are diffuse degenerative changes of the visualized lumbar spine. RAD/Abdomen Single View IMPRESSION: Stable left ureterolithiasis Electronically Signed: Brijesh Verdugo MD at 16:30 EST , CC: Dr. Jed Wilcox MD; Dr. Christian Aldana MD Evaluation Manager: Signed Normal [facility] Discharge Instructionon 06-08 Discharge Instruction [facility] Medical Records Department [address] [place] [address] Instructions for Home/Discharge Instructions 07/04/21 1736 MR#: [id number] Acct: [id number] Name: CRISSY PHILIPPE Rep #: [id number] : 1945 76 From: Christian Aldana MD PCP: Dr. Jed Wilcox MD Status:REG [facility] Discharge Instructions Diet Discharge Diet: No restrictions Activity Discharge Activity: Return to Normal Activity and May Not Drive (while taking narcotic pain medications.) Dressing / Incision Call your doctor if you observe: Fever of 101 or Higher Follow Up Care Please Follow Up With: Christian Aldana MD When: Call [phone] for an appointment Test Results: Test results from this visit will be discussed in further detail at your follow-up appointment, if applicable. Discharge Plan Admission Primary Reason for Your Visit: left kidney stone Attending Provider: Christian Aldana Primary Care Provider: Jed Wilcox Instructions Patient Instructions: Shock Wave Lithotripsy Discharge Orders/Prescriptions Prescriptions: New cephalexin 500 mg capsule 500 mg PO BID Qty: 10 RF: 0 Continued multivitamin [Daily Multiple] 1 EACH tablet 1 ea PO DAILY RF: 0 amlodipine 5 MG tablet 1 tab PO DAILY RF: 0 calcium carbonate-vitamin D3 1 EACH tablet 1 tab PO DAILY RF: 0 cyanocobalamin (vitamin B-12) 1,000 MCG capsule 1,000 mcg PO DAILY RF: 0 Vitamin D3 1,000 unit PO DAILY RF: 0 atorvastatin 20 mg tablet 20 mg PO DAILY RF: 0 pantoprazole 40 mg tablet,delayed release (DR/EC) 40 mg PO DAILY RF: 0 sertraline [Zoloft] 25 mg tablet 25 mg PO DAILY RF: 0 donepezil [Aricept] 23 mg tablet 23 mg PO DAILY RF: 0 hydrocodone-acetaminop hen 1 TABLET tablet 1 tab PO Q6H PRN PRN (Reason: Pain) 3 Days Qty: 10 RF: 0 Other Ambulatory Orders: Abdomen Single View (Routine) Timeframe: [id number] Facility: [facility] - Location: [facility] Ordered By: Dr. Christian Aldana Referrals / Follow Up: Jed Wilcox MD [Primary Care Provider] - Christian Aldana MD [STAFF PHYSICIAN] - Disposition Disposition (needs filled in before D/C Order can be placed): Home, Self Care 07/04/21 7066 Christian Aldana MD CC: Dr. Jed Wilcox MD Signed Normal [facility] Operative Reporton 2 Operative Report [facility] Medical Records Department [address] [place] [address] Operative Report 07/04/21 1758 MR#: [id number] Acct: [id number] Name: CRISSY PHILIPPE Rep #: [id number] : 1945 76 From: Christian Aldana MD PCP: Dr. Jed Wilcox MD Status:[facility] Location: [place] [address] Report of Operation Date of Procedure: 07/04/21 Pre-Operative Diagnosis: Left kidney stone Post-Operative Diagnosis: Same Surgery/Procedure Performed:: Left extracorporeal shockwave lithotripsy, cystoscopy and left stent placement Description of Surgical Findings:: Patient presents to the hospital for treatment of a kidney stone with shockwave lithotripsy. In the preoperative area and x-ray was done to confirm the location of the stone. The x-ray was reviewed and the stone location was reviewed. In the preoperative setting I spoke with the patient regarding the treatment of the stone how the treatment would be conducted and the expectations after surgery. The patient understands there is a risk of bleeding and infection. Also discussed the very rare risk of hematoma or damage to the kidney. We also discussed the risk that the shockwave machine will fail to break the stone adequately and that the patient may need other surgical procedures. We also discussed the possibility that the patient may need a stent after the procedure. After reviewing the procedure with the patient, the patient is signed the consent form all the patient's questions were addressed and was taken back to the operating room for treatment of a kidney stone. Patient was taken back to the operating room, patient was identified by the nursing staff, we identified the side of the treatment and the patient side of treatment had been marked by my initials. The patient underwent general anesthetic and was placed supine on the lithotripter table. We then used fluoroscopy to identify the stone on the left renal pelvis. The urethra and genitals were prepped and draped in usual sterile fashion. Using a 21 Icelandic rigid cystourethroscope the entire length of the urethra was normal then went into the bladder. Identified the trigone the left and right ureteral orifice. I then cannulated the left orifice and advanced a wire up into the kidney. I then backloaded a 5 Icelandic open ended catheter over the wire and injected contrast to delineate the anatomy. After the retrograde was performed I then used fluoroscopic images and guidance to advanced a wire up into the kidney and over the 0.038 glidewire I advanced a 6 Icelandic by 26 cm double pigtail stent. I then pulled the 0.038 Glidewire off and the stent coiled in the kidney bladder good position. The bladder was then drained. We confirmed the position of the stent by fluoroscopy We then positioned the patient under the lithotripter and we used triangulation technique to identify the location of the stone and then we made sure that the stone was engaged in the F2 focal point of F2 Donier lithoprior machine. Once the patient was positioned appropriately and the stone was identified and placed in the F2 focal point of the lithotripter machine we then proceeded with shockwave lithotripsy. In the beginning the shockwave was delivered at a rate of 90 shocks per minute, we monitor the EKG for any ectopy. The power was slowly increased to 5 kV and subsequently at the 7 kV. We then proceeded with the treatment we move the therapy had around during the treatment to make sure the stone stayed in the F2 focal point during the entire treatment and after 3000 shockwaves were delivered to the stone under fluoroscopic guidance the treatment was completed. The patient was given instructions to call the office to make an a follow-up appointment with an xray to evaluate the success of the treatment, pateint understands that its possible the stones may need another procedure.At this point the patient's anesthetic was reversed patient was extubated and taken back to the PACU in stable condition. Surgeon: melissa Type of Anesthesia: General Drains: stent left side Admit VTE Documentation VTE Present on Admission: No VTE Mechan Device Prophylaxis: None VTE Pharm Prophylaxis ordered?: No 07/04/21 1800 Cosigner Signature (if applicable): CC: Dr. Jed Wilcox MD; Dr. Christian Aldana MD Signed Normal [facility] Potassiumon 07-04-2021 Potassium [Moles/Vol] 3.2 mmol/L Low 3.5-5.1 [facility] Comment on above: Performed By: #### L 501.5600 #### [facility] [address] [facility] [facility] [place], [place], [address] Abdomen/Pelvis without Conto n 07-01-2021 Abdomen/Pelvis without Cont [facility] Imaging Services [address] [place] [address] Abdomen/Pelvis without Cont MR#: [id number] Acct: [id number] Name: CRISSY PHILIPPE Rep #: [id number] : 1945 F 76 From: Luis Avila PCP: Dr. Jed Wilcox MD Status: REG ER Study: Abdomen/Pelvis without Cont Date of Exam: 06/08 10/26 Exam# [id number] Ordering Dr: Jacky Morfin DO STUDY: CT Abdomen And Pelvis W/O Contrast Injection 07/01/2021 7:25 PM REASON FOR EXAM: Female, 76 years old. Frequent urination, lower back and abdominal pain. Left flank pain Individualized dose optimization techniques were used for this CT. COMPARISON: None. TECHNIQUE: CT Abdomen And Pelvis W/O Contrast Injection FINDINGS: There are atherosclerotic calcifications of visualized coronary arteries. The visualized portions of the heart are within normal limits. Normal liver. There is non-visualization of the gallbladder, which may be secondary to either contraction or a prior cholecystectomy. Normal spleen. Normal pancreas. There is a small, circumscribed, smooth, low attenuation left adrenal mass, consistent with an adrenal adenoma. Normal right adrenal gland. Non obstructive 1 to 2 mm right renal parenchymal stones. Moderate hydronephrosis caused by 7.1 mm proximal left ureteral stone. Normal visualized stomach. Normal small intestine. Stool throughout the colon. There is non-visualization of the appendix. There are calcifications of the abdominal aorta. This is consistent for atherosclerotic disease. There is no abdominal aortic aneurysm. Normal inferior vena cava. Subcentimeter mesenteric lymph nodes. Normal urinary bladder. Normal visualized uterus. There is an umbilical hernia containing fat. There are diffuse degenerative changes of the visualized lumbar spine. Vacuum disc phenomenon. There is bilateral neural foraminal stenosis at L5-S1. IMPRESSION: (NOT LISTED IN ORDER OF SIGNIFICANCE) Moderate hydronephrosis caused by 7.1 mm proximal left ureteral stone. Nonobstructive right renal stone. Other findings as above. Electronically Signed: Luis Rudolph MD at 19:28 EST Reading Location ID and State: [facility] / [place] , Service support , CT/Abdomen/Pelvis without Cont CC: Dr. Jed Wilcox MD; Dr. Jacky Morfin DO Evaluation Manager: Signed Normal [facility] CBC W/Diff, Automatedon 06-08 Absolute Lymph 1.06 X10 3/uL Normal 0.83-4.51 [facility] Comment on above: Performed By: #### L 500.4050, L501.2450, L100.0100 #### [facility] [address] [place], [address] Absolute Neut 14.7 X10 3/uL High 2.0-7.7 [facility] Comment on above: Performed By: #### L 500.4050, L501.2450, L100.0100 #### [facility] [address] [place], [address] Basophils/100 WBC (Bld) 0.4 % Normal 0-1 [facility] Comment on above: Performed By: #### L 500.4050, L501.2450, L100.0100 #### [facility] [address] [place], [address] Eosinophils/100 WBC (Bld) 0.2 % Normal 0-5 [facility] Comment on above: Performed By: #### L 500.4050, L501.2450, L100.0100 #### [facility] [address] [place], [address] Erythrocyte distribution width (RBC) [Ratio] 14.2 % Normal 11.6-14.6 [facility] Comment on above: Performed By: #### L 500.4050, L501.2450, L100.0100 #### [facility] [address] [place], [address] Hematocrit (Bld) [Volume fraction] 43.9 % Normal 37-47 [facility] Comment on above: Performed By: #### L 500.4050, L501.2450, L100.0100 #### [facility] [address] [place], [address] Hemoglobin (Bld) [Mass/Vol] 14.1 g/dL Normal 12.0-15.0 [facility] Comment on above: Performed By: #### L 500.4050, L501.2450, L100.0100 #### [facility] [address] [place], [address] IG% 0.400 Normal 0.0-0.9 [facility] Comment on above: Result Comment: IG% - Immature Granulocytes (promyelocytes, myelocytes and metamyelocytes) > 1% indicates that a LEFT SHIFT is Present. Performed By: #### L 500.4050, L501.2450, L100.0100 #### [facility] [address] [place], [address] Lymphocytes/100 WBC (Bld) 6.4 % Low 19-41 [facility] Comment on above: Performed By: #### L 500.4050, L501.2450, L100.0100 #### [facility] [address] [place], [address] MCH (RBC) [Entitic mass] 30.0 pg Normal 27.0-32.0 [facility] Comment on above: Performed By: #### L 500.4050, L501.2450, L100.0100 #### [facility] [address] [place], [address] MCHC (RBC) [Mass/Vol] 32.1 g/dL Normal 32-36 [facility] Comment on above: Performed By: #### L 500.4050, L501.2450, L100.0100 #### [facility] [address] [place], [address] MCV (RBC) [Entitic vol] 93.4 fL Normal 81-99 [facility] Comment on above: Performed By: #### L 500.4050, L501.2450, L100.0100 #### [facility] [address] [place], [address] Monocytes/100 WBC (Bld) 4.5 % Normal 0-10 [facility] Comment on above: Performed By: #### L 500.4050, L501.2450, L100.0100 #### [facility] [address] [place], [address] Neutrophils/100 WBC (Bld) 88.1 % High 47-70 [facility] Comment on above: Performed By: #### L 500.4050, L501.2450, L100.0100 #### [facility] [address] [place], [address] Nucleated RBC (Bld) [#/Vol] 0 10*3/uL Normal 0-5 [facility] Comment on above: Performed By: #### L 500.4050, L501.2450, L100.0100 #### [facility] [address] [place], [address] Platelet mean volume (Bld) [Entitic vol] 9.0 fL Normal 6.2-12.0 [facility] Comment on above: Performed By: #### L 500.4050, L501.2450, L100.0100 #### [facility] [address] [place], [address] Platelets (Bld) [#/Vol] 307 10*3/uL Normal 150-450 [facility] Comment on above: Performed By: #### L 500.4050, L501.2450, L100.0100 #### [facility] [address] [place], [address] RBC (Bld) [#/Vol] 4.70 10*6/uL Normal 4.2-5.4 [facility] Comment on above: Performed By: #### L 500.4050, L501.2450, L100.0100 #### [facility] [address] [place], [address] RDW SD 49.4 fl High 35.1-43.9 [facility] Comment on above: Performed By: #### L 500.4050, L501.2450, L100.0100 #### [facility] [address] [place], [address] WBC (Bld) [#/Vol] 16.7 10*3/uL High 4.4-11.0 [facility] Comment on above: Performed By: #### L 500.4050, L501.2450, L100.0100 #### [facility] [address] [place], [address] Comprehensive Metabolic Prof iaon 07-01-2021 Albumin [Mass/Vol] 3.8 g/dL Normal 3.2-5.0 [facility] Comment on above: Performed By: #### L 500.4050, L501.2450, L100.0100 #### [facility] [address] [place], [address] Albumin/Globulin [Mass ratio] 1.1 {ratio} Normal 0.9-2.4 [facility] Comment on above: Performed By: #### L 500.4050, L501.2450, L100.0100 #### [facility] [address] [place], [address] ALK P 83 U/L Normal 45-117 [facility] Comment on above: Performed By: #### L 500.4050, L501.2450, L100.0100 #### [place] [facility] [address] [place], [address] ALT [Catalytic activity/Vol] 33 U/L Normal 13-56 [facility] Comment on above: Performed By: #### L 500.4050, L501.2450, L100.0100 #### [facility] [address] [place], [address] AST [Catalytic activity/Vol] 22 U/L Normal 15-37 [facility] Comment on above: Performed By: #### L 500.4050, L501.2450, L100.0100 #### [facility] [address] [place], [address] Bilirubin [Mass/Vol] 0.60 mg/dL Normal 0.20-1.00 [facility] Comment on above: Result Comment: For patients on eltrombopag therapy, use of Dimension [place] TBIL is not recommended. Performed By: #### L 500.4050, L501.2450, L100.0100 #### [facility] [address] [place], [address] BUN/CRE 10.7 RATIO Normal 10-20 [facility] Comment on above: Performed By: #### L 500.4050, L501.2450, L100.0100 #### [facility] [address] [place], [address] CA,Total 10.0 mg/dL Normal 8.5-10.1 [facility] Comment on above: Performed By: #### L 500.4050, L501.2450, L100.0100 #### [facility] [address] [place], [address] Chloride [Moles/Vol] 99 mmol/L Normal 98-107 [facility] Comment on above: Performed By: #### L 500.4050, L501.2450, L100.0100 #### [facility] [address] [place], [address] CO2 [Moles/Vol] 32.0 mmol/L Normal 21.0-32.0 [facility] Comment on above: Performed By: #### L 500.4050, L501.2450, L100.0100 #### [facility] [address] [place], [address] Creatinine [Mass/Vol] 1.22 mg/dL High 0.55-1.02 [facility] Comment on above: Result Comment: The validity of the calculated GFR GFRAA in patients over 70 years has not been determined. Clinical correlation is essential. Performed By: #### L 500.4050, L501.2450, L100.0100 #### [facility] [address] [place], [address] ECRCL 34.52 ml/min Normal [facility] Comment on above: Performed By: #### L 500.4050, L501.2450, L100.0100 #### [facility] [address] [place], [address] EST GFR - AA 55 mL/min Low >60 [facility] Comment on above: Result Comment: Afri can [place] GFR Calc Performed By: #### L 500.4050, L501.2450, L100.0100 #### [facility] [address] [place], [address] GAP 7 Normal 5-15 [facility] Comment on above: Performed By: #### L 500.4050, L501.2450, L100.0100 #### [facility] [address] [place], [address] GFR/1.73 sq M.predicted among non-blacks MDRD (S/P/Bld) [Vol rate/Area] 46 mL/min/{1.73_m2} Low >60 [facility] Comment on above: Result Comment: Non- GFR Calc Performed By: #### L 500.4050, L501.2450, L100.0100 #### [facility] [address] [place], [address] Globulin (S) [Mass/Vol] 3.5 g/dL Normal 2.2-4.2 [facility] Comment on above: Performed By: #### L 500.4050, L501.2450, L100.0100 #### [facility] [address] [place], [address] Glucose [Mass/Vol] 130 mg/dL High 74-106 [facility] Comment on above: Result Comment: Fast ing Glucose result greater than or equal to 126 mg/dL suggests DIABETES MELLITUS per A.D.A. criteria. Performed By: #### L 500.4050, L501.2450, L100.0100 #### [facility] [address] [place], [address] Potassium [Moles/Vol] 2.9 mmol/L Low 3.5-5.1 [facility] Comment on above: Performed By: #### L 500.4050, L501.2450, L100.0100 #### [facility] [address] [place], [address] Sodium [Moles/Vol] 138 mmol/L Normal 136-145 [facility] Comment on above: Performed By: #### L 500.4050, L501.2450, L100.0100 #### [facility] [address] [place], [address] T PROT 7.3 g/dL Normal 6.4-8.2 [facility] Comment on above: Performed By: #### L 500.4050, L501.2450, L100.0100 #### [facility] [address] [place], [address] Urea nitrogen [Mass/Vol] 13 mg/dL Normal 7-18 [facility] Comment on above: Performed By: #### L 500.4050, L501.2450, L100.0100 #### [facility] [address] [place], [address] Emergency Department Summary on 07-01-2021 Emergency Department Summary [facility] Medical Records Department [address] [place] [address] Emergency Department Summary 07/01/21 MR#: [id number] Acct: [id number] Name: CRISSY PHILIPPE Rep #: [id number] : 1945 76 From: Jacky Morfin DO PCP: Dr. Jed Wilcox MD Status:DEP ER Location: ED HPI History of Present Illness Chief Complaint: Complaint Informant: patient and spouse/S.O. Onset/Context/Timing Onset: Today Context: Gradual Onset Timing: Continuous Location: Left upper and lower abdomen and left lumbar area and left flank area Worsened by: Nothing Relieved by: Nothing Narrative Narrative: Patient presents with urinary frequency, left-sided abdominal pain, and constipation that began today. Patient states she started urinating more frequently this afternoon. reports that she has been urinating approximately every 5 minutes. states that they went to the urgent care [facility] where they did a urinalysis which did not show any blood in her urine. states that when they were palpating her abdomen she was complaining of left-sided abdominal pain. states that they were concerned over possible diverticulitis or kidney stone because of this and referred the patient to the emergency department. Patient states her pain is mostly on the left side of her abdomen and left side of her back. [facility] Medical History (Updated 07/01/21 @ 20:[address] Jacky Morfin DO) Alzheimer disease Home Medications Vitamin D3 1,000 unit PO DAILY 07/23/18 [History Last Taken Unknown] amlodipine 1 tab PO DAILY 07/23/18 [History Last Taken Unknown] calcium carbonate-vitamin D3 1 tab PO DAILY 07/23/18 [History Last Taken Unknown] cyanocobalamin (vitamin B-12) 1,000 mcg PO DAILY 07/23/18 [History Last Taken Unknown] multivitamin [Daily Multiple Vitamin] 1 ea PO DAILY 07/23/18 [History Last Taken Unknown] atorvastatin 20 mg PO DAILY 07/01/21 [History Last Taken Unknown] donepezil 23 mg PO DAILY 07/01/21 [History Last Taken Unknown] hydrocodone-acetaminop hen 1 tab PO Q6H PRN PRN 3 Days #10 tablet 07/01/21 [Rx Last Taken Unknown] pantoprazole 40 mg PO DAILY 07/01/21 [History Last Taken Unknown] sertraline 25 mg PO DAILY 07/01/21 [History Last Taken Unknown] Allergy/AdvReac Type Severity Reaction Status Date / Time Calcium Channel Blocking Allergy PT UNSURE Verified 07/01/21 18:17 Agent Dilt OF REACTION doxepin [From [place]] Allergy PT UNSURE Verified 07/01/21 18:17 OF REACTION Surgical History (Updated 07/01/21 @ 18:[address] Jacky Morfin DO) History of carpal tunnel surgery Hx of cholecystectomy Social History Smoking Status: Never smoker ROS ROS ED Constitutional Constitutional ED: Denies chills or fever(s) Eyes Eyes: Denies blurry vision or change in vision ENT ENT ED: Denies rhinorrhea or sore throat Cardiovascular Cardiovascular: Denies chest pain or palpitations Respiratory/Chest Respiratory/Chest: Denies cough or dyspnea Gastrointestinal Gastrointestinal: Reports abdominal pain; Denies nausea or vomiting Genitourinary Genitourinary ED: Reports urinary frequency; Denies dysuria or hematuria Musculoskeletal Musculoskeletal: Reports back pain; Denies neck pain Integumentary Denies abscess or rash Neurologic Neurologic: Denies headache(s) or weakness Allergic/Immunologic Allergic/Immunologic ED: Denies mouth swelling or urticaria EXAM Physical Exam Const Vital Signs: 07/01/21 18:14 Temperature 97.9 F Temperature Source Temporal Pulse Rate 85 Respiratory Rate 16 Blood Pressure 114/88 H Blood Pressure Mean 96 Pulse Ox 100 Oxygen Delivery Method Room Air Positive well nourished and well developed General Appearance ED: well developed HEENT Reports moist mucous membranes Neck supple and no JVD Resp normal respiratory effort and clear to auscultation bilaterally Cardio regular rate, regular rhythm and no murmurs GI normal to inspection, nondistended, normoactive bowel sounds and non-tender Palpation: soft Extremity normal to inspection General Extremety ED: Negative for edema or tenderness General Extremity: Negative for edema Neuro oriented x3, CN's II-XII intact bilaterally and no sensory deficits noted Sensorium / Orientation: alert Motor Exam: strength 5/5 throughout Psych mental status grossly normal Skin no rashes or lesions noted MDM MDM MDM Narrative Medical decision making narrative: Patient was given a dose of [place] here. CBC shows a mild leukocytosis of 16.7. Comprehensive metabolic profile shows potassium of 2.9. Creatinine is 1.22. Lipase was normal. Urinalysis does not show any evidence of urinary tract infection. CT scan of the abdomen and pelvis was obtained. There is a 7.1 mm (more content not included)... Normal [facility] Lipaseon 07-01-2021 Lipase [Catalytic activity/Vol] 106 U/L Normal 73-393 [facility] Comment on above: Performed By: #### L 500.4050, L501.2450, L100.0100 #### [facility] [address] [place], [address] Urinalysis, Completeon 07-01 CA OX CRYSTAL 1+ /hpf Normal [facility] Comment on above: Order Comment: CLEAN CATCH Performed By: #### L 400.0001 ####[facility] [address] [place], [address] BACTERIA 0 SEEN Normal None Seen [facility] Comment on above: Order Comment: CLEAN CATCH Performed By: #### L 400.0001 ####[facility] [address] [place], [address] EPI,SQUAMOUS 0 SEEN Normal 5-10 [facility] Comment on above: Order Comment: CLEAN CATCH Performed By: #### L 400.0001 ####[facility] [address] [place], [address] Mucus Ql (Urine sed) 0 SEEN Normal [facility] Comment on above: Order Comment: CLEAN CATCH Performed By: #### L 400.0001 ####[facility] [address] [place], [address] RBC 0 SEEN Normal 0-5 [facility] Comment on above: Order Comment: CLEAN CATCH Performed By: #### L 400.0001 ####[facility] [address] [place], [address] WBC 0 SEEN Normal 0-5 [facility] Comment on above: Order Comment: CLEAN CATCH Performed By: #### L 400.0001 ####[facility] [address] [place], [address] XR Hand - left PA and Latera l and Obliqueon 08-28-2020 IMPRESSION: Osteoarthritis. Evaluation Manager: FREDO Transcribe Date/Time: Aug 28 2020 1:19P Dictated by : Brando CROW MD This examination was interpreted and the report reviewed and electronically signed by: Brando CROW MD on Aug 28 2020 1:23PM [facility] DIVISION OF RADIOLOGY * * *Final Report* * * DATE OF EXAM: Aug 28 2020 1:07PM WOX 5345 - XR HAND 3V PA/LAT/OBL LT / PROCEDURE REASON: Pain of left hand * * * * Physician Interpretation * * * * EXAM: XR HAND 3V PA/LAT/OBL LT HISTORY: Pain of left hand. Left long finger pain, MCP joint pain, trigger finger type features, no injury. VIEWS: PA, oblique and lateral left hand. COMPARISON: No relevant comparison. FINDINGS: No dislocation or acute fracture. Severe first carpometacarpal joint space narrowing with radial subluxation, subchondral sclerosis, osteophytes and ossified bodies. Narrowed interphalangeal joint spaces with proximal mild spurring excluding the little finger, and small distal osteophytes mainly at index and long finger. DIVISION OF RADIOLOGY Provider, [facility] - 08/28/2020 * * *Final Report* * * DATE OF EXAM: Aug 28 2020 1:07PM WOX 5345 - XR HAND 3V PA/LAT/OBL LT / PROCEDURE REASON: Pain of left hand * * * * Physician Interpretation * * * * EXAM: XR HAND 3V PA/LAT/OBL LT HISTORY: Pain of left hand. Left long finger pain, MCP joint pain, trigger finger type features, no injury. VIEWS: PA, oblique and lateral left hand. COMPARISON: No relevant comparison. FINDINGS: No dislocation or acute fracture. Severe first carpometacarpal joint space narrowing with radial subluxation, subchondral sclerosis, osteophytes and ossified bodies. Narrowed interphalangeal joint spaces with proximal mild spurring excluding the little finger, and small distal osteophytes mainly at index and long finger. IMPRESSION IMPRESSION: Osteoarthritis. Evaluation Manager: PSCJoan Transcribe Date/Time: Aug 28 2020 1:19P Dictated by : Brando CROW MD This examination was interpreted and the report reviewed and electronically signed by: Brando CROW MD on Aug 28 2020 1:23PM EST [facility] Radiology Study observation (narrative) [facility] XR Hand - left PA and Latera l and ObliqueOrdered By: [facility] Provider on 08-28-2020 [facility] Vital Signs Date Time Vital Sign Value Performing Clinician Faci lity 01-01-2025 11:19-0400 Body mass index (BMI) [Ratio] 22.46 kg/m2 Shruthi Podlogar FRUIT PRESS OPERATOR.COMMERCIAL LOAN UNDERWRITER Work Phone: [facility] 01-01-2025 11:19-0400 Body weight 50.44 kg Shruthi Podlogar FRUIT PRESS OPERATOR.COMMERCIAL LOAN UNDERWRITER Work Phone: [facility] 01-01-2025 11:19-0400 Diastolic blood pressure 70 mm[Hg] Shruthi Podlogar FRUIT PRESS OPERATOR.COMMERCIAL LOAN UNDERWRITER Work Phone: [facility] 01-01-2025 11:19-0400 Heart rate 73 /min Shruthi Podlogar FRUIT PRESS OPERATOR.COMMERCIAL LOAN UNDERWRITER Work Phone: [facility] 01-01-2025 11:19-0400 Respiratory rate 18 /min Shruthi Podlogar FRUIT PRESS OPERATOR.COMMERCIAL LOAN UNDERWRITER Work Phone: [facility] 01-01-2025 11:19-0400 SaO2% (BldA) [Mass fraction] 94 % Shruthi Podlogar FRUIT PRESS OPERATOR.COMMERCIAL LOAN UNDERWRITER Work Phone: [facility] 01-01-2025 11:19-0400 Systolic blood pressure 102 mm[Hg] Shruthi Podlogar FRUIT PRESS OPERATOR.COMMERCIAL LOAN UNDERWRITER Work Phone: [facility] 10-23-2024 11:10-0400 Body mass index (BMI) [Ratio] 21.81 kg/m2 Marcus Hanks Jr., MD Work Phone: [facility] 10-23-2024 11:10-0400 Body weight 48.99 kg Marcus Hanks Jr., MD Work Phone: [facility] 10-23-2024 11:10-0400 Diastolic blood pressure 72 mm[Hg] Marcus Hanks Jr., MD Work Phone: [facility] 10-23-2024 11:10-0400 Heart rate 68 /min Marcus Hanks Jr., MD Work Phone: [facility] 10-23-2024 11:10-0400 Respiratory rate 16 /min Marcus Hanks Jr., MD Work Phone: [facility] 10-23-2024 11:10-0400 SaO2% (BldA) [Mass fraction] 98 % Marcus Hanks Jr., MD Work Phone: [facility] 10-23-2024 11:10-0400 Systolic blood pressure 106 mm[Hg] Marcus Hanks Jr., MD Work Phone: [facility] 07-06-2024 12:25-0500 Body mass index (BMI) [Ratio] 21.97 kg/m2 Alisha Wilcox MD Work Phone: [facility] 07-06-2024 12:25-0500 Body weight 49.35 kg Alisha Wilcox MD Work Phone: [facility] 07-06-2024 12:25-0500 Diastolic blood pressure 82 mm[Hg] Alisha Wilcox MD Work Phone: [facility] 07-06-2024 12:25-0500 Heart rate 76 /min Alisha Wilcox MD Work Phone: [facility] 07-06-2024 12:25-0500 Respiratory rate 16 /min Alisha Wilcox MD Work Phone: [facility] 07-06-2024 12:25-0500 SaO2% (BldA) [Mass fraction] 96 % Alisha Wilcox MD Work Phone: [facility] 07-06-2024 12:25-0500 Systolic blood pressure 114 mm[Hg] Alisha Wilcox MD Work Phone: [facility] 03-31-2024 15:50-0400 Body mass index (BMI) [Ratio] 22.22 kg/m2 Marcus Hanks Jr., MD Work Phone: [facility] 03-31-2024 15:50-0400 Body weight 49.9 kg Marcus Hanks Jr., MD Work Phone: [facility] 03-31-2024 15:50-0400 Diastolic blood pressure 76 mm[Hg] Marcus Hanks Jr., MD Work Phone: [facility] 03-31-2024 15:50-0400 Heart rate 78 /min Marcus Hanks Jr., MD Work Phone: [facility] 03-31-2024 15:50-0400 Respiratory rate 18 /min Marcus Hanks Jr., MD Work Phone: [facility] 03-31-2024 15:50-0400 SaO2% (BldA) [Mass fraction] 97 % Marcus Hanks Jr., MD Work Phone: [facility] 03-31-2024 15:50-0400 Systolic blood pressure 118 mm[Hg] Marcus Hanks Jr., MD Work Phone: [facility] 01-04-2024 11:18-0400 Body mass index (BMI) [Ratio] 21.41 kg/m2 Shruthi Christensen APRN.COMMERCIAL LOAN UNDERWRITER Work Phone: [facility] 01-04-2024 11:18-0400 Body weight 48.08 kg Shruthi Christensen APRN.COMMERCIAL LOAN UNDERWRITER Work Phone: [facility] 01-04-2024 11:18-0400 Diastolic blood pressure 68 mm[Hg] Shruthi Podlogar FRUIT PRESS OPERATOR.COMMERCIAL LOAN UNDERWRITER Work Phone: [facility] 01-04-2024 11:18-0400 Heart rate 62 /min Shruthi Podlogar FRUIT PRESS OPERATOR.COMMERCIAL LOAN UNDERWRITER Work Phone: [facility] 01-04-2024 11:18-0400 Respiratory rate 18 /min Shruthi Podlogar FRUIT PRESS OPERATOR.COMMERCIAL LOAN UNDERWRITER Work Phone: [facility] 01-04-2024 11:18-0400 SaO2% (BldA) [Mass fraction] 92 % Shruthi Podlogar FRUIT PRESS OPERATOR.COMMERCIAL LOAN UNDERWRITER Work Phone: [facility] 01-04-2024 11:18-0400 Systolic blood pressure 102 mm[Hg] Shruthi Podlogar FRUIT PRESS OPERATOR.COMMERCIAL LOAN UNDERWRITER Work Phone: [facility] 12-07-2023 13:43-0400 Body mass index (BMI) [Ratio] 21.97 kg/m2 Sadie [employer] Work Phone: [facility] 12-07-2023 13:43-0400 Body weight 49.35 kg Sadie [employer] Work Phone: [facility] 11-12-2023 11:39-0400 Body mass index (BMI) [Ratio] 21.57 kg/m2 Shruthi Podlogar FRUIT PRESS OPERATOR.COMMERCIAL LOAN UNDERWRITER Work Phone: [facility] 11-12-2023 11:39-0400 Body weight 48.44 kg Shruthi Podlogar FRUIT PRESS OPERATOR.COMMERCIAL LOAN UNDERWRITER Work Phone: [facility] 11-12-2023 11:39-0400 Diastolic blood pressure 68 mm[Hg] Shruthi Podlogar FRUIT PRESS OPERATOR.COMMERCIAL LOAN UNDERWRITER Work Phone: [facility] 11-12-2023 11:39-0400 Heart rate 60 /min Shruthi Podlogar FRUIT PRESS OPERATOR.COMMERCIAL LOAN UNDERWRITER Work Phone: [facility] 11-12-2023 11:39-0400 Respiratory rate 16 /min Shruthi Podlogar FRUIT PRESS OPERATOR.COMMERCIAL LOAN UNDERWRITER Work Phone: [facility] 11-12-2023 11:39-0400 SaO2% (BldA) [Mass fraction] 95 % Shruthi Rocalogar FRUIT PRESS OPERATOR.COMMERCIAL LOAN UNDERWRITER Work Phone: [facility] 11-12-2023 11:39-0400 Systolic blood pressure 112 mm[Hg] Shruthi Podlogar FRUIT PRESS OPERATOR.COMMERCIAL LOAN UNDERWRITER Work Phone: [facility] 11-10-2023 16:18-0400 Body mass index (BMI) [Ratio] 21.64 kg/m2 Gallo Pineda FRUIT PRESS OPERATOR.COMMERCIAL LOAN UNDERWRITER Work Phone: [facility] 11-10-2023 16:18-0400 Body temperature 98.29 [degF] Gallo Pineda FRUIT PRESS OPERATOR.COMMERCIAL LOAN UNDERWRITER Work Phone: [facility] 11-10-2023 16:18-0400 Body weight 48.6 kg Gallo Pineda FRUIT PRESS OPERATOR.COMMERCIAL LOAN UNDERWRITER Work Phone: [facility] 11-10-2023 16:18-0400 Diastolic blood pressure 67 mm[Hg] Gallo Pineda FRUIT PRESS OPERATOR.COMMERCIAL LOAN UNDERWRITER Work Phone: [facility] 11-10-2023 16:18-0400 Heart rate 88 /min Gallo Pineda FRUIT PRESS OPERATOR.COMMERCIAL LOAN UNDERWRITER Work Phone: [facility] 11-10-2023 16:18-0400 Respiratory rate 20 /min Gallo Pineda FRUIT PRESS OPERATOR.COMMERCIAL LOAN UNDERWRITER Work Phone: [facility] 11-10-2023 16:18-0400 SaO2% (BldA) [Mass fraction] 97 % Gallo Pineda FRUIT PRESS OPERATOR.COMMERCIAL LOAN UNDERWRITER Work Phone: [facility] 11-10-2023 16:18-0400 Systolic blood pressure 100 mm[Hg] Gallo Pineda FRUIT PRESS OPERATOR.COMMERCIAL LOAN UNDERWRITER Work Phone: [facility] 08-19-2023 11:40-0400 Body temperature 97.7 [degF] Shruthi Rocalogaerl FRUIT PRESS OPERATOR.COMMERCIAL LOAN UNDERWRITER Work Phone: [facility] 08-19-2023 11:40-0400 Body weight 49.44 kg Shruthi Rocalogar FRUIT PRESS OPERATOR.COMMERCIAL LOAN UNDERWRITER Work Phone: [facility] 08-19-2023 11:40-0400 Diastolic blood pressure 80 mm[Hg] Shruthi Podlogar FRUIT PRESS OPERATOR.COMMERCIAL LOAN UNDERWRITER Work Phone: [facility] 08-19-2023 11:40-0400 Heart rate 76 /min Shruthi Podlogar FRUIT PRESS OPERATOR.COMMERCIAL LOAN UNDERWRITER Work Phone: [facility] 08-19-2023 11:40-0400 Respiratory rate 16 /min Shruthi Podlogar FRUIT PRESS OPERATOR.COMMERCIAL LOAN UNDERWRITER Work Phone: [facility] 08-19-2023 11:40-0400 Systolic blood pressure 120 mm[Hg] Shruthi Podlogar FRUIT PRESS OPERATOR.COMMERCIAL LOAN UNDERWRITER Work Phone: [facility] 12-22-2022 10:59-0400 Body weight 56.34 kg Shruthi Podlogar FRUIT PRESS OPERATOR.COMMERCIAL LOAN UNDERWRITER Work Phone: [facility] 12-22-2022 10:59-0400 Diastolic blood pressure 72 mm[Hg] Shruthi Podlogar FRUIT PRESS OPERATOR.COMMERCIAL LOAN UNDERWRITER Work Phone: [facility] 12-22-2022 10:59-0400 Heart rate 83 /min Shruthi Podlogar FRUIT PRESS OPERATOR.COMMERCIAL LOAN UNDERWRITER Work Phone: [facility] 12-22-2022 10:59-0400 Respiratory rate 16 /min Shruthi Podlogar FRUIT PRESS OPERATOR.COMMERCIAL LOAN UNDERWRITER Work Phone: [facility] 12-22-2022 10:59-0400 SaO2% (BldA) [Mass fraction] 97 % Shruthi Podlogar FRUIT PRESS OPERATOR.COMMERCIAL LOAN UNDERWRITER Work Phone: [facility] 12-22-2022 10:59-0400 Systolic blood pressure 120 mm[Hg] Shruthi Podlogar FRUIT PRESS OPERATOR.COMMERCIAL LOAN UNDERWRITER Work Phone: [facility] 06-24-2022 11:03-0500 Body weight 51.89 kg Shruthi Podlogar FRUIT PRESS OPERATOR.COMMERCIAL LOAN UNDERWRITER Work Phone: [facility] 06-24-2022 11:03-0500 Diastolic blood pressure 70 mm[Hg] Shruthi Podlogar FRUIT PRESS OPERATOR.COMMERCIAL LOAN UNDERWRITER Work Phone: [facility] 06-24-2022 11:03-0500 Heart rate 87 /min Shrutih Podlogar FRUIT PRESS OPERATOR.COMMERCIAL LOAN UNDERWRITER Work Phone: [facility] 06-24-2022 11:03-0500 Respiratory rate 16 /min Shruthi Podlogar FRUIT PRESS OPERATOR.COMMERCIAL LOAN UNDERWRITER Work Phone: [facility] 06-24-2022 11:03-0500 SaO2% (BldA) [Mass fraction] 99 % Shruthi Podlogar FRUIT PRESS OPERATOR.COMMERCIAL LOAN UNDERWRITER Work Phone: [facility] 06-24-2022 11:03-0500 Systolic blood pressure 116 mm[Hg] Shruthi Podlogar FRUIT PRESS OPERATOR.COMMERCIAL LOAN UNDERWRITER Work Phone: [facility] 04-08-2022 15:18-0400 Diastolic blood pressure 82 mm[Hg] Alisha Wilcox MD Work Phone: [facility] 04-08-2022 15:18-0400 Heart rate 89 /min Alisha Wilcox MD Work Phone: [facility] 04-08-2022 15:18-0400 Respiratory rate 18 /min Alisha Wilcox MD Work Phone: [facility] 04-08-2022 15:18-0400 SaO2% (BldA) [Mass fraction] 97 % Alisha Wilcox MD Work Phone: [facility] 04-08-2022 15:18-0400 Systolic blood pressure 120 mm[Hg] Alisha Wilcox MD Work Phone: [facility] 02-27-2022 11:10-0400 Body weight 50.71 kg Shruthi Podlogar FRUIT PRESS OPERATOR.COMMERCIAL LOAN UNDERWRITER Work Phone: [facility] 02-27-2022 11:10-0400 Diastolic blood pressure 64 mm[Hg] Shruthi Podlogar FRUIT PRESS OPERATOR.COMMERCIAL LOAN UNDERWRITER Work Phone: [facility] 02-27-2022 11:10-0400 Heart rate 84 /min Shruthi Podlogar FRUIT PRESS OPERATOR.COMMERCIAL LOAN UNDERWRITER Work Phone: [facility] 02-27-2022 11:10-0400 Respiratory rate 18 /min Shruthi Podlogar FRUIT PRESS OPERATOR.COMMERCIAL LOAN UNDERWRITER Work Phone: [facility] 02-27-2022 11:10-0400 SaO2% (BldA) [Mass fraction] 98 % Shruthi Podlogar FRUIT PRESS OPERATOR.COMMERCIAL LOAN UNDERWRITER Work Phone: [facility] 02-27-2022 11:10-0400 Systolic blood pressure 120 mm[Hg] Shruthi Podlogar FRUIT PRESS OPERATOR.COMMERCIAL LOAN UNDERWRITER Work Phone: [facility] 01-19-2022 14:30-0400 Body temperature 98.01 [degF] Shruthi Podlogar FRUIT PRESS OPERATOR.COMMERCIAL LOAN UNDERWRITER Work Phone: [facility] 01-19-2022 14:30-0400 Body weight 51.44 kg Shruthi Podlogar FRUIT PRESS OPERATOR.COMMERCIAL LOAN UNDERWRITER Work Phone: [facility] 01-19-2022 14:30-0400 Diastolic blood pressure 76 mm[Hg] Shruthi Podlogar FRUIT PRESS OPERATOR.COMMERCIAL LOAN UNDERWRITER Work Phone: [facility] 01-19-2022 14:30-0400 Heart rate 101 /min Shruthi Podlogar FRUIT PRESS OPERATOR.COMMERCIAL LOAN UNDERWRITER Work Phone: [facility] 01-19-2022 14:30-0400 Respiratory rate 16 /min Shruthi Podlogar FRUIT PRESS OPERATOR.COMMERCIAL LOAN UNDERWRITER Work Phone: [facility] 01-19-2022 14:30-0400 SaO2% (BldA) [Mass fraction] 96 % Shruthi Podlogar FRUIT PRESS OPERATOR.COMMERCIAL LOAN UNDERWRITER Work Phone: [facility] 01-19-2022 14:30-0400 Systolic blood pressure 110 mm[Hg] Shruthi Podlogar FRUIT PRESS OPERATOR.COMMERCIAL LOAN UNDERWRITER Work Phone: [facility] Encounters Encounter Date Encounter Type Care Provider Facility Start: 03-27-2025 End: 03-27-2025 ambulatory SADIE EASTMAN Facility:[facility] Start: 02-20-2025 End: 02-20-2025 ambulatory Stacie Pereyra MA [facility] Start: 02-20-2025 End: 02-20-2025 Patient encounter procedure Stacie Pereyra MA [facility] Comment on above: Population Health Na vigation Outreach (NANIO WORKBEAILYN YEE PCSA ) Start: 02-12-2025 End: 02-12-2025 Telephone encounter Alisha Wilcox MD Work Phone: [facility] [place] Comment on above: requesting m edication Start: 01-01-2025 End: 01-01-2025 Patient encounter procedure Shruthi Podlogearl FRUIT PRESS OPERATOR.COMMERCIAL LOAN UNDERWRITER Work Phone: [facility] [place] Comment on above: Essential hypertensi on (Primary Dx); Hypokalemia; Alzheimers disease (HCC) Start: 01-01-2025 End: 01-01-2025 ambulatory SHRUTHI PODLOGEARL Facility:[facility] Start: 12-26-2024 End: 12-26-2024 ambulatory ALISHA WILCOX Facility:[facility] Start: 12-21-2024 End: 12-22-2024 Telephone encounter Shruthi Christensen FRUIT PRESS OPERATOR.COMMERCIAL LOAN UNDERWRITER Work Phone: [facility] [place] Comment on above: Orders Start: 12-21-2024 End: 12-21-2024 Patient encounter procedure Sadie Eastman Work Phone: Podiatry Comment on above: Onychomycosis (Prima ry Dx); Pain in toe of left foot; Pain in toe of right foot Start: 12-21-2024 End: 12-21-2024 ambulatory SADIE EASTMAN Facility:[facility] Start: 11-13-2024 End: 11-14-2024 Refill Alisha Wilcox MD Work Phone: [facility] Comment on above: Refill Request Start: 10-23-2024 End: 10-23-2024 Patient encounter procedure Marcus Hanks MD Work Phone: Neurology Comment on above: Alzheimers disease ( HCC) (Primary Dx); 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) Start: 10-23-2024 End: 10-23-2024 ambulatory MARCUS HANKS JR Facility:[facility] Start: 09-26-2024 End: 09-26-2024 Refill Alisha Wilcox MD Work Phone: [facility] Comment on above: Refill Request Start: 09-21-2024 End: 09-21-2024 Patient encounter procedure Sadie Raiza Work Phone: Podiatry Comment on above: Onychomycosis (Prima ry Dx); Pain in toe of left foot; Pain in toe of right foot Start: 09-21-2024 End: 09-21-2024 ambulatory SADIE EASTMAN Facility:[facility] Start: 07-07-2024 End: 07-07-2024 Telephone encounter Alisha Wilcox MD Work Phone: [facility] [place] Start: 07-06-2024 End: 07-06-2024 ambulatory ALISHA WILCOX Facility:[facility] Start: 07-06-2024 End: 07-06-2024 Subsequent hospital visit by physician Xr [facility] [place] Work Phone: Radiology Comment on above: Fall at home, initia l encounter [W19.XXXA, Y92.009] Start: 07-06-2024 End: 07-06-2024 ambulatory ALISHA WILCOX Facility:[facility] Start: 07-06-2024 End: 07-06-2024 Patient encounter procedure Alisha Wilcox MD Work Phone: [facility] Comment on above: Fall at home, initia l encounter (Primary Dx); Acute hip pain, right; Alzheimer's dementia with agitation, unspecified dementia severity, unspecified timing of dementia onset (HCC); Essential hypertension; Hyperlipidemia, mixed; Encounter for immunization Start: 06-28-2024 End: 06-28-2024 ambulatory ALISHA WILCOX Facility:[facility] Start: 06-22-2024 End: 06-22-2024 Telephone encounter Alisha Wilcox MD Work Phone: [facility] Comment on above: Orders (Labs for olivier ointment) Start: 06-22-2024 End: 06-22-2024 ambulatory SADIE EASTMAN Facility:[facility] Start: 06-22-2024 End: 06-22-2024 Patient encounter procedure Sadie Eastman Work Phone: Podiatry Comment on above: Onychomycosis (Prima ry Dx); Pain in toe of left foot; Pain in toe of right foot Start: 06-01-2024 End: 06-01-2024 Refill Alisha Wilcox MD Work Phone: [facility] Comment on above: Refill Request Start: 05-18-2024 End: 05-18-2024 Refill Alisha Wilcox MD Work Phone: [facility] Comment on above: Refill Request Start: 03-31-2024 End: 03-31-2024 Patient encounter procedure Marcus Hanks MD Work Phone: Neurology Comment on above: Alzheimers disease ( HCC) (Primary Dx); 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); Tremor; Alzheimer's dementia with agitation, unspecified dementia severity, unspecified timing of dementia onset (HCC) Start: 03-27-2024 End: 03-27-2024 Refill Alisha Wilcox MD Work Phone: [facility] Comment on above: Refill Request Start: 03-21-2024 End: 03-21-2024 Patient encounter procedure Sadie Eastman Work Phone: Podiatry Comment on above: Onychomycosis (Prima ry Dx); Pain in toe of left foot; Pain in toe of right foot Start: 02-02-2024 End: 02-02-2024 Refill Alisha Wilcox MD Work Phone: [facility] [place] Comment on above: Refill Request Start: 01-04-2024 End: 01-04-2024 Patient encounter procedure Shruthi Christensen APRN.CNP Work Phone: [facility] Comment on above: Essential hypertensi on (Primary Dx); Alzheimers disease (HCC); Hyperlipidemia, mixed; GERD without esophagitis Start: 12-07-2023 End: 12-07-2023 Patient encounter procedure Sadie Hicksmonisha Work Phone: Podiatry Comment on above: Onychomycosis (Prima ry Dx); Pain in toe of left foot; Pain in toe of right foot Start: 11-25-2023 Refill Alisha Wilcox MD Work Phone: [facility] Comment on above: Refill Request Start: 11-12-2023 Telephone encounter Shruthi birmingham APRN.COMMERCIAL LOAN UNDERWRITER Work Phone: [facility] Comment on above: Results Medication Request Start: 11-12-2023 End: 11-12-2023 Patient encounter procedure Shruthi Christensen APRN.COMMERCIAL LOAN UNDERWRITER Work Phone: [facility] Comment on above: Polyuria (Primary Dx ); Essential hypertension; Hyperlipidemia, mixed; Elevated blood sugar Start: 11-10-2023 End: 11-10-2023 Patient encounter procedure Gallo Pineda APRN.COMMERCIAL LOAN UNDERWRITER Work Phone: [facility] Comment on above: Urinary frequency (P rimary Dx) Start: 11-10-2023 ambulatory Pearl Arriola RN NURSE COVER OPERATOR Comment on above: UTI Start: 11-02-2023 Refill Alisha Wilcox MD Work Phone: [facility] Comment on above: Refill Request Start: 09-20-2023 Refill Alisha Wilcox MD Work Phone: [facility] Comment on above: Refill Request Start: 09-07-2023 End: 09-07-2023 Patient encounter procedure Sadie Hicksmonisha Work Phone: Podiatry Comment on above: Onychomycosis (Prima ry Dx); Pain in toe of left foot; Pain in toe of right foot Start: 09-06-2023 Refill Shruthi Christensen APRN.COMMERCIAL LOAN UNDERWRITER Work Phone: [facility] Comment on above: Refill Request Start: 08-23-2023 Telephone encounter Jed Wilcox MD Work Phone: [facility] [place] Start: 08-19-2023 End: 08-19-2023 Patient encounter procedure Shruthi Christensen FRUIT PRESS OPERATOR.COMMERCIAL LOAN UNDERWRITER Work Phone: [facility] [place] Comment on above: Frequent urination ( Primary Dx); Weight loss Start: 05-24-2023 Refill Alisha Wilcox MD Work Phone: [facility] [place] Comment on above: Refill Request Start: 05-07-2023 End: 05-07-2023 ambulatory Immun[facility] Nurse [place] Work Phone: [facility] [place] Start: 03-22-2023 Refill Alisha Wilcox MD Work Phone: [facility] [place] Comment on above: Refill Request Start: 02-24-2023 Refill Alisha Wilcox MD Work Phone: [facility] [place] Comment on above: Refill Request Start: 01-22-2023 Refill Alisha Wilcox MD Work Phone: [facility] [place] Comment on above: Refill Request Start: 12-22-2022 End: 12-22-2022 Patient encounter procedure Shruthi Christensen FRUIT PRESS OPERATOR.COMMERCIAL LOAN UNDERWRITER Work Phone: [facility] [place] Comment on above: Essential hypertensi on (Primary Dx); Hyperlipidemia, mixed; Alzheimers disease (HCC); GERD without esophagitis; Throat clearing; Bilateral impacted cerumen Start: 08-31-2022 Refill Alisha Wilcox MD Work Phone: [facility] [place] Comment on above: Refill Request Start: 08-28-2022 Telephone encounter Jed Wilcox MD Work Phone: [facility] [place] Comment on above: Insurance Authorizat ion (Donepezil ) Start: 08-25-2022 Refill Shruthi Podlogearl FRUIT PRESS OPERATOR.COMMERCIAL LOAN UNDERWRITER Work Phone: [facility] [place] Comment on above: Refill Request Start: 08-17-2022 Refill Alisha Wilcox MD Work Phone: [facility] [place] Comment on above: Refill Request Start: 07-06-2022 Refill Alisha Wilcox MD Work Phone: [facility] Comment on above: Refill Request Start: 06-24-2022 End: 06-24-2022 Patient encounter procedure Shruthi Podlogar FRUIT PRESS OPERATOR.COMMERCIAL LOAN UNDERWRITER Work Phone: [facility] Comment on above: Alzheimer's dementia with agitation, unspecified dementia severity, unspecified timing of dementia onset (HCC) (Primary Dx); Hyperlipidemia, mixed; Primary hypertension Start: 06-19-2022 Telephone encounter Shruthi Govea ogar FRUIT PRESS OPERATOR.COMMERCIAL LOAN UNDERWRITER Work Phone: [facility] [place] Comment on above: Opened In Error Start: 06-18-2022 Telephone encounter Jed Wilcox MD Work Phone: [facility] Comment on above: Results Start: 06-12-2022 Telephone encounter Jed Wilcox MD Work Phone: [facility] Comment on above: Lab order request Start: 05-25-2022 Refill Alisha Wilcox MD Work Phone: [facility] Comment on above: Refill Request Start: 05-06-2022 Refill Shruthi Podlogar FRUIT PRESS OPERATOR.COMMERCIAL LOAN UNDERWRITER Work Phone: [facility] Comment on above: Refill Request Start: 04-08-2022 End: 04-08-2022 Patient encounter procedure Alisha Wilcox MD Work Phone: [facility] Comment on above: Drug-induced veena onism (HCC) (Primary Dx); Agitation; Alzheimers disease (HCC) Start: 02-28-2022 Refill Shruthi Podlogar FRUIT PRESS OPERATOR.COMMERCIAL LOAN UNDERWRITER Work Phone: [facility] Comment on above: Refill Request Patient Update Start: 02-27-2022 End: 02-27-2022 Patient encounter procedure Shruthi Podlogar FRUIT PRESS OPERATOR.COMMERCIAL LOAN UNDERWRITER Work Phone: [facility] Comment on above: Tremor of right hand (Primary Dx); Alzheimers disease (HCC); Encounter for immunization Start: 02-24-2022 Telephone encounter Jed Wilcox MD Work Phone: [facility] Comment on above: Patient Update (Spou se has question) Start: 02-23-2022 Refill Alisha Wilcox MD Work Phone: [facility] Comment on above: Refill Request Start: 01-20-2022 Telephone encounter Lucia Jessica [facility] Comment on above: Social Work Services Start: 01-19-2022 End: 01-19-2022 Refill Alisha Wilcox MD Work Phone: [facility] Comment on above: Refill Request wetting the bed Urinary frequency (P rimary Dx); Urinary incontinence, unspecified type; Elevated blood sugar; Alzheimers disease (HCC) Start: 01-07-2022 Telephone encounter Shruthi birmingham FRUIT PRESS OPERATOR.COMMERCIAL LOAN UNDERWRITER Work Phone: [facility] Comment on above: Results Start: 12-23-2021 Telephone encounter Shruthi birmingham FRUIT PRESS OPERATOR.COMMERCIAL LOAN UNDERWRITER Work Phone: [facility] Comment on above: Results Start: 12-22-2021 Telephone encounter Jed Wilcox MD Work Phone: [facility] Comment on above: Orders Start: 08-28-2020 End: 08-28-2020 Subsequent hospital visit by physician Pancho [facility] [place] Work Phone: Radiology Comment on above: Pain of left hand [M 79.642] Procedures Date Procedure Procedure Detail Performing Clinician Start: 07-06-2024 Radex hips bilateral with pelvis minimum 5 views Alisha Wilcox MD Work Phone: Start: 11-10-2023 Urnls dip stick/tabl et rgnt auto w/o microscopy Ammy Camarena FRUIT PRESS OPERATOR.COMMERCIAL LOAN UNDERWRITER Work Phone: Start: 08-19-2023 Urnls dip stick/tabl et rgnt auto w/o microscopy Shruthi Christensen FRUIT PRESS OPERATOR.COMMERCIAL LOAN UNDERWRITER Work Phone: Start: 05-07-2023 [employer] COVI D-19 VACCINE ( SEASON) AGE 12+ YR Marcus Sosa MD Work Phone: Start: 02-27-2022 INFLUENZA SEASONAL QUADRIVALENT HIGH DOSE AGE 65+ Shruthi Podlogar FRUIT PRESS OPERATOR.COMMERCIAL LOAN UNDERWRITER Work Phone: Start: 01-19-2022 Urnls dip stick/tabl et rgnt auto w/o microscopy Shruthi Podlogar FRUIT PRESS OPERATOR.COMMERCIAL LOAN UNDERWRITER Work Phone: Start: 08-28-2020 Radex hand minimum 3 views Kin Seay FRUIT PRESS OPERATOR.COMMERCIAL LOAN UNDERWRITER Work Phone: Start: 04-22-2020 Colonoscopy Jed Wilcox MD Work Phone: Start: 09-15-2018 Adult depression scr eening assessment Alisha Wilcox MD Work Phone: Plan of Treatment Date Care Activity Detail Author Start: 12-27-2027 Diabetes Screening Diabetes Screenin g [facility] Start: 06-28-2027 [facility] Start: 12-13-2026 [facility] Start: 06-22-2026 Diabetes Screening Diabetes Screenwy g [facility] Start: 06-12-2026 LIPID SCREEN LIPID SCREEN [facility] Start: 03-30-2026 Urine microalbumin profile [facility] Start: 01-01-2026 Annual PCP Team Humane Agent malika Disease Visit Annual PCP Team Chronic Disease Visit [facility] Start: 12-15-2025 DIABETES SCREEN DIABETES SCREEN [facility] Start: 12-15-2025 Diabetes Screening Diabetes Screenin g [facility] Start: 10-23-2025 BP Controlled (<130/80) BP Controlle d (<130/80) [facility] Start: 07-06-2025 Annual PCP Team Humane Agent malika Disease Visit Annual PCP Team Chronic Disease Visit [facility] Start: 07-06-2025 Covid-19 Vaccine ( season) Covid-19 Vaccine ( season) [facility] Comment on above: Postponed from 02/05 (Declined at this time) Start: 07-04-2025 End: 07-04-2025 Patient encounter procedure 07/04/2025 12:00 PM EST Office Visit Family Medicine [place] [address] [place], [place] [id number] Shruthi Christensen APRN.COMMERCIAL LOAN UNDERWRITER [address] [place], [place] [address] 6 month follow up Family [facility] Comment on above: 6 month follow up Start: 06-17-2025 DIABETES SCREEN DIABETES SCREEN [facility] Start: 04-09-2025 End: 04-09-2025 Patient encounter procedure 04/09/2025 1:00 PM EST Office Visit Neurology [address] [place], [place] [id number] Marcus Hanks Jr., MD [address] [place], [place] [id number] 6 month follow up Neurology Comment on above: 6 month follow up Start: 03-31-2025 BP Controlled (<130/80) BP Controlle d (<130/80) [facility] Start: 03-27-2025 End: 03-27-2025 Patient encounter procedure 03/27/2025 11:15 AM EDT Office Visit Podiatry [address] [place], [place] [id number] Sadie Eastman [address] [place], [place] [id number] 3 month follow up nail care Podiatry Comment on above: 3 month follow up na ia care Start: 02-06-2025 DIABETES SCREEN DIABETES SCREEN [facility] Start: 02-05-2025 Influenza vaccination Influenza Vacc ine (#1) [facility] Start: 01-03-2025 Annual PCP Team Humane Agent malika Disease Visit Annual PCP Team Chronic Disease Visit [facility] Start: 01-03-2025 BP Controlled (<130/80) BP Controlle d (<130/80) [facility] Start: 01-01-2025 End: 01-01-2025 Patient encounter procedure 01/01/2025 11:20 AM EDT Office Visit [facility] [address] [place], [place] [id number] PodShurthi orr APRN.COMMERCIAL LOAN UNDERWRITER [address] [place] [address] 6 MO FOLLOW UP Family Medicine [place] Comment on above: 6 MO FOLLOW UP Start: 12-22-2024 End: 03-23-2025 Comprehensive metabolic 2000 panel - Serum or Plasma COMPREHENSIVE METABOLIC PANEL Lab Routine Essential hypertension Hyperlipidemia, mixed Expected: 12/22/2024, Expires: 03/23/2025 [facility] Work Phone: Comment on above: Expected: 12/22/2024 , Expires: 03/23/2025 Start: 12-22-2024 DIABETES SCREEN DIABETES SCREEN [facility] Start: 12-22-2024 End: 03-23-2025 Lipid 1996 panel - Serum or Plasma LIPID PANEL, FASTING Lab Routine Essential hypertension Hyperlipidemia, mixed Expected: 12/22/2024, Expires: 03/23/2025 [facility] Comment on above: Expected: 12/22/2024 , Expires: 03/23/2025 Start: 12-21-2024 End: 12-21-2024 Patient encounter procedure 12/21/2024 11:30 AM EDT Office Visit Podiatry [address] [place] [address] Sadie Eastman [address] [place] [address] 3 month follow up nail care Podiatry Comment on above: 3 month follow up na il care Start: 11-11-2024 Annual PCP Team Humane Agent malika Disease Visit Annual PCP Team Chronic Disease Visit [facility] Start: 11-11-2024 BP Controlled (<130/80) BP Controlle d (<130/80) [facility] Start: 11-09-2024 BP Controlled (<130/80) BP Controlle d (<130/80) [facility] Start: 11-03-2024 End: 11-03-2024 Patient encounter procedure Neurology Comment on above: 7 month follow up Start: 10-23-2024 End: 10-23-2024 Patient encounter procedure 10/23/2024 11:00 AM EDT Office Visit Neurology [address] [facility] [place] [address] Marcus Hanks Jr., MD [address] [place] [address] 7 month follow up r/s from 11/03 Neurology Comment on above: 7 month follow up r/ s from 11/03 Start: 09-21-2024 End: 09-21-2024 Patient encounter procedure 09/21/2024 11:30 AM EDT Office Visit Podiatry [address] [place] [address] Sadie Eastman [address] [address] 3 month follow up Podiatry Comment on above: 3 month follow up Start: 08-18-2024 Annual PCP Team Humane Agent malika Disease Visit Annual PCP Team Chronic Disease Visit [facility] Start: 07-06-2024 End: 07-06-2024 Patient encounter procedure 07/06/2024 12:20 PM EST Office Visit Family Medicine [place] [address] [facility] [place] [address] Alisha Wilcox MD [address] [facility] [place] [address] 6 month follow up Family Medicine [place] Comment on above: 6 month follow up Start: 06-22-2024 End: 09-21-2024 25-hydroxyvitamin D3 [Mass/volume] in Serum or Plasma VITAMIN D 25 HYDROXY Lab Routine Hyperlipidemia, mixed Vitamin D insufficiency Expected: 06/22/2024, Expires: 09/21/2024 [facility] Comment on above: Expected: 06/22/2024 , Expires: 09/21/2024 Start: 06-22-2024 End: 09-21-2024 CBC W Auto Differential panel - Blood COMPLETE BLOOD COUNT AND DIFFERENTIAL Lab Routine Hyperlipidemia, mixed Vitamin D insufficiency Expected: 06/22/2024, Expires: 09/21/2024 [facility] Work Phone: Comment on above: Expected: 06/22/2024 , Expires: 09/21/2024 Start: 06-22-2024 End: 09-21-2024 Comprehensive metabolic 2000 panel - Serum or Plasma COMPREHENSIVE METABOLIC PANEL Lab Routine Hyperlipidemia, mixed Vitamin D insufficiency Expected: 06/22/2024, Expires: 09/21/2024 [facility] Comment on above: Expected: 06/22/2024 , Expires: 09/21/2024 Start: 06-22-2024 End: 06-22-2024 Patient encounter procedure Podiatry Comment on above: 3 month follow up na il care Start: 06-12-2024 DIABETES SCREEN DIABETES SCREEN [facility] Start: 06-07-2024 Advance Directive Discussion Advance Directive Discussion [facility] Start: 03-31-2024 End: 03-31-2024 Patient encounter procedure 03/31/2024 3:40 PM EDT Office Visit Neurology [address] [place] [address] Marcus Hanks Jr., MD [address] [place] [id number] 9 month follow up Neurology Comment on above: 9 month follow up Start: 03-21-2024 End: 03-21-2024 Patient encounter procedure 03/21/2024 2:15 PM EDT Office Visit Podiatry [address] [place] [address] Sadie Eastman [address] [place] [address] 3 month follow up nail care Scheduled 40 min incase patient decides to have one removed. kh Podiatry Comment on above: 3 month follow up na il care Scheduled 40 min incase patient decides to have one removed. kh Start: 03-10-2024 End: 03-10-2024 Patient encounter procedure 03/10/2024 2:20 PM EDT Office Visit Podiatry [address] [place] [address] Sadie Eastman [address] [place] [address] 3 month follow up nail care Scheduled 40 min incase patient decides to have one removed. kh Podiatry Comment on above: 3 month follow up na il care Scheduled 40 min incase patient decides to have one removed. Start: 02-06-2024 Covid-19 Vaccine () Covid-19 Vaccine () [facility] Start: 02-06-2024 Influenza vaccination [facility] Start: 12-29-2023 End: 12-29-2023 Patient encounter procedure 12/29/2023 11:20 AM EDT Office Visit Family Medicine [facility] [address] [facility] [place] [address] PodShruthi orr APRN.COMMERCIAL LOAN UNDERWRITER [address] [facility] [place] [address] 6 month follow up Family Medicine Khadijah Comment on above: 6 month follow up Start: 12-23-2023 ANNUAL PCP TEAM CARDIOVASCULAR DISEASE SPECIALIST MALIKA DISEASE VISIT ANNUAL PCP TEAM CHRONIC DISEASE VISIT [facility] Start: 12-23-2023 BP CONTROLLED (<130/80) BP CONTROLLE D (<130/80) [facility] Start: 12-21-2023 End: 12-21-2023 Patient encounter procedure 12/21/2023 11:20 AM EDT Office Visit Family Medicine [place]ij[facility] [address] [facility] [place] [address] PodShruthi orr APRN.COMMERCIAL LOAN UNDERWRITER [address] [facility] [place] [address] 6 month follow up Family Medicine [place]hadijah Comment on above: 6 month follow up Start: 12-07-2023 End: 12-07-2023 Patient encounter procedure 12/07/2023 1:00 PM EDT Office Visit Podiatry [address] [place] [address] Sadie Eastman [address] [place] [address] 3 months nail care Onychomycosis [B35.1] Podiatry Comment on above: 3 months nail care O nychomycosis [B35.1] Start: 12-06-2023 End: 03-06-2024 Comprehensive metabolic 2000 panel - Serum or Plasma COMPREHENSIVE METABOLIC PANEL Lab Routine Essential hypertension Expected: 12/06/2023, Expires: 03/06/2024 [facility] Work Phone: Comment on above: Expected: 12/06/2023 , Expires: 03/06/2024 Start: 12-06-2023 End: 03-06-2024 Hemoglobin A1c in Blood HEMOGLOBIN A1C Lab Routine Polyuria Elevated blood sugar Expected: 12/06/2023, Expires: 03/06/2024 [facility] Comment on above: Expected: 12/06/2023 , Expires: 03/06/2024 Start: 12-06-2023 End: 03-06-2024 Lipid 1996 panel - Serum or Plasma LIPID PANEL BASIC Lab Routine Hyperlipidemia, mixed Expected: 12/06/2023, Expires: 03/06/2024 [facility] Comment on above: Expected: 12/06/2023 , Expires: 03/06/2024 Start: 11-12-2023 End: 11-12-2023 Patient encounter procedure 11/12/2023 11:40 AM EDT Office Visit Family Medicine [place]hadijah [address] [place] [address] PodlogarShruthi APRN.COMMERCIAL LOAN UNDERWRITER [address] [place] [address] ec follow up Family Medicine Khadijah Comment on above: ec follow up Start: 09-06-2023 Covid-19 Vaccine () Covid-19 Vaccine () [facility] Start: 06-24-2023 ANNUAL PCP TEAM CARDIOVASCULAR DISEASE SPECIALIST MALIKA DISEASE VISIT ANNUAL PCP TEAM CHRONIC DISEASE VISIT [facility] Start: 06-24-2023 BP CONTROLLED (<130/80) BP CONTROLLE D (<130/80) [facility] Start: 06-07-2023 Advance Directive Discussion Advance Directive Discussion [facility] Start: 06-07-2023 Behavioral Health Screening Behavioral Health Screening [facility] Start: 06-07-2023 Depression Assessment Depression Ass essment [facility] Start: 06-05-2023 BP CONTROLLED (<130/80) BP CONTROLLE D (<130/80) [facility] Start: 04-08-2023 ANNUAL PCP TEAM CARDIOVASCULAR DISEASE SPECIALIST MALIKA DISEASE VISIT ANNUAL PCP TEAM CHRONIC DISEASE VISIT [facility] Start: 02-27-2023 ANNUAL PCP TEAM CARDIOVASCULAR DISEASE SPECIALIST MALIKA DISEASE VISIT ANNUAL PCP TEAM CHRONIC DISEASE VISIT [facility] Start: 02-27-2023 BP CONTROLLED (<130/80) BP CONTROLLE D (<130/80) [facility] Start: 02-05-2023 Covid-19 Vaccine () Covid-19 Vaccine () [facility] Start: 02-05-2023 Influenza vaccination [facility] Start: 01-19-2023 ANNUAL PCP TEAM CARDIOVASCULAR DISEASE SPECIALIST MALIKA DISEASE VISIT ANNUAL PCP TEAM CHRONIC DISEASE VISIT [facility] Start: 01-19-2023 BP CONTROLLED (<130/80) BP CONTROLLE D (<130/80) [facility] Start: 12-22-2022 ANNUAL PCP TEAM CARDIOVASCULAR DISEASE SPECIALIST MALIKA DISEASE VISIT ANNUAL PCP TEAM CHRONIC DISEASE VISIT [facility] Start: 07-28-2022 COVID-19 VACCINE (5 - Moderna series) COVID-19 VACCINE (5 - Moderna series) [facility] Start: 06-07-2022 ADVANCE DIRECTIVE DISCUSSION ADVANCE DIRECTIVE DISCUSSION [facility] Start: 06-07-2022 DEPRESSION ASSESSMENT DEPRESSION ASS ESSMENT [facility] Start: 02-07-2022 End: 04-09-2022 POTASSIUM BLD POTASSIUM BLD Lab Routine Hypokalemia Expected: 02/07/2022, Expires: 04/09/2022 [facility] Work Phone: Comment on above: Expected: 02/07/2022 , Expires: 04/09/2022 Start: 02-05-2022 Influenza vaccination INFLUENZA (#1) [facility] Start: 01-19-2022 End: 03-21-2022 Hemoglobin A1c in Blood HGB A1C Lab Routine Urinary frequency Elevated blood sugar Expected: 01/19/2022, Expires: 03/21/2022 [facility] Work Phone: Comment on above: Expected: 01/19/2022 , Expires: 03/21/2022 Start: 01-06-2022 End: 03-08-2022 POTASSIUM BLD POTASSIUM BLD Lab Routine Hypokalemia Expected: 01/06/2022, Expires: 03/08/2022 [facility] Work Phone: Comment on above: Expected: 01/06/2022 , Expires: 03/08/2022 Start: 12-22-2021 End: 02-21-2022 25-hydroxyvitamin D3 [Mass/volume] in Serum or Plasma [facility] Work Phone: Comment on above: Expected: 12/22/2021 , Expires: 02/21/2022 Start: 12-22-2021 End: 02-21-2022 Comprehensive metabolic 2000 panel - Serum or Plasma [facility] Work Phone: Comment on above: Expected: 12/22/2021 , Expires: 02/21/2022 Start: 09-05-2021 COVID-19 VACCINE (4 - Booster for Moderna series) COVID-19 VACCINE (4 - Booster for Moderna series) [facility] Start: 07-02-2021 COVID-19 VACCINE (4 - Booster for Moderna series) COVID-19 VACCINE (4 - Booster for Moderna series) [facility] Start: 06-07-2021 ADVANCE DIRECTIVE DISCUSSION ADVANCE DIRECTIVE DISCUSSION [facility] Start: 06-07-2021 DEPRESSION ASSESSMENT DEPRESSION ASS ESSMENT [facility] Start: 05-15-2021 BP CONTROLLED (<130/80) BP CONTROLLE D (<130/80) [facility] Start: 2021 RSV Vaccine (1 - 1-d ose 75+ series) RSV Vaccine (1 - 1-dose 75+ series) [facility] Start: 04-22-2021 Colonoscopy COLONOSCOPY [facility] Start: 04-22-2021 COLORECTAL CANCER SCREENING COLORECTAL CANCER SCREENING [facility] Start: 04-22-2021 Screening for malign ant neoplasm of colon Colonoscopy [facility] Start: 09-16-2019 Adult depression screening assessment DEPRESSION SCREENING [facility] Start: 04-07-2011 Medicare Annual Well ness Visit Medicare Annual Wellness Visit [facility] Start: 10-29-2009 SHINGRIX VACCINE (2 of 3) SHINGRIX VACCINE (2 of 3) [facility] Start: 2006 RSV Vaccine (1 - 1-d ose 60+ series) RSV Vaccine (1 - 1-dose 60+ series) [facility] Start: 1991 COLOGUARD (FIT-DNA) COLOGUARD (FIT-D NA) [facility] Start: [address] COLONOGRAPHY [facility] Start: 1991 FECAL OCCULT BLOOD FECAL OCCULT BLOO D [facility] Start: 1991 SIGMOIDOSCOPY SIGMOIDOSCOPY [facility] Bacteria identified in Urine by Culture URINE CULTURE Microbiology Routine Urinary incontinence, unspecified type 01/19/2022 3:14 PM EDT [facility] Work Phone: Bacteria identified in Urine by Culture URINE CULTURE Microbiology Routine Frequent urination 08/19/2023 12:04 PM EDT [facility] Work Phone: Bacteria identified in Urine by Culture URINE CULTURE Microbiology Routine Urinary frequency 11/10/2023 5:49 PM EDT [facility] Work Phone: [facility] Immunizations Immunization Date Immunization Notes Care Provider [facility] 07-06-2024 influenza, high dose seasonal, preservative-free Alisha Wilcox MD Work Phone: [facility] 07-06-2024 influenza virus vaccine, unspecified formulation Sadie Eastman Work Phone: [facility] 05-07-2023 COVID-19 vaccine, ag e 12+ yr, season ([employer]) Immunization [place] Work Phone: [facility] Work Phone: 02-27-2022 influenza, high-dose , quadrivalent vaccine (FLUZONE HIGH DOSE QUADRIVALENT) Shruthi Christensen FRUIT PRESS OPERATOR.COMMERCIAL LOAN UNDERWRITER Work Phone: [facility] 02-27-2022 influenza virus vaccine, unspecified formulation Alisha Wilcox MD Work Phone: [facility] 02-25-2021 influenza, high-dose , quadrivalent vaccine (FLUZONE HIGH DOSE QUADRIVALENT) Alisha Wilcox MD Work Phone: [facility] Work Phone: 03-09-2020 influenza, high-dose , quadrivalent vaccine (FLUZONE HIGH DOSE QUADRIVALENT) Alisha Wilcox MD Work Phone: [facility] 04-18-2019 influenza, high dose seasonal, preservative-free Alisha Wilcox MD Work Phone: [facility] 03-19-2018 influenza, high dose seasonal, preservative-free Alisha Wilcox MD Work Phone: [facility] 03-13-2017 influenza, high dose seasonal, preservative-free Alisha Wilcox MD Work Phone: [facility] Work Phone: 02-19-2017 pneumococcal conjuga te vaccine, 13 valent Alisha Wilcox MD Work Phone: [facility] 03-30-2016 tetanus toxoid, redu philip diphtheria toxoid, and acellular pertussis vaccine, adsorbed Alisha Wilcox MD Work Phone: [facility] Work Phone: 03-28-2016 influenza, high dose seasonal, preservative-free Alisha Wilcox MD Work Phone: [facility] 03-16-2015 influenza, high dose seasonal, preservative-free Alisha Wilcox MD Work Phone: [facility] 12-04-2014 pneumococcal polysaccharide vaccine, 23 valent Alisha Wilcox MD Work Phone: [facility] 04-04-2014 influenza, seasonal, injectable Alisha Wilcox MD Work Phone: [facility] 04-22-2013 influenza virus vaccine, unspecified formulation Alisha Wilcox MD Work Phone: [facility] Work Phone: 03-26-2012 influenza virus vaccine, unspecified formulation Alisha Wilcox MD Work Phone: [facility] Work Phone: 05-16-2011 influenza virus vaccine, unspecified formulation Alisha Wilcox MD Work Phone: [facility] 04-22-2010 influenza virus vaccine, unspecified formulation Alisha Wilcox MD Work Phone: [facility] Work Phone: 09-03-2009 zoster vaccine, live Mendez joanna Wilcox MD Work Phone: [facility] Work Phone: 03-22-2009 influenza virus vaccine, unspecified formulation Alisha Wilcox MD Work Phone: [facility] 04-19-2008 influenza virus vaccine, unspecified formulation Alisha Wilcox MD Work Phone: [facility] Work Phone: 06-06-2007 pneumococcal polysaccharide vaccine, 23 valent Alisha Wilcox MD Work Phone: [facility] Work Phone: 04-29-2007 influenza virus vaccine, unspecified formulation Alisha Wilcox MD Work Phone: [facility] Work Phone: 03-30-2006 influenza virus vaccine, whole virus Alisha Wilcox MD Work Phone: [facility] Work Phone: 02-11-2006 diphtheria and tetan us toxoids, adsorbed for pediatric use Alisha Wilcox MD Work Phone: [facility] Work Phone: 11-17-1994 diphtheria and tetan us toxoids, adsorbed for pediatric use Alisha Wilcox MD Work Phone: [facility] Work Phone: Payers Date Payer Category Payer Medicare MEDICARE MEDICAR E A AND B [id number] 2011-Present [phone] [place] [address] Medicare [id number] 2011 Medicare [id number] 2011 Private Health Insurance [employer] [id number] 2011 Unknown [employer] ASS U[employer] LIFE MEDICARE SUPPLEMENT [id number] 2011-Present [phone] [address] [place] [address] Indemnity [id number] 2011 Unknown [employer] ASS U[employer] LIFE MEDICARE SUPPLEMENT [id number] 2011-Present [phone] [address] [place] [address] Indemnity [id number] 2011 Medicare [id number] 2011 Medicare [id number] Social History Date Type Detail Facility Start: 09-06-2017 End: 01-19-2022 Tobacco smoking status NHIS Never smoked tobacco [facility] Work Phone: Start: 12-22-2021 End: 01-01-2025 Alcohol intake Current non-drinker of alcohol (finding) [facility] Start: 1945 Sex Assigned At Not on file [facility] Start: 09-06-2017 End: 01-19-2022 Tobacco use and exposure Smokeless tobacco non-user [facility] Start: 07-29-2020 End: 04-08-2022 Exposure to SARS-CoV-2 (event) Not sure [facility] Start: 12-04-2022 End: 12-22-2022 History of Social function [facility] Start: 12-04-2022 End: 12-22-2022 Tobacco use panel [facility] Start: 05-08-2012 Adult Depression Screening Assessment 0 [facility] Functional Status Date Assessment Result Facility 12-04-2014 Are you deaf, or do you have serious difficulty hearing No 12/04/2014 9:48 AM EDT Debbi Godfrey Ma No [facility] 12-04-2014 Are you blind, or do you have serious difficulty seeing, even when wearing glasses No 12/04/2014 9:48 AM EDT Debbi Godfrey Ma No [facility] 12-04-2014 Do you have serious difficulty walking or climbing stairs No 12/04/2014 9:48 AM EDT Debbi Godfrey Ma No [facility] 12-04-2014 Do you have difficul ty dressing or bathing No 12/04/2014 9:48 AM EDT Debbi Godfrey Ma No [facility] 12-04-2014 Because of a physica l, mental, or emotional condition, do you have difficulty doing errands alone such as visiting a physician's office or shopping No 12/04/2014 9:48 AM EDT Debbi Godfrey Ma [facility] Mental Status Date Assessment Result Facility 12-04-2014 Because of a physica l, mental, or emotional condition, do you have serious difficulty concentrating, remembering, or making decisions No 12/04/2014 9:48 AM EDT Debbi Godfrey Ma No [facility] Clinical Notes 01-18-2008 to 03-27-2025 Stacie Pereyra MA - 02/20/2025 8:40 AM EDTTelephone Encounter - Cristiane Hardin MA - 02/12/2025 3:05 PM EDTTelephone Encounter - Cristiane Hardin MA - 02/12/2025 3:05 PM EDT Note Date & Type Note Facility 03-27-2025 Note HNO ID: [id number] Author: SADIE EASTMAN, ? Service: ? Author Type: Physician Type: Progress Notes Filed: 03/27/2025 13:05 Note Text: Subjective: Patient presents to clinic c/o painful toenails. They state that the nails are especially painful with shoe gear and pressure. Patient states that nails b/l hallux are painful. No other pedal complaints at this time. Patient states no change in medications or medical history since last visit. Objective: Patient presents to clinic ambulating in dress shoes Vasc: DP and PT pulses are palpable bilateral. CFT is less than 5 seconds bilateral. Skin temperature is warm to cool proximal to distal bilateral. There is no edema or varicosities noted. Neuro: Protective sensation is intact to the foot and toes when tested with the 5.07 SWM bilateral. Vibratory sensation is decreased at the hallux IPJ bilateral. The hallux is downgoing bilateral. Derm: Nails 1-5 b/l are painful, discolored-yellow, thick, crumbly, dystrophic and with subungal debris. Skin is of normal turgor, texture and hair growth is decreased bilateral. There are callus to right 1st metatarsal. No ulceration present Ortho: Muscle strength is 5/5 for all pedal groups tested. Ankle joint DF is decreased with the knee extended with no pain or crepitus noted. 1st MPJ ROM is decreased bilateral. Assessment: (B35.1) Onychomycosis (primary encounter diagnosis) (M79.675) Pain in toe of left foot (M79.674) Pain in toe of right foot Plan: Patient was seen and evaluated. Nails 1-5 bilateral were debrided in length and thickness. Callus reduced with dremmel Patient is to RTC in 3-4 months. Sadie Eastman DPM [facility] 03-27-2025 Note HNO ID: [id number] Author: MARGE DILLON, NAGA Service: ? Author Type: Registered Nurse Type: Progress Notes Filed: 03/27/2025 13:05 Note Text: Patient presents with: Left Foot - Established Patient, Follow Up, nail care Right Foot - Established Patient, Follow Up, nail care Patient presents for follow up nail care. AGUSTIN 12/21/24 [facility] 02-20-2025 Note HNO ID: [id number] Author: STACIE PEREYRA MA Service: ? Author Type: Management Advisor Type: Progress Notes Filed: 02/20/2025 08:42 Note Text: POPULATION HEALTH NAVIGATION OUTREACH Action/FYI updated appointment note Topic Due (Y or N) Comments Medicare Wellness y PCP Follow up Colorectal Cancer Screening y Controlling Blood Pressure A1C HCC Flu Vaccine Care Everywhere Reviewed MyChart Activation Updated Appointment Note y Reason for Outreach Care Gap/HCC or Scheduling Wellness Visits Care Gaps due: Medicare Annual Wellness Visit Colorectal Cancer Screening Patient Contacted: Unable or unnecessary to reach patient: Patient already scheduled Updated appointment notes Navigation Signature: Stacie Pereyra MA February 20, 2025 8:41 AM [facility] 02-20-2025 History of Presen t illness Narrative POPULATION HEALTH NAVIGATION OUTREACH Action/FYI updated appointment note Topic Due (Y or N) Comments Medicare Wellness y PCP Follow up Colorectal Cancer Screening y Controlling Blood Pressure A1C HCC Flu Vaccine Care Everywhere Reviewed MyChart Activation Updated Appointment Note y Reason for Outreach Care Gap/HCC or Scheduling Wellness Visits Care Gaps due: Medicare Annual Wellness Visit Colorectal Cancer Screening Patient Contacted: Unable or unnecessary to reach patient: Patient already scheduled Updated appointment notes Navigation Signature: Stacie Pereyra MA February 20, 2025 8:41 AM documented in this encounter [facility] 02-20-2025 Note Patient Outreach (EVELYN TNAV) CRISSY PHILIPPE ([id number]) 1945 F Date Time Provider Department 02/20/25 STACIE PEREYRA NETNAV During your visit today, we recorded the following information about you: Stacie Pereyra MA 02/20/2025 8:42 AM Signed POPULATION HEALTH NAVIGATION OUTREACH Action/FYI updated appointment note Topic Due (Y or N) Comments Medicare Wellness y PCP Follow up Colorectal Cancer Screening y Controlling Blood Pressure A1C HCC Flu Vaccine Care Everywhere Reviewed MyChart Activation Updated Appointment Note y Reason for Outreach Care Gap/HCC or Scheduling Wellness Visits Care Gaps due: Medicare Annual Wellness Visit Colorectal Cancer Screening Patient Contacted: Unable or unnecessary to reach patient: Patient already scheduled Updated appointment notes Navigation Signature: Stacie Pereyra MA February 20, 2025 8:41 AM Allergies As of Date: 02/20/2025 Noted Allergy Reaction SINEQUAN (DOXEPIN HCL) 05/08/2005 12 - Shortness of Breath Date Reviewed: 01/01/2025 Reviewed by: Madeline Packer LPN - Fully Assessed Reason for Visit: Population Health Navigation Outreach [3910] Cmt: TOM YEE PCSA Prescriptions as of 02/20/2025 - atorvastatin (LIPITOR) 20 mg tablet Take 1 tablet by mouth once daily. For cholesterol. - potassium chloride 20 mEq/15 mL solution Take 15 mL by mouth once daily. - memantine (NAMENDA) 10 mg tablet Take 1 tablet by mouth two times a day. - sertraline (ZOLOFT) 25 mg tablet Take 1 tablet by mouth once daily. - fluticasone (FLONASE) 50 mcg/actuation nasal spray Use 2 sprays in each nostril once daily. Rinse mouth after use. - amLODIPine (NORVASC) 5 mg tablet Take 1 tablet by mouth once daily. - pantoprazole DR (PROTONIX) 40 mg tablet Take 1 tablet by mouth once daily. - donepezil (ARICEPT) 23 mg tablet Take 1 tablet by mouth daily at bedtime. - cyanocobalamin (VITAMIN B-12) 1,000 mcg tab Take 1 tablet by mouth once daily. - Cholecalciferol, Vitamin D3, 50 mcg (2,000 unit) cap Take by mouth. - ONE DAILY MULTI-VITAMIN TAB Take one(1) tablet daily. Problem List As Of Date 02/20/2025 Noted Resolved Hypertension [I10] Migraine, unspecified, with intractable migrain* 12/04/2014 ESOPHAGEAL REFLUX [K21.9] Hyperlipidemia, mixed [E78.2] ALLERGIC RHINITIS NOS [J30.9] CARPAL TUNNEL SYNDROME [G56.00] 11/30/2005 HEMORRHOIDS NOS [K64.9] DIVERTICULOSIS OF COLON W/O BLEED [K57.30] ULNAR NERVE LESION [G56.20] 10/08/2005 11/30/2005 Calculus of gallbladder with other cholecystiti*07/04/2007 12/04/2014 MASS IN BREAST [N63.0] 01/18/2008 12/04/2014 Osteopenia [M85.80] Left hip pain [M25.552] 11/23/2017 Vitamin D insufficiency [E55.9] Dementia associated with other underlying disea*11/15/2023 Primary degenerative dementia of the Alzheimer *11/15/2023 Encounter Status:Closed by STACIE PEREYRA on 02/20/25 [facility] 02-12-2025 Telephone encounter Note Patient's informed and verbalized understanding. Cristiane Hardin MA [facility] 02-12-2025 Miscellaneous Notes Patient's informed and verbalized understanding. Cristiane Hardin MA Rx sent as requested. Patient's spouse calling to request the following medication: atorvastatin (LIPITOR) 20 mg tablet () Patient last seen 01/01/25 Future visit scheduled: yes PHARMACY: [facility] documented in this encounter [facility] 02-12-2025 Telephone encounter Note Rx sent as requested. [facility] 02-12-2025 Telephone encounter Note Patient's spouse calling to request the following medication: atorvastatin (LIPITOR) 20 mg tablet () Patient last seen 01/01/25 Future visit scheduled: yes PHARMACY: [facility] 01-01-2025 History of Presen t illness Narrative 01/01/2025 Patient presents with: F/U 6 months Recording using datatracker software for draft documentation of the visit was discussed with the patient/authorized uniforms sales representative; all questions welcomed and answered. Patient/authorized uniforms sales representative agreed to proceed SUBJECTIVE: This is a 79 year old, accompanied by , that is here today for Above Complaints. Dementia: - follow with neurology with last office visit on 10/23/2024. No medication changes made at that time - Diagnosed in 2018. - Crissy is cheerful and in good spirits. - Attends [employer] three times a week (Wednesday, Wednesday, Wednesday). - Enjoys walking. Hypokalemia: - History of recurrent hypokalemia, with levels dropping as low as 3 mEq/L. - Currently taking potassium supplements, but has difficulty swallowing the large pills. - reports she often chews or spits out the potassium pills. - Pharmacist advised against cutting the pills in half. - requests a prescription for two 10 mEq tablets instead of one 20 mEq tablet. - inquires about the necessity of potassium supplementation. HTN: taking medication as prescribed without side effects. Does not check blood pressure at home PAST MEDICAL HISTORY Diagnosis Date Allergic rhinitis, cause unspecified Allergic rhinitis Alzheimer's dementia (HCC) Carpal tunnel syndrome CHOLELITH W CHOLECYS NEC 07/04/2007 Diverticulosis of colon (without mention of hemorrhage) Esophageal reflux Family history of malignant neoplasm of gastrointestinal tract Hypertension Migraine, unspecified, with intractable migraine, so stated, without mention of status migrainosus Migraine in the past Osteopenia Other and unspecified hyperlipidemia HIGH HDL Vitamin D insufficiency ALLERGIES Sinequan [Doxepin Hcl] MEDICATIONS Current Outpatient Medications Medication Sig potassium chloride 20 mEq/15 mL solution Take 15 mL by mouth once daily. memantine (NAMENDA) 10 mg tablet Take 1 tablet by mouth two times a day. sertraline (ZOLOFT) 25 mg tablet Take 1 tablet by mouth once daily. fluticasone (FLONASE) 50 mcg/actuation nasal spray Use 2 sprays in each nostril once daily. Rinse mouth after use. amLODIPine (NORVASC) 5 mg tablet Take 1 tablet by mouth once daily. pantoprazole DR (PROTONIX) 40 mg tablet Take 1 tablet by mouth once daily. atorvastatin (LIPITOR) 20 mg tablet Take 1 tablet by mouth once daily. For cholesterol. donepezil (ARICEPT) 23 mg tablet Take 1 tablet by mouth daily at bedtime. cyanocobalamin (VITAMIN B-12) 1,000 mcg tab Take 1 tablet by mouth once daily. Cholecalciferol, Vitamin D3, 50 mcg (2,000 unit) cap Take by mouth. ONE DAILY MULTI-VITAMIN TAB Take one(1) tablet daily. No current facility-administered medications for this visit. Medications and allergies reviewed by this provider. SOCIAL HISTORY Social History Tobacco Use Smoking status: Never Smokeless tobacco: Never Vaping Use Vaping status: Never Used Substance Use Topics Alcohol use: No Comment: socially Drug use: No REVIEW OF SYSTEMS All other reviewed and negative other than HPI. OBJECTIVE: BP 102/70 Pulse 73 Resp 18 Wt 50.4 kg (111 lb 3.2 oz) SpO2 94% BMI 22.46 kg/m . Vital signs reviewed by this provider. GENERAL: NAD, alert and oriented. SKIN: Unremarkable, no rash or skin lesions to exposed skin EYES: conjunctiva clear. LUNGS: Clear to auscultation bilaterally, no wheezes/rhonchi/rales. HEART: Regular rate and rhythm, no murmurs. No ectopy. EXTREMITIES: Normal, no deformities, no skin discoloration, no edema. Latest Ref Rng 12/26/2024 Protein, Total 6.3 - 8.0 g/dL 6.7 Albumin 3.9 - 4.9 g/dL 4.3 Calcium 8.5 - 10.2 mg/dL 9.8 Bilirubin, Total 0.2 - 1.3 mg/dL 0.4 Alkaline Phosphatase 34 - 123 U/L 76 AST 13 - 35 U/L 22 ALT 7 - 38 U/L 19 Glucose 74 - 99 mg/dL 84 BUN 7 - 21 mg/dL 26 (H) Creatinine 0.58 - 0.96 mg/dL 0.83 Sodium 136 - 144 mmol/L 143 Potassium 3.7 - 5.1 mmol/L 4.0 Chloride 98 - 107 mmol/L 104 CO2 22 - 30 mmol/L 27 Anion Gap 8 - 15 mmol/L 12 eGFR >=60 mL/min/1.73m 72 Cholesterol, Total <200 mg/dL 153 Triglyceride <150 mg/dL 61 HDL Cholesterol >39 mg/dL 85 LDL Cholesterol, Calculated <100 mg/dL 56 Non HDL Cholesterol <130 mg/dL 68 VLDL Cholesterol <30 mg/dL 9 TC:HDL Ratio <5.10 1.80 LDL:HDL Ratio <2.54 0.66 Fasting Time hrs 12 Shingrix Vaccine(2 of 3) due on 10/29/2009 Medicare Annual Wellness Visit Never done Colonoscopy due on 04/22/2021 RSV Vaccine(1 - 1-dose 75+ series) Never done Advance Directive Discussion Never done Influenza Vaccine(1) due on 02/05/2025 Annual PCP Team Chronic Disease Visit due on 07/06/2025 DTaP,Tdap,Td Vaccine(4 - Td or Tdap) due on 03/30/2026 Diabetes Screening due on 12/27/2027 Bone Density Screening Completed Hepatitis C Screening Completed Pneumococcal Vaccine: 50+ Completed Mammogram Screening Discontinued 1. Essential hypertension (I10) - Blood pressure well controlled at today's visit. 2. Hypokalemia (E87.6) - Chronic hypokalemia with prior serum potassium as low as 3.0 mEq/L; potassium levels have remained stable since starting supplementation. - Difficulty swallowing current potassium tablets; often chews or spits out tablets, resulting in inconsistent intake. - Discussed importance of maintaining potassium within normal range to support cardiac function and avoid arrhythmias. - Start potassium chloride oral solution 20 mEq (15 mL) daily; instructed to measure dose using provided medicine cup or pharmacy-supplied measuring device. - Reviewed risks of crushing, chewing, or splitting extended-release potassium tablets due to potential for rapid release and increased side effects. - Discussed option of mixing liquid potassium with a small amount of fluid or soft food to improve palatability. - Caregiver expressed understanding and agreement with plan to switch to liquid formulation. 3. Alzheimers disease (HCC) (G30.9) - Cognitive status unchanged; remains cheerful and stable. - Continues to attend [employer] three times per week and ambulates regularly. - Next neurology follow-up with Dr. Hanks in April Shruthi Christensen APRN.CNP Prescription instructions reviewed with patient as applicable. Patient advised if symptoms do not improve or if symptoms worsen sooner, to contact their primary care physician. Potential red flag symptoms discussed with the patient. Reviewed appropriate action plan to take if red flag symptoms occur. Patient agreeable to treatment plan. [id number] OVERALL COMPLEXITY Problem Complexity: Moderate Data Level: Low Risk Level: Moderate Overall MDM complexity (2/3 must be met or exceeded): Moderate PROBLEMS SECTION: 1. Essential hypertension - Stable, Chronic Illness 2. Hypokalemia - Stable, Chronic Illness 3. Alzheimers disease (HCC) - Stable, Chronic Illness Two or more stable chronic illnesses (Moderate complexity) Problem complexity level: Moderate DATA SECTION: - Review of prior external note(s) from each unique source: - Review of the result(s) of each unique test: - Ordering of each unique test: cognitive test - 1 unique test ordered - Assessment requiring an independent historian(s): Yes, - Independent interpretation of a test performed by another physician/other qualified health child care specialist: - Discussion of management or test interpretation with external physician/other qualified health child care specialist/appropriate source: Data complexity level: Limited; meets the requirements of at least 1 out of 2 categories RISKS SECTION: Prescription drug management (initiation of potassium chloride oral solution for hypokalemia) - Moderate complexity Patient/caregiver education regarding medication administration and risks of improper use (potassium chloride) - Moderate complexity Continuation of antihypertensive therapy (no active management documented at this visit) - Minimal complexity Monitoring of chronic conditions (Alzheimer's disease, hypertension) - Minimal complexity Risks complexity level (highest from above): Moderate documented in this encounter [facility] 01-01-2025 Note HNO ID: [id number] Author: SHRUTHI CHRISTENSEN APRN.CNP Service: ? Author Type: Nurse Practitioner Type: Progress Notes Filed: 01/01/2025 12:24 Note Text: 01/01/2025 Patient presents with: F/U 6 months Recording using datatracker software for draft documentation of the visit was discussed with the patient/authorized uniforms sales representative; all questions welcomed and answered. Patient/authorized uniforms sales representative agreed to proceed SUBJECTIVE: This is a 79 year old, accompanied by , that is here today for Above Complaints. Dementia: - follow with neurology with last office visit on 10/23/2024. No medication changes made at that time - Diagnosed in 2018. - Crissy is cheerful and in good spirits. - Attends [employer] three times a week (Wednesday, Wednesday, Wednesday). - Enjoys walking. Hypokalemia: - History of recurrent hypokalemia, with levels dropping as low as 3 mEq/L. - Currently taking potassium supplements, but has difficulty swallowing the large pills. - reports she often chews or spits out the potassium pills. - Pharmacist advised against cutting the pills in half. - requests a prescription for two 10 mEq tablets instead of one 20 mEq tablet. - inquires about the necessity of potassium supplementation. HTN: taking medication as prescribed without side effects. Does not check blood pressure at home PAST MEDICAL HISTORY Diagnosis Date Allergic rhinitis, cause unspecified Allergic rhinitis Alzheimer's dementia (HCC) Carpal tunnel syndrome CHOLELITH W CHOLECYS NEC 07/04/2007 Diverticulosis of colon (without mention of hemorrhage) Esophageal reflux Family history of malignant neoplasm of gastrointestinal tract Hypertension Migraine, unspecified, with intractable migraine, so stated, without mention of status migrainosus Migraine in the past Osteopenia Other and unspecified hyperlipidemia HIGH HDL Vitamin D insufficiency ALLERGIES Sinequan [Doxepin Hcl] MEDICATIONS Current Outpatient Medications Medication Sig potassium chloride 20 mEq/15 mL solution Take 15 mL by mouth once daily. memantine (NAMENDA) 10 mg tablet Take 1 tablet by mouth two times a day. sertraline (ZOLOFT) 25 mg tablet Take 1 tablet by mouth once daily. fluticasone (FLONASE) 50 mcg/actuation nasal spray Use 2 sprays in each nostril once daily. Rinse mouth after use. amLODIPine (NORVASC) 5 mg tablet Take 1 tablet by mouth once daily. pantoprazole DR (PROTONIX) 40 mg tablet Take 1 tablet by mouth once daily. atorvastatin (LIPITOR) 20 mg tablet Take 1 tablet by mouth once daily. For cholesterol. donepezil (ARICEPT) 23 mg tablet Take 1 tablet by mouth daily at bedtime. cyanocobalamin (VITAMIN B-12) 1,000 mcg tab Take 1 tablet by mouth once daily. Cholecalciferol, Vitamin D3, 50 mcg (2,000 unit) cap Take by mouth. ONE DAILY MULTI-VITAMIN TAB Take one(1) tablet daily. No current facility-administered medications for this visit. Medications and allergies reviewed by this provider. SOCIAL HISTORY Social History Tobacco Use Smoking status: Never Smokeless tobacco: Never Vaping Use Vaping status: Never Used Substance Use Topics Alcohol use: No Comment: socially Drug use: No REVIEW OF SYSTEMS All other reviewed and negative other than HPI. OBJECTIVE: BP 102/70 Pulse 73 Resp 18 Wt 50.4 kg (111 lb 3.2 oz) SpO2 94% BMI 22.46 kg/m? . Vital signs reviewed by this provider. GENERAL: NAD, alert and oriented. SKIN: Unremarkable, no rash or skin lesions to exposed skin EYES: conjunctiva clear. LUNGS: Clear to auscultation bilaterally, no wheezes/rhonchi/rales. HEART: Regular rate and rhythm, no murmurs. No ectopy. EXTREMITIES: Normal, no deformities, no skin discoloration, no edema. Latest Ref Rn 12/26/2024 Protein, Total 6.3 - 8.0 g/dL 6.7 Albumin 3.9 - 4.9 g/dL 4.3 Calcium 8.5 - 10.2 mg/dL 9.8 Bilirubin, Total 0.2 - 1.3 mg/dL 0.4 Alkaline Phosphatase 34 - 123 U/L 76 AST 13 - 35 U/L 22 ALT 7 - 38 U/L 19 Glucose 74 - 99 mg/dL 84 BUN 7 - 21 mg/dL 26 (H) Creatinine 0.58 - 0.96 mg/dL 0.83 Sodium 136 - 144 mmol/L 143 Potassium 3.7 - 5.1 mmol/L 4.0 Chloride 98 - 107 mmol/L 104 CO2 22 - 30 mmol/L 27 Anion Gap 8 - 15 mmol/L 12 eGFR >=60 mL/min/1.73m? 72 Cholesterol, Total <200 mg/dL 153 Triglyceride <150 mg/dL 61 HDL Cholesterol >39 mg/dL 85 LDL Cholesterol, Calculated <100 mg/dL 56 Non HDL Cholesterol <130 mg/dL 68 VLDL Cholesterol <30 mg/dL 9 TC:HDL Ratio <5.10 1.80 LDL:HDL Ratio <2.54 0.66 Fasting Time hrs 12 Shingrix Vaccine(2 of 3) due on 10/29/2009 Medicare Annual Wellness Visit Never done Colonoscopy due on 04/22/2021 RSV Vaccine(1 - 1-dose 75+ series) Never done Advance Directive Discussion Never done Influenza Vaccine(1) due on 02/05/2025 Annual PCP Team Chronic Disease Visit due on 07/06/2025 DTaP,Tdap,Td Vaccine(4 - Td or Tdap) due on 03/30/2026 Diabetes Screening due on 12/27/2027 Bone Den (more content not included)... [facility] 12-22-2024 Telephone encounter Note LVM letting patient know lab orders are in. Carissa Swenson December 22, 2024 9:27 AM [facility] 12-22-2024 Miscellaneous Notes LVM letting patient know lab orders are in. Carissa Swenson December 22, 2024 9:27 AM Fasting labs ordered as requested. Patient's Raymond calling in to requests labs for her appt with Shruthi on 01/01/25. Please review and advise. Carissa Swenson December 21, 2024 4:28 PM documented in this encounter [facility] 12-22-2024 Telephone encounter Note Fasting labs ordered as requested. [facility] 12-21-2024 Telephone encounter Note Patient's Raymond calling in to requests labs for her appt with Shruthi on 01/01/25. Please review and advise. Carissa Swenson December 21, 2024 4:28 PM [facility] 12-21-2024 Note HNO ID: [id number] Author: SADIE EASTMAN, ? Service: ? Author Type: Physician Type: Progress Notes Filed: 12/21/2024 23:16 Note Text: Subjective: Patient presents to clinic c/o painful toenails. They state that the nails are especially painful with shoe gear and pressure. Patient states that nails left hallux nail is painful. No other pedal complaints at this time. Patient states no change in medications or medical history since last visit. Objective: Patient presents to clinic ambulating in sneakers Vasc: DP and PT pulses are palpable bilateral. CFT is less than 5 seconds bilateral. Skin temperature is warm to cool proximal to distal bilateral. There is mild edema or varicosities noted. Neuro: Protective sensation is intact to the foot and toes when tested with the 5.07 SWM bilateral. The hallux is downgoing bilateral. Derm: Nails 1-5 b/l are painful, discolored-yellow, thick, crumbly, dystrophic and with subungal debris. Left hallux lateral nail border is ingrowing with pain. No drainage or redness noted. Skin is of normal turgor, texture and hair growth is decreased bilateral. There are no hyperkeratosis, ulcerations, scars, verruca or other lesions noted. Ortho: Muscle strength is 5/5 for all pedal groups tested. Ankle joint DF is decreased with the knee extended with no pain or crepitus noted. 1st MPJ ROM is decreased bilateral. Assessment: (B35.1) Onychomycosis (primary encounter diagnosis) (M79.675) Pain in toe of left foot (M79.674) Pain in toe of right foot Plan: Patient was seen and evaluated. Nails 1-5 bilateral were debrided in length and thickness. Patient has ingrowing toenail of left hallux lateral nail border. No signs of infection. Discussed slant back vs avulsion vs permanent nail matrixectomy in the future. Patient has elected for slant back today. If pain persists, consider partial vs total nail matrixectomy. No infection present to left great toe. No need for antibiotic. Can soak the toe for one week Patient is to RTC in 3-4 months. Sadie Eastman DPM [facility] 12-21-2024 History of Presen t illness Narrative Subjective: Patient presents to clinic c/o painful toenails. They state that the nails are especially painful with shoe gear and pressure. Patient states that nails left hallux nail is painful. No other pedal complaints at this time. Patient states no change in medications or medical history since last visit. Objective: Patient presents to clinic ambulating in sneakers Vasc: DP and PT pulses are palpable bilateral. CFT is less than 5 seconds bilateral. Skin temperature is warm to cool proximal to distal bilateral. There is mild edema or varicosities noted. Neuro: Protective sensation is intact to the foot and toes when tested with the 5.07 SWM bilateral. The hallux is downgoing bilateral. Derm: Nails 1-5 b/l are painful, discolored-yellow, thick, crumbly, dystrophic and with subungal debris. Left hallux lateral nail border is ingrowing with pain. No drainage or redness noted. Skin is of normal turgor, texture and hair growth is decreased bilateral. There are no hyperkeratosis, ulcerations, scars, verruca or other lesions noted. Ortho: Muscle strength is 5/5 for all pedal groups tested. Ankle joint DF is decreased with the knee extended with no pain or crepitus noted. 1st MPJ ROM is decreased bilateral. Assessment: (B35.1) Onychomycosis (primary encounter diagnosis) (M79.675) Pain in toe of left foot (M79.674) Pain in toe of right foot Plan: Patient was seen and evaluated. Nails 1-5 bilateral were debrided in length and thickness. Patient has ingrowing toenail of left hallux lateral nail border. No signs of infection. Discussed slant back vs avulsion vs permanent nail matrixectomy in the future. Patient has elected for slant back today. If pain persists, consider partial vs total nail matrixectomy. No infection present to left great toe. No need for antibiotic. Can soak the toe for one week Patient is to RTC in 3-4 months. Sadie Eastman DPM AMB ROOMING INTAKE FLOWSHEET DATA Patient presents with: Left Foot - Nail care, Established Patient, Follow Up Right Foot - Nail care, Established Patient, Follow Up Vale Butcher LPN documented in this encounter [facility] 12-21-2024 Note HNO ID: [id number] Author: VALE BUTCHER LPN Service: ? Author Type: LICENSED NURSE Type: Progress Notes Filed: 12/21/2024 23:16 Note Text: AMB ROOMING INTAKE FLOWSHEET DATA Patient presents with: Left Foot - Nail care, Established Patient, Follow Up Right Foot - Nail care, Established Patient, Follow Up Vale Butcher LPN [facility] 11-13-2024 Telephone encounter Note Prescription Refill Information The patient has been identified by name and date of : Yes Caregiver verified no other encounters exist for this prescription request: Yes Caregiver confirmed with patient/requestor that no other refills are due, in the near future, with this provider at this time: Yes The last office visit in the department: Does the patient have a future office visit with this provider/department: Yes Requested Prescriptions Pending Prescriptions Disp Refills memantine (NAMENDA) 10 mg tablet 180 tablet 3 Sig: Take 1 tablet by mouth two times a day. Estefania stated prescription from 03/31/24 has , due to never filled from this prescription once sent. Please send new prescription. Liset Arauz November 13, 2024 12:13 PM [facility] 11-13-2024 Miscellaneous Notes Prescription Refill Information The patient has been identified by name and date of : Yes Caregiver verified no other encounters exist for this prescription request: Yes Caregiver confirmed with patient/requestor that no other refills are due, in the near future, with this provider at this time: Yes The last office visit in the department: Does the patient have a future office visit with this provider/department: Yes Requested Prescriptions Pending Prescriptions Disp Refills memantine (NAMENDA) 10 mg tablet 180 tablet 3 Sig: Take 1 tablet by mouth two times a day. Estefania stated prescription from 03/31/24 has , due to never filled from this prescription once sent. Please send new prescription. Liset Arauz November 13, 2024 12:13 PM documented in this encounter [facility] 10-23-2024 Note HNO ID: [id number] Author: MARCUS HANKS JR, MD Service: ? Author Type: Physician Type: Progress Notes Filed: 10/23/2024 12:22 Note Text: ESTABLISHED PATIENT VISIT CHIEF COMPLAINT: Follow Up HISTORY OF PRESENT ILLNESS: Crissy Philippe is a 79 year old female, BMI 21.81 kg/m2 with a PMH significant for and per last office visit note of 03/31/24: 1. Alzheimers disease (HCC) - ICD9: 331.0, ICD10: G30.9, F02.80 (primary diagnosis) Patient with continued decline of cognition, but not significant per . Still obvious severe impairments in office on MOCA. No change in medications given stability including Namenda 10mg BID and Aricept 23mg daily. Tolerating without side effects. Reviewed common SE and ADRs of both with pt's and daughter. Encouraged brain exercise and social activities if possible. They will maintain schedule as above. Advised of meds that might be needed if change in mood or behavior. This includes melatonin 1mg after dinner if evidence of sundowning or irregular sleep/wake schedule. 2. 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 Of such meds, but suspect that some of these symptoms will be chronic. Tremor and tone primary symptoms with pt otherwise stable and no gait issues. Will continue to monitor. Would hold on any dopaminergic type meds for concern of provoked hallucinations. Pt currently without hallucinations. Patient reports doing good. Compliant with meds. with her confirms. No changes. No hallucinations. No sundowning type symptoms. No falls except for a slip on the ice in 07/2024. Did not hit head. Did get hip XRs. Knows month and date but not year for Bday. Gives first name for last name. Goes to [employer] [facility] 3x per week. Very active. Does a lot of walking. No anger issues. REVIEW OF SYSTEMS GENERAL:No weight loss, malaise or fevers. HEENT:Negative for frequent or significant headaches, No changes in hearing or vision, no nose bleeds or other nasal problems NECK:Negative for lumps, goiter, pain and significant neck swelling RESPIRATORY: Negative for cough, wheezing or shortness of breath. CARDIOVASCULAR: Negative for chest pain, leg swelling or palpitations. GASTROINTESTINAL: Negative for abdominal discomfort, blood in stools or black stools or change in bowel habits GENITOURINARY: No history of dysuria, frequency or incontinence MUSCULOSKELETAL: Negative for joint pain or swelling, back pain or muscle pain. NEUROLOGIC:Negative for focal numbness or weakness, headaches and dizziness or syncope, vision changes, speech/languag changes - EXCEPT that as per HPI above. SKIN:Negative for lesions, rash, and itching. LAB/IMAGING: Those performed since patient's last visit have been reviewed. WBC (k/uL) Date Value 06/28/2024 6.06 RBC (m/uL) Date Value 06/28/2024 4.73 Hemoglobin (g/dL) Date Value 06/28/2024 14.7 Hematocrit (%) Date Value 06/28/2024 45.8 MCV (fL) Date Value 06/28/2024 96.8 MCH (pg) Date Value 06/28/2024 31.1 MCHC (g/dL) Date Value 06/28/2024 32.1 RDW-CV (%) Date Value 06/28/2024 13.6 Platelet Count (k/uL) Date Value 06/28/2024 228 MPV (fL) Date Value 06/28/2024 9.4 Glucose (mg/dL) Date Value 06/28/2024 53 (L) BUN (mg/dL) Date Value 06/28/2024 18 Creatinine (mg/dL) Date Value 06/28/2024 0.88 Sodium (mmol/L) Date Value 06/28/2024 143 Potassium (mmol/L) Date Value 06/28/2024 3.8 Chloride (mmol/L) Date Value 06/28/2024 104 CO2 (mmol/L) Date Value 06/28/2024 27 Protein, Total (g/dL) Date Value 06/28/2024 6.7 Albumin (g/dL) Date Value 06/28/2024 4.3 Calcium, Total (mg/dL) Date Value 06/28/2024 10.0 Alkaline Phosphatase (U/L) Date Value 06/28/2024 78 Bilirubin, Total (mg/dL) Date Value 06/28/2024 0.6 AST (U/L) Date Value 06/28/2024 25 ALT (U/L) Date Value 06/28/2024 26 Hep C Antibody IA (no units) Date Value 02/19/2017 Negative MEDICATIONS: sertraline (ZOLOFT) 25 mg tablet Take 1 tablet by mouth once daily. fluticasone (FLONASE) 50 mcg/actuation nasal spray Use 2 sprays in each nostril once daily. Rinse mouth after use. amLODIPine (NORVASC) 5 mg tablet Take 1 tablet by mouth once daily. pantoprazole DR (PROTONIX) 40 mg tablet Take 1 tablet by mouth once daily. atorvastatin (LIPITOR) 20 mg tablet Take 1 tablet by mouth once daily. For cholesterol. memantine (NAMENDA) 10 mg tablet Take 1 tablet by mouth two times a day. donepezil (ARICEPT) 23 mg tablet Take 1 tablet by mouth daily at bedtime. potassium chloride ER (KLOR-CON) 20 mEq tablet Take 1 tablet by mouth once daily. cyanocobalamin (VITAMIN B-12) 1,000 mcg tab Take 1 tablet by mouth once daily. Cholecalciferol, Vitamin D3, 50 mcg (2,000 unit) cap Take by mouth. ONE DAILY MULTI-VITAMIN TAB Take one(1) tablet daily. HISTORIES PAST M (more content not included)... [facility] 10-23-2024 History of Presen t illness Narrative ESTABLISHED PATIENT VISIT CHIEF COMPLAINT: Follow Up HISTORY OF PRESENT ILLNESS: Crissy Philippe is a 79 year old female, BMI 21.81 kg/m2 with a PMH significant for and per last office visit note of 03/31/24: 1. Alzheimers disease (HCC) - ICD9: 331.0, ICD10: G30.9, F02.80 (primary diagnosis) Patient with continued decline of cognition, but not significant per . Still obvious severe impairments in office on MOCA. No change in medications given stability including Namenda 10mg BID and Aricept 23mg daily. Tolerating without side effects. Reviewed common SE and ADRs of both with pt's and daughter. Encouraged brain exercise and social activities if possible. They will maintain schedule as above. Advised of meds that might be needed if change in mood or behavior. This includes melatonin 1mg after dinner if evidence of sundowning or irregular sleep/wake schedule. 2. 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 Of such meds, but suspect that some of these symptoms will be chronic. Tremor and tone primary symptoms with pt otherwise stable and no gait issues. Will continue to monitor. Would hold on any dopaminergic type meds for concern of provoked hallucinations. Pt currently without hallucinations. Patient reports doing good. Compliant with meds. with her confirms. No changes. No hallucinations. No sundowning type symptoms. No falls except for a slip on the ice in 07/2024. Did not hit head. Did get hip XRs. Knows month and date but not year for Bday. Gives first name for last name. Goes to [facility] 3x per week. Very active. Does a lot of walking. No anger issues. REVIEW OF SYSTEMS GENERAL:No weight loss, malaise or fevers. HEENT:Negative for frequent or significant headaches, No changes in hearing or vision, no nose bleeds or other nasal problems NECK:Negative for lumps, goiter, pain and significant neck swelling RESPIRATORY: Negative for cough, wheezing or shortness of breath. CARDIOVASCULAR: Negative for chest pain, leg swelling or palpitations. GASTROINTESTINAL: Negative for abdominal discomfort, blood in stools or black stools or change in bowel habits GENITOURINARY: No history of dysuria, frequency or incontinence MUSCULOSKELETAL: Negative for joint pain or swelling, back pain or muscle pain. NEUROLOGIC:Negative for focal numbness or weakness, headaches and dizziness or syncope, vision changes, speech/languag changes - EXCEPT that as per HPI above. SKIN:Negative for lesions, rash, and itching. LAB/IMAGING: Those performed since patient's last visit have been reviewed. WBC (k/uL) Date Value 06/28/2024 6.06 RBC (m/uL) Date Value 06/28/2024 4.73 Hemoglobin (g/dL) Date Value 06/28/2024 14.7 Hematocrit (%) Date Value 06/28/2024 45.8 MCV (fL) Date Value 06/28/2024 96.8 MCH (pg) Date Value 06/28/2024 31.1 MCHC (g/dL) Date Value 06/28/2024 32.1 RDW-CV (%) Date Value 06/28/2024 13.6 Platelet Count (k/uL) Date Value 06/28/2024 228 MPV (fL) Date Value 06/28/2024 9.4 Glucose (mg/dL) Date Value 06/28/2024 53 (L) BUN (mg/dL) Date Value 06/28/2024 18 Creatinine (mg/dL) Date Value 06/28/2024 0.88 Sodium (mmol/L) Date Value 06/28/2024 143 Potassium (mmol/L) Date Value 06/28/2024 3.8 Chloride (mmol/L) Date Value 06/28/2024 104 CO2 (mmol/L) Date Value 06/28/2024 27 Protein, Total (g/dL) Date Value 06/28/2024 6.7 Albumin (g/dL) Date Value 06/28/2024 4.3 Calcium, Total (mg/dL) Date Value 06/28/2024 10.0 Alkaline Phosphatase (U/L) Date Value 06/28/2024 78 Bilirubin, Total (mg/dL) Date Value 06/28/2024 0.6 AST (U/L) Date Value 06/28/2024 25 ALT (U/L) Date Value 06/28/2024 26 Hep C Antibody IA (no units) Date Value 02/19/2017 Negative MEDICATIONS: sertraline (ZOLOFT) 25 mg tablet Take 1 tablet by mouth once daily. fluticasone (FLONASE) 50 mcg/actuation nasal spray Use 2 sprays in each nostril once daily. Rinse mouth after use. amLODIPine (NORVASC) 5 mg tablet Take 1 tablet by mouth once daily. pantoprazole DR (PROTONIX) 40 mg tablet Take 1 tablet by mouth once daily. atorvastatin (LIPITOR) 20 mg tablet Take 1 tablet by mouth once daily. For cholesterol. memantine (NAMENDA) 10 mg tablet Take 1 tablet by mouth two times a day. donepezil (ARICEPT) 23 mg tablet Take 1 tablet by mouth daily at bedtime. potassium chloride ER (KLOR-CON) 20 mEq tablet Take 1 tablet by mouth once daily. cyanocobalamin (VITAMIN B-12) 1,000 mcg tab Take 1 tablet by mouth once daily. Cholecalciferol, Vitamin D3, 50 mcg (2,000 unit) cap Take by mouth. ONE DAILY MULTI-VITAMIN TAB Take one(1) tablet daily. HISTORIES PAST MEDICAL HISTORY Diagnosis Date Allergic rhinitis, cause unspecified Allergic rhinitis Alzheimer's dementia (HCC) Carpal tunnel syndrome CHOLELITH W CHOLECYS NEC 07/04/2007 Diverticulosis of colon (without mention of hemorrhage) Esophageal reflux Family history of malignant neoplasm of gastrointestinal tract Hypertension Migraine, unspecified, with intractable migraine, so stated, without mention of status migrainosus Migraine in the past Osteopenia Other and unspecified hyperlipidemia HIGH HDL Vitamin D insufficiency FAMILY HISTORY Problem Relation Age of Onset Cancer Mother LUNG passed from this that went to her brain and spine. Diabetes Father Colon Cancer Father Hypertension Father SOCIAL HISTORY Social History Tobacco Use Smoking status: Never Smokeless tobacco: Never Vaping Use Vaping status: Never Used Substance Use Topics Alcohol use: No Comment: socially Drug use: No PHYSICAL EXAMINATION BP 106/72 (BP Site: Left Arm, BP Position: Sitting) Pulse 68 Resp 16 Wt 49 kg (108 lb) SpO2 98% BMI 21.81 kg/m GENERAL EXAM: General appearance: NAD, pleasant. HEENT: NC/AT, nasal congestion absent. NECK: ROM nml. Lungs: CTA bilaterally. CV: RRR nl S1, S2 Extr: No cyanosis, clubbing or edema. Skin: Cool to touch. NEUROLOGICAL EXAM: General: Awake, alert, oriented x3 (person,place,time), fluent, no dysarthria CN: PERRL, EOMI and without nystagmus, VFF to confrontation, facial sensation and strength are normal and symmetric, hearing is intact to finger rub bilaterally, palate and tongue movements are intact and symmetric. SCM and trapezius strength normal. Motor: Normal tone, bulk and strength (5/5) bilaterally (throughout extremities x4). Coordination: FNF, AMADO, HTS intact. Resting tremor in RUE (pt holds hand to prevent further movement). Sensation: LT, vibration, temperature intact throughout. No evidence of neglect. Gait: Stable with normal stride and arm swing. Romberg normal. Assessment and Plan: ASSESSMENT/PLAN: 1. Alzheimers disease (HCC) - ICD9: 331.0, ICD10: G30.9, F02.80 (primary diagnosis) Overall stable with no decline in cognition since last visit per and no mood or behavioral issues. No hallucinations. No change in medications today. Continue Aricept 23mg daily and Namenda 10mg BID. No refills needed at this time. Follow up in 6 months or sooner prn. Encouraged continued social interaction and physical exercise. 2. 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 Still suspect due to Haldol. D/w pt and finding of resting tremor that limits patient in no way, and for which I would not recommend additional medications. They agree. Marcus Hanks MD I spent a total of 31 minutes on the date of the service which included preparing to see the patient, [id number] patient care, completing clinical documentation, obtaining and/or reviewing separately obtained history, performing a medically appropriate examination, counseling and educating the patient/family/caregiver, and communicating results to the patient/family/caregiver. documented in this encounter [facility] 09-26-2024 Telephone encounter Note Prescription Refill Information The patient has been identified by name and date of : Yes Caregiver verified no other encounters exist for this prescription request: Yes Caregiver confirmed with patient/requestor that no other refills are due, in the near future, with this provider at this time: Yes The last office visit in the department: 07-06-24 Does the patient have a future office visit with this provider/department: Yes Requested Prescriptions Pending Prescriptions Disp Refills sertraline (ZOLOFT) 25 mg tablet 90 tablet 2 Sig: Take 1 tablet by mouth once daily. fluticasone (FLONASE) 50 mcg/actuation nasal spray 16 g 5 Sig: Use 2 sprays in each nostril once daily. Rinse mouth after use. Saba Arauz September 26, 2024 10:24 AM [facility] 09-26-2024 Miscellaneous Notes Prescription Refill Information The patient has been identified by name and date of : Yes Caregiver verified no other encounters exist for this prescription request: Yes Caregiver confirmed with patient/requestor that no other refills are due, in the near future, with this provider at this time: Yes The last office visit in the department: 07-06-24 Does the patient have a future office visit with this provider/department: Yes Requested Prescriptions Pending Prescriptions Disp Refills sertraline (ZOLOFT) 25 mg tablet 90 tablet 2 Sig: Take 1 tablet by mouth once daily. fluticasone (FLONASE) 50 mcg/actuation nasal spray 16 g 5 Sig: Use 2 sprays in each nostril once daily. Rinse mouth after use. Saba Stauffer [facility] September 26, 2024 10:24 AM documented in this encounter [facility] 09-21-2024 Note HNO ID: [id number] Author: SADIE EASTMAN, ? Service: ? Author Type: Physician Type: Progress Notes Filed: 09/21/2024 22:39 Note Text: Subjective: Patient presents to clinic c/o painful toenails. They state that the nails are especially painful with shoe gear and pressure. No other pedal complaints at this time. Patient states no change in medications or medical history since last visit. Objective: Patient presents to clinic ambulating in sneakers Vasc: DP and PT pulses are faintly palpable bilateral. CFT is less than 5 seconds bilateral. Skin temperature is warm to cool proximal to distal bilateral. There is mild edema or varicosities noted. Neuro: Protective sensation is decreased to the foot and toes when tested with the 5.07 SWM bilateral. Vibratory sensation is absent at the hallux IPJ bilateral. The hallux is downgoing bilateral. Derm: Nails 1-5 b/l are painful, discolored-yellow, thick, crumbly, dystrophic and with subungal debris. Skin is of normal turgor, texture and hair growth is decreased bilateral. There are no hyperkeratosis, ulcerations, scars, verruca or other lesions noted. Ortho: Muscle strength is 5/5 for all pedal groups tested. Ankle joint DF is decreased with the knee extended with no pain or crepitus noted. 1st MPJ ROM is decreased bilateral. Assessment: (B35.1) Onychomycosis (primary encounter diagnosis) (M79.675) Pain in toe of left foot (M79.674) Pain in toe of right foot Plan: Patient was seen and evaluated. Nails 1-5 bilateral were debrided in length and thickness. Small bleed to left hallux. Band aide applied Patient is to RTC in 3-4 months. Sadie Eastman DPM [facility] 09-21-2024 History of Presen t illness Narrative Subjective: Patient presents to clinic c/o painful toenails. They state that the nails are especially painful with shoe gear and pressure. No other pedal complaints at this time. Patient states no change in medications or medical history since last visit. Objective: Patient presents to clinic ambulating in snker Vasc: DP and PT pulses are faintly palpable bilateral. CFT is less than 5 seconds bilateral. Skin temperature is warm to cool proximal to distal bilateral. There is mild edema or varicosities noted. Neuro: Protective sensation is decreased to the foot and toes when tested with the 5.07 SWM bilateral. Vibratory sensation is absent at the hallux IPJ bilateral. The hallux is downgoing bilateral. Derm: Nails 1-5 b/l are painful, discolored-yellow, thick, crumbly, dystrophic and with subungal debris. Skin is of normal turgor, texture and hair growth is decreased bilateral. There are no hyperkeratosis, ulcerations, scars, verruca or other lesions noted. Ortho: Muscle strength is 5/5 for all pedal groups tested. Ankle joint DF is decreased with the knee extended with no pain or crepitus noted. 1st MPJ ROM is decreased bilateral. Assessment: (B35.1) Onychomycosis (primary encounter diagnosis) (M79.675) Pain in toe of left foot (M79.674) Pain in toe of right foot Plan: Patient was seen and evaluated. Nails 1-5 bilateral were debrided in length and thickness. Small bleed to left hallux. Band aide applied Patient is to RTC in 3-4 months. Sadie Eastman DPM Patient presents with: Left Foot - Nail care Right Foot - Nail care AMB ROOMING INTAKE FLOWSHEET DATA with patient today. documented in this encounter [facility] 09-21-2024 Note HNO ID: [id number] Author: MARIA DEL CARMEN AGUILAR MA Service: ? Author Type: Management Advisor Type: Progress Notes Filed: 09/21/2024 22:39 Note Text: Patient presents with: Left Foot - Nail care Right Foot - Nail care AMB ROOMING INTAKE FLOWSHEET DATA with patient today. [facility] 07-07-2024 Telephone encounter Note Patient's notified. PATIENT was given tylenol Alyce for pain. will try to give ibuprofen. Susu Hunt LPN [facility] 07-07-2024 Miscellaneous Notes Patient's notified. PATIENT was given tylenol Alyce for pain. will try to give ibuprofen. Susu Hunt LPN ----- Message from Alisha Wilcox MD sent at 07/06/2024 8:42 PM EST ----- Xray of the hips negative for fractures. If symptoms of hip pain persist 2 weeks, would repeat imaging. documented in this encounter [facility] 07-07-2024 Telephone encounter Note ----- Message from Alisha Wilcox MD sent at 07/06/2024 8:42 PM EST ----- Xray of the hips negative for fractures. If symptoms of hip pain persist 2 weeks, would repeat imaging. [facility] 07-07-2024 Telephone encounter Note patient 's notified. Susu Hunt LPN [facility] 07-07-2024 Miscellaneous Notes patient 's notified. Susu Hunt LPN ----- Message from Alisha Wilcox MD sent at 07/06/2024 8:44 PM EST ----- Xray of the lumbar spine negative for fracture. Does show arthritis changes with moderate bone spurring. documented in this encounter [facility] 07-07-2024 Telephone encounter Note ----- Message from Alisha Wilcox MD sent at 07/06/2024 8:44 PM EST ----- Xray of the lumbar spine negative for fracture. Does show arthritis changes with moderate bone spurring. [facility] 07-06-2024 History of Presen t illness Narrative Radiology Service Progress Note PATIENT NAME: Crissy Philippe DATE OF SERVICE: July 06, 2024 TIME: 2:20 PM PATIENT IDENTITY VERIFICATION COMPLETED USING TWO (2) IDENTIFIERS: Name and Date of confirmed by patient verbally. FALL SCREENING: Has the patient had 2 falls in the last year or 1 fall with injury or currently using an Ambulatory Assistive Device (Walker, Cane, Wheelchair, Crutches, etc.)? No PATIENT GENDER DATA: Assigned female at . status: : No status: NO. PATIENT RELEVANT IMPLANT DATA REVIEWED: Not Applicable PATIENT PRESENTS WITH AN IMPLANTABLE OR ATTACHED FLOWER MAKER: No RADIOLOGY DEPARTMENT: General X-ray: Exam(s) Completed: Spine X-Ray(s): Lumbar AP / LAT / L5-S1 Pelvis X-Ray: Pelvis with Hip Bilateral PERIPHERAL IV DATA: Not applicable SIGNED BY: Thom Darling July 06, 2024 2:20 PM documented in this encounter [facility] 07-06-2024 Note HNO ID: [id number] Author: RAZIA AYALA Tech Service: ? Author Type: Technologist Type: Progress Notes Filed: 07/06/2024 14:20 Note Text: Radiology Service Progress Note PATIENT NAME: Crissy Philippe DATE OF SERVICE: July 06, 2024 TIME: 2:20 PM PATIENT IDENTITY VERIFICATION COMPLETED USING TWO (2) IDENTIFIERS: Name and Date of confirmed by patient verbally. FALL SCREENING: Has the patient had 2 falls in the last year or 1 fall with injury or currently using an Ambulatory Assistive Device (Walker, Cane, Wheelchair, Crutches, etc.)? No PATIENT GENDER DATA: Assigned female at . status: : No status: NO. PATIENT RELEVANT IMPLANT DATA REVIEWED: Not Applicable PATIENT PRESENTS WITH AN IMPLANTABLE OR ATTACHED FLOWER MAKER: No RADIOLOGY DEPARTMENT: General X-ray: Exam(s) Completed: Spine X-Ray(s): Lumbar AP / LAT / L5-S1 Pelvis X-Ray: Pelvis with Hip Bilateral PERIPHERAL IV DATA: Not applicable SIGNED BY: Thom Darling July 06, 2024 2:20 PM [facility] 07-06-2024 Note HNO ID: [id number] Author: ALISHA WILCOX MD Service: ? Author Type: Physician Type: Progress Notes Filed: 07/06/2024 20:15 Note Text: Chief Complaint Patient presents with: F/U 6 Month HPI Crissy Philippe is a 79 year old female who presents here today for Above Complaints. Accompanied today by her who provides her history due to her dementia. notes that patient had a fall 2 nights ago while helping take out the trash cans. Patient was lying on her left side on the concrete. Did not witness the fall. No bruising or swelling or complaints of pain after the fall. Had to help her get up off the ground, but was able to walk back to the home. has noticed she is slower getting out of chairs and is worried she may have underlying injury. No issues noticed while walking. Patient denies pain today in her hips, back, or head. states no snow on her fritz so does not think she hit her head. Does not use walker or cane for ambulation. Does not typically seem unsteady. BP well controlled on current regimen. Not checking at home. No changes to her regimen at appointment with neurology in March for Alzheimer's dementia. Neurologist noted change in her MOCA score, but has not noticed significant change in the last 2-3 months. No concerns for depression or anxiety on Zoloft. Noted low sugar on recent labs. Patient not fasting for labs. Denies symptoms of hypoglycemia at home. Eating 3 meals per day. Past medical history, appointments, medications, allergies reviewed. Previous Medical History PAST MEDICAL HISTORY Diagnosis Date Allergic rhinitis, cause unspecified Allergic rhinitis Alzheimer's dementia (HCC) Carpal tunnel syndrome CHOLELITH W CHOLECYS NEC 07/04/2007 Diverticulosis of colon (without mention of hemorrhage) Esophageal reflux Family history of malignant neoplasm of gastrointestinal tract Hypertension Migraine, unspecified, with intractable migraine, so stated, without mention of status migrainosus Migraine in the past Osteopenia Other and unspecified hyperlipidemia HIGH HDL Vitamin D insufficiency Previous Surgical History PAST SURGICAL HISTORY Procedure Laterality Date COLONOSCOPY FLX DX W/COLLJ SPEC WHEN PFRMD 05/24/03 Colonoscopy COLONOSCOPY FLX DX W/COLLJ SPEC WHEN PFRMD 09/13/09 COLONOSCOPY FLX DX W/COLLJ SPEC WHEN PFRMD 03/25/2015 Colonoscopy COLONOSCOPY FLX DX W/COLLJ SPEC WHEN PFRMD 04/22/2020 Colonoscopy repeat in 1 year ESOPHAGOGASTRODUODENOSCOPY TRANSORAL DIAGNOSTIC 04/22/2020 EGD repeat in 5 years LAPS SURG CHOLECYSTECTOMY W/CHOLANGIOGRAPHY 06/21/07 NEUROPLASTY AND/TRANSPOS MEDIAN NRV CARPAL TUNNE 10/08/2005 Carpal tunnel decomp Right NEUROPLASTY AND/TRANSPOS MEDIAN NRV CARPAL TUNNE 10/29/2005 Carpal tunnel decomp Left TONSILLECTOMY PRIMARY/SECONDARY Tonsillectomy Family History FAMILY HISTORY Problem Relation Age of Onset Cancer Mother LUNG passed from this that went to her brain and spine. Diabetes Father Colon Cancer Father Hypertension Father Patient Allergies ALLERGIES Allergen Reactions Sinequan [Doxepin H* Shortness of Breath Current Medications Current Outpatient Medications on File Prior to Visit Medication Sig amLODIPine (NORVASC) 5 mg tablet Take 1 tablet by mouth once daily. pantoprazole DR (PROTONIX) 40 mg tablet Take 1 tablet by mouth once daily. atorvastatin (LIPITOR) 20 mg tablet Take 1 tablet by mouth once daily. For cholesterol. memantine (NAMENDA) 10 mg tablet Take 1 tablet by mouth two times a day. donepezil (ARICEPT) 23 mg tablet Take 1 tablet by mouth daily at bedtime. sertraline (ZOLOFT) 25 mg tablet Take 1 tablet by mouth once daily. potassium chloride ER (KLOR-CON) 20 mEq tablet Take 1 tablet by mouth once daily. fluticasone (FLONASE) 50 mcg/actuation nasal spray Use 2 Sprays in each nostril once daily. Rinse mouth after use. Cholecalciferol, Vitamin D3, 50 mcg (2,000 unit) cap Take by mouth. ONE DAILY MULTI-VITAMIN TAB Take one(1) tablet daily. cyanocobalamin (VITAMIN B-12) 1,000 mcg tab Take 1 tablet by mouth once daily. No current facility-administered medications on file prior to visit. Social History Social History Tobacco Use Smoking status: Never Smokeless tobacco: Never Vaping Use Vaping status: Never Used Substance Use Topics Alcohol use: No Comment: socially Drug use: No Review of Symptoms REVIEW OF SYSTEMS GENERAL: No weight loss, malaise or fevers RESPIRATORY: Negative for cough, hemoptysis, wheezing, COPD, dyspnea or shortness of breath CARDIOVASCULAR: Negative for chest pain, leg swelling, hypertension, CHF or palpitations GI: No nausea, vomiting, or diarrhea SKIN: Negative for lesions, rash, and itching EXAM: BP 114/82 Pulse 76 Resp 16 Wt 49.4 kg (108 lb 12.8 oz) SpO2 96% BMI 21.97 kg/m? General Appearance: Well appearing, alert, in no acute distress, well-hydrated, w (more content not included)... [facility] 07-06-2024 History of Presen t illness Narrative Chief Complaint Patient presents with: F/U 6 Month HPI Crissy Philippe is a 79 year old female who presents here today for Above Complaints. Accompanied today by her who provides her history due to her dementia. notes that patient had a fall 2 nights ago while helping take out the trash cans. Patient was lying on her left side on the concrete. Did not witness the fall. No bruising or swelling or complaints of pain after the fall. Had to help her get up off the ground, but was able to walk back to the home. has noticed she is slower getting out of chairs and is worried she may have underlying injury. No issues noticed while walking. Patient denies pain today in her hips, back, or head. states no snow on her fritz so does not think she hit her head. Does not use walker or cane for ambulation. Does not typically seem unsteady. BP well controlled on current regimen. Not checking at home. No changes to her regimen at appointment with neurology in March for Alzheimer's dementia. Neurologist noted change in her MOCA score, but has not noticed significant change in the last 2-3 months. No concerns for depression or anxiety on Zoloft. Noted low sugar on recent labs. Patient not fasting for labs. Denies symptoms of hypoglycemia at home. Eating 3 meals per day. Past medical history, appointments, medications, allergies reviewed. Previous Medical History PAST MEDICAL HISTORY Diagnosis Date Allergic rhinitis, cause unspecified Allergic rhinitis Alzheimer's dementia (HCC) Carpal tunnel syndrome CHOLELITH W CHOLECYS NEC 07/04/2007 Diverticulosis of colon (without mention of hemorrhage) Esophageal reflux Family history of malignant neoplasm of gastrointestinal tract Hypertension Migraine, unspecified, with intractable migraine, so stated, without mention of status migrainosus Migraine in the past Osteopenia Other and unspecified hyperlipidemia HIGH HDL Vitamin D insufficiency Previous Surgical History PAST SURGICAL HISTORY Procedure Laterality Date COLONOSCOPY FLX DX W/COLLJ SPEC WHEN PFRMD 05/24/03 Colonoscopy COLONOSCOPY FLX DX W/COLLJ SPEC WHEN PFRMD 09/13/09 COLONOSCOPY FLX DX W/COLLJ SPEC WHEN PFRMD 03/25/2015 Colonoscopy COLONOSCOPY FLX DX W/COLLJ SPEC WHEN PFRMD 04/22/2020 Colonoscopy repeat in 1 year ESOPHAGOGASTRODUODENOSCOPY TRANSORAL DIAGNOSTIC 04/22/2020 EGD repeat in 5 years LAPS SURG CHOLECYSTECTOMY W/CHOLANGIOGRAPHY 06/21/07 NEUROPLASTY &/TRANSPOS MEDIAN NRV CARPAL TUNNE 10/08/2005 Carpal tunnel decomp Right NEUROPLASTY &/TRANSPOS MEDIAN NRV CARPAL TUNNE 10/29/2005 Carpal tunnel decomp Left TONSILLECTOMY PRIMARY/SECONDARY <AGE 13 Tonsillectomy Family History FAMILY HISTORY Problem Relation Age of Onset Cancer Mother LUNG passed from this that went to her brain and spine. Diabetes Father Colon Cancer Father Hypertension Father Patient Allergies ALLERGIES Allergen Reactions Sinequan [Doxepin H* Shortness of Breath Current Medications Current Outpatient Medications on File Prior to Visit Medication Sig amLODIPine (NORVASC) 5 mg tablet Take 1 tablet by mouth once daily. pantoprazole DR (PROTONIX) 40 mg tablet Take 1 tablet by mouth once daily. atorvastatin (LIPITOR) 20 mg tablet Take 1 tablet by mouth once daily. For cholesterol. memantine (NAMENDA) 10 mg tablet Take 1 tablet by mouth two times a day. donepezil (ARICEPT) 23 mg tablet Take 1 tablet by mouth daily at bedtime. sertraline (ZOLOFT) 25 mg tablet Take 1 tablet by mouth once daily. potassium chloride ER (KLOR-CON) 20 mEq tablet Take 1 tablet by mouth once daily. fluticasone (FLONASE) 50 mcg/actuation nasal spray Use 2 Sprays in each nostril once daily. Rinse mouth after use. Cholecalciferol, Vitamin D3, 50 mcg (2,000 unit) cap Take by mouth. ONE DAILY MULTI-VITAMIN TAB Take one(1) tablet daily. cyanocobalamin (VITAMIN B-12) 1,000 mcg tab Take 1 tablet by mouth once daily. No current facility-administered medications on file prior to visit. Social History Social History Tobacco Use Smoking status: Never Smokeless tobacco: Never Vaping Use Vaping status: Never Used Substance Use Topics Alcohol use: No Comment: socially Drug use: No Review of Symptoms REVIEW OF SYSTEMS GENERAL: No weight loss, malaise or fevers RESPIRATORY: Negative for cough, hemoptysis, wheezing, COPD, dyspnea or shortness of breath CARDIOVASCULAR: Negative for chest pain, leg swelling, hypertension, CHF or palpitations GI: No nausea, vomiting, or diarrhea SKIN: Negative for lesions, rash, and itching EXAM: BP 114/82 Pulse 76 Resp 16 Wt 49.4 kg (108 lb 12.8 oz) SpO2 96% BMI 21.97 kg/m General Appearance: Well appearing, alert, in no acute distress, well-hydrated, well nourished.. Skin: Skin color, texture, turgor normal, no suspicious rashes or lesions. Head: normocephalic, atraumatic Neck: No cervical spine TTP. Normal ROM. Lungs: Lungs clear to auscultation. No wheezing, rhonchi, rales.. Heart: RRR without murmur, gallop, or rubs. No ectopy. Abdomen: Normal abdominal exam, Abdomen soft, non-tender. Bowel sounds normal. No masses, organomegaly. Extremities: No deformities, edema, skin discoloration, clubbing or cyanosis. Good capillary refill. . HIP: Location: Bilateral Redness: No. Warmth: No. Range of motion: WNL Tenderness over trochanteric bursa: NO Pain with movement: Yes, right hip Back:no pain to palpation of vertebrae, good flexion and extension, good range of motion, no muscle tenderness Health Maintenance List Shingrix Vaccine(2 of 3) due on 10/29/2009 Colonoscopy due on 04/22/2021 RSV Vaccine(1 - 1-dose 75+ series) Never done BP Controlled (<130/80) due on 12/23/2023 Influenza Vaccine(1) due on 02/06/2024 Advance Directive Discussion Never done Covid-19 Vaccine( season) due on 07/06/2025 Annual PCP Team Chronic Disease Visit due on 07/06/2025 DTaP,Tdap,Td Vaccine(4 - Td or Tdap) due on 03/30/2026 Diabetes Screening due on 06/28/2027 Bone Density Screening Completed Hepatitis C Screening Completed Pneumococcal Vaccine: 50+ Completed Mammogram Screening Discontinued Data reviewed Latest Ref Rng 12/14/2023 06/28/2024 WBC 3.70 - 11.00 k/uL 6.06 RBC 3.90 - 5.20 m/uL 4.73 Hemoglobin 11.5 - 15.5 g/dL 14.7 Hematocrit 36.0 - 46.0 % 45.8 MCV 80.0 - 100.0 fL 96.8 MCH 26.0 - 34.0 pg 31.1 MCHC 30.5 - 36.0 g/dL 32.1 RDW-CV 11.5 - 15.0 % 13.6 Platelet Count 150 - 400 k/uL 228 MPV 9.0 - 12.7 fL 9.4 Neut% % 62.8 Abs Neut (ANC) 1.45 - 7.50 k/uL 3.81 Lymph% % 26.7 Abs Lymph 1.00 - 4.00 k/uL 1.62 Clinch% % 7.3 Abs Clinch <0.87 k/uL 0.44 Eosin% % 2.0 Abs Eosin <0.46 k/uL 0.12 Baso% % 1.0 Abs Baso <0.11 k/uL 0.06 Immature Gran % % 0.2 IMMATURE GRANS (ABS) <0.10 k/uL <0.03 NRBC /100 WBC 0.0 Absolute nRBC <0.01 k/uL <0.01 DTYPE Auto Protein, Total 6.3 - 8.0 g/dL 6.6 6.7 Albumin 3.9 - 4.9 g/dL 4.2 4.3 Calcium 8.5 - 10.2 mg/dL 10.1 10.0 Bilirubin, Total 0.2 - 1.3 mg/dL 0.6 0.6 Alkaline Phosphatase 34 - 123 U/L 79 78 AST 13 - 35 U/L 32 25 ALT 7 - 38 U/L 32 26 Glucose 74 - 99 mg/dL 92 53 (L) BUN 7 - 21 mg/dL 15 18 Creatinine 0.58 - 0.96 mg/dL 0.86 0.88 Sodium 136 - 144 mmol/L 143 143 Potassium 3.7 - 5.1 mmol/L 4.6 3.8 Chloride 98 - 107 mmol/L 105 104 CO2 22 - 30 mmol/L 27 27 Anion Gap 8 - 15 mmol/L 11 12 eGFR >=60 mL/min/1.73m 70 67 Cholesterol, Total <200 mg/dL 136 Triglyceride <150 mg/dL 64 HDL Cholesterol >39 mg/dL 84 Non HDL Cholesterol <130 mg/dL 52 Fasting Time hrs 12 VLDL Cholesterol <30 mg/dL 13 TC:HDL Ratio <5.10 1.62 LDL Cholesterol <100 mg/dL 39 LDL:HDL Ratio <2.54 0.46 Hemoglobin A1C 4.3 - 5.6 % 4.8 Estimated Average Glucose mg/dL 91 Vitamin D 25 Hydroxy 31.0 - 80.0 ng/mL 52.5 Legend: (L) Low ASSESSMENT/PLAN: 1. Fall at home, initial encounter - ICD9: E888.9, E849.0, ICD10: W19.XXXA, Y92.009 (primary diagnosis) Mechanical fall on ice. Patient with pain with right hip movement and when lying back on exam table. Will obtain xray of lumbar spine and hips to rule out fracture. Will call with results. Discussed caution with icy weather. - XR HIP BILATERAL 5V PEL/AP/LAT EACH HIP - XR LUMBAR GENERAL 3V AP/LAT/L5-S1 2. Acute hip pain, right - ICD9: 719.45, ICD10: M25.551 - XR HIP BILATERAL 5V PEL/AP/LAT EACH HIP - XR LUMBAR GENERAL 3V AP/LAT/L5-S1 3. Alzheimer's dementia with agitation, unspecified dementia severity, unspecified timing of dementia onset (HCC) - ICD9: 331.0, 294.11, ICD10: G30.9, F02.811 Stable since OV with neurology. Continue current regimen. F/u with neurology as recommended. 4. Essential hypertension - ICD9: 401.9, ICD10: I10 - Controlled - Continue current medications - Recommend home blood pressure monitoring, to bring results to next visit - Encouraged sodium restriction, DASH or Mediterranean diet - Recommend regular aerobic exercise 5. Hyperlipidemia, mixed - ICD9: 272.2, ICD10: E78.2 - Controlled - Continue current medications - Counseled on healthy diet and regular exercise 6. Encounter for immunization - ICD9: V03.89, ICD10: Z23 - INFLUENZA VACCINE, PRSV FREE, AGE 65+ YR, HIGH DOSE, TRIVALENT (FLUZONE HIGH-DOSE) Alisha Wilcox MD documented in this encounter [facility] 06-22-2024 Telephone encounter Note Message left advising non-fasting lab orders placed as requested. Jenae Wilkerson LPN [facility] 06-22-2024 Miscellaneous Notes Message left advising non-fasting lab orders placed as requested. Jenae Wilkerson LPN Message left for pt to call back . Xochitl German MA Labs ordered. Does not have to fast. Crissy is calling Alisha Wilcox MD today to request Orders (Labs for appointment). Please call when orders are placed. TY Patient has been identified by name and birthdate. Duration of symptoms: N/A Person calling: self Call patient at: at home [phone] (home) Was an appointment scheduled: No Closing statement: Results or non-symptom based questions: Thank you for calling [facility], your call will be returned within the next business day. Shruthi Cho documented in this encounter [facility] 06-22-2024 Telephone encounter Note Message left for pt to call back . Xochitl German MA [facility] 06-22-2024 Telephone encounter Note Labs ordered. Does not have to fast. [facility] 06-22-2024 Telephone encounter Note Crissy is calling Alisha Wilcox MD today to request Orders (Labs for appointment). Please call when orders are placed. TY Patient has been identified by name and birthdate. Duration of symptoms: N/A Person calling: self Call patient at: at home [phone] (home) Was an appointment scheduled: No Closing statement: Results or non-symptom based questions: Thank you for calling [facility], your call will be returned within the next business day. Shruthi Cho [facility] 06-22-2024 Note HNO ID: [id number] Author: SADIE EASTMAN, ? Service: ? Author Type: Physician Type: Progress Notes Filed: 06/22/2024 12:40 Note Text: Subjective: Patient presents to clinic c/o painful toenails. They state that the nails are especially painful with shoe gear and pressure. Patient states that nails 1-5 b/l are painful. No other pedal complaints at this time. Patient states no change in medications or medical history since last visit. Objective: Patient presents to clinic ambulating in dress shoes Vasc: DP and PT pulses are palpable bilateral. CFT is less than 5 seconds bilateral. Skin temperature is warm to cool proximal to distal bilateral. There is no edema or varicosities noted. Neuro: Protective sensation is intact to the foot and toes when tested with the 5.07 SWM bilateral. Vibratory sensation is decreased at the hallux IPJ bilateral. The hallux is downgoing bilateral. Derm: Nails 1-5 b/l are discolored-yellow, thick, crumbly, dystrophic and with subungal debris. Pain is present to b/l hallux. B/l hallux nail is growing into distal tuft. No signs of infection. Skin is of normal turgor, texture and hair growth is present bilateral. There is callus to right 1st metatarsal. No ulceration present. Ortho: Muscle strength is 5/5 for all pedal groups tested. Ankle joint DF is full with the knee extended with no pain or crepitus noted. 1st MPJ ROM is full bilateral. Assessment: (B35.1) Onychomycosis (primary encounter diagnosis) (M79.675) Pain in toe of left foot (M79.674) Pain in toe of right foot Plan: Patient was seen and evaluated. Nails 1-5 bilateral were debrided in length and thickness. Small bleed to left hallux. Band aide applied. Callus filed with dremmel to right 1st metatarsal. Patient is to RTC in 3-4 months. Sadie Eastman DPM [facility] 06-22-2024 History of Presen t illness Narrative Subjective: Patient presents to clinic c/o painful toenails. They state that the nails are especially painful with shoe gear and pressure. Patient states that nails 1-5 b/l are painful. No other pedal complaints at this time. Patient states no change in medications or medical history since last visit. Objective: Patient presents to clinic ambulating in dress shoes Vasc: DP and PT pulses are palpable bilateral. CFT is less than 5 seconds bilateral. Skin temperature is warm to cool proximal to distal bilateral. There is no edema or varicosities noted. Neuro: Protective sensation is intact to the foot and toes when tested with the 5.07 SWM bilateral. Vibratory sensation is decreased at the hallux IPJ bilateral. The hallux is downgoing bilateral. Derm: Nails 1-5 b/l are discolored-yellow, thick, crumbly, dystrophic and with subungal debris. Pain is present to b/l hallux. B/l hallux nail is growing into distal tuft. No signs of infection. Skin is of normal turgor, texture and hair growth is present bilateral. There is callus to right 1st metatarsal. No ulceration present. Ortho: Muscle strength is 5/5 for all pedal groups tested. Ankle joint DF is full with the knee extended with no pain or crepitus noted. 1st MPJ ROM is full bilateral. Assessment: (B35.1) Onychomycosis (primary encounter diagnosis) (M79.675) Pain in toe of left foot (M79.674) Pain in toe of right foot Plan: Patient was seen and evaluated. Nails 1-5 bilateral were debrided in length and thickness. Small bleed to left hallux. Band aide applied. Callus filed with dremmel to right 1st metatarsal. Patient is to RTC in 3-4 months. Sadie Eastman DPM AMB ROOMING INTAKE FLOWSHEET DATA Patient presents with: Left Foot - Established Patient, Follow Up, nail care Right Foot - Established Patient, Follow Up, nail care Vale Butcher LPN documented in this encounter [facility] 06-22-2024 Note HNO ID: [id number] Author: VALE BUTCHER LPN Service: ? Author Type: LICENSED NURSE Type: Progress Notes Filed: 06/22/2024 12:40 Note Text: AMB ROOMING INTAKE FLOWSHEET DATA Patient presents with: Left Foot - Established Patient, Follow Up, nail care Right Foot - Established Patient, Follow Up, nail care Vale Butcher LPN [facility] 06-01-2024 Telephone encounter Note Prescription Refill Information The patient has been identified by name and date of : Yes Caregiver verified no other encounters exist for this prescription request: Yes Caregiver confirmed with patient/requestor that no other refills are due, in the near future, with this provider at this time: Yes The last office visit in the department: 01/04/24 Does the patient have a future office visit with this provider/department: Yes Requested Prescriptions Pending Prescriptions Disp Refills amLODIPine (NORVASC) 5 mg tablet 90 tablet 3 Sig: Take 1 tablet by mouth once daily. pantoprazole DR (PROTONIX) 40 mg tablet 90 tablet 3 Sig: Take 1 tablet by mouth once daily. Srinivas Bonilla LPN June 01, 2024 12:38 PM [facility] 06-01-2024 Miscellaneous Notes Prescription Refill Information The patient has been identified by name and date of : Yes Caregiver verified no other encounters exist for this prescription request: Yes Caregiver confirmed with patient/requestor that no other refills are due, in the near future, with this provider at this time: Yes The last office visit in the department: 01/04/24 Does the patient have a future office visit with this provider/department: Yes Requested Prescriptions Pending Prescriptions Disp Refills amLODIPine (NORVASC) 5 mg tablet 90 tablet 3 Sig: Take 1 tablet by mouth once daily. pantoprazole DR (PROTONIX) 40 mg tablet 90 tablet 3 Sig: Take 1 tablet by mouth once daily. Srinivas Bonilla LPN June 01, 2024 12:38 PM Prescription Refill Information The patient has been identified by name and date of : Yes Caregiver verified no other encounters exist for this prescription request: Yes Caregiver confirmed with patient/requestor that no other refills are due, in the near future, with this provider at this time: Yes The last office visit in the department: 01/04/24 Does the patient have a future office visit with this provider/department: Yes Requested Prescriptions Pending Prescriptions Disp Refills amLODIPine (NORVASC) 5 mg tablet 90 tablet 3 Sig: Take 1 tablet by mouth once daily. pantoprazole DR (PROTONIX) 40 mg tablet 90 tablet 3 Sig: Take 1 tablet by mouth once daily. Liset Arauz June 01, 2024 12:01 PM documented in this encounter [facility] 06-01-2024 Telephone encounter Note Prescription Refill Information The patient has been identified by name and date of : Yes Caregiver verified no other encounters exist for this prescription request: Yes Caregiver confirmed with patient/requestor that no other refills are due, in the near future, with this provider at this time: Yes The last office visit in the department: 01/04/24 Does the patient have a future office visit with this provider/department: Yes Requested Prescriptions Pending Prescriptions Disp Refills amLODIPine (NORVASC) 5 mg tablet 90 tablet 3 Sig: Take 1 tablet by mouth once daily. pantoprazole DR (PROTONIX) 40 mg tablet 90 tablet 3 Sig: Take 1 tablet by mouth once daily. Liset Arauz June 01, 2024 12:01 PM [facility] 05-18-2024 Telephone encounter Note Prescription Refill Information The patient has been identified by name and date of : Yes Caregiver verified no other encounters exist for this prescription request: Yes Caregiver confirmed with patient/requestor that no other refills are due, in the near future, with this provider at this time: Yes The last office visit in the department: 01/04/2024 Does the patient have a future office visit with this provider/department: Yes Requested Prescriptions Pending Prescriptions Disp Refills atorvastatin (LIPITOR) 20 mg tablet 90 tablet 2 Sig: Take 1 tablet by mouth once daily. For cholesterol. Elizabeth Loomis May 18, 2024 10:23 AM [facility] 05-18-2024 Miscellaneous Notes Prescription Refill Information The patient has been identified by name and date of : Yes Caregiver verified no other encounters exist for this prescription request: Yes Caregiver confirmed with patient/requestor that no other refills are due, in the near future, with this provider at this time: Yes The last office visit in the department: 01/04/2024 Does the patient have a future office visit with this provider/department: Yes Requested Prescriptions Pending Prescriptions Disp Refills atorvastatin (LIPITOR) 20 mg tablet 90 tablet 2 Sig: Take 1 tablet by mouth once daily. For cholesterol. Elizabeth Loomis May 18, 2024 10:23 AM documented in this encounter [facility] 03-31-2024 History of Presen t illness Narrative ESTABLISHED PATIENT VISIT CHIEF COMPLAINT: Follow Up HISTORY OF PRESENT ILLNESS: Crissy Philippe is a 78 year old female, BMI 22.22 kg/m2 with a PMH significant for and per last office visit of 06/28/23: 1. Alzheimers disease (HCC) - ICD9: 331.0, ICD10: G30.9, F02.80 (primary diagnosis) Cognition continues to decline with patient appearing more disinhibited, but for the most part feels patient stable. Again, no reported behavioral issues at this time. Already on Aricept 23mg daily and Namenda 10mg BID. Patient cannot participate appropriately with MOCA evaluation. Encouraged brain exercises, and explained to available social assistance if needed. Explained options of starting medication such as Seroquel although he does not feel needed at this time based on current behavioral status. Discussed means of safe guarding house including alarms on doors. Pt will follow up at end of the year or sooner prn. Refills provided. 2. Tremor - ICD9: 781.0, ICD10: R25.1 Stable. Suspect secondary to antipsychotic and mood stabilizing meds patient previously on. Currently tremor not limiting daytime activities. Continue to monitor. and daughter accompany pt. Still with good disposition. Dependent on for many acts of daily living. Still puts shoes on. Needs direction. Still goes to adult day care and goes out to eat once per week. Pt does often talk through the night - evening hours - but does not feel agitated or combative. Sleep at night is good. Modified MOCA: Immediate recall: 4/5, 4/5 Number repeat: 0/2 Sentence repeat: 0/2 Abstract: 0/2 Serial 7s: 0/3 REVIEW OF SYSTEMS GENERAL:No weight loss, malaise or fevers. HEENT:Negative for frequent or significant headaches, No changes in hearing or vision, no nose bleeds or other nasal problems NECK:Negative for lumps, goiter, pain and significant neck swelling RESPIRATORY: Negative for cough, wheezing or shortness of breath. CARDIOVASCULAR: Negative for chest pain, leg swelling or palpitations. GASTROINTESTINAL: Negative for abdominal discomfort, blood in stools or black stools or change in bowel habits GENITOURINARY: No history of dysuria, frequency or incontinence MUSCULOSKELETAL: Negative for joint pain or swelling, back pain or muscle pain. NEUROLOGIC:Negative for focal numbness or weakness, headaches and dizziness or syncope, vision changes, speech/languag changes - EXCEPT that as per HPI above. SKIN:Negative for lesions, rash, and itching. LAB/IMAGING: Those performed since patient's last visit have been reviewed. WBC (k/uL) Date Value 06/22/2023 6.47 RBC (m/uL) Date Value 06/22/2023 4.70 Hemoglobin (g/dL) Date Value 06/22/2023 14.5 Hematocrit (%) Date Value 06/22/2023 45.4 MCV (fL) Date Value 06/22/2023 96.6 MCH (pg) Date Value 06/22/2023 30.9 MCHC (g/dL) Date Value 06/22/2023 31.9 RDW-CV (%) Date Value 06/22/2023 14.1 Platelet Count (k/uL) Date Value 06/22/2023 221 MPV (fL) Date Value 06/22/2023 9.6 Glucose (mg/dL) Date Value 12/14/2023 92 BUN (mg/dL) Date Value 12/14/2023 15 Creatinine (mg/dL) Date Value 12/14/2023 0.86 Sodium (mmol/L) Date Value 12/14/2023 143 Potassium (mmol/L) Date Value 12/14/2023 4.6 Chloride (mmol/L) Date Value 12/14/2023 105 CO2 (mmol/L) Date Value 12/14/2023 27 Protein, Total (g/dL) Date Value 12/14/2023 6.6 Albumin (g/dL) Date Value 12/14/2023 4.2 Calcium, Total (mg/dL) Date Value 12/14/2023 10.1 Alkaline Phosphatase (U/L) Date Value 12/14/2023 79 Bilirubin, Total (mg/dL) Date Value 12/14/2023 0.6 AST (U/L) Date Value 12/14/2023 32 ALT (U/L) Date Value 12/14/2023 32 Hep C Antibody IA (no units) Date Value 02/19/2017 Negative URINALYSIS Specific Marcus, Ur Date Value Ref Range Status 06/17/2022 1.016 1.005 - 1.030 Final Glucose, Urine Date Value Ref Range Status 06/17/2022 Negative Trace, Negative Final Bilirubin, Urine Date Value Ref Range Status 06/17/2022 Negative Negative Final Ketones, Urine Date Value Ref Range Status 06/17/2022 Negative Trace, Negative Final Hemoglobin/Blood,Ur Date Value Ref Range Status 06/17/2022 Negative Negative, Trace Final Protein, Urine Date Value Ref Range Status 06/17/2022 Negative Trace, Negative Final WBC, Urine Date Value Ref Range Status 06/17/2022 0-5 /HPF 0-5 /HPF Final MEDICATIONS: sertraline (ZOLOFT) 25 mg tablet Take 1 tablet by mouth once daily. potassium chloride ER (KLOR-CON) 20 mEq tablet Take 1 tablet by mouth once daily. donepezil (ARICEPT) 23 mg tablet Take 1 tablet by mouth daily at bedtime. atorvastatin (LIPITOR) 20 mg tablet Take 1 tablet by mouth once daily. For cholesterol. memantine (NAMENDA) 10 mg tablet Take 1 tablet by mouth two times a day. amLODIPine (NORVASC) 5 mg tablet Take 1 tablet by mouth once daily. pantoprazole DR (PROTONIX) 40 mg tablet Take 1 tablet by mouth once daily. fluticasone (FLONASE) 50 mcg/actuation nasal spray Use 2 Sprays in each nostril once daily. Rinse mouth after use. Cholecalciferol, Vitamin D3, 50 mcg (2,000 unit) cap Take by mouth. ONE DAILY MULTI-VITAMIN TAB Take one(1) tablet daily. ALPRAZolam (XANAX) 0.5 mg tablet Take 0.25 mg by mouth at bedtime as needed. (Patient not taking: Reported on 03/31/2024) cyanocobalamin (VITAMIN B-12) 1,000 mcg tab Take 1 tablet by mouth once daily. HISTORIES PAST MEDICAL HISTORY Diagnosis Date Allergic rhinitis, cause unspecified Allergic rhinitis Alzheimer's dementia (HCC) Carpal tunnel syndrome CHOLELITH W CHOLECYS NEC 07/04/2007 Diverticulosis of colon (without mention of hemorrhage) Esophageal reflux Family history of malignant neoplasm of gastrointestinal tract Hypertension Migraine, unspecified, with intractable migraine, so stated, without mention of status migrainosus Migraine in the past Osteopenia Other and unspecified hyperlipidemia HIGH HDL Vitamin D insufficiency FAMILY HISTORY Problem Relation Age of Onset Cancer Mother LUNG passed from this that went to her brain and spine. Diabetes Father Colon Cancer Father Hypertension Father SOCIAL HISTORY Social History Tobacco Use Smoking status: Never Smokeless tobacco: Never Vaping Use Vaping status: Never Used Substance Use Topics Alcohol use: No Comment: socially Drug use: No PHYSICAL EXAMINATION BP 118/76 (BP Site: Right Arm, BP Position: Sitting) Pulse 78 Resp 18 Wt 49.9 kg (110 lb 0.2 oz) SpO2 97% BMI 22.22 kg/m GENERAL EXAM: General appearance: NAD, pleasant. HEENT: NC/AT, nasal congestion absent, no oral lesions, membranes moist. NECK: ROM nml. Lungs: CTA bilaterally. CV: RRR nl S1, S2. Extr: No cyanosis, clubbing or edema. Skin: Cool to touch. NEUROLOGICAL EXAM: General: Awake, alert, oriented x3 (person,place,time), fluent, no dysarthria; MOCA as above - limited as pt becomes frustrated quickly. CN: PERRL, EOMI and without nystagmus, VFF to confrontation, facial sensation and strength are normal and symmetric, hearing is intact, palate and tongue movements are intact and symmetric. SCM and trapezius strength normal. Motor: Normal bulk and strength (5/5) bilaterally (throughout extremities x4). Mild increased tone in upper exts. Coordination: FNF, AMADO, HTS intact. Isai postural and resting tremor. Sensation: Light touch intact throughout. No evidence of neglect. Gait: Stable with normal stride and arm swing. Assessment and Plan: ASSESSMENT/PLAN: 1. Alzheimers disease (HCC) - ICD9: 331.0, ICD10: G30.9, F02.80 (primary diagnosis) Patient with continued decline of cognition, but not significant per . Still obvious severe impairments in office on MOCA. No change in medications given stability including Namenda 10mg BID and Aricept 23mg daily. Tolerating without side effects. Reviewed common SE and ADRs of both with pt's and daughter. Encouraged brain exercise and social activities if possible. They will maintain schedule as above. Advised of meds that might be needed if change in mood or behavior. This includes melatonin 1mg after dinner if evidence of sundowning or irregular sleep/wake schedule. 2. 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 Of such meds, but suspect that some of these symptoms will be chronic. Tremor and tone primary symptoms with pt otherwise stable and no gait issues. Will continue to monitor. Would hold on any dopaminergic type meds for concern of provoked hallucinations. Pt currently without hallucinations. Marcus Hanks MD I spent a total of 60+ minutes on the date of the service which included preparing to see the patient, [id number] patient care, completing clinical documentation, obtaining and/or reviewing separately obtained history, performing a medically appropriate examination, counseling and educating the patient/family/caregiver, ordering medications, tests, or procedures, and communicating results to the patient/family/caregiver. documented in this encounter [facility] 03-27-2024 Telephone encounter Note Prescription Refill Information The patient has been identified by name and date of : Yes Caregiver verified no other encounters exist for this prescription request: Yes Caregiver confirmed with patient/requestor that no other refills are due, in the near future, with this provider at this time: Yes The last office visit in the department: 01-04-24 Does the patient have a future office visit with this provider/department: Yes Requested Prescriptions Pending Prescriptions Disp Refills sertraline (ZOLOFT) 25 mg tablet 90 tablet 1 Sig: Take 1 tablet by mouth once daily. Saba Arauz March 27, 2024 1:34 PM [facility] 03-27-2024 Miscellaneous Notes Prescription Refill Information The patient has been identified by name and date of : Yes Caregiver verified no other encounters exist for this prescription request: Yes Caregiver confirmed with patient/requestor that no other refills are due, in the near future, with this provider at this time: Yes The last office visit in the department: 01-04-24 Does the patient have a future office visit with this provider/department: Yes Requested Prescriptions Pending Prescriptions Disp Refills sertraline (ZOLOFT) 25 mg tablet 90 tablet 1 Sig: Take 1 tablet by mouth once daily. Saba Arauz March 27, 2024 1:34 PM documented in this encounter [facility] 03-21-2024 History of Presen t illness Narrative Subjective: Patient presents to clinic c/o painful toenails. They state that the nails are especially painful with shoe gear and pressure. Patient states that nails 1-5 b/l are painful. . No other pedal complaints at this time. Patient states no change in medications or medical history since last visit. Objective: Patient presents to clinic ambulating in [facility] Vasc: DP and PT pulses are palpable bilateral. CFT is less than 5 seconds bilateral. Skin temperature is warm to cool proximal to distal bilateral. There is no edema or varicosities noted. Neuro: Protective sensation is intact to the foot and toes when tested with the 5.07 SWM bilateral. The hallux is downgoing bilateral. Derm: Nails 1-5 b/l are painful, discolored-yellow, thick, crumbly, dystrophic and with subungal debris. Skin is of normal turgor, texture and hair growth is present bilateral. There are callus to right hallux. No ulcerations, scars, verruca or other lesions noted. Ortho: Muscle strength is 5/5 for all pedal groups tested. Ankle joint DF is decreased with the knee extended with no pain or crepitus noted. 1st MPJ ROM is decreased bilateral. Assessment: (B35.1) Onychomycosis (primary encounter diagnosis) (M79.675) Pain in toe of left foot (M79.674) Pain in toe of right foot Plan: Patient was seen and evaluated. Nails 1-5 bilateral were debrided in length and thickness. Callus reduced with dremmel to right hallux. Patient is to RTC in 3-4 months. Sadie Eastman DPM AMB ROOMING INTAKE FLOWSHEET DATA Patient presents with: Left Foot - Established Patient, Follow Up, nail care Right Foot - Established Patient, Follow Up, nail care Vale Butcher LPN documented in this encounter [facility] 02-02-2024 Telephone encounter Note Prescription Refill Information The patient has been identified by name and date of : Yes Caregiver verified no other encounters exist for this prescription request: Yes Caregiver confirmed with patient/requestor that no other refills are due, in the near future, with this provider at this time: Yes The last office visit in the department: 01/04/24 Does the patient have a future office visit with this provider/department: Yes Requested Prescriptions Pending Prescriptions Disp Refills potassium chloride ER (KLOR-CON) 20 mEq tablet 90 tablet 3 Sig: Take 1 tablet by mouth once daily. Darcy Arauz February 02, 2024 9:56 AM [facility] 02-02-2024 Miscellaneous Notes Prescription Refill Information The patient has been identified by name and date of : Yes Caregiver verified no other encounters exist for this prescription request: Yes Caregiver confirmed with patient/requestor that no other refills are due, in the near future, with this provider at this time: Yes The last office visit in the department: 01/04/24 Does the patient have a future office visit with this provider/department: Yes Requested Prescriptions Pending Prescriptions Disp Refills potassium chloride ER (KLOR-CON) 20 mEq tablet 90 tablet 3 Sig: Take 1 tablet by mouth once daily. Darcy Arauz February 02, 2024 9:56 AM documented in this encounter [facility] 01-04-2024 History of Presen t illness Narrative 01/04/2024 Patient presents with: F/U 6 months SUBJECTIVE: This is a 78 year old, accompanied by , that is here today for Above Complaints. Since last office visit has been in good health without ER visits or hospitalizations. Alzheimer's: Following with neurology with next office visit on 03/31/2024. Taking Aricept and Namenda as prescribed without side effects. HTN: Patient is compliant with meds Yes Monitors bp at home: No. Denies side effects: Yes. Chest pain: No. Dyspnea: No. Edema: No. Palpitations: No. Syncope: No. Headache: No. Dizziness: No. GERD: taking pantoprazole as prescribed. No heartburn symptoms HYPERLIPIDEMIA: Patient is taking medications: Yes. Patient is watching diet: Yes. Patient denies myalgias: Yes. Patient denies gi upset: Yes PAST MEDICAL HISTORY Diagnosis Date Allergic rhinitis, cause unspecified Allergic rhinitis Alzheimer's dementia (HCC) Carpal tunnel syndrome CHOLELITH W CHOLECYS NEC 07/04/2007 Diverticulosis of colon (without mention of hemorrhage) Esophageal reflux Family history of malignant neoplasm of gastrointestinal tract Hypertension Migraine, unspecified, with intractable migraine, so stated, without mention of status migrainosus Migraine in the past Osteopenia Other and unspecified hyperlipidemia HIGH HDL Vitamin D insufficiency ALLERGIES Sinequan [Doxepin Hcl] MEDICATIONS Current Outpatient Medications Medication Sig donepezil (ARICEPT) 23 mg tablet Take 1 tablet by mouth daily at bedtime. atorvastatin (LIPITOR) 20 mg tablet Take 1 tablet by mouth once daily. For cholesterol. vibegron (GEMTESA) 75 mg tablet Take 1 tablet by mouth once daily. (Patient not taking: Reported on 12/07/2023) memantine (NAMENDA) 10 mg tablet Take 1 tablet by mouth two times a day. sertraline (ZOLOFT) 25 mg tablet Take 1 tablet by mouth once daily. amLODIPine (NORVASC) 5 mg tablet Take 1 tablet by mouth once daily. pantoprazole DR (PROTONIX) 40 mg tablet Take 1 tablet by mouth once daily. potassium chloride ER (KLOR-CON) 20 mEq tablet Take 1 tablet by mouth once daily. ALPRAZolam (XANAX) 0.5 mg tablet Take 0.25 mg by mouth at bedtime as needed. fluticasone (FLONASE) 50 mcg/actuation nasal spray Use 2 Sprays in each nostril once daily. Rinse mouth after use. cyanocobalamin (VITAMIN B-12) 1,000 mcg tab Take 1 tablet by mouth once daily. Cholecalciferol, Vitamin D3, 50 mcg (2,000 unit) cap Take by mouth. ONE DAILY MULTI-VITAMIN TAB Take one(1) tablet daily. No current facility-administered medications for this visit. Medications and allergies reviewed by this provider. SOCIAL HISTORY Social History Tobacco Use Smoking status: Never Smokeless tobacco: Never Vaping Use Vaping Use: Never used Substance Use Topics Alcohol use: No Comment: socially Drug use: No REVIEW OF SYSTEMS All other reviewed and negative other than HPI. OBJECTIVE: BP 102/68 Pulse 62 Resp 18 Wt 48.1 kg (106 lb) SpO2 92% BMI 21.41 kg/m . Vital signs reviewed by this provider. APPEARANCE Well appearing, alert, in no acute distress, well-hydrated, well nourished. EYES conjunctiva and sclera normal. HEART RRR with normal S1 and S2, no murmurs, no gallops, no JVD appreciated LUNG clear to auscultation. No wheezes, rhonchi or rales EXTREMITIES Extremities normal, No deformities, No skin discoloration, and No edema SKIN Skin color, texture, turgor normal, no suspicious rashes or lesions to exposed skin Latest Ref [facility] 12/14/2023 Protein, Total 6.3 - 8.0 g/dL 6.6 Albumin 3.9 - 4.9 g/dL 4.2 Calcium 8.5 - 10.2 mg/dL 10.1 Bilirubin, Total 0.2 - 1.3 mg/dL 0.6 Alkaline Phosphatase 34 - 123 U/L 79 AST 13 - 35 U/L 32 ALT 7 - 38 U/L 32 Glucose 74 - 99 mg/dL 92 BUN 7 - 21 mg/dL 15 Creatinine 0.58 - 0.96 mg/dL 0.86 Sodium 136 - 144 mmol/L 143 Potassium 3.7 - 5.1 mmol/L 4.6 Chloride 98 - 107 mmol/L 105 CO2 22 - 30 mmol/L 27 Anion Gap 8 - 15 mmol/L 11 eGFR >=60 mL/min/1.73m 70 Cholesterol, Total <200 mg/dL 136 Triglyceride <150 mg/dL 64 HDL Cholesterol >39 mg/dL 84 Non HDL Cholesterol <130 mg/dL 52 Fasting Time hrs 12 VLDL Cholesterol <30 mg/dL 13 TC:HDL Ratio <5.10 1.62 LDL Cholesterol <100 mg/dL 39 LDL:HDL Ratio <2.54 0.46 Hemoglobin A1C 4.3 - 5.6 % 4.8 Estimated Average Glucose mg/dL 91 RSV Vaccine(1 - 1-dose 60+ series) Never done Shingrix Vaccine(2 of 3) due on 10/29/2009 Colonoscopy due on 04/22/2021 Advance Directive Discussion Never done Covid-19 Vaccine( season) due on 09/06/2023 Influenza Vaccine(1) due on 02/06/2024 Annual PCP Team Chronic Disease Visit due on 11/11/2024 BP Controlled (<130/80) due on 11/11/2024 DTaP,Tdap,Td Vaccine(4 - Td or Tdap) due on 03/30/2026 Diabetes Screening due on 12/13/2026 Bone Density Screening Completed Hepatitis C Screening Completed Pneumococcal Vaccine: 65+ Completed Mammogram Screening Discontinued ASSESSMENT/PLAN: 1. Essential hypertension - ICD9: 401.9, ICD10: I10 (primary diagnosis) - Controlled - Continue current medications - Recommend home blood pressure monitoring, to bring results to next visit - Encouraged sodium restriction, DASH or Mediterranean diet - Recommend regular aerobic exercise - Follow up in 6 months for hypertension visit 2. Alzheimers disease (HCC) - ICD9: 331.0, ICD10: G30.9, F02.80 - stable on current regime 3. Hyperlipidemia, mixed - ICD9: 272.2, ICD10: E78.2 - Controlled - Continue current medications - Counseled on healthy diet and regular exercise - Follow up in 6 months, sooner should any other issues arise. 4. GERD without esophagitis - ICD9: 530.81, ICD10: K21.9 - stable on current regime Shruthi Christensen APRN.CNP Prescription instructions reviewed with patient as applicable. Patient advised if symptoms do not improve or if symptoms worsen sooner, to contact their primary care physician. Potential red flag symptoms discussed with the patient. Reviewed appropriate action plan to take if red flag symptoms occur. Patient agreeable to treatment plan. Medical Decision Making: Problems: Moderate: 2+ stable chronic illnesses Risk: Moderate: Moderate risk from testing/treatment Medical Decision Making Level: 4 - Moderate documented in this encounter [facility] 12-07-2023 History of Presen t illness Narrative Subjective: Patient presents to clinic c/o painful toenails. They state that the nails are especially painful with shoe gear and pressure. Patient states that nails 1-5 b/l are painful. No other pedal complaints at this time. Patient states no change in medications or medical history since last visit. Objective: Patient presents to clinic ambulating in dress shoes Vasc: DP and PT pulses are palpable bilateral. CFT is less than 5 seconds bilateral. Skin temperature is warm to cool proximal to distal bilateral. There is no edema or varicosities noted. Neuro: Protective sensation is intact to the foot and toes when tested with the 5.07 SWM bilateral. The hallux is downgoing bilateral. Derm: Nails 1-5 b/l are painful, discolored-yellow, thick, crumbly, dystrophic and with subungal debris. Skin is of normal turgor, texture and hair growth is present bilateral. There are callus to right hallux no ulcerations, scars, verruca or other lesions noted. Ortho: Muscle strength is 5/5 for all pedal groups tested. Ankle joint DF is decreased with the knee extended with no pain or crepitus noted. 1st MPJ ROM is decreased bilateral. Bunion deformity is present to right hallux Assessment: (B35.1) Onychomycosis (primary encounter diagnosis) (M79.675) Pain in toe of left foot (M79.674) Pain in toe of right foot Plan: Patient was seen and evaluated. Nails 1-5 bilateral were debrided in length and thickness. Discussed removal vs periodic debridement. Patient elected for periodic debridement. Callus filed to right hallux. Patient is to RTC in 3-4 months. Sadie Eastman DPM Patient presents with: Left Foot - Established Patient, Follow Up, nail care Right Foot - Established Patient, Follow Up, nail care Patient presents for nail care. Family states that they may consider removal of right toenail. Bilateral big toenails are thick and layered. [facility] 09/07/23 documented in this encounter [facility] 11-25-2023 Telephone encounter Note Prescription Refill Information The patient has been identified by name and date of : Yes Caregiver verified no other encounters exist for this prescription request: Yes Caregiver confirmed with patient/requestor that no other refills are due, in the near future, with this provider at this time: Yes The last office visit in the department: 11-12-23 Does the patient have a future office visit with this provider/department: Yes Requested Prescriptions Pending Prescriptions Disp Refills donepezil (ARICEPT) 23 mg tablet 90 tablet 1 Sig: Take 1 tablet by mouth daily at bedtime. atorvastatin (LIPITOR) 20 mg tablet 90 tablet 1 Sig: Take 1 tablet by mouth once daily. For cholesterol. Ludy Arauz November 25, 2023 10:25 AM [facility] 11-25-2023 Miscellaneous Notes Prescription Refill Information The patient has been identified by name and date of : Yes Caregiver verified no other encounters exist for this prescription request: Yes Caregiver confirmed with patient/requestor that no other refills are due, in the near future, with this provider at this time: Yes The last office visit in the department: 11-12-23 Does the patient have a future office visit with this provider/department: Yes Requested Prescriptions Pending Prescriptions Disp Refills donepezil (ARICEPT) 23 mg tablet 90 tablet 1 Sig: Take 1 tablet by mouth daily at bedtime. atorvastatin (LIPITOR) 20 mg tablet 90 tablet 1 Sig: Take 1 tablet by mouth once daily. For cholesterol. Ludy Arauz November 25, 2023 10:25 AM documented in this encounter [facility] 11-15-2023 Telephone encounter Note Patient's spouse notified. Will hold off on Gemtasa d/t to cost & will monitor patient. Spouse states polyuria has subsided at this time. Spouse was advised patient had fasting labs to complete tomorrow 11/15. Advised spouse fasting labs are not to be completed until after 12/06/23 prior to next appointment. Spouse verbalized understanding of instructions. Jacqueline Keen MA [facility] 11-15-2023 Miscellaneous Notes Patient's spouse notified. Will hold off on Gemtasa d/t to cost & will monitor patient. Spouse states polyuria has subsided at this time. Spouse was advised patient had fasting labs to complete tomorrow 11/15. Advised spouse fasting labs are not to be completed until after 12/06/23 prior to next appointment. Spouse verbalized understanding of instructions. Jacqueline Keen MA Can we get a prior auth on this medication please as the other medications are contraindicated due to she takes potassium. Please let know we will see if we can get this approved through insurance. I discussed the culture results with Dr. 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 Shruthi Christensen APRN.ARIA Pt's Elias calls back to report Gemtesa costs $396. There was nothing to help with the cost of medication. reports he is confused that this is considered a maintenance medication because there is no way he could afford this medication jail. is also asking if pt could have a uti because testing was not conclusive. is asking if pt should do another urinalysis/culture or pt put on a general atb for uti. Elias reports he does not know what the answer is and is asking provider to review. Lauren Woody LPN Patient's spouse came to provider's office at 3pm and this nurse informed him provider's are out of office until Wednesday. Noted in previous encounter he was advised script would be available after urine culture resulted which currently hasn't been completed. He voiced understanding and left. Jenae Wilkerson LPN Patient's is asking for the hand written script for the overactive bladder medication to have on hand for over the weekend. documented in this encounter [facility] 11-15-2023 Telephone encounter Note Can we get a prior auth on this medication please as the other medications are contraindicated due to she takes potassium. Please let know we will see if we can get this approved through insurance. I discussed the culture results with Dr. 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 Shruthi Christensen APRN.ARIA [facility] 11-15-2023 Telephone encounter Note Pt's Elias calls back to report Gemtesa costs $396. There was nothing to help with the cost of medication. reports he is confused that this is considered a maintenance medication because there is no way he could afford this medication termination clerk. is also asking if pt could have a uti because testing was not conclusive. is asking if pt should do another urinalysis/culture or pt put on a general atb for uti. Elias reports he does not know what the answer is and is asking provider to review. Lauren Woody LPN [facility] 11-15-2023 Telephone encounter Note Phoned patient's spouse and left message on secure [employer] rx sent for his to [place]. Jenae Wilkerson LPN [facility] 11-15-2023 Miscellaneous Notes Phoned patient's spouse and left message on secure [employer] rx sent for his to [place]. Jenae Wilkerson LPN Prescription for medication for overactive bladder sent to pharmacy Please let know. Shruthi Christensen APRN.CNP Patient notified of results and informed will send encounter to Shruthi so she can discuss medication as previously discussed at f/u appt Urine culture came back with irregular mixed microbiota which is usually normal. Looks like patient seen primary care today but if symptoms worsen please follow-up with primary care. documented in this encounter [facility] 11-15-2023 Telephone encounter Note Prescription for medication for overactive bladder sent to pharmacy Please let know. Shruthi Christensen APRN.CNP [facility] 11-12-2023 Telephone encounter Note Patient notified of results and informed will send encounter to Shruthi so she can discuss medication as previously discussed at f/u appt [facility] 11-12-2023 Telephone encounter Note Urine culture came back with irregular mixed microbiota which is usually normal. Looks like patient seen primary care today but if symptoms worsen please follow-up with primary care. [facility] Work Phone: 11-12-2023 Telephone encounter Note Patient's spouse came to provider's office at 3pm and this nurse informed him provider's are out of office until Wednesday. Noted in previous encounter he was advised script would be available after urine culture resulted which currently hasn't been completed. He voiced understanding and left. Jenae Wilkerson LPN [facility] 11-12-2023 Telephone encounter Note Patient's is asking for the hand written script for the overactive bladder medication to have on hand for over the weekend. [facility] 11-12-2023 Telephone encounter Note Patients Elias telephoned and notified of message below. Voices understanding. Will await culture to decide. Madeline Packer LPN [facility] 11-12-2023 Miscellaneous Notes Patients Elias telephoned and notified of message below. Voices understanding. Will await culture to decide. Madeline Packer LPN Let know I researched the medications for overactive ladder and I found one that she could take most common side effects are headache, urinary tract infections, diarrhea, nausea and upper respiratory tract infections. Other than headache which was listed at 4% incident rate the other side effects were less than 2%. He would need to monitor for urinary retention. The other class of medications interact with her potassium and the more I read into it cautioned it could could mood disorders which we definitely want to avoid. The medication comes in one dose so we would not need to titrate it up. If it didn't work I would have her see the urologist. If he is agreeable and her urine culture is negative I can send to pharmacy. Shruthi Christensen APRN.CNP documented in this encounter [facility] 11-12-2023 Telephone encounter Note Let know I researched the medications for overactive ladder and I found one that she could take most common side effects are headache, urinary tract infections, diarrhea, nausea and upper respiratory tract infections. Other than headache which was listed at 4% incident rate the other side effects were less than 2%. He would need to monitor for urinary retention. The other class of medications interact with her potassium and the more I read into it cautioned it could could mood disorders which we definitely want to avoid. The medication comes in one dose so we would not need to titrate it up. If it didn't work I would have her see the urologist. If he is agreeable and her urine culture is negative I can send to pharmacy. Shruthi Christensen APRN.CNP [facility] 11-12-2023 History of Presen t illness Narrative 11/12/2023 Patient presents with: Recheck: EC follow up SUBJECTIVE: This is a 78 year old, accompanied by and daughter, that is here today for Above Complaints. When picked her up from [facility] he was told she urinated 12-15 times. HE tok [facility] to [facility]. UA dip was normal and culture is still pending. Told to follow-up with PCP. Per she is still urinating frequently. Patient with a hx of Alzheimer but no worsening of confusion per . She does have episodes were she urinates in place other than the toilet which has bee going on for a couple of months. No polydipsia, fevers, or hematuria per . Patient denies abdominal pain or dysuria PAST MEDICAL HISTORY Diagnosis Date Allergic rhinitis, cause unspecified Allergic rhinitis Alzheimer's dementia (HCC) Carpal tunnel syndrome CHOLELITH W CHOLECYS NEC 07/04/2007 Diverticulosis of colon (without mention of hemorrhage) Esophageal reflux Family history of malignant neoplasm of gastrointestinal tract Hypertension Migraine, unspecified, with intractable migraine, so stated, without mention of status migrainosus Migraine in the past Osteopenia Other and unspecified hyperlipidemia HIGH HDL Vitamin D insufficiency ALLERGIES Calcium Channel Blockers [Other] and Sinequan [Doxepin Hcl] MEDICATIONS Current Outpatient Medications Medication Sig memantine (NAMENDA) 10 mg tablet Take 1 tablet by mouth two times a day. sertraline (ZOLOFT) 25 mg tablet Take 1 tablet by mouth once daily. amLODIPine (NORVASC) 5 mg tablet Take 1 tablet by mouth once daily. pantoprazole DR (PROTONIX) 40 mg tablet Take 1 tablet by mouth once daily. atorvastatin (LIPITOR) 20 mg tablet Take 1 tablet by mouth once daily. For cholesterol. donepezil (ARICEPT) 23 mg tablet Take 1 tablet by mouth daily at bedtime. potassium chloride ER (KLOR-CON) 20 mEq tablet Take 1 tablet by mouth once daily. ALPRAZolam (XANAX) 0.5 mg tablet Take 0.25 mg by mouth at bedtime as needed. fluticasone (FLONASE) 50 mcg/actuation nasal spray Use 2 Sprays in each nostril once daily. Rinse mouth after use. cyanocobalamin (VITAMIN B-12) 1,000 mcg tab Take 1 tablet by mouth once daily. Cholecalciferol, Vitamin D3, 50 mcg (2,000 unit) cap Take by mouth. ONE DAILY MULTI-VITAMIN TAB Take one(1) tablet daily. No current facility-administered medications for this visit. Medications and allergies reviewed by this provider. SOCIAL HISTORY Social History Tobacco Use Smoking status: Never Smokeless tobacco: Never Vaping Use Vaping Use: Never used Substance Use Topics Alcohol use: No Comment: socially Drug use: No REVIEW OF SYSTEMS All other reviewed and negative other than HPI. OBJECTIVE: BP 112/68 Pulse 60 Resp 16 Wt 48.4 kg (106 lb 12.8 oz) SpO2 95% BMI 21.57 kg/m . Vital signs reviewed by this provider. APPEARANCE Well appearing, alert, in no acute distress, well-hydrated, well nourished. EYES conjunctiva and sclera normal. HEART RRR with normal S1 and S2, no murmurs, no gallops, no JVD appreciated LUNG clear to auscultation. No wheezes, rhonchi or rales ABDOMEN No TTP SKIN Skin color, texture, turgor normal, no suspicious rashes or lesions to exposed skin RSV Vaccine(1 - 1-dose 60+ series) Never done Shingrix Vaccine(2 of 3) due on 10/29/2009 Colonoscopy due on 04/22/2021 Advance Directive Discussion Never done Behavioral Health Screening Never done Covid-19 Vaccine( season) due on 09/06/2023 Influenza Vaccine(Season Ended) due on 02/06/2024 Annual PCP Team Chronic Disease Visit due on 11/11/2024 BP Controlled (<130/80) due on 11/11/2024 DTaP,Tdap,Td Vaccine(4 - Td or Tdap) due on 03/30/2026 Diabetes Screening due on 06/22/2026 Bone Density Screening Completed Hepatitis C Screening Completed Pneumococcal Vaccine: 65+ Completed Mammogram Screening Discontinued ASSESSMENT/PLAN: 1. Polyuria - ICD9: 788.42, ICD10: R35.89 (primary diagnosis) - if urine culture is normal consider OAB vs diabetes - no red fla symptoms or exam findings - red flag symptoms discussed, verbalizes understanding - HEMOGLOBIN A1C - follow-up pending urine culture 2. Essential hypertension - ICD9: 401.9, ICD10: I10 - Controlled - Continue current medications - Follow up in 4 weeks for hypertension visit - COMPREHENSIVE METABOLIC PANEL 3. Hyperlipidemia, mixed - ICD9: 272.2, ICD10: E78.2 - Controlled - Control undetermined, due for labs - Continue current medications - Counseled on healthy diet and regular exercise - Follow up in 4 weeks, sooner should any other issues arise. - LIPID PANEL BASIC 4. Elevated blood sugar - ICD9: 790.29, ICD10: R73.9 - HEMOGLOBIN A1C Shruthi Christensen, FRUIT PRESS OPERATOR.COMMERCIAL LOAN UNDERWRITER Prescription instructions reviewed with patient as applicable. Patient advised if symptoms do not improve or if symptoms worsen sooner, to contact their primary care physician. Potential red flag symptoms discussed with the patient. Reviewed appropriate action plan to take if red flag symptoms occur. Patient agreeable to treatment plan. Medical Decision Making: Problems: Moderate: New problem with uncertain prognosis and 2+ stable chronic illnesses Data: Unique test(s) ordered: 3+ Medical Decision Making Level: 4 - Moderate documented in this encounter [facility] 11-10-2023 History of Presen t illness Narrative Subjective HPI HPI Crissy Philippe is a 78 year old female who presents today for CC of urinary frequency. This started months ago. Has tried nothing for relief. Symptoms are worsened by nothing. Seen by pcp few months ago, negative urine culture. Patient is poor historian, provides information. Reports day program said she urinated 15-20 times in 4 hours. .Patient presents with: Urinary Problem: Frequency x 3 weeks PAST MEDICAL HISTORY Diagnosis Date Allergic rhinitis, cause unspecified Allergic rhinitis Alzheimer's dementia (HCC) Carpal tunnel syndrome CHOLELITH W CHOLECYS NEC 07/04/2007 Diverticulosis of colon (without mention of hemorrhage) Esophageal reflux Family history of malignant neoplasm of gastrointestinal tract Hypertension Migraine, unspecified, with intractable migraine, so stated, without mention of status migrainosus Migraine in the past Osteopenia Other and unspecified hyperlipidemia HIGH HDL Vitamin D insufficiency PAST SURGICAL HISTORY Procedure Laterality Date COLONOSCOPY FLX DX W/COLLJ SPEC WHEN PFRMD 05/24/03 Colonoscopy COLONOSCOPY FLX DX W/COLLJ SPEC WHEN PFRMD 09/13/09 COLONOSCOPY FLX DX W/COLLJ SPEC WHEN PFRMD 03/25/2015 Colonoscopy COLONOSCOPY FLX DX W/COLLJ SPEC WHEN PFRMD 04/22/2020 Colonoscopy repeat in 1 year ESOPHAGOGASTRODUODENOSCOPY TRANSORAL DIAGNOSTIC 04/22/2020 EGD repeat in 5 years LAPS SURG CHOLECYSTECTOMY W/CHOLANGIOGRAPHY 06/21/07 NEUROPLASTY &/TRANSPOS MEDIAN NRV CARPAL TUNNE 10/08/2005 Carpal tunnel decomp Right NEUROPLASTY &/TRANSPOS MEDIAN NRV CARPAL TUNNE 10/29/2005 Carpal tunnel decomp Left TONSILLECTOMY PRIMARY/SECONDARY <AGE 12 Tonsillectomy ALLERGIES Calcium Channel Blockers [Other] and Sinequan [Doxepin Hcl] MEDICATIONS memantine (NAMENDA) 10 mg tablet Take 1 tablet by mouth two times a day. sertraline (ZOLOFT) 25 mg tablet Take 1 tablet by mouth once daily. amLODIPine (NORVASC) 5 mg tablet Take 1 tablet by mouth once daily. pantoprazole DR (PROTONIX) 40 mg tablet Take 1 tablet by mouth once daily. atorvastatin (LIPITOR) 20 mg tablet Take 1 tablet by mouth once daily. For cholesterol. donepezil (ARICEPT) 23 mg tablet Take 1 tablet by mouth daily at bedtime. potassium chloride ER (KLOR-CON) 20 mEq tablet Take 1 tablet by mouth once daily. ALPRAZolam (XANAX) 0.5 mg tablet Take 0.25 mg by mouth at bedtime as needed. fluticasone (FLONASE) 50 mcg/actuation nasal spray Use 2 Sprays in each nostril once daily. Rinse mouth after use. Cholecalciferol, Vitamin D3, 50 mcg (2,000 unit) cap Take by mouth. ONE DAILY MULTI-VITAMIN TAB Take one(1) tablet daily. cyanocobalamin (VITAMIN B-12) 1,000 mcg tab Take 1 tablet by mouth once daily. FAMILY HISTORY Problem Relation Age of Onset Cancer Mother LUNG passed from this that went to her brain and spine. Diabetes Father Colon Cancer Father Hypertension Father Social History Tobacco Use Smoking status: Never Smokeless tobacco: Never Vaping Use Vaping Use: Never used Substance Use Topics Alcohol use: No Comment: socially Drug use: No Review of Systems Constitutional: Negative for chills, fever and weight loss. Respiratory: Negative for cough, shortness of breath and wheezing. Cardiovascular: Negative for chest pain and palpitations. Gastrointestinal: Negative for abdominal pain, blood in stool, constipation, diarrhea, heartburn, melena, nausea and vomiting. Genitourinary: Positive for frequency. Negative for dysuria, flank pain, hematuria and urgency. Objective Blood pressure 100/67, pulse 88, temperature 36.8 C (98.3 F), resp. rate 20, weight 48.6 kg (107 lb 2.3 oz), SpO2 97%. Physical Exam Constitutional: General: She is not in acute distress. Appearance: Normal appearance. She is not toxic-appearing. Cardiovascular: Rate and Rhythm: Normal rate and regular rhythm. Heart sounds: Normal heart sounds. Pulmonary: Effort: Pulmonary effort is normal. Breath sounds: Normal breath sounds. Abdominal: General: Bowel sounds are normal. Palpations: Abdomen is soft. Tenderness: There is no abdominal tenderness. Skin: General: Skin is warm and dry. ASSESSMENT/PLAN: 1. Urinary frequency - ICD9: 788.41, ICD10: R35.0 chronic - Send urine for culture -no medication today. F/u with pcp scheduled for next week. - UA DIP, URINE (POC) - URINE CULTURE Gallo Pindea APRN.COMMERCIAL LOAN UNDERWRITER documented in this encounter [facility] 11-10-2023 Telephone encounter Note Reason for Call: Urinary Frequency Outcome: Advised to be seen within 24 hours. Caller conferenced to [facility] in appointment center for available appointment in office of PCP. Caller also given alternate options for care including [facility], emergency department for worsening symptoms. NAGA Araujo RN Reason for Disposition Urinating more frequently than usual (i.e., frequency) Answer Assessment - Initial Assessment Questions 1. SYMPTOM: Urinary Frequency (12-16 times in a four hour period) today at adult day care 2. ONSET: Worsening the last couple of days 3. PAIN: Doesn't appear 4. CAUSE: UTI 5. OTHER SYMPTOMS: Deneis 6. : Deferred Protocols used: Urinary [id number] [facility] 11-10-2023 Miscellaneous Notes Reason for Call: Urinary Frequency Outcome: Advised to be seen within 24 hours. Caller conferenced to [facility] in appointment center for available appointment in office of PCP. Caller also given alternate options for care including [facility], emergency department for worsening symptoms. NAGA Araujo RN Reason for Disposition Urinating more frequently than usual (i.e., frequency) Answer Assessment - Initial Assessment Questions 1. SYMPTOM: Urinary Frequency (12-16 times in a four hour period) today at adult day care 2. ONSET: Worsening the last couple of days 3. PAIN: Doesn't appear 4. CAUSE: UTI 5. OTHER SYMPTOMS: Deneis 6. : Deferred Protocols used: Urinary [id number] documented in this encounter [facility] 11-02-2023 Telephone encounter Note Prescription Refill Information The patient has been identified by name and date of : Yes Caregiver verified no other encounters exist for this prescription request: Yes Caregiver confirmed with patient/requestor that no other refills are due, in the near future, with this provider at this time: Yes The last office visit in the department: 08/29/23 Does the patient have a future office visit with this provider/department: Yes Requested Prescriptions Pending Prescriptions Disp Refills memantine (NAMENDA) 10 mg tablet 180 tablet 3 Sig: Take 1 tablet by mouth two times a day. Chelsea Arauz November 02, 2023 10:00 AM [facility] 11-02-2023 Miscellaneous Notes Prescription Refill Information The patient has been identified by name and date of : Yes Caregiver verified no other encounters exist for this prescription request: Yes Caregiver confirmed with patient/requestor that no other refills are due, in the near future, with this provider at this time: Yes The last office visit in the department: 08/29/23 Does the patient have a future office visit with this provider/department: Yes Requested Prescriptions Pending Prescriptions Disp Refills memantine (NAMENDA) 10 mg tablet 180 tablet 3 Sig: Take 1 tablet by mouth two times a day. Chelsea Malave [facility] November 02, 2023 10:00 AM documented in this encounter [facility] 09-20-2023 Miscellaneous Notes Patient has been identified by name and date of : Patient phones for refill(s): Requested Prescriptions Pending Prescriptions Disp Refills sertraline (ZOLOFT) 25 mg tablet 90 tablet 1 Sig: Take 1 tablet by mouth once daily. Patient asking for 90 days and 3 refills. Date of last office visit in primary care: 08/19/2023 Date of next office visit in primary care: 12/29/2023 Please advise. Thank you. Marilia Palm. documented in this encounter [facility] 09-07-2023 History of Presen t illness Narrative Consultation requested by Dr. Christensen for an opinion regarding fungal toenail. My final recommendations will be communicated back to the requesting physician by way of shared Medical record or letter to requesting physician via US mail. Initial Podiatric Office Visit: Chief Complaint: This 78 year old female who presents with chief complaint:dystrophic toenail with ingrown, b/l hallux HPI Patient presents to clinic for evaluation of b/l feet. Complains of thick, dystrophic toenail that causes pain at times. Has led to ingrown at times Has managed with topical antinfungal. The topical anti-fungal has helped with toes 2-5 b/l but not with the great toes. Is here to discuss options. PAIN EVALUATION No data found in the last 1 encounters. Hemoglobin A1C (%) Date Value 02/06/2022 4.8 03/19/2018 4.9 02/19/2017 5.1 PCP: Alisha Wilcox MD PAST MEDICAL HISTORY Diagnosis Date Allergic rhinitis, cause unspecified Allergic rhinitis Alzheimer's dementia (HCC) Carpal tunnel syndrome CHOLELITH W CHOLECYS NEC 07/04/2007 Diverticulosis of colon (without mention of hemorrhage) Esophageal reflux Family history of malignant neoplasm of gastrointestinal tract Hypertension Migraine, unspecified, with intractable migraine, so stated, without mention of status migrainosus Migraine in the past Osteopenia Other and unspecified hyperlipidemia HIGH HDL Vitamin D insufficiency Current Outpatient Medications Medication Sig amLODIPine (NORVASC) 5 mg tablet Take 1 tablet by mouth once daily. pantoprazole DR (PROTONIX) 40 mg tablet Take 1 tablet by mouth once daily. atorvastatin (LIPITOR) 20 mg tablet Take 1 tablet by mouth once daily. For cholesterol. donepezil (ARICEPT) 23 mg tablet Take 1 tablet by mouth daily at bedtime. sertraline (ZOLOFT) 25 mg tablet Take 1 tablet by mouth once daily. potassium chloride ER (KLOR-CON) 20 mEq tablet Take 1 tablet by mouth once daily. ALPRAZolam (XANAX) 0.5 mg tablet Take 0.25 mg by mouth at bedtime as needed. memantine (NAMENDA) 10 mg tablet Take 1 tablet by mouth twice daily. fluticasone (FLONASE) 50 mcg/actuation nasal spray Use 2 Sprays in each nostril once daily. Rinse mouth after use. cyanocobalamin (VITAMIN B-12) 1,000 mcg tab Take 1 tablet by mouth once daily. Cholecalciferol, Vitamin D3, 50 mcg (2,000 unit) cap Take by mouth. ONE DAILY MULTI-VITAMIN TAB Take one(1) tablet daily. No current facility-administered medications for this visit. ALLERGIES Allergen Reactions Calcium Channel Blo* Sinequan [Doxepin H* Shortness of Breath PAST SURGICAL HISTORY Procedure Laterality Date COLONOSCOPY FLX DX W/COLLJ SPEC WHEN PFRMD 05/24/03 Colonoscopy COLONOSCOPY FLX DX W/COLLJ SPEC WHEN PFRMD 09/13/09 COLONOSCOPY FLX DX W/COLLJ SPEC WHEN PFRMD 03/25/2015 Colonoscopy COLONOSCOPY FLX DX W/COLLJ SPEC WHEN PFRMD 04/22/2020 Colonoscopy repeat in 1 year ESOPHAGOGASTRODUODENOSCOPY TRANSORAL DIAGNOSTIC 04/22/2020 EGD repeat in 5 years LAPS SURG CHOLECYSTECTOMY W/CHOLANGIOGRAPHY 06/21/07 NEUROPLASTY &/TRANSPOS MEDIAN NRV CARPAL TUNNE 10/08/2005 Carpal tunnel decomp Right NEUROPLASTY &/TRANSPOS MEDIAN NRV CARPAL TUNNE 10/29/2005 Carpal tunnel decomp Left TONSILLECTOMY PRIMARY/SECONDARY <AGE 13 Tonsillectomy FAMILY HISTORY Problem Relation Age of Onset Cancer Mother LUNG passed from this that went to her brain and spine. Diabetes Father Colon Cancer Father Hypertension Father Social History Tobacco Use Smoking status: Never Smokeless tobacco: Never Vaping Use Vaping Use: Never used Substance Use Topics Alcohol use: No Comment: socially Drug use: No REVIEW OF SYSTEMS GENERAL: Negative for Malaise, significant weight loss, fever RESPIRATORY: Negative for cough, wheezing and shortness of breath CARDIOVASCULAR: Negative for chest pain, leg swelling and palpitations GI: Negative for abdominal discomfort, blood in stools or black stools and change in bowel habits : Negative for dysuria, frequency and incontinence MUSCULOSKELETAL: Negative for joint pain or swelling, back pain, and muscle pain. SKIN: Negative for lesions, rash, and itching. HEMATOLOGY/LYMPHOLOGY Negative for prolonged bleeding, bruising easily, and swollen nodes. ENDOCRINE: Negative for cold or heat intolerance, polyuria, polydipsia and goiter. NEURO: negative Physical Exam: Constitutional: Pt is a well developed 78 year old female who is alert, oriented and cooperative Eyes: Following during examination. No redness or drainage. Respiratory: RR normal and nonlabored. Even breathing. No evidence of distress or shortness of breath. Psychology: Patient is engaged during conversation. Normal affect and mood. Does not appear depressed or anxious during encounter. Vascular: Dorsalis pedis and posterior tibial pulses palpable as b/l Capillary Fill time < 5 seconds to digits 1-5 b/l Skin temperature warm to warm proximal to distal b/l Hair growth present to digits Neurological: intact light touch/epicritic sensation b/l intact protective sensation no significant neurological deficits Dermatological: Nails 1-5 b/l appear thick, discolored, dystrophic, painful. Webspaces clean and dry 1-4 b/l. Skin appears well hydrated and supple. good color, texture, turgor. No open lesions present. No callosities present. Musculoskeletal/Orthopaedic: Patient has pain to palpation of b/l hallux toenail Radiographs: n/a ASSESSMENT: (B35.1) Onychomycosis (primary encounter diagnosis) (M79.675) Pain in toe of left foot (M79.674) Pain in toe of right foot PLAN: We discussed the possible etiologies of discolored, dystrophic, and thickened nails including fungus, yeast, mold as well as in some instances, prior trauma, or mechanical causes such as repetitive microtrauma in shoe gear. We discussed topical medication for discolored toenails which has very low success but no major side effects. We discussed oral medication. Patient will need hepatic testing prior to use. Patient informed of risks associated with Lamisil. We discussed removal of toenails. Patient would like to proceed with debridement Debridement of toenails 1-5 b/l was performed. Patient may consider permanent removal of toenails in future. Sadie Eastman DPM Podiatry [address] [facility] [id number] Dept: [phone] Dept AMB ROOMING INTAKE FLOWSHEET DATA documented in this encounter [facility] 09-06-2023 Miscellaneous Notes Patient has been identified by name and date of : Yes, Provider Podlogar Date 09/06/2023 Time 12:54 pm Spouse phones for refill(s): Requested Prescriptions Pending Prescriptions Disp Refills amLODIPine (NORVASC) 5 mg tablet 90 tablet 2 Sig: Take 1 tablet by mouth once daily. pantoprazole DR (PROTONIX) 40 mg tablet 90 tablet 2 Sig: Take 1 tablet by mouth once daily. Date of last office visit in primary care: 08/19/2023 Date of next office visit in primary care: 12/28/2023 Please advise. Thank you. Elizabeth Loomis. documented in this encounter [facility] 08-23-2023 Miscellaneous Notes Pt and notified. Xochitl German MA ----- Message from Shruthi Christensen APRN.CNP sent at 08/23/2023 7:21 AM EDT ----- Urine culture does not show any bacterial growth. Shruthi Christensen APRN.CNP documented in this encounter [facility] 08-19-2023 History of Presen t illness Narrative 08/19/2023 Patient presents with: Urinary Problem: frequency SUBJECTIVE: This is a 78 year old, accompanied by , that is here today for Above Complaints. is informant due to patient with Alzheimer's Dementia For the last two weeks has noted patient is urinating in areas other than the bathroom. He reports he will see her urinating on the kitchen floor. At times it is larger amounts. Is urinating more frequently about two times an hour. Does attend adult daycare three days a week and has asked if she has been doing this there and she has not. Does not get up at night, however she does wear an adult brief and is usually incontinent to some degree but she does not have incontinence during the day. Bowel movements are normal. No fever, chills, nausea, vomiting, polydipsia or hematuria .Patient denies abdominal/back pain or dysuria. Weight down 5# since June. Per not eating as much and drinking only about 1/2 of her nutrition shakes PAST MEDICAL HISTORY Diagnosis Date Allergic rhinitis, cause unspecified Allergic rhinitis Alzheimer's dementia (HCC) Carpal tunnel syndrome CHOLELITH W CHOLECYS NEC 07/04/2007 Diverticulosis of colon (without mention of hemorrhage) Esophageal reflux Family history of malignant neoplasm of gastrointestinal tract Hypertension Migraine, unspecified, with intractable migraine, so stated, without mention of status migrainosus Migraine in the past Osteopenia Other and unspecified hyperlipidemia HIGH HDL Vitamin D insufficiency ALLERGIES Calcium Channel Blockers [Other] and Sinequan [Doxepin Hcl] MEDICATIONS Current Outpatient Medications Medication Sig atorvastatin (LIPITOR) 20 mg tablet Take 1 tablet by mouth once daily. For cholesterol. donepezil (ARICEPT) 23 mg tablet Take 1 tablet by mouth daily at bedtime. sertraline (ZOLOFT) 25 mg tablet Take 1 tablet by mouth once daily. amLODIPine (NORVASC) 5 mg tablet Take 1 tablet by mouth once daily. pantoprazole DR (PROTONIX) 40 mg tablet Take 1 tablet by mouth once daily. potassium chloride ER (KLOR-CON) 20 mEq tablet Take 1 tablet by mouth once daily. ALPRAZolam (XANAX) 0.5 mg tablet Take 0.25 mg by mouth at bedtime as needed. memantine (NAMENDA) 10 mg tablet Take 1 tablet by mouth twice daily. fluticasone (FLONASE) 50 mcg/actuation nasal spray Use 2 Sprays in each nostril once daily. Rinse mouth after use. cyanocobalamin (VITAMIN B-12) 1,000 mcg tab Take 1 tablet by mouth once daily. Cholecalciferol, Vitamin D3, 50 mcg (2,000 unit) cap Take by mouth. ONE DAILY MULTI-VITAMIN TAB Take one(1) tablet daily. No current facility-administered medications for this visit. Medications and allergies reviewed by this provider. SOCIAL HISTORY Social History Tobacco Use Smoking status: Never Smokeless tobacco: Never Substance Use Topics Alcohol use: No Comment: socially Drug use: No REVIEW OF SYSTEMS All other reviewed and negative other than HPI. OBJECTIVE: BP 120/80 (BP Site: Left Arm, BP Position: Sitting, BP Cuff Size: Regular Adult) Pulse 76 Temp 36.5 C (97.7 F) Resp 16 Wt 49.4 kg (109 lb) BMI 22.02 kg/m . Vital signs reviewed by this provider. APPEARANCE Well appearing, alert, in no acute distress, well-hydrated, well nourished. EYES conjunctiva and sclera normal. HEART RRR with normal S1 and S2, no murmurs, no gallops, no JVD appreciated LUNG clear to auscultation. No wheezes, rhonchi or rales ABDOMEN no tenderness to palpation BACK: No CVA tenderness SKIN Skin color, texture, turgor normal, no suspicious rashes or lesions to exposed skin Latest Ref Rng 08/19/2023 GLUCOSE UA (POCT) Negative mg/dL Negative BILIRUBIN UA (POCT) Negative Negative KETONE UA (POCT) Negative mg/dL Negative SPECIFIC GRAVITY UA (POCT) 1.005 - 1.030 1.025 HEMOGLOBIN/BLOOD UA (POCT) Negative Trace-intact ! PH UA (POCT) 4.5 - 8.0 6.5 PROTEIN UA (POCT) Negative mg/dL Negative UROBILINOGEN UA (POCT) Normal E.U./dL 0.2 NITRITE UA (POCT) Negative Negative LEUKOCYTES UA (POCT) Negative Moderate ! COLOR UA (POCT) Yellow CLARITY UA (POCT) Clear Legend: ! Abnormal ASSESSMENT/PLAN: 1. Frequent urination - ICD9: 788.41, ICD10: R35.0 (primary diagnosis) Acute - UA positive for michelle esterase and trace blood - Send urine for culture - Patient education for prevention given - UA DIP, URINE (POC) - URINE CULTURE 2. Weight loss - ICD9: 783.21, ICD10: R63.4 - continue to encourage small frequent meals and nutrition supplements - follow-up if weight loss continues Shruthi Podlogar, FRUIT PRESS OPERATOR.COMMERCIAL LOAN UNDERWRITER Prescription instructions reviewed with patient as applicable. Patient advised if symptoms do not improve or if symptoms worsen sooner, to contact their primary care physician. Potential red flag symptoms discussed with the patient. Reviewed appropriate action plan to take if red flag symptoms occur. Patient agreeable to treatment plan. Medical Decision Making: Problems: Moderate: New problem with uncertain prognosis Risk: Low: Low risk from testing/treatment Medical Decision Making Level: 3 - Low documented in this encounter [facility] 05-24-2023 Miscellaneous Notes Patient has been identified by name and date of : Yes, Provider Dr. Wilcox Date 05-24-23 Time 10:45 am Patient phones for refill(s): Requested Prescriptions Pending Prescriptions Disp Refills atorvastatin (LIPITOR) 20 mg tablet 90 tablet 2 Sig: Take 1 tablet by mouth once daily. For cholesterol. donepezil (ARICEPT) 23 mg tablet 90 tablet 2 Sig: Take 1 tablet by mouth daily at bedtime. Date of last office visit in primary care: 12/22/2022 Date of next office visit in primary care: 06/29/2023 Last 2 Encounter Wt Readings: Date: Wt: 12/22/2022 56.3 kg (124 lb 3.2 oz) 12/04/2022 55.8 kg (123 lb) Previous labs/tests for medication: Not applicable Please advise. Thank you. Saba Arauz. documented in this encounter [facility] 03-22-2023 Miscellaneous Notes Patient last visit 12/22/22 Follow up appointment scheduled 06/29/23 Jaylin Velez Ma Patient has been identified by name and date of : Yes Requested Prescriptions Pending Prescriptions Disp Refills sertraline (ZOLOFT) 25 mg tablet 90 tablet 1 Sig: Take 1 tablet by mouth once daily. RX INSTRUCTIONS: Patient aware RX will be sent to pharmacy. No need to notify patient. Darcy Arauz documented in this encounter [facility] 02-24-2023 Miscellaneous Notes Patient has been identified by name and date of : Yes Last office visit in this department: 12/22/2022 RX INSTRUCTIONS: Patient aware RX will be sent to pharmacy. No need to notify patient. Patient phones requesting refills as follows: Requested Prescriptions Pending Prescriptions Disp Refills amLODIPine (NORVASC) 5 mg tablet 90 tablet 1 Sig: Take 1 tablet by mouth once daily. pantoprazole DR (PROTONIX) 40 mg tablet 90 tablet 1 Sig: Take 1 tablet by mouth once daily. Please review and advise. Aye Amador documented in this encounter [facility] 01-22-2023 Miscellaneous Notes Patient has been identified by name and date of : Yes, Provider MARIO Patient's spouse phones for refill(s): Requested Prescriptions Pending Prescriptions Disp Refills potassium chloride ER (KLOR-CON) 20 mEq tablet 90 tablet 3 Sig: Take 1 tablet by mouth once daily. Date of last office visit in primary care: 12/22/22 Last 2 Encounter Wt Readings: Date: Wt: 12/22/2022 56.3 kg (124 lb 3.2 oz) 12/04/2022 55.8 kg (123 lb) Previous labs/tests for medication: Not applicable Please advise. Thank you. Anjelica Lopez documented in this encounter [facility] 12-22-2022 History of Presen t illness Narrative 12/22/2022 Patient presents with: Follow Up: 6 month SUBJECTIVE: This is a 77 year old, accompanied by , that is here today for Above Complaints. Followed up with neurology on 12/04/2022 for alzheimer. No medication changes at that time. Continues Aricept and namenda as prescribed . Rare use of xanax for agitation. [facility] three times a week. reports socializing well with a few women there. 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 HTN: Patient is compliant with meds Yes Monitors bp at home: No. Denies side effects: Yes. Chest pain: No. Dyspnea: No. Edema: No. Palpitations: No. Syncope: No. Headache: No. Dizziness: No. HYPERLIPIDEMIA: Patient is taking medications: Yes. Patient is watching diet: Yes. Patient denies myalgias: Yes. Patient denies gi upset: Yes Clearing throat a lot for the past couple of month. has been giving her mucinex and having her use Flonase nasal spray. Denies fevers, chills, cough, nasal drainage, rhinorrhea, sore throat or SOB PAST MEDICAL HISTORY Diagnosis Date Allergic rhinitis, cause unspecified Allergic rhinitis Alzheimer's dementia (HCC) Carpal tunnel syndrome CHOLELITH W CHOLECYS NEC 07/04/2007 Diverticulosis of colon (without mention of hemorrhage) Esophageal reflux Family history of malignant neoplasm of gastrointestinal tract Hypertension Migraine, unspecified, with intractable migraine, so stated, without mention of status migrainosus Migraine in the past Osteopenia Other and unspecified hyperlipidemia HIGH HDL Vitamin D insufficiency ALLERGIES Calcium Channel Blockers [Other] and Sinequan [Doxepin Hcl] MEDICATIONS Current Outpatient Medications Medication Sig ALPRAZolam (XANAX) 0.5 mg tablet Take 0.25 mg by mouth at bedtime as needed. memantine (NAMENDA) 10 mg tablet Take 1 tablet by mouth twice daily. donepezil (ARICEPT) 23 mg tablet Take 1 tablet by mouth daily at bedtime. fluticasone (FLONASE) 50 mcg/actuation nasal spray Use 2 Sprays in each nostril once daily. Rinse mouth after use. sertraline (ZOLOFT) 25 mg tablet Take 1 tablet by mouth once daily. pantoprazole DR (PROTONIX) 40 mg tablet Take 1 tablet by mouth once daily. amLODIPine (NORVASC) 5 mg tablet Take 1 tablet by mouth once daily. potassium chloride ER (K-DUR, KLOR-CON) 20 mEq tablet Take 1 tablet by mouth once daily. Cholecalciferol, Vitamin D3, 50 mcg (2,000 unit) cap Take by mouth. ONE DAILY MULTI-VITAMIN TAB Take one(1) tablet daily. atorvastatin (LIPITOR) 20 mg tablet Take 1 tablet by mouth once daily. For cholesterol. cyanocobalamin (VITAMIN B-12) 1,000 mcg tab Take 1 tablet by mouth once daily. No current facility-administered medications for this visit. Medications and allergies reviewed by this provider. SOCIAL HISTORY Social History Tobacco Use Smoking status: Never Smokeless tobacco: Never Substance Use Topics Alcohol use: No Comment: socially Drug use: No REVIEW OF SYSTEMS All other reviewed and negative other than HPI. OBJECTIVE: BP 120/72 Pulse 83 Resp 16 Wt 56.3 kg (124 lb 3.2 oz) SpO2 97% BMI 25.09 kg/m . Vital signs reviewed by this provider. APPEARANCE Well appearing, alert, in no acute distress, well-hydrated, well nourished. EYES PERRLA, conjunctiva and sclera normal. EARS External ears normal, bilateral ear canals with dry cerumen THROAT normal, no erythema NECK Supple, no adenopathy; thyroid symmetric, normal size, no bruits HEART RRR with normal S1 and S2, no murmurs, no gallops, no JVD appreciated LUNG clear to auscultation. No wheezes, rhonchi or rales EXTREMITIES Extremities normal, No deformities, No skin discoloration, and No edema Component Latest Ref Rng & Units 12/15/2022 Protein, Total 6.3 - 8.0 g/dL 6.6 Albumin 3.9 - 4.9 g/dL 4.1 Calcium 8.5 - 10.2 mg/dL 9.9 Bilirubin, Total 0.2 - 1.3 mg/dL 0.4 Alkaline Phosphatase 34 - 123 U/L 74 AST 13 - 35 U/L 16 ALT 7 - 38 U/L 22 Glucose 74 - 99 mg/dL 92 BUN 7 - 21 mg/dL 17 Creatinine 0.58 - 0.96 mg/dL 0.88 Sodium 136 - 144 mmol/L 139 Potassium 3.7 - 5.1 mmol/L 4.0 Chloride 97 - 105 mmol/L 101 CO2 22 - 30 mmol/L 29 Anion Gap 9 - 18 mmol/L 9 eGFR >=60 mL/min/1.73m 68 Cholesterol, Total <200 mg/dL 138 Triglyceride <150 mg/dL 79 HDL Cholesterol >39 mg/dL 80 Non HDL Cholesterol <130 mg/dL 58 Fasting Time hrs 10 VLDL Cholesterol <30 mg/dL 16 TC:HDL Ratio <5.10 1.73 LDL Cholesterol <100 mg/dL 42 LDL:HDL Ratio <2.54 0.53 Vitamin D 25 Hydroxy 31.0 - 80.0 ng/mL 52.4 SHINGRIX VACCINE(2 of 3) due on 10/29/2009 COLONOSCOPY due on 04/22/2021 ADVANCE DIRECTIVE DISCUSSION Never done DEPRESSION ASSESSMENT Never done COVID-19 VACCINE(5 - Moderna series) due on 07/28/2022 INFLUENZA(1) due on 02/05/2023 ANNUAL PCP TEAM CHRONIC DISEASE VISIT due on 06/24/2023 BP CONTROLLED (<130/80) due on 12/23/2023 DIABETES SCREEN due on 12/15/2025 DTAP,TDAP,TD(4 - Td or Tdap) due on 03/30/2026 BONE DENSITY Completed HEPATITIS C SCREENING Completed PNEUMOCOCCAL: 65+ Completed MAMMOGRAM Discontinued ASSESSMENT/PLAN: 1. Essential hypertension - ICD9: 401.9, ICD10: I10 (primary diagnosis) - Controlled - Continue current medications - Recommend home blood pressure monitoring, to bring results to next visit - Encouraged sodium restriction, DASH or Mediterranean diet - Recommend regular aerobic exercise - Follow up in 6 months for hypertension visit 2. Hyperlipidemia, mixed - ICD9: 272.2, ICD10: E78.2 - Controlled - Continue current medications - Counseled on healthy diet and regular exercise - Follow up in 6 months, sooner should any other issues arise. 3. Alzheimers disease (HCC) - ICD9: 331.0, ICD10: G30.9, F02.80 - stable on current medications 4. GERD without esophagitis - ICD9: 530.81, ICD10: K21.9 - stable on current medication 5. Throat clearing - ICD9: 786.09, ICD10: R09.89 - will have her try either Claritin or zyrtec OTC - follow-up if fails to improve 6. Bilateral impacted cerumen - ICD9: 380.4, ICD10: H61.23 - will have her try debrox given it appears to be dry Shruthi Podlogar, FRUIT PRESS OPERATOR.COMMERCIAL LOAN UNDERWRITER Prescription instructions reviewed with patient as applicable. Patient advised if symptoms do not improve or if symptoms worsen sooner, to contact their primary care physician. Potential red flag symptoms discussed with the patient. Reviewed appropriate action plan to take if red flag symptoms occur. Patient agreeable to treatment plan. I spent a total of 25 minutes on the date of the service which included preparing to see the patient, [id number] patient care, completing clinical documentation, obtaining and/or reviewing separately obtained history, performing a medically appropriate examination, counseling and educating the patient/family/caregiver, and ordering medications, tests, or procedures. documented in this encounter [facility] 08-31-2022 Miscellaneous Notes AGUSTIN 06/24/22 NOV 12/22/22 Chelsea Rodríguez MA Patient has been identified by name and date of : Yes Requested Prescriptions Pending Prescriptions Disp Refills sertraline (ZOLOFT) 25 mg tablet 90 tablet 1 Sig: Take 1 tablet by mouth once daily. RX INSTRUCTIONS: Patient aware RX will be sent to pharmacy. No need to notify patient. Marilia Palm documented in this encounter [facility] 08-28-2022 Miscellaneous Notes Spoke with Mildred at [facility]. Per pharmacy, when ran through insurance, medication requires prior authorization as it is non formulary. Phone call to [employer] for prior authorization as patient is out of medication and requested urgent authorization. Approved until 06/06/23 Authorization number: [id number] Pharmacy notified. Chelsea Rodríguez MA documented in this encounter [facility] 08-25-2022 Miscellaneous Notes Spoke with Mildred at [facility]. Per pharmacy, when ran through insurance, medication requires prior authorization as it is non formulary. Phone call to [employer] for prior authorization as patient is out of medication and requested urgent authorization. Approved until 06/06/23 Authorization number: [id number] Pharmacy notified. Chelsea Rodríguez MA Patient needs to have this tonight this was written only for 90 day supply with refills but it had an end date on it so it causes the pharmacy to need authorization for it to be filled. Please call the pharmacy. Patient has been identified by name and date of : Yes Requested Prescriptions Pending Prescriptions Disp Refills donepezil (ARICEPT) 23 mg tablet 90 tablet 3 Sig: Take 1 tablet by mouth daily at bedtime. RX INSTRUCTIONS: Patient aware RX will be sent to pharmacy. No need to notify patient. Chelsea Malave Pss documented in this encounter [facility] 08-17-2022 Miscellaneous Notes Pharmacy verified in [facility] Patient has been identified by name and date of : Yes Patient aware RX will be sent to pharmacy. No need to notify patient. Spouse phones for refill(s): Requested Prescriptions Pending Prescriptions Disp Refills pantoprazole DR (PROTONIX) 40 mg tablet 90 tablet 1 Sig: Take 1 tablet by mouth once daily. amLODIPine (NORVASC) 5 mg tablet 90 tablet 1 Sig: Take 1 tablet by mouth once daily. Date of last office visit : 06/24/2022 Date of next office visit : 12/22/2022 Last 2 Encounter Wt Readings: Date: Wt: 06/24/2022 51.9 kg (114 lb 6.4 oz) 06/05/2022 54.8 kg (120 lb 12.8 oz) Please advise. Ludy Carney Pss documented in this encounter [facility] 07-06-2022 Miscellaneous Notes Patient has been identified by name and date of : Yes Requested Prescriptions Pending Prescriptions Disp Refills potassium chloride ER (K-DUR, KLOR-CON) 20 mEq tablet 90 tablet 1 Sig: Take 1 tablet by mouth once daily. RX INSTRUCTIONS: Patient aware RX will be sent to pharmacy. No need to notify patient. SHAUNA Garza: 06/2022 No appointment scheduled Last refill: 01/2022 Patient's asking for 90 day supply with refills. Patient has been identified by name and date of : Yes Requested Prescriptions Pending Prescriptions Disp Refills potassium chloride ER (K-DUR, KLOR-CON) 20 mEq tablet Sig: Take 1 tablet by mouth once daily. RX INSTRUCTIONS: Patient aware RX will be sent to pharmacy. No need to notify patient. Darcy Arauz documented in this encounter [facility] 06-24-2022 History of Presen t illness Narrative 06/24/2022 Patient presents with: F/U 6 months SUBJECTIVE: This is a 77 year old, accompanied by , that is here today for Above Complaints. Since last office appointment has been in good health without ER visits or hospitalizations. Followed up with neurology in May. Recommend to increase namenda at next PCP appointment if tolerating. Per patient goes to [facility] a couple of days per week 3-4 hours. No behavioral symptoms at this time. Does sleep quite a bit and does some constant pacing during the day. Often goes to the bathroom, however unsure if this is just a behavioral thing or not. Recent urine testing normal. denies worsening of her confusion, wandering away from home or increase in right hand tremor. Uses xanax rarely when she is agitated. reports the xanax makes her sleepy. Supplementing her diet with carnation instant breakfast and an ensure daily. HTN: Patient is compliant with meds Yes Monitors bp at home: No. Denies side effects: Yes. Chest pain: No. Dyspnea: No. Edema: No. Palpitations: No. Syncope: No. Headache: No. Dizziness: No. HYPERLIPIDEMIA: Patient is taking medications: Yes. Patient is watching diet: Yes. Patient denies myalgias: Yes. Patient denies gi upset: Yes PAST MEDICAL HISTORY Diagnosis Date Allergic rhinitis, cause unspecified Allergic rhinitis Alzheimer's dementia (HCC) Carpal tunnel syndrome CHOLELITH W CHOLECYS NEC 07/04/2007 Diverticulosis of colon (without mention of hemorrhage) Esophageal reflux Family history of malignant neoplasm of gastrointestinal tract Hypertension Migraine, unspecified, with intractable migraine, so stated, without mention of status migrainosus Migraine in the past Osteopenia Other and unspecified hyperlipidemia HIGH HDL Vitamin D insufficiency ALLERGIES Calcium Channel Blockers [Other] and Sinequan [Doxepin Hcl] MEDICATIONS Current Outpatient Medications Medication Sig atorvastatin (LIPITOR) 20 mg tablet Take 1 tablet by mouth once daily. For cholesterol. donepezil (ARICEPT) 23 mg tablet Take 1 tablet by mouth daily at bedtime. memantine (NAMENDA) 5 mg tablet Take 1 tablet by mouth twice daily. sertraline (ZOLOFT) 25 mg tablet Take 1 tablet by mouth once daily. amLODIPine (NORVASC) 5 mg tablet Take 1 tablet by mouth once daily. pantoprazole DR (PROTONIX) 40 mg tablet Take 1 tablet by mouth once daily. potassium chloride ER (K-DUR, KLOR-CON) 20 mEq tablet Take 1 tablet by mouth once daily. cyanocobalamin (VITAMIN B-12) 1,000 mcg tab Take 1 tablet by mouth once daily. diclofenac (VOLTAREN ARTHRITIS PAIN) 1 % topical gel Apply 2 g to affected area four times daily. Cholecalciferol, Vitamin D3, 50 mcg (2,000 unit) cap Take by mouth. ONE DAILY MULTI-VITAMIN TAB Take one(1) tablet daily. No current facility-administered medications for this visit. Medications and allergies reviewed by this provider. SOCIAL HISTORY Social History Tobacco Use Smoking status: Never Smokeless tobacco: Never Substance Use Topics Alcohol use: No Comment: socially Drug use: No REVIEW OF SYSTEMS All other reviewed and negative other than HPI. OBJECTIVE: BP 116/70 Pulse 87 Resp 16 Wt 51.9 kg (114 lb 6.4 oz) SpO2 99% BMI 23.11 kg/m . Vital signs reviewed by this provider. APPEARANCE Well appearing, alert, in no acute distress, well-hydrated, well nourished. EYES conjunctiva and sclera normal. HEART RRR with normal S1 and S2, no murmurs, no gallops, no JVD appreciated LUNG clear to auscultation. No wheezes, rhonchi or rales SKIN Skin color, texture, turgor normal, no suspicious rashes or lesions Component Latest Ref Rng & Units 06/12/2021 Cholesterol, Total <200 mg/dL 159 Triglyceride <150 mg/dL 93 HDL Cholesterol >39 mg/dL 84 LDL Cholesterol <100 mg/dL 56 Non HDL Cholesterol <130 mg/dL 75 Fasting Time hrs 10 VLDL Cholesterol <30 mg/dL 19 TC:HDL Ratio <5.10 1.89 LDL:HDL Ratio <2.54 0.67 Component Latest Ref Rng & Units 06/17/2022 Protein, Total 6.3 - 8.0 g/dL 6.2 (L) Albumin 3.9 - 4.9 g/dL 4.1 Calcium 8.5 - 10.2 mg/dL 10.0 Bilirubin, Total 0.2 - 1.3 mg/dL 0.4 Alkaline Phosphatase 34 - 123 U/L 79 AST 13 - 35 U/L 25 ALT 7 - 38 U/L 22 Glucose 74 - 99 mg/dL 79 BUN 7 - 21 mg/dL 11 Creatinine 0.58 - 0.96 mg/dL 0.83 Sodium 136 - 144 mmol/L 142 Potassium 3.7 - 5.1 mmol/L 4.3 Chloride 97 - 105 mmol/L 105 CO2 22 - 30 mmol/L 21 (L) Anion Gap 9 - 18 mmol/L 16 eGFR >=60 mL/min/1.73m 73 Color Yellow Light Yellow Clarity Clear Clear Glucose, Urine Trace, Negative Negative Bilirubin, Urine Negative Negative Ketones, Urine Trace, Negative Negative Specific Marcus, Ur 1.005 - 1.030 1.016 Hemoglobin/Blood,Ur Negative, Trace Negative pH, Urine 5.0 - 8.0 6.0 Protein, Urine Trace, Negative Negative Urobilinogen Negative Negative Nitrites Negative Negative Leukest Negative, 25 Michelle/mL Negative WBC, Urine 0-5 /HPF 0-5 /HPF RBC, Urine 0-3 /HPF 0-3 /HPF Epithelial Cells /HPF Few SHINGRIX VACCINE(2 of 3) due on 10/29/2009 COLONOSCOPY due on 04/22/2021 ADVANCE DIRECTIVE DISCUSSION Never done DEPRESSION ASSESSMENT Never done ANNUAL PCP TEAM CHRONIC DISEASE VISIT due on 04/08/2023 BP CONTROLLED (<130/80) due on 06/05/2023 DIABETES SCREEN due on 06/17/2025 DTAP,TDAP,TD(4 - Td or Tdap) due on 03/30/2026 BONE DENSITY Completed INFLUENZA Completed HEPATITIS C SCREENING Completed COVID-19 VACCINE Completed PNEUMOCOCCAL: 65+ Completed ASSESSMENT/PLAN: 1. Alzheimer's dementia with agitation, unspecified dementia severity, unspecified timing of dementia onset (HCC) - ICD9: 331.0, 294.11, ICD10: G30.9, F02.811 (primary diagnosis) - stable at this time - will increase memantine, to call if not tolerating - MEMANTINE 10 MG TABLET - follow-up in 6 months, sooner if needed 2. Hyperlipidemia, mixed - ICD9: 272.2, ICD10: E78.2 - good control - Continue current medication. - Encouraged following a low fat, low cholesterol diet. - Encouraged following a low carbohydrate, healthy oil intake diet. 3. Primary hypertension - ICD9: 401.9, ICD10: I10 - good control - Continue current medication(s) - Encouraged dietary sodium restriction/DASH diet - Recommended regular aerobic exercise. - Recommend home blood pressure monitoring, to bring results in on next visit - Recheck in 6 months, sooner should new symptoms or problems arise. - Goal of BP <140/90 - Recommended no refined sugar, low refined starch, healthy oil intake (olive oil), healthy protein (fish) along the lines of the Mediterranean diet. Shruthi Christensen APRN.ARIA Prescription instructions reviewed with patient as applicable. Patient advised if symptoms do not improve or if symptoms worsen sooner, to contact their primary care physician. Potential red flag symptoms discussed with the patient. Reviewed appropriate action plan to take if red flag symptoms occur. Patient agreeable to treatment plan. I spent a total of 25 minutes on the date of the service which included preparing to see the patient, [id number] patient care, completing clinical documentation, obtaining and/or reviewing separately obtained history, performing a medically appropriate examination, counseling and educating the patient/family/caregiver, and ordering medications, tests, or procedures. documented in this encounter [facility] 06-18-2022 Miscellaneous Notes Patient's calls and is notified of results and provider recommendations. voices understanding. Bridgette Hurd RN Message left for patient to return call for update on results. ----- Message from Alisha Wilcox MD sent at 06/18/2022 10:03 AM EST ----- Blood and urine studies look good. Keep scheduled follow up. documented in this encounter [facility] 06-12-2022 Miscellaneous Notes Patients Elias notified. Voices understanding. Madeline Packer LPN Urine test and blood work order placed. Please let patient know. Shruthi Christensen APRN.ARIA asking provider to order lab work for patient's appt on 06-24, especially a urine test, because has alzheimer's and urine is a frequent issue. Please notify when orders are in. documented in this encounter [facility] 05-26-2022 Miscellaneous Notes AGUSTIN 04/08/22 NOV 06/24/22 Patient has been identified by name and date of : Yes Requested Prescriptions Pending Prescriptions Disp Refills atorvastatin (LIPITOR) 20 mg tablet 90 tablet 3 Sig: Take 1 tablet by mouth once daily. For cholesterol. donepezil (ARICEPT) 23 mg tablet 90 tablet 3 Sig: Take 1 tablet by mouth daily at bedtime. RX INSTRUCTIONS: Patient aware RX will be sent to pharmacy. No need to notify patient. Elizabeth Spann [employer] documented in this encounter [facility] 05-06-2022 Miscellaneous Notes Last office visit: 04/08/22 F/u scheduled: 06/24/22 Namenda does not look like it has been prescribed by PCP. Pt has appt with Neuro on 06/05/22. Xochitl German Ma Patient has been identified by name and date of : Yes Patient phones for refill(s): Requested Prescriptions No prescriptions requested or ordered in this encounter Date of last office visit in primary care: 04/08/22 Last 2 Encounter Wt Readings: Date: Wt: 02/27/2022 50.7 kg (111 lb 12.8 oz) 01/19/2022 51.4 kg (113 lb 6.4 oz) Previous labs/tests for medication: Not applicable Please advise. Thank you. Anjelica Lopez documented in this encounter [facility] 04-08-2022 History of Presen t illness Narrative Chief Complaint Patient presents with: Recheck: Medication review/follow up HPI Crissy Philippe is a 76 year old female with PMH: alzheimer's dementia who presents here today for Above Complaints. Accompanied today by who is providing majority of the history. States that they have weaned her off of her haldol with last dose on 04/04 due to tremor in her right hand, but symptoms have not improved. Without the haldol, she has been more agitated and is having difficult time caring for her at home. Right hand tremors at rest. Slowed in her speech and with ambulation. Does not have postural instability. Has lip smacking which has been going on about 2 months and worsening. Past medical history, appointments, medications, allergies reviewed. Previous Medical History PAST MEDICAL HISTORY Diagnosis Date Allergic rhinitis, cause unspecified Allergic rhinitis Alzheimer's dementia (HCC) Carpal tunnel syndrome CHOLELITH W CHOLECYS NEC 07/04/2007 Diverticulosis of colon (without mention of hemorrhage) Esophageal reflux Family history of malignant neoplasm of gastrointestinal tract Hypertension Migraine, unspecified, with intractable migraine, so stated, without mention of status migrainosus Migraine in the past Osteopenia Other and unspecified hyperlipidemia HIGH HDL Vitamin D insufficiency Previous Surgical History PAST SURGICAL HISTORY Procedure Laterality Date COLONOSCOPY FLX DX W/COLLJ SPEC WHEN PFRMD 05/24/03 Colonoscopy COLONOSCOPY FLX DX W/COLLJ SPEC WHEN PFRMD 09/13/09 COLONOSCOPY FLX DX W/COLLJ SPEC WHEN PFRMD 03/25/2015 Colonoscopy COLONOSCOPY FLX DX W/COLLJ SPEC WHEN PFRMD 04/22/2020 Colonoscopy repeat in 1 year ESOPHAGOGASTRODUODENOSCOPY TRANSORAL DIAGNOSTIC 04/22/2020 EGD repeat in 5 years LAPS SURG CHOLECYSTECTOMY W/CHOLANGIOGRAPHY 06/21/07 NEUROPLASTY &/TRANSPOS MEDIAN NRV CARPAL TUNNE 10/08/2005 Carpal tunnel decomp Right NEUROPLASTY &/TRANSPOS MEDIAN NRV CARPAL TUNNE 10/29/2005 Carpal tunnel decomp Left TONSILLECTOMY PRIMARY/SECONDARY <AGE 13 Tonsillectomy Family History FAMILY HISTORY Problem Relation Age of Onset Cancer Mother LUNG passed from this that went to her brain and spine. Diabetes Father Colon Cancer Father Hypertension Father Patient Allergies ALLERGIES Allergen Reactions Calcium Channel Blo* Sinequan [Doxepin H* Shortness of Breath Current Medications Current Outpatient Medications on File Prior to Visit Medication Sig sertraline (ZOLOFT) 25 mg tablet Take 1 tablet by mouth once daily. donepezil (ARICEPT) 23 mg tablet Take 1 tablet by mouth daily at bedtime. amLODIPine (NORVASC) 5 mg tablet Take 1 tablet by mouth once daily. pantoprazole DR (PROTONIX) 40 mg tablet Take 1 tablet by mouth once daily. haloperidol (HALDOL) 1 mg tablet Take one tablet twice a day as needed for severe agitation potassium chloride ER (K-DUR, KLOR-CON) 20 mEq tablet Take 1 tablet by mouth once daily. atorvastatin (LIPITOR) 20 mg tablet Take 1 tablet by mouth once daily. For cholesterol. cyanocobalamin (VITAMIN B-12) 1,000 mcg tab Take 1 tablet by mouth once daily. diclofenac (VOLTAREN ARTHRITIS PAIN) 1 % topical gel Apply 2 g to affected area four times daily. Cholecalciferol, Vitamin D3, 50 mcg (2,000 unit) cap Take by mouth. ONE DAILY MULTI-VITAMIN TAB Take one(1) tablet daily. No current facility-administered medications on file prior to visit. Social History Social History Tobacco Use Smoking status: Never Smokeless tobacco: Never Substance Use Topics Alcohol use: No Comment: socially Drug use: No Review of Symptoms REVIEW OF SYSTEMS GENERAL: No weight loss, malaise or fevers RESPIRATORY: Negative for cough, hemoptysis, wheezing, COPD, dyspnea or shortness of breath CARDIOVASCULAR: Negative for chest pain, leg swelling, hypertension, CHF or palpitations GI: No nausea, vomiting, or diarrhea SKIN: Negative for lesions, rash, and itching NEURO: SEE HPI EXAM: BP 120/82 Pulse 89 Resp 18 SpO2 97% General Appearance: Well appearing, alert, in no acute distress, well-hydrated, well nourished.. Skin: Skin color, texture, turgor normal, no suspicious rashes or lesions. Lungs: Lungs clear to auscultation. No wheezing, rhonchi, rales.. Heart: RRR without murmur, gallop, or rubs. No ectopy. Abdomen: Normal abdominal exam, Abdomen soft, non-tender. Bowel sounds normal. No masses, organomegaly. Extremities: No deformities, edema, skin discoloration, clubbing or cyanosis. Good capillary refill. . Neurologic: Negative findings: cranial nerves 2-12 intact, muscle tone normal, muscle strength normal, sensation to light touch and pinprick normal, reflexes normal and symmetric, Positive findings: Chronic memory impairment with confusion today. Tries to leave room several times and has to be reoriented. Difficulty with finger to nose due to confusion. Tardive dyskinesia with lip smacking. Pill rolling tremor in right hand. Mild cogwheel rigidity. Slowed gait and speech without postural instability. Health Maintenance List SHINGRIX VACCINE(2 of 3) due on 10/29/2009 COLORECTAL CANCER SCREENING due on 04/22/2021 ADVANCE DIRECTIVE DISCUSSION Never done DEPRESSION ASSESSMENT Never done ANNUAL PCP TEAM CHRONIC DISEASE VISIT due on 02/27/2023 BP CONTROLLED (<130/80) due on 02/27/2023 DIABETES SCREEN due on 02/06/2025 DTAP,TDAP,TD(4 - Td or Tdap) due on 03/30/2026 LIPID SCREEN due on 06/12/2026 BONE DENSITY Completed INFLUENZA Completed HEPATITIS C SCREENING Completed COVID-19 VACCINE Completed PNEUMOCOCCAL: 65+ Completed ASSESSMENT/PLAN: 1. Drug-induced parkinsonism (HCC) - ICD9: 332.1, E980.5, ICD10: G21.19 (primary diagnosis) 2/2 Haldol use. Will discontinue haldol and have patient follow up with neurology as scheduled. Will give low dose xanax for PRN use for agitation. Discussed with that this is not typically what we prescribe, but she is already on Aricept for dementia and zoloft for depression which has not helped with the agitation. Discussed risks of this medication including increased risk for falls, lethargy, potential of overdose/withdrawal. - ALPRAZOLAM 0.5 MG TABLET 2. Agitation - ICD9: 307.9, ICD10: R45.1 See above. asking if now would be appropriate for jail for patient. Advised she has worsening confusion and behavioral changes and would look into [facility] locally for their safety. - ALPRAZOLAM 0.5 MG TABLET 3. Alzheimers disease (HCC) - ICD9: 331.0, ICD10: G30.9, F02.80 See above. I spent a total of 45 minutes on the date of the service which included preparing to see the patient, [id number] patient care, completing clinical documentation, obtaining and/or reviewing separately obtained history, performing a medically appropriate examination, counseling and educating the patient/family/caregiver, and ordering medications, tests, or procedures. Alisha Wilcox MD documented in this encounter [facility] 03-02-2022 Miscellaneous Notes Patient has been identified by name and date of : Yes Patient phones for refill(s): Requested Prescriptions Pending Prescriptions Disp Refills sertraline (ZOLOFT) 25 mg tablet 90 tablet 1 Sig: Take 1 tablet by mouth once daily. Date of last office visit in primary care: 02/27/22 next apt 06/24/22 Last 2 Encounter Wt Readings: Date: Wt: 02/27/2022 50.7 kg (111 lb 12.8 oz) 01/19/2022 51.4 kg (113 lb 6.4 oz) Previous labs/tests for medication: Not applicable Thank you. Gabriela Stauffer LPN Patient has been identified by name and date of : Yes Spouse phones for refill(s): Requested Prescriptions Pending Prescriptions Disp Refills sertraline (ZOLOFT) 25 mg tablet 90 tablet 1 Sig: Take 1 tablet by mouth once daily. Date of last office visit in primary care: 02/27/22 Last 2 Encounter Wt Readings: Date: Wt: 02/27/2022 50.7 kg (111 lb 12.8 oz) 01/19/2022 51.4 kg (113 lb 6.4 oz) Previous labs/tests for medication: Not applicable Please advise. Thank you. Anjelica Lopez documented in this encounter [facility] 03-02-2022 Miscellaneous Notes Reviewed. Shruthi Christensen APRN.ARIA telephoned. Made aware. Voices understanding. States he has only been giving her one once a day in the evening. Spoke with Vikram Christensen on telephone. Discussed weaning patient off medication and the risks/benefits of medication. Spouse prefers to keep appointment with Dr. Hanks at this time unless something gets worse with her symptoms and then he will schedule with [facility]. Madeline Packer LPN I am glad this helps with her agitation but may be the cause of her tremors. I wanted her to see [facility] so this was not scheduled correctly. Please assist on getting this scheduled correctly. Shruthi Christensen APRN.CNP telephoned. States Haldol is being given twice daily. Agitation has decreased 90%; very few times does she get agitated anymore. had a question regarding Neurology. He thought you had said [facility] but wasn't sure where or with whom and then the front office agent recommended Dr. Hanks in office. wondering if you suggested [facility] for something specific with her case? Can't see Latonya until Jun 05. Madeline Packer LPN Please call and let him know haldol could be the cause of Crissy's tremors. How often is he giving this to her? Shruthi Christensen APRN.ARIA documented in this encounter [facility] 02-27-2022 History of Presen t illness Narrative 02/27/2022 Patient presents with: Shakiness: Increase in bilateral hands SUBJECTIVE: This is a 76 year old that is here today for Above Complaints.. noticing right hand shaking which worses when she goes to eat or drink. Thinks her gait is shuffling. Sometimes she bounce her legs. Interested in possibly medication for this. Memory and mood about the same. PAST MEDICAL HISTORY Diagnosis Date Allergic rhinitis, cause unspecified Allergic rhinitis Alzheimer's dementia (HCC) Carpal tunnel syndrome CHOLELITH W CHOLECYS NEC 07/04/2007 Diverticulosis of colon (without mention of hemorrhage) Esophageal reflux Family history of malignant neoplasm of gastrointestinal tract Hypertension Migraine, unspecified, with intractable migraine, so stated, without mention of status migrainosus Migraine in the past Osteopenia Other and unspecified hyperlipidemia HIGH HDL Vitamin D insufficiency ALLERGIES Calcium Channel Blockers [Other] and Sinequan [Doxepin Hcl] MEDICATIONS Current Outpatient Medications Medication Sig donepezil (ARICEPT) 23 mg tablet Take 1 tablet by mouth daily at bedtime. memantine (NAMENDA) 5 mg tablet Take 1 tablet by mouth twice daily. amLODIPine (NORVASC) 5 mg tablet Take 1 tablet by mouth once daily. pantoprazole DR (PROTONIX) 40 mg tablet Take 1 tablet by mouth once daily. haloperidol (HALDOL) 1 mg tablet Take one tablet twice a day as needed for severe agitation potassium chloride ER (K-DUR, KLOR-CON) 20 mEq tablet Take 1 tablet by mouth once daily. atorvastatin (LIPITOR) 20 mg tablet Take 1 tablet by mouth once daily. For cholesterol. sertraline (ZOLOFT) 25 mg tablet Take 1 tablet by mouth once daily. cyanocobalamin (VITAMIN B-12) 1,000 mcg tab Take 1 tablet by mouth once daily. diclofenac (VOLTAREN ARTHRITIS PAIN) 1 % topical gel Apply 2 g to affected area four times daily. Cholecalciferol, Vitamin D3, 50 mcg (2,000 unit) cap Take by mouth. ONE DAILY MULTI-VITAMIN TAB Take one(1) tablet daily. No current facility-administered medications for this visit. Medications and allergies reviewed by this provider. SOCIAL HISTORY Social History Tobacco Use Smoking status: Never Smokeless tobacco: Never Substance Use Topics Alcohol use: No Comment: socially Drug use: No REVIEW OF SYSTEMS All other reviewed and negative other than HPI. OBJECTIVE: BP 120/64 Pulse 84 Resp 18 Wt 50.7 kg (111 lb 12.8 oz) SpO2 98% BMI 22.58 kg/m . Vital signs reviewed by this provider. APPEARANCE Well appearing, alert, in no acute distress, well-hydrated, well nourished. EYES PERRLA, conjunctiva and sclera normal. HEART RRR with normal S1 and S2, no murmurs, no gallops, no JVD appreciated LUNG clear to auscultation EXTREMITIES Extremities normal, No deformities, No skin discoloration, and No edema NEURO Awake, alert and oriented x 3, Cranial nerves II-XII grossly intact, Reflexes symmetrical and 3/4 knee jerk, Normal gait, negative findings: speech normal, muscle tone normal, muscle strength normal, rapid alternating movements normal, finger to nose normal, plantar response downgoing bilaterally, and positive findings: resting tremor to right hand and Mild cog wheeling bilaterally arm more so on right than left SKIN Skin color, texture, turgor normal, no suspicious rashes or lesions to exposed skin SHINGRIX VACCINE(2 of 3) due on 10/29/2009 DEPRESSION SCREENING due on 09/16/2019 COLORECTAL CANCER SCREENING due on 04/22/2021 ADVANCE DIRECTIVE DISCUSSION Never done COVID-19 VACCINE(4 - Booster for Moderna series) due on 07/02/2021 ANNUAL PCP TEAM CHRONIC DISEASE VISIT due on 02/27/2023 BP CONTROLLED (<130/80) due on 02/27/2023 DIABETES SCREEN due on 02/06/2025 DTAP,TDAP,TD(4 - Td or Tdap) due on 03/30/2026 LIPID SCREEN due on 06/12/2026 BONE DENSITY Completed INFLUENZA Completed HEPATITIS C SCREENING Completed PNEUMOCOCCAL: 65+ Completed ASSESSMENT/PLAN: 1. Tremor of right hand - ICD9: 781.0, ICD10: R25.1 (primary diagnosis) - consider parkinson vs Lewy body dementia vs essential vs related to SSRI or halodol - no red flag symptoms or exam findings - red symptoms discussed, verbalizes understanding - CONSULT TO NEUROLOGY 2. Alzheimers disease (HCC) - ICD9: 331.0, ICD10: G30.9, F02.80 - plan as in #1 - CONSULT TO NEUROLOGY 3. Encounter for immunization - ICD9: V03.89, ICD10: Z23 - INFLUENZA SEASONAL QUADRIVALENT HIGH DOSE AGE 65+ Shruthi Christensen APRN.ARIA Prescription instructions reviewed with patient as applicable. Patient advised if symptoms do not improve or if symptoms worsen sooner, to contact their primary care physician. Potential red flag symptoms discussed with the patient. Reviewed appropriate action plan to take if red flag symptoms occur. Patient agreeable to treatment plan. I spent a total of 30 minutes on the date of the service which included preparing to see the patient, [id number] patient care, completing clinical documentation, obtaining and/or reviewing separately obtained history, performing a medically appropriate examination, counseling and educating the patient/family/caregiver, and ordering medications, tests, or procedures. documented in this encounter [facility] 02-25-2022 Miscellaneous Notes Appointment changed to 40 minutes. Madeline Packer LPN Yes 40 would be better for her. Shruthi Christensen APRN.ARIA Patients telephoned. Agreeable to an appointment. Scheduled for Wednesday at 11am for 20 minutes. Would you prefer this be 40 minutes instead? Madeline Packer LPN We did briefly touch on this at her last visit but I need to see her in the office so we can do a full assessment regarding this. Shruthi Christensen APRN.ARIA Patient's calls and states that he told staff that patient shakes like she has parkinson's, not that she has parkinson's. Patient has alzheimer's. Pharmacist had told him that there are several different medications can help patient with her shakiness. Please review and advise, Bridgette Hurd RN TC to pt spouse, Raymond, left message to return call to office. Sy Harris LPN Did they see someone who diagnosed her with parkinson because I don't see a diagnosis on her chart for this. Shruthi Christensen APRN.ARIA Patient spouse, Raymond,is asking for a prescription that will not interfere with her other medications patient currently takes which will address patient shakiness from her Parkinson, she is having problems holding the fork and getting food to stay on that fork until it gets in her mouth. If so, please send to [facility] in [place], call Raymond, patient spouse, at [phone] to advise Electronically signed by Elizabeth Spann [facility] [place] at 02/24/2022 1:06 PM EDT documented in this encounter [facility] 02-23-2022 Miscellaneous Notes Last office visit: 01/19/22 F/u scheduled: 06/24/22 Xochitl German Ma Patient's is also requesting refill of memantine; not on current med list. Please advise if patient should still be taking it, . Patient has been identified by name and date of : Yes Requested Prescriptions Pending Prescriptions Disp Refills donepezil (ARICEPT) 23 mg tablet 90 tablet 0 Sig: Take 1 tablet by mouth daily at bedtime. RX INSTRUCTIONS: Patient requesting a call when RX is approved and sent to the pharmacy. Please call patient at: [phone] Darcy Arauz documented in this encounter [facility] 01-20-2022 Miscellaneous Notes Thanks for your help. Shruthi Sw spoke with patient spouse regarding [facility] and other senior service support information for patient. Sw noted location of [facility] and pricing. Sw noted that she has had patients go there 1/2 or full days. Spouse notes that he is the only person local taking care of patient. Daughter lives in [place]. Spouse notes that they have jail care policy. Not sure if the policy works for only [facility] facilities and or assisted living facilities. Spouse reports that he has appt next week with his tank cleaning supervisor. Sw encouraged spouse to discuss advance care planning with tank cleaning supervisor. Spouse reports that he will also check out [facility]. Spouse would like to see if it could be an option for patient to go to during the day, so spouse can do grocery shopping or other chores. Spouse has Sw direct number if after going to [facility] and speaking with tank cleaning supervisor has other questions. documented in this encounter [facility] 01-19-2022 History of Presen t illness Narrative 01/19/2022 Patient presents with: Urinary Frequency: X 3 days SUBJECTIVE: This is a 76 year old, accompanied by , that is here today for Above Complaints. For the last three days has had urinary frequency and had an episode of urinary incontinence. Denies fevers, chills, increased thirst, abdominal pain, nausea, dysuria, or hematuria. Component Latest Ref Rng & Units 01/19/2022 GLUCOSE UA (POCT) Negative mg/dL Negative BILIRUBIN UA (POCT) Negative Negative KETONE UA (POCT) Negative mg/dL Trace SPECIFIC GRAVITY UA (POCT) 1.005 - 1.030 1.025 HEMOGLOBIN/BLOOD UA (POCT) Negative Negative PH UA (POCT) 4.5 - 8.0 6.0 PROTEIN UA (POCT) Negative mg/dL Trace (A) UROBILINOGEN UA (POCT) Normal E.U./dL 0.2 NITRITE UA (POCT) Negative Negative LEUKOCYTES UA (POCT) Negative Negative COLOR UA (POCT) Dark yellow CLARITY UA (POCT) Clear PAST MEDICAL HISTORY Diagnosis Date Allergic rhinitis, cause unspecified Allergic rhinitis Alzheimer's dementia (HCC) Carpal tunnel syndrome CHOLELITH W CHOLECYS NEC 07/04/2007 Diverticulosis of colon (without mention of hemorrhage) Esophageal reflux Family history of malignant neoplasm of gastrointestinal tract Hypertension Migraine, unspecified, with intractable migraine, so stated, without mention of status migrainosus Migraine in the past Osteopenia Other and unspecified hyperlipidemia HIGH HDL Vitamin D insufficiency ALLERGIES Calcium Channel Blockers [Other] and Sinequan [Doxepin Hcl] MEDICATIONS Current Outpatient Medications Medication Sig amLODIPine (NORVASC) 5 mg tablet Take 1 tablet by mouth once daily. pantoprazole DR (PROTONIX) 40 mg tablet Take 1 tablet by mouth once daily. haloperidol (HALDOL) 1 mg tablet Take one tablet twice a day as needed for severe agitation potassium chloride ER (K-DUR, KLOR-CON) 20 mEq tablet Take 1 tablet by mouth once daily. memantine (NAMENDA) 5 mg tablet Take 1 tablet by mouth twice daily. donepezil (ARICEPT) 23 mg tablet Take 1 tablet by mouth daily at bedtime. atorvastatin (LIPITOR) 20 mg tablet Take 1 tablet by mouth once daily. For cholesterol. sertraline (ZOLOFT) 25 mg tablet Take 1 tablet by mouth once daily. cyanocobalamin (VITAMIN B-12) 1,000 mcg tab Take 1 tablet by mouth once daily. diclofenac (VOLTAREN ARTHRITIS PAIN) 1 % topical gel Apply 2 g to affected area four times daily. Cholecalciferol, Vitamin D3, (VITAMIN D-3) 2,000 unit cap Take by mouth. ONE DAILY MULTI-VITAMIN TAB Take one(1) tablet daily. No current facility-administered medications for this visit. Medications and allergies reviewed by this provider. SOCIAL HISTORY Social History Tobacco Use Smoking status: Never Smokeless tobacco: Never Substance Use Topics Alcohol use: No Comment: socially Drug use: No REVIEW OF SYSTEMS All other reviewed and negative other than HPI. OBJECTIVE: BP 110/76 Pulse 101 Temp 36.7 C (98 F) Resp 16 Wt 51.4 kg (113 lb 6.4 oz) SpO2 96% BMI 22.90 kg/m . Vital signs reviewed by this provider. APPEARANCE Well appearing, alert, in no acute distress, well-hydrated, well nourished. ABDOMEN no tenderness to palpation BACK: no pain to palpation SHINGRIX VACCINE(2 of 3) due on 10/29/2009 DEPRESSION SCREENING due on 09/16/2019 COLORECTAL CANCER SCREENING due on 04/22/2021 ADVANCE DIRECTIVE DISCUSSION Never done COVID-19 VACCINE(4 - Booster for Moderna series) due on 09/05/2021 INFLUENZA(1) due on 02/05/2022 ANNUAL PCP TEAM CHRONIC DISEASE VISIT due on 01/19/2023 BP CONTROLLED (<130/80) due on 01/19/2023 DIABETES SCREEN due on 12/22/2024 DTAP,TDAP,TD(4 - Td or Tdap) due on 03/30/2026 LIPID SCREEN due on 06/12/2026 BONE DENSITY Completed HEPATITIS C SCREENING Completed PNEUMOCOCCAL: 65+ Completed ASSESSMENT/PLAN: 1. Urinary frequency - ICD9: 788.41, ICD10: R35.0 (primary diagnosis) - essentially normal UA today aside from trace protein - low suspicion for UTI - no red flag symptoms or exam findings - red flag symptoms discussed, verbalizes understanding - recommend she decrease caffeine intake and said she does like to drink a lot of pepsi - UA DIP, URINE (POC) - HGB A1C - possibly related to the addition of namenda at last visit in December. Discussed with maybe stopping it to see if it improve. He does not want to do this - follow-up pending culture, if persists can discuss medication for OAB vs urology consult 2. Urinary incontinence, unspecified type - ICD9: 788.30, ICD10: R32 - plan as in #1 - UA DIP, URINE (POC) - URINE CULTURE 3. Elevated blood sugar - ICD9: 790.29, ICD10: R73.9 - HGB A1C 4. Alzheimers disease (HCC) - ICD9: 331.0, ICD10: G30.9, F02.80 - will have social work reach out to to discuss possible options for placement or possible [facility] - [facility] [CONSULT TO SOCIAL WORK] - continue current medications Shruthi Christensen APRN.CNP Prescription instructions reviewed with patient as applicable. Patient advised if symptoms do not improve or if symptoms worsen sooner, to contact their primary care physician. Potential red flag symptoms discussed with the patient. Reviewed appropriate action plan to take if red flag symptoms occur. Patient agreeable to treatment plan. I spent a total of 25 minutes on the date of the service which included preparing to see the patient, [id number] patient care, completing clinical documentation, obtaining and/or reviewing separately obtained history, performing a medically appropriate examination, counseling and educating the patient/family/caregiver, and ordering medications, tests, or procedures. documented in this encounter [facility] 01-19-2022 Miscellaneous Notes Patient calls and reports that patient has been having a lot of urinary frequency. Patient has been going to the bathroom every half hour. Patient has been wetting the bed at night. Patient has not complained to about burning. set up appointment with Shruthi to discuss this today 01/19/2022. Patient spouse , Elias is calling to ask if patient will need an appointment to discuss her wetting the bed that started on night. He wonders if she will need an appointment with PCP or will blood work need to be drawn, or what should he do? Please call Elias to discuss at [phone] Thank you documented in this encounter [facility] 01-19-2022 Miscellaneous Notes Patient has been identified by name and date of : Yes Requested Prescriptions Pending Prescriptions Disp Refills amLODIPine (NORVASC) 5 mg tablet 90 tablet 1 Sig: Take 1 tablet by mouth once daily. pantoprazole DR (PROTONIX) 40 mg tablet 90 tablet 1 Sig: Take 1 tablet by mouth once daily. haloperidol (HALDOL) 1 mg tablet 60 tablet 1 Sig: Take one tablet twice a day as needed for severe agitation RX INSTRUCTIONS: Patient aware RX will be sent to pharmacy. No need to notify patient. Marlene Díaz MA Agustin: 12/2021 Nov: 06/2022 Patient has been identified by name and date of : Yes Requested Prescriptions Pending Prescriptions Disp Refills amLODIPine (NORVASC) 5 mg tablet 90 tablet 1 Sig: Take 1 tablet by mouth once daily. pantoprazole DR (PROTONIX) 40 mg tablet 90 tablet 1 Sig: Take 1 tablet by mouth once daily. haloperidol (HALDOL) 1 mg tablet 60 tablet 1 Sig: Take one tablet twice a day as needed for severe agitation RX INSTRUCTIONS: Patient aware RX will be sent to pharmacy. No need to notify patient. Elizabeth Sedinger [employer] documented in this encounter [facility] 01-07-2022 Miscellaneous Notes Pts called and is notified of providers results and instructions. He voices understanding. Marge Johnston RN Please call and let him know potassium has increased some, however I recommend we increase her supplement to 20 meq daily. I will send in new prescription so she will just need to take one daily. Recheck level in one month. Order placed. Thanks, Shruthi Christensen APRN.ARIA documented in this encounter [facility] 12-23-2021 Miscellaneous Notes Elias notified of message below. Voices understanding. Madeline Packer LPN Please call and let him know Crissy's potasium is low. Looks like she has low potassium regularly and with her diet not as good I will send over supplement for her to take daily. Recheck level in 2 weeks. See if he can get 1-2 ensure into her between meals to maintain weight. Thanks, Shruthi Christensen APRN.ARIA documented in this encounter [facility] 12-22-2021 Miscellaneous Notes Labs ordered for upcoming appointment. documented in this encounter [facility] 07-04-2021 Note [facility] Medical Records Department [address] [place] [address] History Physical Exam 07/04/21 1732 MR#: [id number] Acct: [id number] Name: CRISSY PHILIPPE Rep #: [id number] : 1945 76 From: Christian Aldana MD PCP: Dr. Jed Wilcox MD Status:[facility] Location: [place] [address] HPI - General HPI Narrative CRISSY PHILIPPE, is a 76 F who presents for treatment of a left kidney stone PFSH Medical History (Updated 07/03/21 @ 12:20 by Nae Adams) Alzheimer disease Gastric reflux Hypertension Home Medications Vitamin D3 1,000 unit PO DAILY 07/23/18 [History Last Taken Unknown] amlodipine 1 tab PO DAILY 07/23/18 [History Last Taken 07/04/21] calcium carbonate-vitamin D3 1 tab PO DAILY 07/23/18 [History Last Taken 07/04/21] cyanocobalamin (vitamin B-12) 1,000 mcg PO DAILY 07/23/18 [History Last Taken 07/04/21] multivitamin [Daily Multiple] 1 ea PO DAILY 07/23/18 [History Last Taken 07/04/21] atorvastatin 20 mg PO DAILY 07/01/21 [History Last Taken Unknown] donepezil [Aricept] 23 mg PO DAILY 07/01/21 [History Last Taken Unknown] hydrocodone-acetaminophen 1 tab PO Q6H PRN PRN 3 Days #10 tablet 07/01/21 [Rx Last Taken 07/04/21] pantoprazole 40 mg PO DAILY 07/01/21 [History Last Taken 07/04/21] sertraline [Zoloft] 25 mg PO DAILY 07/01/21 [History Last Taken 07/04/21] cephalexin 500 mg PO BID #10 cap 07/04/21 [Rx Last Taken Unknown] Allergy/AdvReac Type Severity Reaction Status Date / Time Calcium Channel Blocking Allergy PT UNSURE Verified 07/04/21 15:57 Agent Dilt OF REACTION doxepin [From Sinequan] Allergy PT UNSURE Verified 07/04/21 15:57 OF REACTION Surgical History (Updated 07/01/21 @ 18:[address] Jacky Morfin DO) History of carpal tunnel surgery Hx of cholecystectomy Social History Smoking Status: Never smoker Vital Signs Vital Signs Vital Signs: 07/04/21 15:59 Temperature 97 F L Temperature Source Temporal Pulse Rate 113 H Respiratory Rate 16 Respiratory Pattern Normal Blood Pressure 121/77 H Blood Pressure Mean 91 Blood Pressure Source Monitor Blood Pressure Position Sitting Blood Pressure Location Left Arm Pulse Ox 98 Oxygen Delivery Method Room Air Weight Weight: 53.9 kg Body Mass Index (BMI) 24.0 Results Lab / Micro Data Result Diagrams: 07/04/21 15:56 Labs: Laboratory Results - last 24 hr 07/04/21 15:56: Potassium 3.2 L Radiology Impression KUB X-Ray 07/04/21 15:09 IMPRESSION: Stable left ureterolithiasis Electronically Signed: Brijesh Verdugo MD at 16:30 EST , 07/04/21 0246 Cosigner Signature (if applicable): CC: Dr. Jed Wilcox MD; Dr. Christian Aldana MD Signed [facility] 08-28-2020 History of Presen t illness Narrative Radiology Service Progress Note PATIENT NAME: Crissy Philippe DATE OF SERVICE: August 28, 2020 TIME: 1:00 PM PATIENT IDENTITY VERIFICATION COMPLETED USING TWO (2) IDENTIFIERS: Name and Date of confirmed by patient verbally. FALL SCREENING: Has the patient had 2 falls in the last year or 1 fall with injury or currently using an Ambulatory Assistive Device (Walker, Cane, Wheelchair, Crutches, etc.)? No PATIENT GENDER DATA: Female. status: : No status: NO. PATIENT RELEVANT IMPLANT DATA REVIEWED: Yes RADIOLOGY DEPARTMENT: General X-ray: Exam(s) Completed: Upper Extremity X-Ray(s): Hand, left : PERIPHERAL IV DATA: Not applicable SIGNED BY: RT Yovani August 28, 2020 1:00 PM documented in this encounter [facility] 01-18-2008 History of Past i llness Narrative Problem Noted Date Resolved Date MASS IN BREAST 01/18/2008 12/04/2014 Calculus of gallbladder with other cholecystitis, without mention of obstruction 07/04/2007 12/04/2014 Lesion of ulnar nerve 10/08/2005 11/30/2005 Migraine, unspecified, with intractable migraine, so stated, without mention of status migrainosus 12/04/2014 Overview: Migraine Carpal tunnel syndrome 6 documented as of this encounter (statuses as of 12/22/2021) [facility] History of Past illness Narrative* Problem Noted Date Resolved Date MASS IN BREAST 01/18/2008 12/04/2014 Calculus of gallbladder with other cholecystitis, without mention of obstruction 07/04/2007 12/04/2014 Lesion of ulnar nerve 10/08/2005 11/30/2005 Migraine, unspecified, with intractable migraine, so stated, without mention of status migrainosus 12/04/2014 Overview: Migraine Carpal tunnel syndrome 6 documented as of this encounter (statuses as of 12/23/2021) [facility] History of Past illness Narrative* Problem Noted Date Resolved Date MASS IN BREAST 01/18/2008 12/04/2014 Calculus of gallbladder with other cholecystitis, without mention of obstruction 07/04/2007 12/04/2014 Lesion of ulnar nerve 10/08/2005 11/30/2005 Migraine, unspecified, with intractable migraine, so stated, without mention of status migrainosus 12/04/2014 Overview: Migraine Carpal tunnel syndrome 6 documented as of this encounter (statuses as of 01/07/2022) [facility] History of Past illness Narrative* Problem Noted Date Resolved Date MASS IN BREAST 01/18/2008 12/04/2014 Calculus of gallbladder with other cholecystitis, without mention of obstruction 07/04/2007 12/04/2014 Lesion of ulnar nerve 10/08/2005 11/30/2005 Migraine, unspecified, with intractable migraine, so stated, without mention of status migrainosus 12/04/2014 Overview: Migraine Carpal tunnel syndrome 6 documented as of this encounter (statuses as of 01/19/2022) [facility] History of Past illness Narrative* Problem Noted Date Resolved Date MASS IN BREAST 01/18/2008 12/04/2014 Calculus of gallbladder with other cholecystitis, without mention of obstruction 07/04/2007 12/04/2014 Lesion of ulnar nerve 10/08/2005 11/30/2005 Migraine, unspecified, with intractable migraine, so stated, without mention of status migrainosus 12/04/2014 Overview: Migraine Carpal tunnel syndrome 6 documented as of this encounter (statuses as of 01/19/2022) [facility] History of Past illness Narrative* Problem Noted Date Resolved Date MASS IN BREAST 01/18/2008 12/04/2014 Calculus of gallbladder with other cholecystitis, without mention of obstruction 07/04/2007 12/04/2014 Lesion of ulnar nerve 10/08/2005 11/30/2005 Migraine, unspecified, with intractable migraine, so stated, without mention of status migrainosus 12/04/2014 Overview: Migraine Carpal tunnel syndrome 6 documented as of this encounter (statuses as of 01/19/2022) [facility] History of Past illness Narrative* Problem Noted Date Resolved Date MASS IN BREAST 01/18/2008 12/04/2014 Calculus of gallbladder with other cholecystitis, without mention of obstruction 07/04/2007 12/04/2014 Lesion of ulnar nerve 10/08/2005 11/30/2005 Migraine, unspecified, with intractable migraine, so stated, without mention of status migrainosus 12/04/2014 Overview: Migraine Carpal tunnel syndrome 6 documented as of this encounter (statuses as of 01/20/2022) [facility] History of Past illness Narrative* Problem Noted Date Resolved Date MASS IN BREAST 01/18/2008 12/04/2014 Calculus of gallbladder with other cholecystitis, without mention of obstruction 07/04/2007 12/04/2014 Lesion of ulnar nerve 10/08/2005 11/30/2005 Migraine, unspecified, with intractable migraine, so stated, without mention of status migrainosus 12/04/2014 Overview: Migraine Carpal tunnel syndrome 6 documented as of this encounter (statuses as of 02/23/2022) [facility] History of Past illness Narrative* Problem Noted Date Resolved Date MASS IN BREAST 01/18/2008 12/04/2014 Calculus of gallbladder with other cholecystitis, without mention of obstruction 07/04/2007 12/04/2014 Lesion of ulnar nerve 10/08/2005 11/30/2005 Migraine, unspecified, with intractable migraine, so stated, without mention of status migrainosus 12/04/2014 Overview: Migraine Carpal tunnel syndrome 6 documented as of this encounter (statuses as of 02/25/2022) [facility] History of Past illness Narrative* Problem Noted Date Resolved Date MASS IN BREAST 01/18/2008 12/04/2014 Calculus of gallbladder with other cholecystitis, without mention of obstruction 07/04/2007 12/04/2014 Lesion of ulnar nerve 10/08/2005 11/30/2005 Migraine, unspecified, with intractable migraine, so stated, without mention of status migrainosus 12/04/2014 Overview: Migraine Carpal tunnel syndrome 6 documented as of this encounter (statuses as of 03/01/2022) [facility] History of Past illness Narrative* Problem Noted Date Resolved Date MASS IN BREAST 01/18/2008 12/04/2014 Calculus of gallbladder with other cholecystitis, without mention of obstruction 07/04/2007 12/04/2014 Lesion of ulnar nerve 10/08/2005 11/30/2005 Migraine, unspecified, with intractable migraine, so stated, without mention of status migrainosus 12/04/2014 Overview: Migraine Carpal tunnel syndrome 6 documented as of this encounter (statuses as of 03/02/2022) [facility] History of Past illness Narrative* Problem Noted Date Resolved Date MASS IN BREAST 01/18/2008 12/04/2014 Calculus of gallbladder with other cholecystitis, without mention of obstruction 07/04/2007 12/04/2014 Lesion of ulnar nerve 10/08/2005 11/30/2005 Migraine, unspecified, with intractable migraine, so stated, without mention of status migrainosus 12/04/2014 Overview: Migraine Carpal tunnel syndrome 6 documented as of this encounter (statuses as of 03/06/2022) [facility] History of Past illness Narrative* Problem Noted Date Resolved Date MASS IN BREAST 01/18/2008 12/04/2014 Calculus of gallbladder with other cholecystitis, without mention of obstruction 07/04/2007 12/04/2014 Lesion of ulnar nerve 10/08/2005 11/30/2005 Migraine, unspecified, with intractable migraine, so stated, without mention of status migrainosus 12/04/2014 Overview: Migraine Carpal tunnel syndrome 6 documented as of this encounter (statuses as of 04/14/2022) [facility] History of Past illness Narrative* Problem Noted Date Resolved Date MASS IN BREAST 01/18/2008 12/04/2014 Calculus of gallbladder with other cholecystitis, without mention of obstruction 07/04/2007 12/04/2014 Lesion of ulnar nerve 10/08/2005 11/30/2005 Migraine, unspecified, with intractable migraine, so stated, without mention of status migrainosus 12/04/2014 Overview: Migraine Carpal tunnel syndrome 6 documented as of this encounter (statuses as of 05/06/2022) [facility] History of Past illness Narrative* Problem Noted Date Resolved Date MASS IN BREAST 01/18/2008 12/04/2014 Calculus of gallbladder with other cholecystitis, without mention of obstruction 07/04/2007 12/04/2014 Lesion of ulnar nerve 10/08/2005 11/30/2005 Migraine, unspecified, with intractable migraine, so stated, without mention of status migrainosus 12/04/2014 Overview: Migraine Carpal tunnel syndrome 6 documented as of this encounter (statuses as of 05/26/2022) [facility] History of Past illness Narrative* Problem Noted Date Resolved Date MASS IN BREAST 01/18/2008 12/04/2014 Calculus of gallbladder with other cholecystitis, without mention of obstruction 07/04/2007 12/04/2014 Lesion of ulnar nerve 10/08/2005 11/30/2005 Migraine, unspecified, with intractable migraine, so stated, without mention of status migrainosus 12/04/2014 Overview: Migraine Carpal tunnel syndrome 6 documented as of this encounter (statuses as of 06/18/2022) [facility] History of Past illness Narrative* Problem Noted Date Resolved Date MASS IN BREAST 01/18/2008 12/04/2014 Calculus of gallbladder with other cholecystitis, without mention of obstruction 07/04/2007 12/04/2014 Lesion of ulnar nerve 10/08/2005 11/30/2005 Migraine, unspecified, with intractable migraine, so stated, without mention of status migrainosus 12/04/2014 Overview: Migraine Carpal tunnel syndrome 6 documented as of this encounter (statuses as of 06/22/2022) [facility] History of Past illness Narrative* Problem Noted Date Resolved Date MASS IN BREAST 01/18/2008 12/04/2014 Calculus of gallbladder with other cholecystitis, without mention of obstruction 07/04/2007 12/04/2014 Lesion of ulnar nerve 10/08/2005 11/30/2005 Migraine, unspecified, with intractable migraine, so stated, without mention of status migrainosus 12/04/2014 Overview: Migraine Carpal tunnel syndrome 200 6 documented as of this encounter (statuses as of 06/24/2022) [facility] History of Past illness Narrative* Problem Noted Date Resolved Date MASS IN BREAST 01/18/2008 12/04/2014 Calculus of gallbladder with other cholecystitis, without mention of obstruction 07/04/2007 12/04/2014 Lesion of ulnar nerve 10/08/2005 11/30/2005 Migraine, unspecified, with intractable migraine, so stated, without mention of status migrainosus 12/04/2014 Overview: Migraine Carpal tunnel syndrome 6 documented as of this encounter (statuses as of 07/06/2022) [facility] History of Past illness Narrative* Problem Noted Date Resolved Date MASS IN BREAST 01/18/2008 12/04/2014 Calculus of gallbladder with other cholecystitis, without mention of obstruction 07/04/2007 12/04/2014 Lesion of ulnar nerve 10/08/2005 11/30/2005 Migraine, unspecified, with intractable migraine, so stated, without mention of status migrainosus 12/04/2014 Overview: Migraine Carpal tunnel syndrome 6 documented as of this encounter (statuses as of 08/17/2022) [facility] History of Past illness Narrative* Problem Noted Date Resolved Date MASS IN BREAST 01/18/2008 12/04/2014 Calculus of gallbladder with other cholecystitis, without mention of obstruction 07/04/2007 12/04/2014 Lesion of ulnar nerve 10/08/2005 11/30/2005 Migraine, unspecified, with intractable migraine, so stated, without mention of status migrainosus 12/04/2014 Overview: Migraine Carpal tunnel syndrome 6 documented as of this encounter (statuses as of 08/25/2022) [facility] History of Past illness Narrative* Problem Noted Date Resolved Date MASS IN BREAST 01/18/2008 12/04/2014 Calculus of gallbladder with other cholecystitis, without mention of obstruction 07/04/2007 12/04/2014 Lesion of ulnar nerve 10/08/2005 11/30/2005 Migraine, unspecified, with intractable migraine, so stated, without mention of status migrainosus 12/04/2014 Overview: Migraine Carpal tunnel syndrome 6 documented as of this encounter (statuses as of 08/28/2022) [facility] History of Past illness Narrative* Problem Noted Date Resolved Date MASS IN BREAST 01/18/2008 12/04/2014 Calculus of gallbladder with other cholecystitis, without mention of obstruction 07/04/2007 12/04/2014 Lesion of ulnar nerve 10/08/2005 11/30/2005 Migraine, unspecified, with intractable migraine, so stated, without mention of status migrainosus 12/04/2014 Overview: Migraine Carpal tunnel syndrome 6 documented as of this encounter (statuses as of 08/31/2022) [facility] History of Past illness Narrative* Problem Noted Date Resolved Date MASS IN BREAST 01/18/2008 12/04/2014 Calculus of gallbladder with other cholecystitis, without mention of obstruction 07/04/2007 12/04/2014 Lesion of ulnar nerve 10/08/2005 11/30/2005 Migraine, unspecified, with intractable migraine, so stated, without mention of status migrainosus 12/04/2014 Overview: Migraine Carpal tunnel syndrome 6 documented as of this encounter (statuses as of 10/01/2022) [facility] History of Past illness Narrative* Problem Noted Date Diagnosed Date Resolved Date MASS IN BREAST 01/18/2008 12/04/2014 Calculus of gallbladder with other cholecystitis, without mention of obstruction 07/04/2007 12/04/2014 Lesion of ulnar nerve 10/08/20052005 Migraine, unspecified, with intractable migraine, so stated, without mention of status migrainosus 12/04/2014 Overview: Migraine Carpal tunnel syndrome 11/30 documented as of this encounter (statuses as of 12/23/2022) [facility] History of Past illness Narrative* Problem Noted Date Diagnosed Date Resolved Date MASS IN BREAST 01/18/2008 12/04/2014 Calculus of gallbladder with other cholecystitis, without mention of obstruction 07/04/2007 12/04/2014 Lesion of ulnar nerve 10/08/20052005 Migraine, unspecified, with intractable migraine, so stated, without mention of status migrainosus 12/04/2014 Overview: Migraine Carpal tunnel syndrome 11/30 documented as of this encounter (statuses as of 01/25/2023) [facility] History of Past illness Narrative* Problem Noted Date Diagnosed Date Resolved Date MASS IN BREAST 01/18/2008 12/04/2014 Calculus of gallbladder with other cholecystitis, without mention of obstruction 07/04/2007 12/04/2014 Lesion of ulnar nerve 10/08/20052005 Migraine, unspecified, with intractable migraine, so stated, without mention of status migrainosus 12/04/2014 Overview: Migraine Carpal tunnel syndrome 11/30 documented as of this encounter (statuses as of 02/25/2023) [facility] History of Past illness Narrative* Problem Noted Date Diagnosed Date Resolved Date MASS IN BREAST 01/18/2008 12/04/2014 Calculus of gallbladder with other cholecystitis, without mention of obstruction 07/04/2007 12/04/2014 Lesion of ulnar nerve 10/08/20052005 Migraine, unspecified, with intractable migraine, so stated, without mention of status migrainosus 12/04/2014 Overview: Migraine Carpal tunnel syndrome 11/30 documented as of this encounter (statuses as of 03/23/2023) [facility] History of Past illness Narrative* Problem Noted Date Diagnosed Date Resolved Date MASS IN BREAST 01/18/2008 12/04/2014 Calculus of gallbladder with other cholecystitis, without mention of obstruction 07/04/2007 12/04/2014 Lesion of ulnar nerve 10/08/20052005 Migraine, unspecified, with intractable migraine, so stated, without mention of status migrainosus 12/04/2014 Overview: Migraine Carpal tunnel syndrome 11/30 documented as of this encounter (statuses as of 05/07/2023) [facility] History of Past illness Narrative* Problem Noted Date Diagnosed Date Resolved Date MASS IN BREAST 01/18/2008 12/04/2014 Calculus of gallbladder with other cholecystitis, without mention of obstruction 07/04/2007 12/04/2014 Lesion of ulnar nerve 10/08/20052005 Migraine, unspecified, with intractable migraine, so stated, without mention of status migrainosus 12/04/2014 Overview: Migraine Carpal tunnel syndrome 11/30 documented as of this encounter (statuses as of 05/25/2023) [facility] History of Past illness Narrative* Problem Noted Date Diagnosed Date Resolved Date MASS IN BREAST 01/18/2008 12/04/2014 Calculus of gallbladder with other cholecystitis, without mention of obstruction 07/04/2007 12/04/2014 Lesion of ulnar nerve 10/08/20052005 Migraine, unspecified, with intractable migraine, so stated, without mention of status migrainosus 12/04/2014 Overview: Migraine Carpal tunnel syndrome 11/30 documented as of this encounter (statuses as of 08/19/2023) [facility] History of Past illness Narrative* Problem Noted Date Diagnosed Date Resolved Date MASS IN BREAST 01/18/2008 12/04/2014 Calculus of gallbladder with other cholecystitis, without mention of obstruction 07/04/2007 12/04/2014 Lesion of ulnar nerve 10/08/20052005 Migraine, unspecified, with intractable migraine, so stated, without mention of status migrainosus 12/04/2014 Overview: Migraine Carpal tunnel syndrome 11/30 documented as of this encounter (statuses as of 08/23/2023) [facility] History of Past illness Narrative* Problem Noted Date Diagnosed Date Resolved Date MASS IN BREAST 01/18/2008 12/04/2014 Calculus of gallbladder with other cholecystitis, without mention of obstruction 07/04/2007 12/04/2014 Lesion of ulnar nerve 10/08/20052005 Migraine, unspecified, with intractable migraine, so stated, without mention of status migrainosus 12/04/2014 Overview: Migraine Carpal tunnel syndrome 11/30 documented as of this encounter (statuses as of 09/07/2023) [facility] History of Past [facility] Narrative* Problem Noted Date Diagnosed Date Resolved Date MASS IN BREAST 01/18/2008 12/04/2014 Calculus of gallbladder with other cholecystitis, without mention of obstruction 07/04/2007 12/04/2014 Lesion of ulnar nerve 10/08/20052005 Migraine, unspecified, with intractable migraine, so stated, without mention of status migrainosus 12/04/2014 Overview: Migraine Carpal tunnel syndrome 11/30 documented as of this encounter (statuses as of 09/07/2023) [facility] of Past [facility] Narrative* Problem Noted Date Diagnosed Date Resolved Date MASS IN BREAST 01/18/2008 12/04/2014 Calculus of gallbladder with other cholecystitis, without mention of obstruction 07/04/2007 12/04/2014 Lesion of ulnar nerve 10/08/20052005 Migraine, unspecified, with intractable migraine, so stated, without mention of status migrainosus 12/04/2014 Overview: Migraine Carpal tunnel syndrome 11/30 documented as of this encounter (statuses as of 09/21/2023) [facility] Diagnosis Vitamin D insufficiency- Primary Unspecified vitamin D deficiency Essential hypertension Unspecified essential hypertension [facility] Hypokalemia- Primary Hypopotassemia [facility]- [facility] Essential hypertension Unspecified essential hypertension GERD without esophagitis Esophageal [facility] Urinary frequency- Primary Urinary incontinence, unspecified type Elevated blood sugar Other abnormal glucose Alzheimers disease (HCC) [facility]'s [facility] Al[facility]heimers disease (HCC) [facility]'s [facility] Diagnosis Tremor of right hand- Primary Alzheimers disease (HCC) Alzheimer's disease Encounter for immunization Need for other specified prophylactic vaccination against single bacterial disease [facility] Diagnosis 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 Agitation Other and unspecified special symptom or syndrome, not elsewhere classified Alzheimers disease (HCC) Alzheimer's disease [facility] Diagnosis Alzheimers disease (HCC) [facility]'s [facility] Diagnosis Alzheimer's dementia with agitation, unspecified dementia severity, unspecified timing of dementia onset (HCC)- Primary Hyperlipidemia, mixed Mixed hyperlipidemia Primary hypertension Unspecified essential hypertension [facility] Diagnosis Hypokalemia Hypopotassemia [facility]* Diagnosis GERD without esophagitis Esophageal reflux Essential hypertension Unspecified essential hypertension [facility] Diagnosis Alzheimers disease (HCC) Alzheimer's disease [facility] Diagnosis Urinary frequency- Primary Hypokalemia Hypopotassemia [facility] Diagnosis Essential hypertension- Primary Unspecified essential hypertension Hyperlipidemia, mixed Mixed hyperlipidemia Alzheimers disease (HCC) Alzheimer's disease GERD without esophagitis Esophageal reflux Throat clearing Other symptoms involving head and neck Bilateral impacted cerumen Impacted cerumen [facility] Diagnosis Hypokalemia Hypopotassemia [facility] Diagnosis Essential hypertension Unspecified essential hypertension GERD without esophagitis Esophageal reflux [facility] Diagnosis Alzheimers disease (HCC) Alzheimer's disease [facility] Diagnosis Frequent urination- Primary Urinary frequency Weight loss Loss of weight [facility] Diagnosis Essential hypertension Unspecified essential hypertension GERD without esophagitis Esophageal reflux [facility] Diagnosis Onychomycosis- Primary Dermatophytosis of nail Pain in toe of left foot Pain in limb Pain in toe of right foot Pain in limb [facility] Diagnosis Alzheimer's dementia with agitation, unspecified dementia severity, unspecified timing of dementia onset (HCC) [facility] Diagnosis Urinary frequency- Primary [facility] Diagnosis Polyuria- Primary Essential hypertension Unspecified essential hypertension Hyperlipidemia, mixed Mixed hyperlipidemia Elevated blood sugar Other abnormal glucose [facility] Diagnosis Alzheimers disease (HCC) Alzheimer's disease [facility] Diagnosis Onychomycosis- Primary Dermatophytosis of nail Pain in toe of left foot Pain in limb Pain in toe of right foot Pain in limb [facility] Diagnosis Essential hypertension- Primary Unspecified essential hypertension Alzheimers disease (HCC) Alzheimer's disease Hyperlipidemia, mixed Mixed hyperlipidemia GERD without esophagitis Esophageal reflux [facility] Diagnosis Hypokalemia Hypopotassemia [facility] Pain of left hand Pain in limb [facility] Diagnosis Alzheimer's dementia with agitation, unspecified dementia severity, unspecified timing of dementia onset (HCC) 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 Tremor Abnormal involuntary movements [facility] Diagnosis Essential hypertension Unspecified essential hypertension GERD without esophagitis Esophageal reflux [facility] Diagnosis Onychomycosis- Primary Dermatophytosis of nail Pain in toe of left foot Pain in limb Pain in toe of right foot Pain in limb [facility] Diagnosis Hyperlipidemia, mixed- Primary Mixed hyperlipidemia Vitamin D insufficiency Unspecified vitamin D deficiency [facility] Diagnosis Fall at home, initial encounter- Primary Acute hip pain, right Alzheimer's dementia with agitation, unspecified dementia severity, unspecified timing of dementia onset ([facility]) Essential hypertension Unspecified essential hypertension Hyperlipidemia, mixed Mixed hyperlipidemia Encounter for immunization Need for other specified prophylactic vaccination against single bacterial disease Fall at home, initial encounter Acute hip pain, right [facility], initial encounter Acute hip pain, right [facility] Diagnosis Onychomycosis- Primary Dermatophytosis of nail Pain in toe of left foot Pain in limb Pain in toe of right foot Pain in limb [facility] Diagnosis Alzheimers disease (HCC)- Primary Alzheimer's disease 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 [facility] Diagnosis Alzheimer's dementia with agitation, unspecified dementia severity, unspecified timing of dementia onset ([facility]) [facility] Diagnosis Onychomycosis- Primary Dermatophytosis of nail Pain in toe of left foot Pain in limb Pain in toe of right foot Pain in limb [facility] Essential hypertension- Primary Unspecified essential hypertension Hyperlipidemia, mixed Mixed hyperlipidemia [facility] Diagnosis Essential hypertension- Primary Unspecified essential hypertension Hypokalemia Hypopotassemia Alzheimers disease (HCC) Alzheimer's disease documented in this encounter [facility] for referral (narrative)* Diagnostic Procedure Only (Urgent) - Closed Specialty Diagnoses / Procedures Referred By Contac t Referred To Contact XR IMAGING Diagnoses Fall at home, initial encounter Acute hip pain, right Procedures XR LUMBAR GENERAL 3V AP/LAT/L5-S1 RADEX SPINE LUMBOSACRAL 2/3 VIEWS Alisha Wilcox MD [address] [place] [address] [place] [address] Referral ID Status Reason Start Date Expiration Date V isits Requested Visits Authorized [id number] Closed Auto-Generate d Referral 07/06/2024 08/05/2025 1 1 * Diagnostic Procedure Only (Urgent) - Closed Specialty Diagnoses / Procedures Referred By Contac t Referred To Contact XR IMAGING Diagnoses Fall at home, initial encounter Acute hip pain, right Procedures XR HIP BILATERAL 5V PEL/AP/LAT EACH HIP RADEX HIPS BILATERAL WITH PELVIS MINIMUM 5 VIEWS Alisha Wilcox MD [address] [place] [address] [place] [address] Referral ID Status Reason Start Date Expiration Date V isits Requested Visits Authorized [id number] Closed Auto-Generate d Referral 07/06/2024 08/05/2025 1 1 [facility] for referral (narrative)* Diagnostic Procedure Only (Urgent) - Closed Specialty Diagnoses / Procedures Referred By Contac t Referred To Contact XR IMAGING Diagnoses Fall at home, initial encounter Acute hip pain, right Procedures XR LUMBAR GENERAL 3V AP/LAT/L5-S1 RADEX SPINE LUMBOSACRAL 2/3 VIEWS Alisha Wilcox MD [address] [place] [address] [place] [address] Referral ID Status Reason Start Date Expiration Date V isits Requested Visits Authorized [id number] Closed Auto-Generate d Referral 07/06/2024 08/05/2025 1 1 * Diagnostic Procedure Only (Urgent) - Closed Specialty Diagnoses / Procedures Referred By Contac t Referred To Contact XR IMAGING Diagnoses Fall at home, initial encounter Acute hip pain, right Procedures XR HIP BILATERAL 5V PEL/AP/LAT EACH HIP RADEX HIPS BILATERAL WITH PELVIS MINIMUM 5 VIEWS Alisha Wilcox MD [address] [place] [address] [place] [address] Referral ID Status Reason Start Date Expiration Date V isits Requested Visits Authorized [id number] Closed Auto-Generate d Referral 07/06/2024 08/05/2025 1 1 [facility] for visit Narrative* Diagnostic Procedure Only (Urgent) - Closed Specialty Diagnoses / Procedures Referred By Contac t Referred To Contact XR IMAGING Diagnoses Fall at home, initial encounter Acute hip pain, right Procedures XR LUMBAR GENERAL 3V AP/LAT/L5-S1 RADEX SPINE LUMBOSACRAL 2/3 VIEWS Alisha Wilcox MD [address] [place] [address] [place] [address] Referral ID Status Reason Start Date Expiration Date V isits Requested Visits Authorized [id number] Closed Auto-Generate d Referral 07/06/2024 08/05/2025 1 1 [facility] Summary Purpose Family History No Family History Records FoundNo Family History Records Found Advance Directives No Advanced Directives Records FoundDocuments on File Type Date Recorded Patient Senior Editor Expl anation Advance Directive(s) 04/22/2020 11:10 AM Advance Directive(s) 04/17/2020 2:45 PM Advance Directive(s) 09/27/2009 10:29 PM Documents on File Type Date Recorded Patient Senior Editor Expl anation Advance Directive(s) 09/27/2009 10:29 PM Documents on File Type Date Recorded Patient Senior Editor Expl anation Advance Directive(s) 09/27/2009 10:29 PM Reason for Referral Specialty Diagnoses / Procedures Referred By Contac t Referred To Contact Diagnoses Alzheimers disease (HCC) Shruthi Christensen APRN.[employer]CIAL [employer]AN UNDERWRITER [address] [place] [address] Referral ID Status Reason Start Date Expiration Date Visits Re quested Visits Authorized [id number] Closed 1 1 Specialty Diagnoses / Procedures Referred By Contac t Referred To Contact Neurology Diagnoses Alzheimers disease ([facility]) Tremor of right hand Procedures CONSULT TO NEUROLOGY OFFICE/OUTPATIENT [facility] 60-74 MINUTES PodlogShruthi elliott APRN.[employer]ER[employer] LOAN UNDERWRITER [address] [place] [address] Referral ID Status Reason Start Date Expiration Date Visits Requested Visits Authorized [id number] Authorized PCP Requested Referral 02/27/2022 02/27/2023 1 1 Specialty Diagnoses / Procedures Referred By Contac t Referred To Contact Shruthi Christensen APRN.COMMERCIAL LOAN UNDERWRITER [address] [place] [address] Referral ID Status Reason Start Date Expiration Date Visits Re quested Visits Authorized [id number] Closed 1 1 Specialty Diagnoses / Procedures Referred By Contac t Referred To Contact Diagnoses Alzheimer's dementia with agitation, unspecified dementia severity, unspecified timing of dementia onset (HCC) PodlogShruthi elliott APRN.[employer] LOAN UNDERWRITER [address] [place] [address] Referral ID Status Reason Start Date Expiration Date Visits Re quested Visits Authorized [id number] Closed 1 1 Specialty Diagnoses / Procedures Referred By Contac t Referred To Contact Diagnoses Alzheimer's dementia with agitation, unspecified dementia severity, unspecified timing of dementia onset (HCC) Marcus Hanks Jr., MD [address] [address] Referral ID Status Reason Start Date Expiration Date Visits Re quested Visits Authorized [id number] Closed 1 1 Additional Source Comments INFORMATION SOURCE (unrecogn ized section and content) DATE CREATED AUTHOR 10/15/2021 [facility] DATE CREATED AUTHOR AUTHOR'S MISSY HAMILTON 04/07/2025 [facility] Source Comments (unrecognize d section and content) In the event this informatio n is protected by the Federal Confidentiality of Alcohol and Drug Abuse Patient Records regulations: The Federal rules restrict any use of the information to criminally investigate or prosecute any alcohol or drug abuse patient.[facility] the event this information is protected by the Federal Confidentiality of Alcohol and Drug Abuse Patient Records regulations: The Federal rules restrict any use of the information to criminally investigate or prosecute any alcohol or drug abuse patient.[facility] Hospital[facility] the event this information is protected by the Federal Confidentiality of Alcohol and Drug Abuse Patient Records regulations: The Federal rules restrict any use of the information to criminally investigate or prosecute any alcohol or drug abuse patient.[facility] Hospital[facility] the event this information is protected by the Federal Confidentiality of Alcohol and Drug Abuse Patient Records regulations: The Federal rules restrict any use of the information to criminally investigate or prosecute any alcohol or drug abuse patient.[facility] Hospital[facility] the event this information is protected by the Federal Confidentiality of Alcohol and Drug Abuse Patient Records regulations: The Federal rules restrict any use of the information to criminally investigate or prosecute any alcohol or drug abuse patient.[facility] HospitalIn the event this information is protected by the Federal Confidentiality of Alcohol and Drug Abuse Patient Records regulations: The Federal rules restrict any use of the information to criminally investigate or prosecute any alcohol or drug abuse patient.[facility] HospitalIn the event this information is protected by the Federal Confidentiality of Alcohol and Drug Abuse Patient Records regulations: The Federal rules restrict any use of the information to criminally investigate or prosecute any alcohol or drug abuse patient.[facility] HospitalIn the event this information is protected by the Federal Confidentiality of Alcohol and Drug Abuse Patient Records regulations: The Federal rules restrict any use of the information to criminally investigate or prosecute any alcohol or drug abuse patient.[facility] Hospital[facility] the event this information is protected by the Federal Confidentiality of Alcohol and Drug Abuse Patient Records regulations: The Federal rules restrict any use of the information to criminally investigate or prosecute any alcohol or drug abuse patient.[facility] HospitalIn the event this information is protected by the Federal Confidentiality of Alcohol and Drug Abuse Patient Records regulations: The Federal rules restrict any use of the information to criminally investigate or prosecute any alcohol or drug abuse patient.[facility] HospitalIn the event this information is protected by the Federal Confidentiality of Alcohol and Drug Abuse Patient Records regulations: The Federal rules restrict any use of the information to criminally investigate or prosecute any alcohol or drug abuse patient.[facility] HospitalIn the event this information is protected by the Federal Confidentiality of Alcohol and Drug Abuse Patient Records regulations: The Federal rules restrict any use of the information to criminally investigate or prosecute any alcohol or drug abuse patient.[facility] HospitalIn the event this information is protected by the Federal Confidentiality of Alcohol and Drug Abuse Patient Records regulations: The Federal rules restrict any use of the information to criminally investigate or prosecute any alcohol or drug abuse patient.[facility] HospitalIn the event this information is protected by the Federal Confidentiality of Alcohol and Drug Abuse Patient Records regulations: The Federal rules restrict any use of the information to criminally investigate or prosecute any alcohol or drug abuse patient.[facility] HospitalIn the event this information is protected by the Federal Confidentiality of Alcohol and Drug Abuse Patient Records regulations: The Federal rules restrict any use of the information to criminally investigate or prosecute any alcohol or drug abuse patient.[facility] HospitalIn the event this information is protected by the Federal Confidentiality of Alcohol and Drug Abuse Patient Records regulations: The Federal rules restrict any use of the information to criminally investigate or prosecute any alcohol or drug abuse patient.[facility] HospitalIn the event this information is protected by the Federal Confidentiality of Alcohol and Drug Abuse Patient Records regulations: The Federal rules restrict any use of the information to criminally investigate or prosecute any alcohol or drug abuse patient.[facility] HospitalIn the event this information is protected by the Federal Confidentiality of Alcohol and Drug Abuse Patient Records regulations: The Federal rules restrict any use of the information to criminally investigate or prosecute any alcohol or drug abuse patient.[facility] HospitalIn the event this information is protected by the Federal Confidentiality of Alcohol and Drug Abuse Patient Records regulations: The Federal rules restrict any use of the information to criminally investigate or prosecute any alcohol or drug abuse patient.[facility] HospitalIn the event this information is protected by the Federal Confidentiality of Alcohol and Drug Abuse Patient Records regulations: The Federal rules restrict any use of the information to criminally investigate or prosecute any alcohol or drug abuse patient.[facility] HospitalIn the event this information is protected by the Federal Confidentiality of Alcohol and Drug Abuse Patient Records regulations: The Federal rules restrict any use of the information to criminally investigate or prosecute any alcohol or drug abuse patient.[facility] HospitalIn the event this information is protected by the Federal Confidentiality of Alcohol and Drug Abuse Patient Records regulations: The Federal rules restrict any use of the information to criminally investigate or prosecute any alcohol or drug abuse patient.[facility] HospitalIn the event this information is protected by the Federal Confidentiality of Alcohol and Drug Abuse Patient Records regulations: The Federal rules restrict any use of the information to criminally investigate or prosecute any alcohol or drug abuse patient.[facility] HospitalIn the event this information is protected by the Federal Confidentiality of Alcohol and Drug Abuse Patient Records regulations: The Federal rules restrict any use of the information to criminally investigate or prosecute any alcohol or drug abuse patient.[facility] HospitalIn the event this information is protected by the Federal Confidentiality of Alcohol and Drug Abuse Patient Records regulations: The Federal rules restrict any use of the information to criminally investigate or prosecute any alcohol or drug abuse patient.[facility] HospitalIn the event this information is protected by the Federal Confidentiality of Alcohol and Drug Abuse Patient Records regulations: The Federal rules restrict any use of the information to criminally investigate or prosecute any alcohol or drug abuse patient.[facility] HospitalIn the event this information is protected by the Federal Confidentiality of Alcohol and Drug Abuse Patient Records regulations: The Federal rules restrict any use of the information to criminally investigate or prosecute any alcohol or drug abuse patient.[facility] HospitalIn the event this information is protected by the Federal Confidentiality of Alcohol and Drug Abuse Patient Records regulations: The Federal rules restrict any use of the information to criminally investigate or prosecute any alcohol or drug abuse patient.[facility] HospitalIn the event this information is protected by the Federal Confidentiality of Alcohol and Drug Abuse Patient Records regulations: The Federal rules restrict any use of the information to criminally investigate or prosecute any alcohol or drug abuse patient.[facility] HospitalIn the event this information is protected by the Federal Confidentiality of Alcohol and Drug Abuse Patient Records regulations: The Federal rules restrict any use of the information to criminally investigate or prosecute any alcohol or drug abuse patient.[facility] HospitalIn the event this information is protected by the Federal Confidentiality of Alcohol and Drug Abuse Patient Records regulations: The Federal rules restrict any use of the information to criminally investigate or prosecute any alcohol or drug abuse patient.[facility] HospitalIn the event this information is protected by the Federal Confidentiality of Alcohol and Drug Abuse Patient Records regulations: The Federal rules restrict any use of the information to criminally investigate or prosecute any alcohol or drug abuse patient.[facility] HospitalIn the event this information is protected by the Federal Confidentiality of Alcohol and Drug Abuse Patient Records regulations: The Federal rules restrict any use of the information to criminally investigate or prosecute any alcohol or drug abuse patient.[facility] HospitalIn the event this information is protected by the Federal Confidentiality of Alcohol and Drug Abuse Patient Records regulations: The Federal rules restrict any use of the information to criminally investigate or prosecute any alcohol or drug abuse patient.[facility] HospitalIn the event this information is protected by the Federal Confidentiality of Alcohol and Drug Abuse Patient Records regulations: The Federal rules restrict any use of the information to criminally investigate or prosecute any alcohol or drug abuse patient.[facility] HospitalIn the event this information is protected by the Federal Confidentiality of Alcohol and Drug Abuse Patient Records regulations: The Federal rules restrict any use of the information to criminally investigate or prosecute any alcohol or drug abuse patient.[facility] HospitalIn the event this information is protected by the Federal Confidentiality of Alcohol and Drug Abuse Patient Records regulations: The Federal rules restrict any use of the information to criminally investigate or prosecute any alcohol or drug abuse patient.[facility] HospitalIn the event this information is protected by the Federal Confidentiality of Alcohol and Drug Abuse Patient Records regulations: The Federal rules restrict any use of the information to criminally investigate or prosecute any alcohol or drug abuse patient.[facility] HospitalIn the event this information is protected by the Federal Confidentiality of Alcohol and Drug Abuse Patient Records regulations: The Federal rules restrict any use of the information to criminally investigate or prosecute any alcohol or drug abuse patient.[facility] HospitalIn the event this information is protected by the Federal Confidentiality of Alcohol and Drug Abuse Patient Records regulations: The Federal rules restrict any use of the information to criminally investigate or prosecute any alcohol or drug abuse patient.[facility] HospitalIn the event this information is protected by the Federal Confidentiality of Alcohol and Drug Abuse Patient Records regulations: The Federal rules restrict any use of the information to criminally investigate or prosecute any alcohol or drug abuse patient.[facility] HospitalIn the event this information is protected by the Federal Confidentiality of Alcohol and Drug Abuse Patient Records regulations: The Federal rules restrict any use of the information to criminally investigate or prosecute any alcohol or drug abuse patient.[facility] HospitalIn the event this information is protected by the Federal Confidentiality of Alcohol and Drug Abuse Patient Records regulations: The Federal rules restrict any use of the information to criminally investigate or prosecute any alcohol or drug abuse patient.[facility] HospitalIn the event this information is protected by the Federal Confidentiality of Alcohol and Drug Abuse Patient Records regulations: The Federal rules restrict any use of the information to criminally investigate or prosecute any alcohol or drug abuse patient.[facility] HospitalIn the event this information is protected by the Federal Confidentiality of Alcohol and Drug Abuse Patient Records regulations: The Federal rules restrict any use of the information to criminally investigate or prosecute any alcohol or drug abuse patient.[facility] HospitalIn the event this information is protected by the Federal Confidentiality of Alcohol and Drug Abuse Patient Records regulations: The Federal rules restrict any use of the information to criminally investigate or prosecute any alcohol or drug abuse patient.[facility] HospitalIn the event this information is protected by the Federal Confidentiality of Alcohol and Drug Abuse Patient Records regulations: The Federal rules restrict any use of the information to criminally investigate or prosecute any alcohol or drug abuse patient.[facility] HospitalIn the event this information is protected by the Federal Confidentiality of Alcohol and Drug Abuse Patient Records regulations: The Federal rules restrict any use of the information to criminally investigate or prosecute any alcohol or drug abuse patient.[facility] HospitalIn the event this information is protected by the Federal Confidentiality of Alcohol and Drug Abuse Patient Records regulations: The Federal rules restrict any use of the information to criminally investigate or prosecute any alcohol or drug abuse patient.[facility] HospitalIn the event this information is protected by the Federal Confidentiality of Alcohol and Drug Abuse Patient Records regulations: The Federal rules restrict any use of the information to criminally investigate or prosecute any alcohol or drug abuse patient.[facility] HospitalIn the event this information is protected by the Federal Confidentiality of Alcohol and Drug Abuse Patient Records regulations: The Federal rules restrict any use of the information to criminally investigate or prosecute any alcohol or drug abuse patient.[facility] HospitalIn the event this information is protected by the Federal Confidentiality of Alcohol and Drug Abuse Patient Records regulations: The Federal rules restrict any use of the information to criminally investigate or prosecute any alcohol or drug abuse patient.[facility] HospitalIn the event this information is protected by the Federal Confidentiality of Alcohol and Drug Abuse Patient Records regulations: The Federal rules restrict any use of the information to criminally investigate or prosecute any alcohol or drug abuse patient.[facility] HospitalIn the event this information is protected by the Federal Confidentiality of Alcohol and Drug Abuse Patient Records regulations: The Federal rules restrict any use of the information to criminally investigate or prosecute any alcohol or drug abuse patient.[facility] HospitalIn the event this information is protected by the Federal Confidentiality of Alcohol and Drug Abuse Patient Records regulations: The Federal rules restrict any use of the information to criminally investigate or prosecute any alcohol or drug abuse patient.[facility] HospitalIn the event this information is protected by the Federal Confidentiality of Alcohol and Drug Abuse Patient Records regulations: The Federal rules restrict any use of the information to criminally investigate or prosecute any alcohol or drug abuse patient.[facility] HospitalIn the event this information is protected by the Federal Confidentiality of Alcohol and Drug Abuse Patient Records regulations: The Federal rules restrict any use of the information to criminally investigate or prosecute any alcohol or drug abuse patient.[facility] HospitalIn the event this information is protected by the Federal Confidentiality of Alcohol and Drug Abuse Patient Records regulations: The Federal rules restrict any use of the information to criminally investigate or prosecute any alcohol or drug abuse patient.[facility] HospitalIn the event this information is protected by the Federal Confidentiality of Alcohol and Drug Abuse Patient Records regulations: The Federal rules restrict any use of the information to criminally investigate or prosecute any alcohol or drug abuse patient.[facility] HospitalIn the event this information is protected by the Federal Confidentiality of Alcohol and Drug Abuse Patient Records regulations: The Federal rules restrict any use of the information to criminally investigate or prosecute any alcohol or drug abuse patient.[facility] HospitalIn the event this information is protected by the Federal Confidentiality of Alcohol and Drug Abuse Patient Records regulations: The Federal rules restrict any use of the information to criminally investigate or prosecute any alcohol or drug abuse patient.[facility] HospitalIn the event this information is protected by the Federal Confidentiality of Alcohol and Drug Abuse Patient Records regulations: The Federal rules restrict any use of the information to criminally investigate or prosecute any alcohol or drug abuse patient.[facility] HospitalIn the event this information is protected by the Federal Confidentiality of Alcohol and Drug Abuse Patient Records regulations: The Federal rules restrict any use of the information to criminally investigate or prosecute any alcohol or drug abuse patient.[facility] HospitalIn the event this information is protected by the Federal Confidentiality of Alcohol and Drug Abuse Patient Records regulations: The Federal rules restrict any use of the information to criminally investigate or prosecute any alcohol or drug abuse patient.[facility] HospitalIn the event this information is protected by the Federal Confidentiality of Alcohol and Drug Abuse Patient Records regulations: The Federal rules restrict any use of the information to criminally investigate or prosecute any alcohol or drug abuse patient.[facility] HospitalIn the event this information is protected by the Federal Confidentiality of Alcohol and Drug Abuse Patient Records regulations: The Federal rules restrict any use of the information to criminally investigate or prosecute any alcohol or drug abuse patient.[facility] HospitalIn the event this information is protected by the Federal Confidentiality of Alcohol and Drug Abuse Patient Records regulations: The Federal rules restrict any use of the information to criminally investigate or prosecute any alcohol or drug abuse patient.[facility] Reason for Visit (unrecogniz ed section and content) Reason Comments Orders Reason Comments Results Reason Comments Refill Request Reason Onset Date Comments wetting the bed 01/19/2022 Reason Comments Urinary Frequency X 3 days Reason Comments Social Work Services Reason Onset Date Comments Refill Request 02/23/2022 Reason Comments Patient Update Spouse has question Reason Comments Shakiness Increase in bilatera l hands Reason Onset Date Comments Refill Request 02/28/2022 Reason Comments Patient Update Reason Comments Recheck Medication review/fo llow up Reason Onset Date Comments Refill Request 05/06/2022 Reason Comments Opened In Error Reason Comments F/U 6 months Reason Onset Date Comments Refill Request 07/06/2022 Reason Onset Date Comments Refill Request 08/17/2022 Reason Onset Date Comments Refill Request 08/25/2022 Reason Comments Insurance Authorization Donepezil Reason Onset Date Comments Refill Request 08/31/2022 Reason Comments Lab order request Reason Comments Follow Up 6 month Reason Onset Date Comments Refill Request 01/22/2023 Reason Onset Date Comments Refill Request 03/22/2023 Reason Comments Urinary Problem frequency Reason Comments New Specialty Diagnoses / Procedures Referred By Wilbert londono Referred To Contact Podiatry Diagnoses Onychomycosis Procedures CONSULT TO PODIATRY OFFICE/OUTPATIENT [facility] 60 MINUTES Podlogar, MARCE Hawkins [address] [place] [address] Referral ID Status Reason Start Date Expiration Date V isits Requested Visits Authorized [id number] Closed PCP Requested Referral 06/29/2023 06/28/2024 1 1 Reason Onset Date Comments Refill Request 09/20/2023 Reason Onset Date Comments Refill Request 11/02/2023 Reason Comments UTI Reason Comments Urinary Problem Frequency x 3 weeks Reason Comments Recheck EC follow up Reason Comments Medication Request Reason Onset Date Comments Refill Request 11/25/2023 Reason Comments Established Patient Follow Up nail care Reason Onset Date Comments Refill Request 02/02/2024 Reason Onset Date Comments Refill Request 03/27/2024 Reason Comments Follow Up Following up for Alz heimer's doesn't recognize daughter anymore, Tremor in rt hand has gotten worse since last visit, Parkinson's, daughter states she believes that patient is at a 3 year old stage in terms of being agreeable and following directions Reason Onset Date Comments Refill Request 06/01/2024 Reason Comments Orders Labs for appointment Reason Comments F/U 6 Month Reason Comments Nail care Reason Onset Date Comments Refill Request 09/26/2024 Reason Comments Follow Up Alzheimer's and Trem or, decline in memory since last visit Reason Onset Date Comments Refill Request 11/13/2024 Reason Comments Nail care Established Patient Follow Up Reason Onset Date Comments requesting medication 02/12/2025 Reason Onset Date Comments Population Health Navigation Outreach 02/20/2025 [facility] [employer] [facility] Care Teams (unrecognized sec tion and content) Multifocal Button Generator Relationship Specialty Start Date End Date Alisha Wilcox MD [address] [place], [place] [address] PCP - General Family Practice 09/06/17 Multifocal Button Generator Relationship Specialty Start Date End Date Alisha Wilcox MD [address] [place], [place] [id number] PCP - General Family Practice 09/06/17 Multifocal Button Generator Relationship Specialty Start Date End Date Alisha Wilcox MD [address] [place] [address] PCP - General Family Practice 09/06/17 Multifocal Button Generator Relationship Specialty Start Date End Date Alisha Wilcox MD [address] [place] [address] PCP - General Family Practice 09/06/17 Multifocal Button Generator Relationship Specialty Start Date End Date Alisha Wilcox MD [address] [place] [address] PCP - General Family Practice 09/06/17 Multifocal Button Generator Relationship Specialty Start Date End Date Alisha Wilcox MD [address] [place] [address] PCP - General Family Medicine 09/06/17 Multifocal Button Generator Relationship Specialty Start Date End Date Alisha Wilcox MD [address] [place] [address] PCP - General Family Medicine 09/06/17 Multifocal Button Generator Relationship Specialty Start Date End Date Alisha Wilcox MD [address] [place] [address] PCP - General Family Medicine 09/06/17 Multifocal Button Generator Relationship Specialty Start Date End Date Alisha Wilcox MD [address] [place] [address] PCP - General Family Medicine 09/06/17 Multifocal Button Generator Relationship Specialty Start Date End Date Alisha Wilcox MD [address] [place] [address] PCP - General Family Medicine 09/06/17 Multifocal Button Generator Relationship Specialty Start Date End Date Alisha Wilcox MD [address] [place] [address] PCP - General Family Medicine 09/06/17 Multifocal Button Generator Relationship Specialty Start Date End Date Alisha Wilcox MD [address] [place] [address] PCP - General Family Medicine 09/06/17 Multifocal Button Generator Relationship Specialty Start Date End Date Alisha Wilcox MD [address] [place] [address] PCP - General Family Medicine 09/06/17 Multifocal Button Generator Relationship Specialty Start Date End Date Alisha Wilcox MD [address] [place] [address] PCP - General Family Medicine 09/06/17 Multifocal Button Generator Relationship Specialty Start Date End Date Alisha Wilcox MD [address] [place] [address] PCP - General Family Medicine 09/06/17 Multifocal Button Generator Relationship Specialty Start Date End Date Alisha Wilcox MD [address] [place] [address] PCP - General Family Medicine 09/06/17 Multifocal Button Generator Relationship Specialty Start Date End Date Alisha Wilcox MD [address] [place] [address] PCP - General Family Medicine 09/06/17 Multifocal Button Generator Relationship Specialty Start Date End Date Alisha Wilcox MD [address] [place] [address] PCP - General Family Medicine 09/06/17 Multifocal Button Generator Relationship Specialty Start Date End Date Alisha Wilcox MD [address] [place] [address] PCP - General Family Medicine 09/06/17 Multifocal Button Generator Relationship Specialty Start Date End Date Alisha Wilcox MD [address] [place] [address] PCP - General Family Medicine 09/06/17 Multifocal Button Generator Relationship Specialty Start Date End Date Alisha Wilcox MD [address] [place] [address] PCP - General Family Medicine 09/06/17 Multifocal Button Generator Relationship Specialty Start Date End Date Alisha Wilcox MD [address] [place] [address] PCP - General Family Medicine 09/06/17 Multifocal Button Generator Relationship Specialty Start Date End Date Alisha Wilcox MD [address] [place] [address] PCP - General Family Medicine 09/06/17 Multifocal Button Generator Relationship Specialty Start Date End Date Alisha Wilcox MD [address] [place] [address] PCP - General Family Medicine 09/06/17 Multifocal Button Generator Relationship Specialty Start Date End Date Alisha Wilcox MD [address] [place] [address] PCP - General Family Medicine 09/06/17 Multifocal Button Generator Relationship Specialty Start Date End Date Alisha Wilcox MD [address] [place] [address] PCP - General Family Medicine 09/06/17 Multifocal Button Generator Relationship Specialty Start Date End Date Alisha Wilcox MD [address] [place] [address] PCP - General Family Medicine 09/06/17 Multifocal Button Generator Relationship Specialty Start Date End Date Alisha Wilcox MD [address] [place] [address] PCP - General Family Medicine 09/06/17 Multifocal Button Generator Relationship Specialty Start Date End Date Alisha Wilcox MD [address] [place] [address] PCP - General Family Medicine 09/06/17 Multifocal Button Generator Relationship Specialty Start Date End Date Alisha Wilcox MD [address] [place] [address] PCP - General Family Medicine 09/06/17 Multifocal Button Generator Relationship Specialty Start Date End Date Alisha Wilcox MD [address] [place] [address] PCP - General Family Medicine 09/06/17 Multifocal Button Generator Relationship Specialty Start Date End Date Alisha Wilcox MD [address] [place] [address] PCP - General Family Medicine 09/06/17 Multifocal Button Generator Relationship Specialty Start Date End Date Alisha Wilcox MD [address] [place] [address] PCP - General Family Medicine 09/06/17 PodShruthi orr APRN.CNP [address] [place] [address] Box Machine Operator Family Medicine 05/13/24 Multifocal Button Generator Relationship Specialty Start Date End Date Alisha Wilcox MD [address] [place] [address] PCP - General Family Medicine 09/06/17 PodlogarShruthi APRN.COMMERCIAL LOAN UNDERWRITER [address] [place] [address] Box Machine Operator Family Medicine 05/13/24 Multifocal Button Generator Relationship Specialty Start Date End Date Alisha Wilcox MD [address] [place] [address] PCP - General Family Medicine 09/06/17 PodlogarShruthi APRN.COMMERCIAL LOAN UNDERWRITER [address] [place] [address] Box Machine Operator Family Medicine 05/13/24 Multifocal Button Generator Relationship Specialty Start Date End Date Alisha Wilcox MD [address] [place] [address] PCP - General Family Medicine 09/06/17 PodlogarShruthi APRN.COMMERCIAL LOAN UNDERWRITER [address] [place] [address] Box Machine Operator Family Medicine 05/13/24 Multifocal Button Generator Relationship Specialty Start Date End Date Alisha Wilcox MD [address] [place] [address] PCP - General Family Medicine 09/06/17 PodlogarShruthi APRN.COMMERCIAL LOAN UNDERWRITER [address] [place] [address] Box Machine Operator Family Medicine 05/13/24 Multifocal Button Generator Relationship Specialty Start Date End Date Alisha Wilcox MD [address] [place] [address] PCP - General Family Medicine 09/06/17 PodlogarShruthi APRN.COMMERCIAL LOAN UNDERWRITER [address] [place] [address] Box Machine Operator Family Medicine 05/13/24 Multifocal Button Generator Relationship Specialty Start Date End Date Alisha Wilcox MD [address] [place] [address] PCP - General Family Medicine 09/06/17 Podlogar, ELSY Hawkins.COMMERCIAL LOAN UNDERWRITER [address] [place] [address] Box Machine Operator Family Medicine 05/13/24 Multifocal Button Generator Relationship Specialty Start Date End Date Alisha Wilcox MD [address] [place] [address] PCP - General Family Medicine 09/06/17 PodlogarShruthi APRN.COMMERCIAL LOAN UNDERWRITER [address] [place] [address] Box Machine Operator Family Medicine 05/13/24 Chandrika Pickard APRN.COMMERCIAL LOAN UNDERWRITER [address] [facility] [place] [address] Box Machine Operator Family Medicine 08/28/24 Multifocal Button Generator Relationship Specialty Start Date End Date Alisha Wilcox MD [address] [place] [address] PCP - General Family Medicine 09/06/17 PodlogarShruthi APRN.COMMERCIAL LOAN UNDERWRITER [address] [place] [address] Box Machine Operator Family Medicine 05/13/24 Chandrika Pickard APRN.COMMERCIAL LOAN UNDERWRITER [address] [place] [address] Box Machine Operator Family [facility] 08/28/24 Multifocal Button Generator Relationship Specialty Start Date End Date Alisha Wilcox MD [address] [place] [address] PCP - General Family Medicine 09/06/17 PodlogarShruthi APRN.COMMERCIAL LOAN UNDERWRITER [address] [place] [address] Box Machine Operator Family Medicine 05/13/24 Chandrika Pickard APRN.COMMERCIAL LOAN UNDERWRITER [address] [place] [address] [facility] 11/16/24 Multifocal Button Generator Relationship Specialty Start Date End Date Alisha Wilcox MD [address] [place] [address] PCP - General Family Medicine 09/06/17 PodlogarShruthi APRN.COMMERCIAL LOAN UNDERWRITER [address] [place] [address] Box Machine Operator Family Medicine 05/13/24 Chandrika Pickard FRUIT PRESS OPERATOR.COMMERCIAL LOAN UNDERWRITER [address] [place] [address] [facility] Medicine 11/16/24 Multifocal Button Generator Relationship Specialty Start Date End Date Alisha Wilcox MD [address] [place] [address] PCP - General Family Medicine 09/06/17 Podlogar, ELSY Hawkins.COMMERCIAL LOAN UNDERWRITER [address] [place] [address] [facility]Unity[facility] 05/13/24 Chandrika Pickard FRUIT PRESS OPERATOR.COMMERCIAL LOAN UNDERWRITER [address] [place] [address] [facility] 11/16/24 Multifocal Button Generator Relationship Specialty Start Date End Date Alisha Wilcox MD [address] [place] [address] PCP - General Family Medicine 09/06/17 Podlogar, ELSY Hawkins.COMMERCIAL LOAN UNDERWRITER [address] [place] [address] [facility] 05/13/24 Chandrika Pickard FRUIT PRESS OPERATOR.COMMERCIAL LOAN UNDERWRITER [address] [place] [address] [facility] 11/16/24 Multifocal Button Generator Relationship Specialty Start Date End Date Alisha Wilcox MD [address] [place] [address] PCP - General Family Medicine 09/06/17 PodlogarShruthi FRUIT PRESS OPERATOR.COMMERCIAL LOAN UNDERWRITER [address] [place] [address] [facility] Medicine 05/13/24 Chandrika Pickard, FRUIT PRESS OPERATOR.COMMERCIAL LOAN UNDERWRITER [address] [place] [address] [facility] 11/16/24 FOR RECORDS PERTAINING TO PATIENTS WHO ARE OR HAVE BEEN ENROLLED IN A CHEMICAL DEPENDENCY/SUBSTANCEABUSE PROGRAM, SOME INFORMATION MAY BE OMITTED. This clinical summary was aggregated from multiple sources. Caution should be exercised in using it in the provision of clinical care. This summary normalizes information from multiple sources, and as a consequence, information in this document may materially change the coding, format and clinical context of patient data. In addition, data may be omitted in some cases. CLINICAL DECISIONS SHOULD BE BASED ON THE PRIMARY CLINICAL RECORDS. [facility] [employer] [facility]. provides no warranty or guarantee of the accuracy or completeness of information in this document.
== END 2025-06-05 21:23 | disposition home or self-care (01) ==
PROVIDERS: Emergency Provider Surgery; PCP Family Medicine; Visit Provider Surgery
DX: F03.911 Unspecified dementia, unspecified severity, with agitation (principal)
CPT/HCPCS: 99284